=== PATIENT | female | born 1940 | race Caucasian/White ===

== ENCOUNTER → 2019-01-19 09:52 | Outpatient (CLI) | payer MEDICARE, SELFPAY ==
[2019-01-19 10:51] LABS: Erythrocyte Sedimentation Rate 21 mm/hr (0-30)
[2019-01-19 10:59] LABS: Hematocrit 41.3 % (37-47); Hemoglobin 13.4 g/dl (12.0-15.0); Mean Corp Hgb Conc 32.4 g/gl (32-36); Mean Corpuscular Hgb 30.6 pg (27.0-32.0); Mean Corpuscular Volume 94.3 fL (81-99); Mean Platelet Vol. 10.7 fl (6.2-12.0); Platelet Count 210 K/mm3 (150-450); RBC Distribution Width CV 12.6 % (11.6-14.6); RBC Distribution Width SD 43.5 fl (35.1-43.9); Red Blood Count 4.38 M/mm3 (4.2-5.4)
[2019-01-19 11:00] LABS: Scan Indicated on CBC? Y/N NO
[2019-01-19 11:12] LABS: AST(SGOT) 16 U/L (15-37); Alanine Aminotransfer ALT/SGPT 15 U/L (13-56); Albumin, Serum 3.9 g/dL (3.2-5.0); Alkaline Phosphatase 103 U/L (45-117); Anion Gap 5 (5-15); BUN 22 mg/dL (7-18); Bilirubin, Direct 0.16 mg/dL (0.00-0.30); CPK Total, Creatine Kinase 82 U/L (26-192); CRP < 2.90 mg/L (0.0-3.0); Chloride 105 mmol/L (98-107); Globulin 3.7 g/dL (2.2-4.2); Potassium 3.7 mmol/L (3.5-5.1); Protein, Total 7.6 g/dL (6.4-8.2); Rheumatoid Factor < 10.0 IU/mL (<15); Sodium Level 139 mmol/L (136-145)
[2019-01-21 03:07] LABS: Cytoplasmic Ab (C-ANCA) <1:20 titer (Neg:<1:20)
[2019-01-21 11:21] LABS: CCP IgG Antibodies 2 units (0-19); Perinuclear Ab (P-ANCA) <1:20 titer (Neg:<1:20)
[2019-01-21 11:32] LABS: ANTINUCLEAR ANTIBODIES DIRECT Negative (Negative); Anti-dsDNA Ab <1 IU/mL (0-9)
== END ==
PROVIDERS: Family Provider Family Medicine; PCP Family Medicine; Referring Provider Internal Medicine Pulmonary Disease; Visit Provider Internal Medicine Pulmonary Disease
DX: J84.112 Idiopathic pulmonary fibrosis (principal); I10 Essential (primary) hypertension; R05 Cough
CPT/HCPCS: 36415; 80051; 80076; 82550; 84520; 85027; 85652; 86038; 86140; 86200; 86225; 86256; 86431

== ENCOUNTER → 2020-08-30 13:47 | Outpatient (CLI) | payer MEDICARE, SELFPAY ==
[2020-08-30 15:35] LABS: Hematocrit 41.9 % (37-47); Hemoglobin 13.4 g/dL (12.0-15.0); Mean Corpuscular Hgb 30.4 pg (27.0-32.0); Mean Platelet Vol. 10.8 fl (6.2-12.0); Platelet Count 216 K/mm3 (150-450); RBC Distribution Width CV 12.2 % (11.6-14.6); RBC Distribution Width SD 42.7 fl (35.1-43.9); Red Blood Count 4.41 M/mm3 (4.2-5.4); White Blood Count 7.6 K/mm3 (4.4-11.0)
[2020-08-30 16:07] LABS: AST(SGOT) 14 U/L (15-37); Alanine Aminotransfer ALT/SGPT 19 U/L (13-56); Albumin, Serum 3.7 g/dL (3.2-5.0); Alkaline Phosphatase 100 U/L (45-117); BUN 26 mg/dL (7-18); Bilirubin, Direct 0.12 mg/dL (0.00-0.30); Creatinine, Serum 1.12 mg/dL (0.55-1.02); EST Glomerular Filtration Rate 50 mL/min (>60); Est Glom Filt Rate - Afr Amer 60 mL/min (>60); Globulin 3.7 g/dL (2.2-4.2); Protein, Total 7.4 g/dL (6.4-8.2)
== END ==
PROVIDERS: PCP Family Medicine; Referring Provider Internal Medicine Pulmonary Disease; Visit Provider Internal Medicine Pulmonary Disease
DX: K74.00 Hepatic fibrosis, unspecified (principal)
CPT/HCPCS: 36415; 80076; 82565; 84520; 85027

== ENCOUNTER → 2020-09-26 15:41 | Outpatient (CLI) | payer MEDICARE, SELFPAY ==
--- NOTE | 2020-09-26 15:48 | RAD_ITS ---
STUDY: X-RAY - SOFT TISSUE NECK REASON FOR EXAM: Female, 80 years old. COUGH/GERD/STRIDOR TECHNIQUE: 2 view(s) of the neck were obtained. COMPARISON: None. FINDINGS: Normal visualized nasopharynx and hypopharynx. Probable prominent tonsils in the posterior oropharynx. Normal epiglottis. Normal visualized subglottic tracheal air column. Normal prevertebral soft tissue structures. Moderate degenerative cervical vertebral changes. The soft tissue structures are unremarkable. RAD/Neck for Soft Tissue IMPRESSION: Probable prominent tonsils in the posterior oropharynx. The degenerative cervical vertebral changes. Electronically Signed: Feroz Stringer DO at 16:30 EST Tel [phone], Service support ,
== END ==
PROVIDERS: PCP Family Medicine; Referring Provider Internal Medicine Pulmonary Disease; Visit Provider Internal Medicine Pulmonary Disease
DX: R05 Cough (principal); K21.9 Gastro-esophageal reflux disease without esophagitis; R06.1 Stridor
CPT/HCPCS: 70360

== ENCOUNTER 2022-05-14 20:48 | Emergency (ER) | payer MEDICARE, SELFPAY ==
[2022-05-14 20:49] VITALS: BP 105/67; PULSE 93; RESP 16; TEMP 36.4; O2SAT 94; BMI 22.4
--- NOTE | 2022-05-14 21:15 | EDS_ITS ---
HPI History of Present Illness Chief Complaint: Other, Pain/Inj Detail of Chief Complaint: Right neck and shoulder pain Informant: patient Onset/Context/Timing Onset: Today Context: Gradual Onset Current Severity: Moderate Maximum Severity: Severe Narrative Narrative: Patient presents with right neck and shoulder pain. She states she woke up this morning with stiffness in the right side of her neck and thought she had slept wrong. She took some pain relievers. Pain progressed throughout the day. She tried to call her chiropractor who is out of town. She called her primary care physician when she told them her pain was 10 out of 10 and they referred her to the emergency room. She took some more pain relievers this evening because of continued pain presented to the emergency room. She reports sensitivity to the skin if anything touches over her right upper back, shoulder, neck, behind her right ear. PFSH COUNT INCLUDES THE [facility] Medical History Hypertension Home Medications hydrocodone-acetaminophen 5-325mg 5mg-325mg 1 tab PO Q6H PRN pain 3 days #10 tabs 05/14/22 [Rx Last Taken Unknown] lidocaine 5 % topical patch (Lidoderm) 1 patch topical DAILY #15 ea 05/14/22 [Rx Last Taken Unknown] multivitamin 1 tab PO DAILY 05/14/22 [History Last Taken Unknown] Allergy/AdvReac Type Severity Reaction Status Date / Time No Known Allergies Allergy Verified 05/14/22 20:52 Social History Smoking Status: Never smoker ROS ROS ED Constitutional Constitutional ED: Denies chills or fever(s) Eyes Eyes: Denies change in vision or discharge from eye(s) ENT ENT ED: Denies discharge from eye(s), rhinorrhea or sore throat Cardiovascular Cardiovascular: Denies chest pain or palpitations Respiratory/Chest Respiratory/Chest: Denies cough or dyspnea Gastrointestinal Gastrointestinal: Denies abdominal pain, nausea or vomiting Genitourinary Genitourinary ED: Denies dysuria Musculoskeletal Musculoskeletal: Reports extremity pain and neck pain; Denies back pain Integumentary Denies Abrasions or rash Neurologic Neurologic: Denies weakness Psychiatric Psychiatric: Denies anxiety or depression Allergic/Immunologic Allergic/Immunologic ED: Denies lip swelling or urticaria EXAM Physical Exam Const Vital Signs: 05/14/22 20:49 05/14/22 20:52 Temperature 97.6 F L Temperature Source Temporal Pulse Rate 93 Respiratory Rate 16 Respiratory Effort Normal Non-Labored Respiratory Pattern Normal Blood Pressure 105/67 Blood Pressure Mean 79 Pulse Ox 94 Oxygen Delivery Method Room Air Positive well nourished and well developed General Appearance ED: well developed HEENT Reports normocephalic and head/scalp atraumatic Eyes PERRL and EOMs intact bilaterally Neck supple Chest Wall inspection of chest normal and palpation of chest normal Resp normal respiratory effort and clear to auscultation bilaterally Cardio regular rate and regular rhythm GI normal to inspection, nondistended, normoactive bowel sounds Palpation: soft Back/Spine Back/Spine Narrative: Reproducible tenderness with palpation over the right upper thoracic paraspinal muscles and over the top of the right shoulder. She has pain in the right cervical paraspinal muscles as well. There are no overlying skin changes or rash noted at this time. Extremity normal to inspection Neuro oriented x3 and no sensory deficits noted Sensorium / Orientation: alert Motor Exam: strength 5/5 throughout Psych mental status grossly normal Skin no rashes or lesions noted MDM MDM MDM Narrative Medical decision making narrative: Patient was given a tab of [place] here and Lidoderm patches placed. On repeat evaluation she does feel improved. Prescriptions for the same will be written. Return instructions given. Of note, I did advise the patient to monitor for any skin changes or rash. She does seem to have significant skin sensitivity and I wonder this could be an early sign of shingles. Discharge Plan Triage Chief Complaint: Other, Pain/Inj ED Provider: Lucero Edwards Dx/Rx/DC Orders Clinical Impression: Neck strain, Back strain Instructions: ED Back Pain (Acute or Chronic) Prescriptions: New hydrocodone-acetaminophen 5-325 mg tablet 1 tab PO Q6H PRN (Reason: pain) 3 Days Qty: 10 0RF lidocaine [Lidoderm] 5 % adhesive patch,medicated 1 patch topical DAILY Qty: 15 0RF Rx Instructions: leave on most painful area for up to 12 hrs No Action multivitamin Tablet 1 tab PO DAILY Primary Care Provider: Rusty Franco Referrals: Rusty Franco MD [Primary Care Provider] - 1 Week if not improving Disposition Disposition: Home, Self Care
[2022-05-14] MEDS: HYDROcodone Bitartrate/Apap 5/325 Tablet PO (21:19)
[2022-05-14] MEDS: Lidocaine 5% Patch 1 PATCH TOPICAL (21:20)
== END 2022-05-14 22:13 | disposition home or self-care (01) ==
PROVIDERS: Emergency Provider Emergency Medicine; PCP Family Medicine; Visit Provider Emergency Medicine
DX: S16.1XXA Strain of muscle, fascia and tendon at neck level, initial encounter (principal); S29.012A Strain of muscle and tendon of back wall of thorax, initial encounter; X58.XXXA Exposure to other specified factors, initial encounter
CPT/HCPCS: 99283

== ENCOUNTER 2023-01-25 16:11 | Emergency (ER) | payer MEDICARE, SELFPAY ==
[2023-01-25 16:12] VITALS: BP 123/91; PULSE 86; RESP 16; TEMP 36.6; O2SAT 93
--- NOTE | 2023-01-25 16:34 | EX.ED.DYSGE1 ---
HPI History of Present Illness Chief Complaint: General Illness Detail of Chief Complaint: Fatigue, productive cough, mid upper central back pain with coughing and mo Informant: patient and family Onset/Context/Timing Onset: Weeks (Bad for the past 1.5 weeks) Context: Gradual Onset Timing: Continuous and Waxes and wanes Quality: Dyspnea, productive cough, back pain and fatigue Location: Respiratory Current Severity: Mild Maximum Severity: Moderate Worsened by: Nothing specific Relieved by: Nothing Associated Symptoms Associated Symptoms: Nothing Narrative Narrative: PresentPatient is an 83-year-old woman with history of pulmonary fibrosis because of shortness of breath, dyspnea on exertion, fatigue and productive cough of colored sputum for the past 1.5 weeks. She is uncertain whether this is due to her increased activity, being outdoors with the air quality warnings, or the humidity. Patient does not have an air conditioned home. She has never smoked. She denies fever or chills. She does report rhinorrhea and postnasal drainage. She also reports productive cough. She denies history of PE or DVT. She denies leg pain, swelling discoloration. She denies GI symptoms. Prior similar symptoms: No Recent Illness/Hospitalization: No PFSH [facility] Medical History Hypertension Home Medications hydrocodone-acetaminophen 5-325mg 5mg-325mg 1 tab PO Q6H PRN pain 3 days #10 tabs 05/14/22 [Rx Last Taken Unknown] lidocaine 5 % topical patch (Lidoderm) 1 patch topical DAILY #15 ea 05/14/22 [Rx Last Taken Unknown] multivitamin 1 tab PO DAILY 05/14/22 [History Last Taken Unknown] Allergy/AdvReac Type Severity Reaction Status Date / Time No Known Allergies Allergy Verified 01/25/23 16:14 Social History (Updated 01/25/23 @ 17:[address] Alcides Diego MD) household members: none Smoking Status: Never smoker substance use type: does not use ROS ROS ED Constitutional Constitutional ED: Denies chills, fever(s), subjective, sweats or weight loss Eyes Eyes: Denies blurry vision, change in vision or diplopia ENT ENT ED: Reports rhinorrhea; Denies ear pain or sore throat Cardiovascular Cardiovascular: Denies chest pain, orthopnea, palpitations, paroxysmal nocturnal dyspnea or racing heartbeat Respiratory/Chest Respiratory/Chest: Reports cough, dyspnea, dyspnea on exertion and sputum; Denies orthopnea or paroxysmal nocturnal dyspnea Gastrointestinal Gastrointestinal: Denies abdominal pain, nausea or vomiting Musculoskeletal Musculoskeletal: Reports back pain and other Details: Back pain is near her kyphotic curve. ; Denies arthralgias, myalgias or neck pain Integumentary Denies rash Neurologic Neurologic: Denies headache(s), paresthesias or weakness Hematologic/Lymphatic Hematologic/Lymphatic: Reports systems reviewed and no addt'l complaints, except as documented EXAM Physical Exam Const Vital Signs: 01/25/23 16:12 01/25/23 16:49 Temperature 97.8 F Temperature Source Temporal Pulse Rate 86 Respiratory Rate 16 Respiratory Effort Normal Non-Labored Respiratory Pattern Normal Blood Pressure 123/91 H Blood Pressure Mean 101 Pulse Ox 93 Oxygen Delivery Method Room Air Positive well developed and cachectic Constitutional Narrative: Patient's had an 80 pound weight loss over the past year. This is unintentional weight loss. General Appearance ED: well developed, cachectic and NAD; Negative for cyanotic, diaphoretic or pallor Nutritional Appearance: cachectic HEENT Reports dry mucous membranes HEENT Narrative: Posterior pharynx without erythema or exudate. Uvula midline. No deviation of tongue with protrusion. Nares patent. Ears normal. Mouth ED: Yes dry mucous membranes Mouth: dry mucous membranes Eyes PERRL and EOMs intact bilaterally General Eye ED: Negative for pale conjunctiva or scleral icterus Neck no lymphadenopathy, supple and no JVD Neck Narrative: Trachea is midline. There is no inspiratory stridor. Chest Wall inspection of chest normal and palpation of chest normal Resp normal respiratory effort and No clear to auscultation bilaterally Resp Narrative: End inspiratory rales bilaterally right slightly greater than left. Auscultation: diminished lung sounds bilateral (Diffuse) Cardio regular rate, regular rhythm, S1 normal heart sound, S2 normal heart sound and no murmurs GI normal to inspection, nondistended, normoactive bowel sounds, non-tender and non-distended; Negative for hepatosplenomegaly Palpation: soft Back/Spine no CVA tenderness Thoracic Spine / Upper Back: thoracic spinal tenderness T6 (Patient has significant kyphosis which has progressed over the past decade.) swelling, warmth, erythema, ecchymosis and other Extremity normal to inspection Extremity Narrative: There is no asymmetry, swelling, discoloration, leg vein distention, palpable cords or tenderness along the distribution of the deep venous system. Neuro oriented x3, CN's II-XII intact bilaterally and no sensory deficits noted Sensorium / Orientation: alert Psych mental status grossly normal Skin no rashes or lesions noted, no wounds and skin turgor normal General Skin Exam: Negative for jaundice or pallor MDM MDM MDM Narrative Medical decision making narrative: Patient presents with respiratory symptoms. This may represent bronchitis versus pneumonia versus exacerbation of patient's pulmonary fibrosis due to the humidity and air conditioning/quality. We will obtain chest x-ray and blood work. She also has point tenderness over T5-T6 area and may represent a compression fracture. History & Record Review Discussion w/independent historian: Patient and Family Additional record(s) reviewed:: Prior outpatient record and Prior labs Lab Data Attestation: I reviewed the patient's lab results. Lab results narrative: White count is normal. Comprehensive metabolic panel is normal. Suspect patient's unintentional weight loss is due to her chronic pulmonary fibrosis. Labs: Laboratory Results - last 24 hr 01/25/23 16:44 WBC 7.3 RBC 4.38 Hgb 13.3 Hct 41.6 MCV 95.0 MCH 30.4 MCHC 32.0 RDW Std Deviation 42.5 RDW Coeff of Margarita 12.1 Plt Count 280 MPV 10.0 Immature Gran % (Auto) 0.800 Neut % (Auto) 73.4 H Lymph % (Auto) 12.5 L [place] % (Auto) 7.4 Eos % (Auto) 5.5 H Baso % (Auto) 0.4 Absolute Neuts (auto) 5.4 Absolute Lymphs (auto) 0.91 Nucleated RBC % 0 Sodium 139 Potassium 3.8 Chloride 107 Carbon Dioxide 27.0 Anion Gap 5 BUN 12 Creatinine 0.85 Est GFR (MDRD) Af Amer 83 Est GFR (MDRD) Non-Af 69 BUN/Creatinine Ratio 14.2 Glucose 106 Calcium 9.0 Total Bilirubin 0.50 AST 18 ALT 16 Alkaline Phosphatase 101 Total Protein 7.3 Albumin 3.2 Globulin 4.1 Albumin/Globulin Ratio 0.8 L Radiography Chest X-Ray - ED: 2 View and Read by ED Physician (There is significant chronic changes consistent with pulmonary fibrosis. This has progressed since prior film of 2009. There may be a compression fracture that has progressed since 2010 T5-T6 area. Radiologist noted an 8.8 mm nodule within the right midlung field. Since CAT scan is recommended w) Diagnostic Testing: Clinical Impression(s) from Imaging Studies Chest X-Ray 01/25/23 16:54 IMPRESSION: Pulmonary fibrosis, cannot exclude associated superimposed edema and/or infectious processes. 8.8 mm nodule within the right midlung, recommend chest CT for further characterization. Electronically Signed: Lily Patten MD at 17:13 EDT , Chest CT 01/25/23 17:23 IMPRESSION: 1. No definite acute abnormality. 2. Chronic pulmonary disease with severe fibrotic changes. Electronically Signed: Rocael Mcgovern MD at 18:27 EDT , No nodule noted on CT. Patient has severe fibrotic changes consistent with pulmonary fibrosis. Patient was informed there was no nodule noted. Treatment and Re-Evaluation :: Symptomatic treatment and staying indoors as much as possible. Discharge Plan Triage Chief Complaint: General Illness ED Provider: Alcides Diego Dx/Rx/DC Orders Clinical Impression: Upper respiratory infection with cough and congestion, Acute dyspnea, Pulmonary fibrosis Instructions: ED URI, Viral, No Abx (Adult) Prescriptions: No Action multivitamin Tablet 1 tab PO DAILY hydrocodone-acetaminophen 5-325 mg tablet 1 tab PO Q6H PRN (Reason: pain) 3 Days Qty: 10 0RF lidocaine [Lidoderm] 5 % adhesive patch,medicated 1 patch topical DAILY Qty: 15 0RF Rx Instructions: leave on most painful area for up to 12 hrs Primary Care Provider: Rusty Franco Referrals: Rusty Franco MD [Primary Care Provider] - As Needed Disposition Disposition: Home, Self Care
--- NOTE | 2023-01-25 16:54 | RAD_ITS ---
INDICATION: Productive cough, history of pulmonary fibrosis EXAMINATION/TECHNIQUE: X-RAY - XR Chest 2 Views COMPARISON: No relevant prior comparison study available FINDINGS: LINES/DEVICES: None. LUNGS: There are bilateral chronic appearing interstitial markings consistent with pulmonary fibrosis. Within the right midlung there is a 8.8 mm pulmonary nodule. MEDIASTINUM AND CARDIOVASCULAR STRUCTURES: Cardiac silhouette not enlarged. Central airways and mediastinal contour are unremarkable. BONES AND SOFT TISSUES: The bones are diffusely demineralized. RAD/Chest PA and Lateral IMPRESSION: Pulmonary fibrosis, cannot exclude associated superimposed edema and/or infectious processes. 8.8 mm nodule within the right midlung, recommend chest CT for further characterization. Electronically Signed: Lily Patten MD at 17:13 EDT ,
[2023-01-25 16:58] LABS: Absolute Lymphocyte Count 0.91 X10^3/uL (0.83-4.51); Absolute Neutrophil Count 5.4 X10^3/uL (2.0-7.7); Basophil# 0.03 X10^3/uL; Basophil% 0.4 % (0-1); Eosinophils% 5.5 % (0-5); Hematocrit 41.6 % (37-47); Hemoglobin 13.3 g/dL (12.0-15.0); Lymphocyte # 0.91 X10^3/ul (0.83-4.51); Lymphocyte % 12.5 % (19-41); Mean Corpuscular Hgb 30.4 pg (27.0-32.0); Monocyte# 0.54 X10^3/uL; Monocyte% 7.4 % (0-10); NRBC Flagged by Analyzer 0 % (0-5); Neutrophil # 5.35 X10^3/uL (2.7-7.7); Neutrophil % 73.4 % (47-70); Platelet Count 280 K/mm3 (150-450); RBC Distribution Width CV 12.1 % (11.6-14.6); RBC Distribution Width SD 42.5 fl (35.1-43.9); Red Blood Count 4.38 M/mm3 (4.2-5.4); White Blood Count 7.3 K/mm3 (4.4-11.0)
[2023-01-25 17:14] LABS: ALB/GLOB Ratio 0.8 RATIO (0.9-2.4); AST(SGOT) 18 U/L (15-37); Alanine Aminotransfer ALT/SGPT 16 U/L (13-56); Albumin, Serum 3.2 g/dL (3.2-5.0); Alkaline Phosphatase 101 U/L (45-117); Anion Gap 5 (5-15); BUN 12 mg/dL (7-18); BUN/Creat Ratio 14.2 RATIO (10-20); Chloride 107 mmol/L (98-107); Creatinine, Serum 0.85 mg/dL (0.55-1.02); EST Glomerular Filtration Rate 69 mL/min (>60); Est Glom Filt Rate - Afr Amer 83 mL/min (>60); Globulin 4.1 g/dL (2.2-4.2); Glucose 106 mg/dL (74-106); Potassium 3.8 mmol/L (3.5-5.1); Protein, Total 7.3 g/dL (6.4-8.2); Sodium Level 139 mmol/L (136-145)
--- NOTE | 2023-01-25 17:23 | CT_ITS ---
EXAM: CT CHEST WITH INTRAVENOUS CONTRAST CLINICAL INDICATION: 9 mm nodule right midlung field and 80 pound unintentional weightloss, hx pulmonary fibrosis TECHNIQUE: Helically acquired images were obtained of the chest with intravenous contrast. This CT exam was performed using one or more of the following dose reduction techniques: automated exposure control, adjustment of the mA and/or kV according to patient size, and/or use of iterative reconstruction technique. CONTRAST: IV 100mL Isovue-300 RADIATION DOSE: CTDIvol = 10.8 mGy, DLP = 236.87 mGy-cm COMPARISON: No relevant prior studies available. FINDINGS: LUNGS AND PLEURAL SPACES: Incomplete expansion of the lungs. Widespread severe diffuse pulmonary fibrosis, with focal areas of scarring along the periphery of both lungs. There is honeycombing in the lung bases. No mass. No pneumothorax. No definite inflammatory infiltrates. No effusions. HEART: Mild cardiomegaly. No pericardial effusion. MEDIASTINUM: Unremarkable. No mediastinal or hilar adenopathy. Esophagus is unremarkable. No hiatal hernia. THYROID: Unremarkable. No thyroid lesions. BONES/JOINTS: Diffuse demineralization. Exaggerated kyphosis. Partial compression fracture of L3. Degenerative changes of the cervical spine. VASCULATURE: Unremarkable. Thoracic aorta is non-dilated. No thoracic aortic dissection. No obvious central pulmonary embolism although this study was not performed with the pulmonary embolism protocol. OTHER FINDINGS: No definite focal nodules. CT/Chest WITH Contrast IMPRESSION: 1. No definite acute abnormality. 2. Chronic pulmonary disease with severe fibrotic changes. Electronically Signed: Rocael Mcgovern MD at 18:27 EDT ,
[2023-01-25 18:15] VITALS: BMI 19.5
[2023-01-25 19:53] VITALS: PULSE 87; RESP 18; O2SAT 96
== END 2023-01-25 19:55 | disposition home or self-care (01) ==
PROVIDERS: Emergency Provider Emergency Medicine; PCP Family Medicine; Visit Provider Emergency Medicine
DX: J06.9 Acute upper respiratory infection, unspecified (principal); J84.10 Pulmonary fibrosis, unspecified; R05.9 Cough, unspecified; R09.81 Nasal congestion; R06.00 Dyspnea, unspecified; R63.4 Abnormal weight loss
CPT/HCPCS: 71046; 71260; 80053; 85025; 99282; Q9967; A4216

== ENCOUNTER 2024-10-13 18:32 | Emergency (ER) | payer MEDICARE, SELFPAY ==
[2024-10-13 18:34] VITALS: BP 134/72; PULSE 86; RESP 16; TEMP 36.9; O2SAT 97
[2024-10-13 19:24] LABS: Pathologist Comment/Body Fluid May follow
[2024-10-13 19:25] VITALS: BMI 25.1
--- NOTE | 2024-10-13 19:33 | RAD_ITS ---
PROCEDURE: WRIST MIN 3 VIEWS REASON FOR EXAM: INJURY/PAIN TECHNIQUE: 3 views of the right wrist COMPARISON: None FINDINGS: No visible fracture. No suspicious bone lesion. Severe degenerative changes of the carpal joints. Soft tissues are unremarkable. No radiopaque foreign body is demonstrated. RAD/Wrist min 3 Views IMPRESSION: DEGENERATIVE OSTEOARTHROSIS. NO ACUTE FINDINGS. Reading Location: [facility]
[2024-10-13 19:37] VITALS: BP 174/78; PULSE 82; RESP 18; TEMP 37.2; O2SAT 99
[2024-10-13 19:39] LABS: Absolute Lymphocyte Count 0.77 X10^3/uL (0.83-4.51); Absolute Neutrophil Count 10.6 X10^3/uL (2.0-7.7); Basophil# 0.02 X10^3/uL; Basophil% 0.2 % (0-1); Eosinophil# 0.27 X10^3/uL; Eosinophils% 2.1 % (0-5); Hematocrit 36.8 % (37-47); Hemoglobin 11.6 g/dL (12.0-15.0); Lymphocyte # 0.77 X10^3/ul (0.83-4.51); Mean Corp Hgb Conc 31.5 g/dL (32-36); Mean Corpuscular Hgb 30.1 pg (27.0-32.0); Mean Corpuscular Volume 95.6 fL (81-99); Mean Platelet Vol. 10.6 fl (6.2-12.0); Monocyte% 7.9 % (0-10); NRBC Flagged by Analyzer 0 % (0-5); Neutrophil % 83.3 % (47-70); Platelet Count 156 K/mm3 (150-450); RBC Distribution Width CV 12.2 % (11.6-14.6); RBC Distribution Width SD 42.7 fl (35.1-43.9); Red Blood Count 3.85 M/mm3 (4.2-5.4); White Blood Count 12.7 K/mm3 (4.4-11.0)
[2024-10-13 19:42] LABS: Color/Body Fluid PINK; Source- Body Fluid OTHER
[2024-10-13 19:43] LABS: Appearance/Body Fluid CLOUDY
[2024-10-13 19:59] LABS: Body Fluid QC Type(s) BF2Q
[2024-10-13 20:00] VITALS: BP 171/86; PULSE 97; RESP 18; TEMP 37.3; O2SAT 95
[2024-10-13] MEDS: Ampicillin/Sulbactam 3 GM in 0.9% Normal Saline (100mL MB+) 100 ML IV (20:05)
[2024-10-13 20:10] LABS: Anion Gap 9 (5-15); BUN 14 mg/dL (4-19); BUN/Creat Ratio 18.6 RATIO (10-20); Calcium,Total 9.4 mg/dL (7.6-11.0); Carbon Dioxide 33.2 mmol/L (21.0-32.0); Chloride 98 mmol/L (98-108); Creatinine, Serum 0.73 mg/dL (0.70-1.20); EST Glomerular Filtration Rate 82 (>60); Estimated Creatinine Clearance 43.33 ml/min (50-250); Glucose 191 mg/dL (70-99); Potassium 4.2 mmol/L (3.3-5.1); Sodium Level 140 mmol/L (133-145)
[2024-10-13] MEDS: Lidocaine 1% (20 ml mdv) 20 ML Vial INFILT (20:50)
--- NOTE | 2024-10-13 20:59 | EX.ED.GENINJ ---
HPI History of Present Illness Chief Complaint: Bite Detail of Chief Complaint: Infected cat bite dorsum right hand Informant: patient Onset/Context/Timing Onset: Days (October 11) Location of pain/injuries: Right hand Quality of Pain: Dull and Aching Location: Right wrist Current Severity: Mild Maximum Severity: Severe Worsened by: Palpation and movement Relieved by: Nothing Associated Symptoms Associated Symptoms: Negative for Parasthesias, Weakness, Loss of function or Inability to ambulate Narrative Narrative: Patient is an 84-year-old woman. She was petting a cat at [employer]. The cat bit her. This occurred on Thursday. She was prescribed Augmentin today. She is taken 2 doses. She presents because of pain, swelling and slight redness. She states when she makes a fist the pain is worse. She denies allergies to antibiotics. She has history of pulmonary fibrosis. She denies fever, chills night sweats. She denies nausea or vomiting. She denies elbow or shoulder pain. She has rheumatoid arthritis. Review of her meds indicates she is on no immunosuppressive medication. Recent Illness/Hospitalization: No [facility] Medical History Hypertension Home Medications ?Medication ?Instructions ?Recorded ?Last Taken ?Type acetaminophen 500 mg tablet 1,000 mg PO Q4H PRN pain 10/13/24 Unknown History amoxicillin 875 mg-potassium 1 tab PO BID 10/13/24 Unknown History clavulanate 125 mg tablet benzonatate 100 mg capsule 100 mg PO Q8H PRN cough 10/13/24 Unknown History bisacodyl 10 mg rectal suppository 10 mg [place] DAILY PRN constipation 10/13/24 Unknown History (Gentle Laxative (bisacodyl)) dextromethorphan-guaifenesin 5 20 ml PO Q4H PRN cough 10/13/24 Unknown History mg-100 mg/5 mL oral liquid diazepam 2 mg tablet 2 mg PO TID PRN agitation 10/13/24 Unknown History dimethicone 5 % topical cream 1 applic topical Q8H PRN skin 10/13/24 Unknown History (DermacinRx Dimopair) irritation ibuprofen 400 mg tablet (IBU) 400 mg PO TID PRN pain 10/13/24 Unknown History ipratropium 0.5 mg-albuterol 3 mg 3 ml inhalation Q4H PRN dyspnea 10/13/24 Unknown History (2.5 mg base)/3 mL nebulization soln lorazepam 0.5 mg tablet 0.25 mg PO Q4H PRN anxiety 10/13/24 Unknown History miconazole nitrate 2 % topical 1 applic topical TID PRN skin 10/13/24 Unknown History powder (Desenex) irritation morphine concentrate 100 mg/5 mL 5 mg PO Q3H PRN pain 10/13/24 Unknown History (20 mg/mL) oral solution mebjagsyxvdg-tpafgqjq-bnlklp 1 tab PO DAILY 10/13/24 Unknown History tablet (Multivitamin 50 Plus tablet) nitroglycerin 0.4 mg sublingual 0.4 mg sublingual PRN PRN chest 10/13/24 Unknown History tablet pain omeprazole 20 mg capsule,delayed 20 mg PO DAILY 10/13/24 Unknown History release ondansetron HCl 4 mg tablet 4 mg PO Q6H PRN nausea and vomiting 10/13/24 Unknown History saliva substitute combo no.9 15 ml mucous membrane Q2H PRN dry 10/13/24 Unknown History (Biotene Dry Mouth Oral Rinse mouth mouthwash) sennosides 8.6 mg-docusate sodium 1 tab PO BID PRN constipation 10/13/24 Unknown History 50 mg tablet (Stool Softener-Laxative) Allergy/AdvReac Type Severity Reaction Status Date / Time No Known Allergies Allergy Verified 10/13/24 18:37 Family History no significant family his Social History household members: none Smoking Status: Never smoker substance use type: does not use ROS ROS ED Constitutional Constitutional ED: Denies chills, fever(s), subjective, sweats or weight loss Eyes Eyes: Denies blurry vision or change in vision ENT ENT ED: Denies rhinorrhea or sore throat Musculoskeletal Musculoskeletal: Reports other Details: Right hand and wrist pain Integumentary Reports rash and other Details: And swelling of the right hand dorsal surface only. Hematologic/Lymphatic Hematologic/Lymphatic: Denies easy bleeding or easy bruising EXAM Physical Exam Const Vital Signs: 10/13/24 18:34 10/13/24 19:37 10/13/24 20:00 Temperature 98.4 F 98.9 F 99.2 F H Temperature Source Temporal Oral Oral Pulse Rate 86 82 97 Respiratory Rate 16 18 18 Blood Pressure 134/72 H 174/78 H 171/86 H Blood Pressure Mean 92 110 114 Pulse Ox 97 99 95 Oxygen Delivery Method Nasal Cannula Nasal Cannula Nasal Cannula Oxygen Flow Rate (L/min) 3 3 Positive well nourished and well developed General Appearance ED: well developed and NAD HEENT HEENT Narrative: Head is normocephalic. There is no acute abnormality. atraumatic Eyes PERRL and EOMs intact bilaterally Resp normal respiratory effort and clear to auscultation bilaterally Cardio regular rhythm, S1 normal heart sound, S2 normal heart sound and no murmurs Rate: regular rate Extremity Extremity Narrative: There is swelling of the dorsum of the right hand. There is slight erythema. There is no true warmth or induration. There is fluctuance over the right wrist dorsal surface. Passive flexion extension of the thumb, index finger, long finger, ring finger and little finger does not elicit pain. She does have pain with movement of the wrist. Median, radial and ulnar function intact. There is no lymphangitis. There is no epitrochlear or axillary lymphadenopathy. Neuro oriented x3 and CN's II-XII intact bilaterally Sensorium / Orientation: alert Psych mental status grossly normal and thought process normal Skin Skin Narrative: Described under the extremity portion of the EMR PROC Procedures Other Procedures Procedure(s): Hand was prepped draped sterile manner. Area was anesthetized with 1% lidocaine with local infiltration. Total of 2.5 cc was infiltrated. After 1 minute incision was made. Incision length was 1.5 cm. There was additional pleural fluid there was noted. The cavity was explored. The extensor tendons are not visible. 1/4 inch iodoform gauze was placed as a wick. Patient received a dose of Unasyn in the emergency department. She will need Augmentin for additional 6 days. MDM MDM MDM Narrative Medical decision making narrative: 2 puncture wounds due to cat bite dorsum of the right hand. There is no tenderness over the bite new. There is no fluctuance. Unable to express any purulent material. There is fluctuance over the wrist. Needle aspirate was undertaken. Approximately 1 to 1.5 cc of a reddish-white thick fluid was aspirated. It was sent for Gram stain, culture and cell count. X-ray was obtained to see if there are any bony lesions or fractured teeth that were retained. Blood work was obtained as well. Lab Data Attestation: I reviewed the patient's lab results. Lab results narrative: White count is elevated 12.7 with slight shift no bandemia. H&H 11.6 and 36.8 with normal indices. Electrolyte panel is remarkable for an estimated GFR of 82. Labs: Laboratory Results - last 24 hr 10/13/24 10/13/24 19:14 19:29 WBC 12.7 H RBC 3.85 L Hgb 11.6 L Hct 36.8 L MCV 95.6 MCH 30.1 MCHC 31.5 L RDW Std Deviation 42.7 RDW Coeff of Margarita 12.2 Plt Count 156 MPV 10.6 Immature Gran % (Auto) 0.500 Neut % (Auto) 83.3 H Lymph % (Auto) 6.0 L [place] % (Auto) 7.9 Eos % (Auto) 2.1 Baso % (Auto) 0.2 Absolute Neuts (auto) 10.6 H Absolute Lymphs (auto) 0.77 L Nucleated RBC % 0 Sodium 140 Potassium 4.2 Chloride 98 Carbon Dioxide 33.2 H Anion Gap 9 BUN 14 Creatinine 0.73 Estim Creat Clear Calc 43.33 L Est GFR (MDRD) Non-Af 82 BUN/Creatinine Ratio 18.6 Glucose 191 H Calcium 9.4 Fluid WBC TNP Fluid RBC TNP Fluid Tot Cell Count TNP Radiography Chest X-Ray - ED: Read by ED Physician (Three-view x-ray of the wrist reveals significant osteoarthritis of multiple joints in her wrist and hand. There is no subcutaneous air. There is no lytic lesions. There is no periosteal elevation.) Diagnostic Testing: Clinical Impression(s) from Imaging Studies Wrist X-Ray 10/13/24 19:33 IMPRESSION: DEGENERATIVE OSTEOARTHROSIS. NO ACUTE FINDINGS. [facility] Treatment and Re-Evaluation Narrative: Patient was consented for I&D. Patient in my opinion is appropriate for outpatient therapy. She did not get better because she is only had 2 doses and she had an abscess which does not improve with antibiotics. Discharge Plan Triage Chief Complaint: Bite ED Provider: Alcides Diego Dx/Rx/DC Orders Clinical Impression: Cat bite of right hand with infection, Cutaneous abscess of right wrist, Rheumatoid arthritis Instructions: ED Abscess Incision And Drainage, ED Cat Bite Prescriptions: No Action amoxicillin-pot clavulanate 875-125 mg tablet 1 tab PO BID Patient Comments: START DATE 3190831 END DATE [id number] lorazepam 0.5 mg tablet 0.25 mg PO Q4H PRN (Reason: anxiety) benzonatate 100 mg capsule 100 mg PO Q8H PRN (Reason: cough) diazepam 2 mg tablet 2 mg PO TID PRN (Reason: agitation) ipratropium-albuterol 0.5 mg-3 mg(2.5 mg base)/3 mL solution for nebulization 3 ml inhalation Q4H PRN (Reason: dyspnea) nitroglycerin 0.4 mg tablet, sublingual 0.4 mg sublingual PRN PRN (Reason: chest pain) sennosides-docusate sodium [Stool Softener-Laxative] 8.6-50 mg tablet 1 tab PO BID PRN (Reason: constipation) omeprazole 20 mg capsule,delayed release(DR/EC) 20 mg PO DAILY Biotene Dry Mouth Oral Rinse Mouthwash 15 ml mucous membrane Q2H PRN (Reason: dry mouth) Rx Instructions: swish for 15-30 secs , then spit out; do not swallow miconazole nitrate [Desenex] 2 % powder 1 applic topical TID PRN (Reason: skin irritation) DermacinRx Dimopair 5 % cream 1 applic topical Q8H PRN (Reason: skin irritation) bisacodyl [Gentle Laxative (bisacodyl)] 10 mg suppository 10 mg [place] DAILY PRN (Reason: constipation) Multivitamin 50 Plus Tablet 1 tab PO DAILY dextromethorphan-guaifenesin 5-100 mg/5 mL liquid 20 ml PO Q4H PRN (Reason: cough) ibuprofen [IBU] 400 mg tablet 400 mg PO TID PRN (Reason: pain) morphine concentrate 100 mg/5 mL (20 mg/mL) solution 5 mg PO Q3H PRN (Reason: pain) acetaminophen 500 mg tablet 1,000 mg PO Q4H PRN (Reason: pain) ondansetron HCl 4 mg tablet 4 mg PO Q6H PRN (Reason: nausea and vomiting) Primary Care Provider: Yen Cam Referrals: Yen Cam, SHELL REPRINT OPERATOR-C [Primary Care Provider] - 2 Days for wound check Activity Restrictions/Additional Instructions: 1. Delia should take Augmentin 875 mg twice daily for 6 additional days. 2. Wick should be removed in 2 days and wound evaluate at that time. Print Language: Kazakh Disposition Disposition: Home, Self Care
[2024-10-13 21:00] VITALS: BP 151/93; PULSE 84; RESP 18; TEMP 37.3; O2SAT 96; O2SAT 98
[2024-10-13 22:10] LABS: Macrophages 21 %; Monocytes 1 %; Neutrophil (Segs) 78 %
== END 2024-10-13 21:48 | disposition home or self-care (01) ==
PROVIDERS: Emergency Provider Emergency Medicine; PCP Nurse Practitioner Primary Care; Visit Provider Emergency Medicine
DX: S61.451A Open bite of right hand, initial encounter (principal); M06.9 Rheumatoid arthritis, unspecified; L02.413 Cutaneous abscess of right upper limb; W55.01XA Bitten by cat, initial encounter; Y92.099 Unspecified place in other non-institutional residence as the place of occurrence of the external cause; I10 Essential (primary) hypertension
CPT/HCPCS: 20605; 73110; 80048; 85025; 87070; 87075; 87077; 87186; 87205; 96365; 99283; A4216; J0295

== ENCOUNTER 2025-04-08 19:11 | Emergency (ER) | payer MEDICARE, SELFPAY ==
[2025-04-08] VITALS (12 sets, daily range): BP systolic 123–175; BP diastolic 80–122; PULSE 66–99; RESP 14–18; TEMP 36.7–37.2; O2SAT 92–100; BMI 26.2
--- NOTE | 2025-04-08 19:15 | EX.ED.DYSGE1 ---
HPI History of Present Illness Chief Complaint: Abd [facility] Medical History (Updated 04/08/25 @ 21:[address] Adi Meng, DO) Pulmonary fibrosis Hypertension Home Medications ?Medication ?Instructions ?Recorded ?Last Taken ?Type acetaminophen 500 mg tablet 1,000 mg PO Q4H PRN pain 10/13/24 Unknown History amoxicillin 875 mg-potassium 1 tab PO BID 10/13/24 Unknown History clavulanate 125 mg tablet benzonatate 100 mg capsule 100 mg PO Q8H PRN cough 10/13/24 Unknown History bisacodyl 10 mg rectal suppository 10 mg [place] DAILY PRN constipation 10/13/24 Unknown History (Gentle Laxative (bisacodyl)) dextromethorphan-guaifenesin 5 20 ml PO Q4H PRN cough 10/13/24 Unknown History mg-100 mg/5 mL oral liquid diazepam 2 mg tablet 2 mg PO TID PRN agitation 10/13/24 Unknown History dimethicone 5 % topical cream 1 applic topical Q8H PRN skin 10/13/24 Unknown History (DermacinRx Dimopair) irritation ibuprofen 400 mg tablet (IBU) 400 mg PO TID PRN pain 10/13/24 Unknown History ipratropium 0.5 mg-albuterol 3 mg 3 ml inhalation Q4H PRN dyspnea 10/13/24 Unknown History (2.5 mg base)/3 mL nebulization soln lorazepam 0.5 mg tablet 0.25 mg PO Q4H PRN anxiety 10/13/24 Unknown History miconazole nitrate 2 % topical 1 applic topical TID PRN skin 10/13/24 Unknown History powder (Desenex) irritation morphine concentrate 100 mg/5 mL 5 mg PO Q3H PRN pain 10/13/24 Unknown History (20 mg/mL) oral solution zxucwayhzjor-ixocblwh-yibzap 1 tab PO DAILY 10/13/24 Unknown History tablet (Multivitamin 50 Plus tablet) nitroglycerin 0.4 mg sublingual 0.4 mg sublingual PRN PRN chest 10/13/24 Unknown History tablet pain omeprazole 20 mg capsule,delayed 20 mg PO DAILY 10/13/24 Unknown History release ondansetron HCl 4 mg tablet 4 mg PO Q6H PRN nausea and vomiting 10/13/24 Unknown History saliva substitute combo no.9 15 ml mucous membrane Q2H PRN dry 10/13/24 Unknown History (Biotene Dry Mouth Oral Rinse mouth mouthwash) sennosides 8.6 mg-docusate sodium 1 tab PO BID PRN constipation 10/13/24 Unknown History 50 mg tablet (Stool Softener-Laxative) ondansetron 4 mg disintegrating 4 mg PO Q8H PRN PRN Nausea #10 tabs 04/08/25 Unknown Rx tablet oxycodone 5 mg tablet 5 mg PO Q6H PRN pain 7 days #30 04/08/25 Unknown Rx tabs Allergy/AdvReac Type Severity Reaction Status Date / Time No Known Allergies Allergy Verified 04/08/25 19:13 Family History no significant family his Social History household members: none Smoking Status: Never smoker substance use type: does not use EXAM Physical Exam Const Vital Signs: 04/08/25 19:11 04/08/25 19:48 04/08/25 20:51 Temperature 98.0 F Temperature Source Temporal Pulse Rate 99 78 78 Respiratory Rate 18 16 14 Blood Pressure 146/89 H 160/81 H 161/80 H Blood Pressure Mean 108 107 107 Pulse Ox 100 92 98 Oxygen Delivery Method Room Air Nasal Cannula Nasal Cannula Oxygen Flow Rate (L/min) 2 2 MDM MDM MDM Narrative Medical decision making narrative: HISTORY OF PRESENT ILLNESS: Chief complaint: Abdominal pain 85-year-old female history of pulmonary fibrosis, GERD, type 2 diabetes, anxiety, hypertension, adjustment disorder, CKD presents with concern for abdominal pain. The patient states this began tonight. REVIEW OF SYSTEMS: Pertinent positives: Abdominal pain Pertinent negatives: Vomiting PHYSICAL EXAM: Nursing triage notes reviewed, Vital signs reviewed Constitutional: please see mdm HENT: MMM Eyes: Pupils equal round and reactive to light, Extraocular muscles intact Neck: No stridor, no JVD, full neck ROM Lungs: Clear to auscultation, No wheezing or rales. No increased work of breathing, no conversational dyspnea, no accessory muscle use, no nasal flaring. No respiratory distress noted Heart: Regular rate and rhythm, No murmurs, No rubs and No gallops, 2+ distal pulses (radial, femoral, posterior tibial) in all extremities Abdomen: Soft, slight distention, diffuse tenderness but no rigidity, rebound or guarding, no obvious peritoneal signs, no palpable pulsatile abdominal masses, no auscultated abdominal bruit : No CVAT Extremities: No edema Neuro: No new focal neurological deficits, cranial nerves II through XII intact, 5/5 strength in all present extremities. Intact sensation to light touch in all present extremities, 2+ reflexes bilateral patella tendons. Skin: No rash or lesions noted MEDICAL DECISION MAKING: Chief Complaint: please see HPI External records reviewed: Reviewed prior imaging studies Factors affecting care: as per [facility] Social determinants of health: none History obtained from others: none Consults: none MDM Narrative The patient was initially hemodynamically stable, afebrile and nontoxic-appearing. Exam with slight distention diffuse tenderness. I considered the following differential diagnosis: AAA, small bowel obstruction, abdominal perforation, appendicitis, pancreatitis, hepatobiliary pathology (acute cholecystitis), mesenteric ischemia, pathology (ie nephrolithiasis, pyelonephritis). Mass, I obtained a broad lab and imaging workup to further determine if the patient was suffering from a life-threatening etiology. Initially treated the patient with IV normal saline, Toradol for initial pain relief. ALL IMAGES (IF OBTAINED) HAVE BEEN PERSONALLY REVIEWED AND INTERPRETED BY MYSELF. CBC with no leukocytosis, noted worsening anemia, thrombocytopenia noted as well BMP without evidence of significant electrolyte abnormalities, no anion gap, no acute kidney injury. LFTs show no evidence of hepatobiliary pathology. Lipase is wnl indicating no pancreatic inflammation. Urinalysis shows no evidence of urinary inflammation suggestive of UTI CT scan of the abdomen/pelvis showed breast lesions and metastatic lesions in the liver as well as lymph node propagation of likely metastatic cancer Had a long discussion with patient and family discuss findings. Gave a [facility] Fast past cancer referral. Gave pain medicine to take as needed at home. Also provided nausea medicine. While this is concerning for metastatic cancer. The patient and/or family, caregivers express understanding. The patient and/or family, caregivers agrees with the plan. Shared decision making: I will have a discussion with the patient and or visitors regarding risk/benefits of further testing or admission. They will be made aware of of the risk/benefits inherent in this decision they will be given the opportunity to voice understanding. Total critical care time today provided was at least 0 minutes. This excludes separately billable procedures. Critical care time (if documented) is secondary to the patient having high probability of clinically significant/life threatening deterioration in the patient's condition which required my urgent intervention. Impression: 1. Acute abdominal pain 2. Metastatic Cancer 3. Anemia Dispo: discharge This note was generated with [employer] dictation software. It may contain incorrect words, spelling, and punctuation that were not noted in review of the chart prior to signing. Lab Data Labs: Laboratory Results - last 24 hr 04/08/25 04/08/25 19:46 19:56 WBC 5.8 RBC 2.54 L Hgb 8.0 L Hct 25.5 L MCV 100.4 H MCH 31.5 MCHC 31.4 L RDW Std Deviation 46.3 H RDW Coeff of Margarita 12.6 Plt Count 128 L MPV 10.6 Immature Gran % (Auto) 0.500 Neut % (Auto) 75.8 H Lymph % (Auto) 12.3 L [place] % (Auto) 7.2 Eos % (Auto) 3.9 Baso % (Auto) 0.3 Absolute Neuts (auto) 4.4 Absolute Lymphs (auto) 0.72 L Nucleated RBC % 0 Sodium 136 Potassium 5.0 Chloride 95 L Carbon Dioxide 32.4 H Anion Gap 9 BUN 17 Creatinine 0.91 Estim Creat Clear Calc 36.42 L Est GFR (MDRD) Non-Af 62 BUN/Creatinine Ratio 18.1 Glucose 122 H Calcium 9.2 Total Bilirubin 0.28 AST 28 ALT 12 Alkaline Phosphatase 96 Total Protein 7.4 Albumin 4.0 Globulin 3.4 Albumin/Globulin Ratio 1.2 Lipase 60 Urine Color Straw Urine Clarity Clear Urine pH 6.5 Ur Specific [place] 1.010 Urine Protein 15 H Urine Glucose (UA) Normal Urine Ketones Negative Urine Occult Blood 25 H Urine Nitrite Negative Urine Bilirubin Negative Urine Urobilinogen Normal Ur Leukocyte Esterase 25 H Urine RBC 0-5 SEEN Urine WBC 5-10 SEEN Ur Squamous Epith Cells 0-5 SEEN Ur Transition Epith Cell 0-5 SEEN Urine Bacteria 0 SEEN Urine Mucus 0 SEEN Radiography Diagnostic Testing: Clinical Impression(s) from Imaging Studies Abdomen/Pelvis CT 04/08/25 19:35 IMPRESSION: 1. Multiple enlarged partially imaged mediastinal lymph nodes and hypodense heterogenous Sari enhancing hepatic lesions concerning for metastases. 2. Lobulated right breast mass measures 1.5 x 2.1 x 0.9 cm. 3. No acute findings in the abdomen or pelvis as imaged. Reading Location: [facility] Discharge Plan Triage Chief Complaint: Abd Pain ED Provider: Adi Meng Dx/Rx/DC Orders Instructions: Metastatic Breast Cancer Prescriptions: New oxycodone 5 mg tablet 5 mg PO Q6H PRN (Reason: pain) 7 Days Qty: 30 0RF ondansetron 4 mg tablet,disintegrating 4 mg PO Q8H PRN PRN (Reason: Nausea) Qty: 10 0RF No Action amoxicillin-pot clavulanate 875-125 mg tablet 1 tab PO BID Patient Comments: START DATE - 3190831 END DATE [id number] lorazepam 0.5 mg tablet 0.25 mg PO Q4H PRN (Reason: anxiety) benzonatate 100 mg capsule 100 mg PO Q8H PRN (Reason: cough) diazepam 2 mg tablet 2 mg PO TID PRN (Reason: agitation) ipratropium-albuterol 0.5 mg-3 mg(2.5 mg base)/3 mL solution for nebulization 3 ml inhalation Q4H PRN (Reason: dyspnea) nitroglycerin 0.4 mg tablet, sublingual 0.4 mg sublingual PRN PRN (Reason: chest pain) sennosides-docusate sodium [Stool Softener-Laxative] 8.6-50 mg tablet 1 tab PO BID PRN (Reason: constipation) omeprazole 20 mg capsule,delayed release(DR/EC) 20 mg PO DAILY Biotene Dry Mouth Oral Rinse Mouthwash 15 ml mucous membrane Q2H PRN (Reason: dry mouth) Rx Instructions: swish for 15-30 secs , then spit out; do not swallow miconazole nitrate [Desenex] 2 % powder 1 applic topical TID PRN (Reason: skin irritation) DermacinRx Dimopair 5 % cream 1 applic topical Q8H PRN (Reason: skin irritation) bisacodyl [Gentle Laxative (bisacodyl)] 10 mg suppository 10 mg [place] DAILY PRN (Reason: constipation) Multivitamin 50 Plus Tablet 1 tab PO DAILY dextromethorphan-guaifenesin 5-100 mg/5 mL liquid 20 ml PO Q4H PRN (Reason: cough) ibuprofen [IBU] 400 mg tablet 400 mg PO TID PRN (Reason: pain) morphine concentrate 100 mg/5 mL (20 mg/mL) solution 5 mg PO Q3H PRN (Reason: pain) acetaminophen 500 mg tablet 1,000 mg PO Q4H PRN (Reason: pain) ondansetron HCl 4 mg tablet 4 mg PO Q6H PRN (Reason: nausea and vomiting) Other Ambulatory Orders: Fast Pass: Oncology Referral [facility] (Routine) Facility: [facility] - Location: [facility] Ordered By: Dr. Adi Meng Primary Care Provider: Yen Cam Referrals: Yen Cam, SCOOPING MACHINE TENDER-C [Primary Care Provider] - Activity Restrictions/Additional Instructions: Thank you for trusting us with your care today! Your CT scan showed evidence of metastatic cancer. This is likely the cause of your pain. Please take Tylenol (2 pills, 650 mg), ibuprofen (2 pills, 400 mg) every 6 hours as needed for pain and fever control. Please take oxycodone As needed for breakthrough pain Please return to the emergency department if your symptoms change or worsen. Please follow with your primary care physician and/or oncology for further outpatient evaluation and management. A fast pass oncology referral has been made. Please expect a call from [facility]. Print Language: Spanish Disposition Disposition: Home, Self Care
--- NOTE | 2025-04-08 19:35 | CT_ITS ---
PROCEDURE: ABDOMEN/PELVIS W IV CONT ONLY 04/08/2025 REASON FOR EXAM: ABDOMINAL PAIN TECHNIQUE: Procedure Code: [id number] Modality: CT Procedure: ABDOMEN/PELVIS W IV CONT ONLY Coronal and Sagittal reconstruction series were provided. CONTRAST: 100 cc of Isovue 370 intravenous contrast. One or more dose reduction techniques were used (e.g., Automated exposure control, adjustment of the mA and/or kV according to patient size, use of iterative reconstruction technique. COMPARISON: None available. FINDINGS: Lung bases: Multiple enlarged mediastinal lymph nodes, the largest partially seen measures 2.6 x 1.9 cm. Redemonstrated chronic pulmonary disease with severe fibrotic changes bilaterally. Mild cardiomegaly. Liver: Multiple hypodense hepatic lesions with heterogenous advancement concerning for metastases. The largest lesion measures 3.2 x 3.7 x 3.1 cm. Gallbladder: Unremarkable. Expected age-related prominence of the common bile duct. Spleen: Normal size. Pancreas: Normal size without evidence of mass surrounding inflammation or ductal dilation. Adrenals: Unremarkable. Kidneys: Normal renal sizes. No hydronephrosis. Bladder: Unremarkable. Reproductive Organs: Normal uterine size and contour. Ovaries are unremarkable. Bowel: Colonic diverticulosis without diverticulitis. Appendix: Unremarkable. Lymph nodes: No suspicious lymph node enlargement. Vasculature: Mild diffuse atherosclerotic calcifications are noted. Peritoneum / Retroperitoneum: No free fluid or air. Bones: Grade 1 retrolisthesis of L5 on L4 and of T11 on T12. Diffuse degenerate changes of the visualized spine. No destructive osseous lesions. No acute fractures. Soft tissues: Lobulated right breast mass measures 1.5 x 2[address]/Abdomen/Pelvis W IV Cont ONLY IMPRESSION: 1. Multiple enlarged partially imaged mediastinal lymph nodes and hypodense het erogenous Sari enhancing hepatic lesions concerning for metastases. 2. Lobulated right breast mass measures 1.5 x 2.1 x 0.9 cm. 3. No acute findings in the abdomen or pelvis as imaged. Reading Location: [facility]
[2025-04-08] MEDS: 0.9% Normal Saline (1000mL) 1,000 ML 500 ML IV (19:47)
[2025-04-08 20:04] LABS: Mucous, Urine 0 SEEN /hpf (<or=2+)
--- OUTSIDE RECORDS SUMMARY | 2025-04-08 20:10 | XMS RPT_ITS | CCD ---
Author Organization [facility] Care Team Providers Care Grain Commodity Manager Name Role Phone Jaylan Dinero Attending Unavailable Sergo Solares Referring Unavailable Rusty Roberts Primary Care Unavailable Rusty Roberts MD Primary Care Provider [phone] Rusty Roberts MD Primary Care Provider Rusty Roberts MD Primary Care Provider CARLISLE, VIPIN Referring Unavailable RUSTY ROBERTS Primary Care Unavailable CARLISLE, VIPIN Referring Unavailable RUSTY ROBERTS Primary Care Unavailable RUSTY ROBERTS Primary Care Unavailable CARLISLE, VIPIN Referring Unavailable [place] Rusty VILLEGAS Primary Care Provider RUSTY ROBERTS Primary Care Unavailable OLSEN, MINDA Referring Unavailable ALEJANDRA, RUSTY Pritchett Primary Care Unavailable CARLISLE, VIPIN Attending Unavailable RUSTY ROBERTS Primary Care Unavailable Angie KABA Referring Unavailable ALEJANDRARUSTY Gill Primary Care Unavailable Angie KABA Referring Unavailable RUSTY ROBERTS Primary Care Unavailable Angie KABA Attending Unavailable FRANCINE SALEEM Attending Unavailable RUSTY ROBERTS Primary Care Unavailable ISABEL HIGH Attending Unavailable RUSTY ROBERTS Primary Care Unavailable CARLISLE, VIPIN Referring Unavailable HERELALIT QUIROGA Attending Unavailable RUSTY ROBERTS Primary Care Unavailable OLSEN, MINDA Referring Unavailable ALEJANDRA, RUSTY Pritchett Primary Care Unavailable CARLISLE, VIPIN Referring Unavailable RUSTY ROBERTS Primary Care Unavailable RUSTY ROBERTS Primary Care Unavailable OLSEN, MINDA Referring Unavailable RUSTY ROBERTS Primary Care Unavailable OLSEN, MINDA Referring Unavailable Dr. Alcides Diego MD Emergency Provider Tut[place] THOMAS-CYen Primary Care Provider [phone] Alcides Diego Attending Unavailable Yen Cam Primary Care Unavailable Medications Current Medications Medication Drug Class(es) Dates Sig (Normalized) Sig (Original) acetaminophen 500 mg oral tablet (1 source) Start: 10-13-2024 take 2 tablets by mouth every four hours as needed for pain Acetaminophen 500 mg tablet Active 1000 mg PO Q4H as needed for pain October 13, 2024 12:00am albuterol 0.833 mg/ml / ipratropium bromide 0.167 mg/ml inhalation solution (1 source) Anticholinergic, beta2-Adrenergic Agonist Start: 10-13-2024 take 1 mL by inhalation every four hours as needed for dyspnea Ipratropium-[place] rol 0.5 mg-3 mg(2.5 mg base)/3 mL solution for nebulization Active 3 mL INHALATION Q4H as needed for dyspnea October 13, 2024 12:00am amoxicillin 875 mg / clavulanate 125 mg oral tablet (1 source) Penicillin-class Antibacterial Start: 10-13-2024 Amoxicillin-Pot Clavulanate 875-125 mg tablet Active 1 {tbl} PO TWICE A DAY October 13, 2024 12:00am benzonatate 100 mg oral capsule (1 source) Non-narcotic Antitussive Start: 10-13-2024 take 1 capsule by mouth every eight hours as needed for cough Benzonatate 100 mg capsule Active 100 mg PO Q8H as needed for cough October 13, 2024 12:00am bisacodyl 10 mg rectal suppository (1 source) Stimulant Laxative Start: 10-13-2024 Bisacodyl (Gentle Laxative (Bisacodyl)) 10 mg suppository Active 10 mg RC DAILY as needed for constipation October 13, 2024 12:00am Dextromethorphan / guaiFENesin (1 source) Uncompetitive X-xkyjiq-V-aspartat e Receptor Antagonist, Sigma-1 Agonist Start: 10-13-2024 take 1 mL by mouth every four hours as needed for cough Dextromethorphan-G uaifenesin 5-100 mg/5 mL liquid Active 20 mL PO Q4H as needed for cough October 13, 2024 12:00am diazePAM 2 mg oral tablet (20 sources) Benzodiazepine Start: 10-13-2024 take 1 tablet by mouth three times daily as needed Diazepam 2 mg tablet Active 2 mg PO THREE TIMES A DAY as needed for agitation October 13, 2024 12:00am Start: 12-16-2023 End: 01-15-2024 take 1 tablet by mouth every twelve hours as needed diazePAM (VALIUM) 2 mg tablet Indications: Adjustment disorder with anxiety Take 1 tablet by mouth every 12 hours as needed for up to 30 days. 10 tablet 0 12/16/2023 01/15/2024 Active Start: 11-06-2023 End: 12-06-2023 take 1 tablet by mouth every twelve hours as needed diazePAM (VALIUM) 2 mg tablet Indications: Adjustment disorder with anxiety Take 1 tablet by mouth every 12 hours as needed for up to 30 days. 10 tablet 0 11/06/2023 12/06/2023 Active Start: 03-03-2023 End: 10-08-2023 take 1 tablet by mouth every six hours as needed diazePAM (VALIUM) 2 mg tablet Indications: Adjustment disorder with anxiety Take 1 tablet by mouth every 6 hours as needed for up to 90 days. 15 tablet 0 05/20/2023 08/18/2023 Active Comment on above: Take 1 tablet by kaleb th every 6 hours as needed for up to 90 days. Take 2 mg by mouth e very 6 hours as needed. Take 1 tablet by kaleb th every 12 hours as needed for up to 30 days. dimethicone (1 source) Start: 10-14-19 Dimethicone (Dermacinrx Dimopair) 5 % cream Active 1 NMA TOPICAL Q8H as needed for skin irritation October 13, 2024 12:00am docusate sodium 50 mg / sennosides, longterm 8.6 mg oral tablet (1 source) Start: 10-14-19 Sennosides-Docusate Sodium (Stool Softener-Laxative) 8.6-50 mg tablet Active 1 {tbl} PO TWICE A DAY as needed for constipation October 13, 2024 12:00am famotidine 20 mg oral tablet (4 sources) Histamine-2 Receptor Antagonist Start: 12-16-19 take 1 tablet by mouth every twenty-four hours as needed famotidine (PEPCID) 20 mg tablet Take 1 tablet by mouth at bedtime as needed. 30 tablet 5 12/16/2023 Active homatropine methylbromide 0.3 mg/ml / HYDROcodone bitartrate 1 mg/ml oral solution (1 source) Opioid Agonist, Cholinergic Muscarinic Agonist Start: 08-27-19 End: 08-30-19 HYDROcodone-homatro pine (HYCODAN) 5-1.5 mg/5 mL (5 mL) syrup Indications: Pulmonary fibrosis (HCC) Take 5 mL by mouth once daily as needed (Use directly before your heart ultrasound) for up to 3 days. 10 mL 0 08/27/2023 08/30/2023 Active Comment on above: Take 5 mL by mouth o nce daily as needed (Use directly before your heart ultrasound) for up to 3 days. ibuprofen 400 mg oral tablet (1 source) Nonsteroidal Anti-inflammatory Drug Start: 10-14-19 take 1 tablet by mouth three times daily as needed for pain Ibuprofen (Ibu) 400 mg tablet Active 400 mg PO THREE TIMES A DAY as needed for pain October 13, 2024 12:00am iron/vitamin b comp w-c(GERITOL COMPLETE TAB) (20 sources) Start: 06-11-20 iron/vitamin b comp w-c(GERITOL COMPLETE TAB) one tablet daily 0 0 06/11/2009 Active Comment on above: one tablet daily LORazepam 0.5 mg oral tablet (1 source) Benzodiazepine Start: 10-14-19 take 0.25 mg by mouth every four hours as needed for anxiety Lorazepam 0.5 mg tablet Active 0.25 mg PO Q4H as needed for anxiety October 13, 2024 12:00am miconazole nitrate 0.02 mg/mg topical powder (1 source) Azole Antifungal Start: 10-14-19 Miconazole Nitrate (Desenex) 2 % powder Active 1 NMA TOPICAL THREE TIMES A DAY as needed for skin irritation October 13, 2024 12:00am mirtazapine 15 mg oral tablet (12 sources) Start: 12-16-19 take 0.5 tablet by mouth once daily at bedtime mirtazapine (REMERON) 15 mg tablet Indications: Adjustment disorder with anxiety Take 0.5 tablets by mouth daily at bedtime. 15 tablet 1 12/16/2023 Active Start: 08-28-2022 End: 03-03-2023 take 0.5 tablet by mouth once daily at bedtime mirtazapine (REMERON) 15 mg tablet Indications: Weight loss , LISA (generalized anxiety disorder) Take 0.5 tablets by mouth daily at bedtime. 30 tablet 2 08/28/2022 03/03/2023 Discontinued Comment on above: Take 0.5 tablets by mouth daily at bedtime. morphine sulfate 20 mg/ml oral solution (1 source) Opioid Agonist Start: 10-14-19 25 take 5 mg by mouth every three hours as needed for pain Morphine Concentrate 100 mg/5 mL (20 mg/mL) solution Active 5 mg PO Q3H as needed for pain October 13, 2024 12:00am Multivitamin preparation (2 sources) Start: 05-14-20 take 1 tablet by mouth once daily Multivitamin Active 1 TABLET PO DAILY May 14, 2022 12:00am Multivitamin-Minerals- Lutein (Multivitamin 50 Plus) tablet (1 source) Start: 10-14-19 Multivitamin-Minerals -Lutein (Multivitamin 50 Plus) tablet Active 1 {tbl} PO DAILY October 13, 2024 12:00am nitroglycerin 0.4 mg sublingual tablet (1 source) Nitrate Vasodilator Start: 10-14-19 Nitroglycerin 0.4 mg tablet, sublingual Active 0.4 mg SL NEEDED as needed for chest pain October 13, 2024 12:00am nutritional supplement (BENEPROTEIN) whey protein powder (4 sources) nutritional supplement (BENEPROTEIN) whey protein powder 25 g. 25g protein twice a day Active nutritional supp lement (BENEPROTEIN) whey protein powder 25 g. 25g protein twice a day 0 Active omeprazole 20 mg delayed release oral capsule (20 sources) Proton Pump Inhibitor Start: 10-13-2024 take 1 capsule by mouth once daily Omeprazole 20 mg capsule,delayed release(DR/EC) Active 20 mg PO DAILY October 13, 2024 12:00am Start: 08-28-2022 End: 10-12-2023 take 1 capsule by mouth once daily before breakfast omeprazole (PRILOSEC) 20 mg capsule Indications: Epigastric pain Take 1 capsule by mouth daily before breakfast. 1/2 hr before meal. 90 capsule 1 10/12/2023 Active Start: 01-30-2021 End: 05-05-2022 take 1 capsule by mouth once daily omeprazole (PRILOSEC) 20 mg capsule Take 1 capsule by mouth once daily. 60 capsule 1 01/30/2021 05/05/2022 Discontinued Comment on above: Take 1 capsule by mo [facility] once daily. Take 1 capsule by mo [facility] daily before breakfast. 1/2 hr before meal. ondansetron 4 mg oral tablet (18 sources) Serotonin-3 Receptor Antagonist Start: take 1 tablet by mouth every six hours as needed for nausea and vomiting Ondansetron Hcl 4 mg tablet Active 4 mg PO EVERY 6 HOURS as needed for nausea and vomiting October 13, 2024 12:00am Start: 08-28-2022 take 1 tablet by kaleb th every six hours as needed for nausea ondansetron orally disintegrating (ZOFRAN ODT) 4 mg disintegrating tablet Indications: Non-intractable cyclical vomiting with nausea , Epigastric pain Take 1 tablet by mouth every 6 hours as needed for nausea/vomiting. 15 tablet 1 08/28/2022 Active Comment on above: Take 1 tablet by kaleb th every 6 hours as needed for nausea/vomiting. Saliva Substitute Combo No.9 (Biotene Dry Mouth Oral Rinse) mouthwash (1 source) Start: 10-13-2024 Saliva Substitute Combo No.9 (Biotene Dry Mouth Oral Rinse) mouthwash Active 15 mL MUCOUS MEM Q2H as needed for dry mouth October 13, 2024 12:00am swish for 15-30 secs , then spit out; do not swallow WALKER ROLLATOR SEAT WITH 6 WHEELS - RED (4 sources) Start: 12-16-2023 WALKER ROLLATOR SEAT WITH 6 WHEELS - RED Indications: Interstitial lung disease (HCC) , Decreased activity tolerance , Generalized weakness Rollator walker w/ seat for ambulation. 1 Each 12/16/2023 Active Start: 12-16-2023 WALKER ROLLATO R SEAT WITH 6 WHEELS - RED Indications: Interstitial lung disease (HCC) , Decreased activity tolerance , Generalized weakness Rollator walker w/ seat for ambulation. 1 Each 0 12/16/2023 Active Completed/Discontinued Medications Medication Drug Class(es) Dates Sig (Normalized) Sig (Original) acetaminophen 325 mg / HYDROcodone bitartrate 5 mg oral tablet (6 sources) Opioid Agonist Start: 05-15-2022 End: 07-10-2022 take 1 tablet by mouth once as needed HYDROcodone-acetami nophen (NORCO) 5-325 mg per tablet Take 1 tablet by mouth as needed. 0 05/15/2022 07/10/2022 Discontinued (Course of therapy completed) Start: 05-14-2022 End: 10-13-2024 Hydrocodone-Acetaminophen 5- 325 mg tablet Discontinued 1 {tbl} PO EVERY 6 HOURS as needed for pain 10 May 14, 2022 October 13, 2024 7:42pm Start: 05-14-2022 take 1 tablet by kaleb th every six hours Hydrocodone-Acetaminophen Active 1 TABLE T PO EVERY 6 HOURS 10 May 14, 2022 Comment on above: Take 1 tablet by kaleb th as needed. aspirin 325 mg oral tablet (18 sources) Platelet Aggregation Inhibitor, Nonsteroidal Anti-inflammatory Drug End: 08-27 take 1 tablet by mouth every six hours as needed aspirin 325 mg tablet Take 325 mg by mouth every 6 hours as needed for pain. 0 08/27/2023 Discontinued Comment on above: Take 325 mg by mouth every 6 hours as needed for pain. DULoxetine 20 mg delayed release oral capsule (4 sources) Serotonin and Norepinephrine Reuptake Inhibitor Start : 10-11 End: 04-09 take 1 capsule by mouth once daily DULoxetine (CYMBALTA) 20 mg capsule Indications: Anxiety with depression , Arthralgia of both knees Take 1 capsule by mouth once daily. 90 capsule 1 10/12/2023 11/06/2023 Discontinued Comment on above: Take 1 capsule by mo ut once daily. FLUoxetine 10 mg oral capsule (9 sources) Serotonin Reuptake Inhibitor Start : 03-03 End: 06-30 take 1 capsule by mouth once daily FLUoxetine (PROZAC) 10 mg capsule Take 1 capsule by mouth once daily. 30 capsule 5 03/03/2023 06/30/2023 Discontinued (Side Effects) Comment on above: Take 1 capsule by mo uth once daily. hydroCHLOROthiazide 12.5 mg oral tablet (3 sources) Thiazide Diuretic Start : 07-16 End: 07-12 take 1 tablet by mouth once daily hydroCHLOROthiazide (HYDRODIURIL, ESIDRIX) 12.5 mg tablet Indications: Essential hypertension Take 1 tablet by mouth once daily. 30 tablet 5 01/13/2022 05/05/2022 Discontinued Comment on above: Take 1 tablet by kaleb th once daily. hydrOXYzine hydrochloride 25 mg oral tablet (4 sources) Antihistamine Start : 10-11 End: 01-09 take 1 tablet by mouth three times daily as needed hydrOXYzine HCl (ATARAX) 25 mg tablet Indications: Anxiety with depression Take 1 tablet by mouth three times a day as needed. 90 tablet 2 10/12/2023 11/06/2023 Discontinued Comment on above: Take 1 tablet by kaleb three times a day as needed. lidocaine 0.05 mg/mg medicated patch (20 sources) Antiarrhythmic, Amide Local Anesthetic Start : 05-15 lidocaine (LIDODERM) 5 % Apply 5 Patches as directed as needed. 0 05/15/2022 Active Start: 05-14-2022 End: 10-13-2024 Lidocaine (Lidoderm) 5 % adh esive patch,medicated Discontinued 1 NMA TOPICAL DAILY May 14, 2022 12:00am October 13, 2024 7:42pm leave on most painful area for up to 12 hrs Comment on above: Apply 5 Patches as d irected as needed. melatonin 10 mg oral tablet (10 sources) End: 2 take 1 tablet by mouth once daily melatonin 10 mg tab Take 10 mg by mouth once daily. 0 07/10/2022 Discontinued (Discontinued by Patient) Comment on above: Take 10 mg by mouth once daily. Multivitamin Tablet (1 source) Start: 2 End: 5 Multivitamin Tablet Discontinued 1 {tbl} PO DAILY May 14, 2022 12:00am October 13, 2024 7:42pm predniSONE 20 mg oral tablet (6 sources) Start: 3 End: 3 take 1 tablet by mouth once daily predniSONE (DELTASONE) 20 mg tablet Indications: Interstitial lung disease (HCC) , SOB (shortness of breath) Take 1 tablet by mouth once daily. 5 tablet 0 09/02/2022 03/03/2023 Discontinued Start: 09-02-2022 End: 09-02-2022 take 2 tablets by mouth once daily predniSONE (DELTASONE) 20 mg tablet Take 2 tablets by mouth once daily for 5 days. 10 tablet 0 09/02/2022 09/02/2022 Discontinued (Course of therapy completed) Start: 05-19-2022 End: 05-24-2022 take 2 tablets by mouth once daily predniSONE (DELTASONE) 20 mg tablet Take 2 tablets by mouth once daily for 5 days. 10 tablet 0 05/19/2022 05/24/2022 Active Comment on above: Take 2 tablets by mo [facility] once daily for 5 days. Take 1 tablet by kaleb once daily. tiZANidine 2 mg oral capsule (3 sources) Central alpha-2 Adrenergic Agonist Start: End: take 1 capsule by mouth every eight hours as needed tiZANidine HCl (ZANAFLEX) 2 mg capsule Take 1 capsule by mouth three times daily as needed. 15 capsule 0 05/19/2022 07/10/2022 Discontinued (Course of therapy completed) Comment on above: Take 1 capsule by mo [facility] three times daily as needed. Problems Active Problems Problem Classification Problem Date Documented Date Episodic/Chronic Acquired foot deformities (2 sources) Other hammer toe(s) (acquired), right foot; Translations: [Other hammer toe(s) (acquired), right foot] Onset: 08-20-2018 Chronic Adjustment disorders (5 sources) Adjustment disorder with anxious mood; Translations: [Adjustment disorder with anxiety] Onset: 12-16-2023 03-03-2023 Chronic Anxiety disorders (4 sources) Generalized anxiety disorder; Translations: [Generalized anxiety disorder] Onset: 10-12-2023 Chronic Chronic kidney disease (20 sources) Chronic kidney disease stage 3A ; Translations: [Chronic kidney disease, stage 3a (HCC)] Onset: 03-03-2023 Chronic Diabetes mellitus without complication (20 sources) Type 2 diabetes mellitus; Translations: [Type 2 diabetes mellitus without complications] Onset: 08-18-2018 10-04-2020 Chronic Esophageal disorders (4 sources) Gastroesophageal reflux disease without esophagitis; Translations: [Gastro-esophageal reflux disease without esophagitis] Chronic Essential hypertension (20 sources) Essential (primary) hypertension; Translations: [Essential hypertension] Onset: 07-06-2009 Chronic Miscellaneous mental health disorders (3 sources) Chronic insomnia; Translations: [Psychophysiologic insomnia] Chronic Nonspecific chest pain (1 source) Chest pain; Translations: [Other chest pain] 03-03-2023 Episodic Open wounds of extremities (2 sources) Infection of hand due to bite; Translations: [Open bite of right hand, initial encounter] Onset: 12-23-2024 10-13-2024 Episodic Osteoarthritis (20 sources) Unspecified osteoarthritis, unspecified site; Translations: [Degenerative joint disease involving multiple joints] Onset: 07-06-2009 12-26-2016 Chronic Other connective tissue disease (2 sources) Presence of left artificial knee joint; Translations: [Presence of left artificial knee joint] Onset: 08-20-2018 Chronic Other connective tissue disease (2 sources) Arthrodesis status; Translations: [Arthrodesis status] Onset: 08-20-2018 Episodic Other connective tissue disease (1 source) Spasm of cervical paraspinous muscle; Translations: [Other muscle spasm] Episodic Other diseases of kidney and ureters (1 source) Renal impairment; Translations: [Disorder of kidney and ureter, unspecified] Episodic Other disorders of stomach and duodenum (1 source) Cyclical vomiting syndrome; Translations: [Cyclical vomiting syndrome unrelated to migraine] Episodic Other eye disorders (2 sources) Cataract extraction status, left eye; Translations: [Cataract extraction status, left eye] Onset: 08-20-2018 Episodic Other eye disorders (2 sources) Cataract extraction status, right eye; Translations: [Cataract extraction status, right eye] Onset: 08-20-2018 Episodic Other lower respiratory disease (20 sources) Interstitial lung disease; Translations: [Interstitial pulmonary disease, unspecified] Onset: 07-29-2019 07-29-2019 Chronic Other lower respiratory disease (15 sources) Fibrosis of lung; Translations: [Pulmonary fibrosis, unspecified] 01-25-2023 Chronic Other lower respiratory disease (20 sources) Idiopathic pulmonary fibrosis; Translations: [Idiopathic pulmonary fibrosis] Onset: 08-27-2023 03-03-2023 Chronic Other lower respiratory disease (2 sources) Pulmonary fibrosis, unspecified; Translations: [Pulmonary interstitial fibrosis (HCC)] Onset: 10-01-2023 Chronic Other lower respiratory disease (1 source) Interstitial pulmonary disease, unspecified; Translations: [Interstitial lung disease (HCC)] Onset: 07-29-2019 Chronic Other lower respiratory disease (3 sources) Dyspnea; Translations: [Shortness of breath] Episodic Other nutritional; endocrine; and metabolic disorders (2 sources) Hypercalcemia; Translations: [Hypercalcemia] Chronic Other nutritional; endocrine; and metabolic disorders (5 sources) Weight loss; Translations: [Abnormal weight loss] Episodic Other nutritional; endocrine; and metabolic disorders (1 source) Unintentional weight loss; Translations: [Abnormal weight loss] 06-30-2023 Episodic Other screening for suspected conditions (not mental disorders or infectious disease) (3 sources) Patient encounter status; Translations: [Encounter for screening for osteoporosis] Episodic Other skin disorders (1 source) Finding of appearance of nail; Translations: [Onychogryphosis] Episodic Other upper respiratory infections (2 sources) Upper respiratory infection; Translations: [Acute upper respiratory infection, unspecified] 01-25-2023 Episodic Pulmonary heart disease (5 sources) Idiopathic pulmonary arterial hypertension ; Translations: [Primary pulmonary hypertension] Onset: 10-01-2023 08-27-2023 Chronic Residual codes; unclassified (2 sources) Family history of diabetes mellitus; Translations: [Family history of diabetes mellitus] Onset: 08-20-2018 Episodic Residual codes; unclassified (2 sources) Family history of ischemic heart disease and other diseases of the circulatory system; Translations: [Family hx of ischem heart dis and oth dis of the [facility] sys] Onset: 08-20-2018 Episodic Residual codes; unclassified (1 source) Physical activity finding; Translations: [Other general symptoms and signs] 12-16-2023 Episodic Rheumatoid arthritis and related disease (1 source) Rheumatoid arthritis; Translations: [Rheumatoid arthritis, unspecified] 10-13-2024 Chronic Skin and subcutaneous tissue infections (1 source) Abscess of skin of right wrist; Translations: [Cutaneous abscess of right upper limb] 10-13-2024 Episodic Sprains and strains (6 sources) Strain of back muscle; Translations: [Strain of muscle, fascia and tendon of lower back, initial encounter] 05-22-2022 Episodic Past or Other Problems Problem Classification Problem Date Documented Da te Episodic/Chronic Abdominal pain (5 sources) Epigastric pain; Translations: [Epigastric pain] Onset: 10-12-2023 Episodic Genitourinary symptoms and ill-defined conditions (4 sources) Pyuria; Translations: [Pyuria] Onset: 06-30-2023 Episodic Malaise and fatigue (5 sources) Fatigue; Translations: [Other fatigue] Onset: 12-16-2023 Episodic Other connective tissue disease (5 sources) Pain in limb; Translations: [Pain in unspecified limb] Onset: 08-01-2013 Resolved: 12-26-2016 12-26-2016 Episodic Other lower respiratory disease (20 sources) Dyspnea on exertion; Translations: [Dyspnea, unspecified] Onset: 01-17-2019 02-16-2019 Episodic Other non-traumatic joint disorders (2 sources) Pain in right knee; Translations: [Pain in joint, lower leg] Onset: 10-12-2023 10-12-2023 Episodic Other non-traumatic joint disorders (1 source) Pain in left knee; Translations: [Arthralgia of both knees] Onset: 10-12-2023 Episodic Other nutritional; endocrine; and metabolic disorders (2 sources) Abnormal weight loss; Translations: [Weight loss] Onset: 06-30-2023 Episodic Phlebitis; thrombophlebitis and thromboembolism (7 sources) Personal history of other venous thrombosis and embolism; Translations: [Deep venous thrombosis] Onset: 06-11-2009 Resolved: 12-26-2016 12-26-2016 Episodic Residual codes; unclassified (1 source) Other general symptoms and signs; Translations: [Decreased activity tolerance] Onset: 12-16-2023 Episodic Spondylosis; intervertebral disc disorders; other back problems (20 sources) Backache; Translations: [Dorsalgia, unspecified] Onset: 08-01-2013 09-24-2018 Episodic Syncope (20 sources) Near syncope; Translations: [Syncope and collapse] Onset: 01-17-2019 01-17-2019 Episodic Unclassified (5 sources) Type 2 diabetes mellitus without complication; Translations: [Diabetes mellitus type 2, uncontrolled, without complications] Onset: 08-18-2018 Resolved: 08-27-2018 08-27-2018 Results Test Name Value Interpretation Reference Range Facility CBC W/Diff, Automatedon 05-0 PATH REV N/A Normal [facility] Comment on above: Result Comment: Slid e sent to [facility] for pathology review. [facility] PATIENT'S EMR. AMENDED REPORT 12/01/24 0738 PATH REV previously reported as: Reviewed SEE REPORT IN PATIENT'S EMR. Performed By: #### L 500.2500, L100.0100 #### [facility] [place], [place], [address] Body Fluid Cell Count+Diffon 11-07-2024 PATH COMM/BF Reviewed Normal [facility] Comment on above: Result Comment: SEE REPORT IN PATIENT'S EMR AMENDED REPORT 11/07/24 1204 PATH COMM/BF previously reported as: May follow Performed By: #### L 200.0200, M100.4001, M100.2900, M100.1999 #### [facility] [address] [place], [address] Culture, Anaerobic Any Sourc jiemy 10-18-2024 CUAN No anaerobic bacteri a isolated. Normal [facility] Comment on above: Performed By: #### L 200.0200, M100.4001, M100.2900, M100.1999 #### [facility] [address] [place], [address] Body Fluid Culton 10-16-2024 BFC Pasteurella multocid a Amount Growth Rare Beta Lactamase-Reportable Negative Pasteurella multocida: REACTION Meropenem Islt YOLA <=0.25 S Normal [facility] Comment on above: Performed By: #### L 200.0200, M100.4001, M100.2900, M100.1999 #### [facility] [address] [place], [address] Absolute neutrophil countOrd ered By: Alcides Diego on 10-13-2024 Neutrophils (Bld) [#/Vol] 10.6 10*3/uL High 2.0-7.7 [facility] Anion gap in Serum or Plasma Ordered By: Alcides Diego on 10-13-2024 Anion gap [Moles/Vol] 9 mmol/L 12-08 [facility] BUN/creatinine ratioOrdered By: Alcides Diego on 10-13-2024 Urea nitrogen/Creatinine [Mass ratio] 18.6 mg/mg 05-15 [facility] Basic Metabolic Profile (BMP )on 10-13-2024 BUN/CRE 18.6 RATIO Normal 05-15 [facility] Comment on above: Performed By: #### L 500.2500, L100.0100 #### [facility] [address] [place], [address] Calcium [Mass/Vol] 9.4 mg/dL Normal 7.6-11.0 [facility] Comment on above: Performed By: #### L 500.2500, L100.0100 #### [facility] [address] [place], [address] Chloride [Moles/Vol] 98 mmol/L Normal 98-108 [facility] Comment on above: Performed By: #### L 500.2500, L100.0100 #### [facility] [address] [place], [address] CO2 [Moles/Vol] 33.2 mmol/L High 21.0-32.0 [facility] Comment on above: Performed By: #### L 500.2500, L100.0100 #### [facility] [address] [place], [address] Creatinine [Mass/Vol] 0.73 mg/dL Normal 0.70-1.20 [facility] Comment on above: Performed By: #### L 500.2500, L100.0100 #### [facility] [address] [place], [address] ECRCL 43.33 ml/min Low 50-250 [facility] Comment on above: Performed By: #### L 500.2500, L100.0100 #### [facility] [address] [place], [address] GAP 9 Normal 5-15 [facility] Comment on above: Performed By: #### L 500.2500, L100.0100 #### [facility] [address] [place], [address] GFR/1.73 sq M.predicted among non-blacks MDRD (S/P/Bld) [Vol rate/Area] 82 mL/min/{1.73_m2} Normal >60 [facility] Comment on above: Result Comment: mL/m in/1.73m2 CKD-EPI Creatinine Equation (2020) Performed By: #### L 500.2500, L100.0100 #### [facility] [address] [place], [address] Glucose [Mass/Vol] 191 mg/dL High 70-99 [facility] Comment on above: Performed By: #### L 500.2500, L100.0100 #### [facility] [address] [place], [address] Potassium [Moles/Vol] 4.2 mmol/L Normal 3.3-5.1 [facility] Comment on above: Performed By: #### L 500.2500, L100.0100 #### [facility] [address] [place], [address] Sodium [Moles/Vol] 140 mmol/L Normal 133-145 [facility] Comment on above: Performed By: #### L 500.2500, L100.0100 #### [facility] [address] [place], [address] Urea nitrogen [Mass/Vol] 14 mg/dL Normal 4-19 [facility] Comment on above: Performed By: #### L 500.2500, L100.0100 #### [facility] [address] [place], [address] Basophil percentageOrdered B y: Alcides Johnathon on 10-13-2024 Basophils/100 WBC (Bld) 0.2 % 0-1 [facility] Carbon dioxide, total [Moles /volume] in Central venous bloodOrdered By: Alcides Diego on 10-13-2024 CO2 [Moles/Vol] 33.2 mmol/L High 21.0-32.0 [facility] Cells counted Molgen (Bld/Ti ss) [#]Ordered By: Alcides Diego on 10-13-2024 Body Fluid Total Cells Counted TNP [facility] Comment on above: Test not performed Chloride assayOrdered By: Rodri Diego on 10-13-2024 Chloride [Moles/Vol] 98 mmol/L 98-108 [facility] Emergency Department Summary on 10-13-2024 Emergency Department Summary [facility] Medical Records Department [address] [place] [address] Emergency Department Summary 10/13/24 MR#: [id number] Acct: [id number] Name: DELIA ALEXANDER Rep #: [id number] : 1940 84 From: Alcides Diego MD PCP: ROMEL Vargas Status:REG ER Location: ED HPI History of Present Illness Chief Complaint: Bite Detail of Chief Complaint: Infected cat bite dorsum right hand Informant: patient Onset/Context/Timing Onset: Days (Thursday, October 11) Location of pain/injuries: Right hand Quality of Pain: Dull and Aching Location: Right wrist Current Severity: Mild Maximum Severity: Severe Worsened by: Palpation and movement Relieved by: Nothing Associated Symptoms Associated Symptoms: Negative for Parasthesias, Weakness, Loss of function or Inability to ambulate Narrative Narrative: Patient is an 84-year-old woman. She was petting a cat at [employer]. The cat bit her. This occurred on Thursday. She was prescribed Augmentin today. She is taken 2 doses. She presents because of pain, swelling and slight redness. She states when she makes a fist the pain is worse. She denies allergies to antibiotics. She has history of pulmonary fibrosis. She denies fever, chills night sweats. She denies nausea or vomiting. She denies elbow or shoulder pain. She has rheumatoid arthritis. Review of her meds indicates she is on no immunosuppressive medication. Recent Illness/Hospitalizati on: No PFSH PFSH Medical History Hypertension Home Medications ???Medication ???Instructions ???Recorded ???Last Taken ???Type acetaminophen 500 mg tablet 1,000 mg PO Q4H PRN pain 10/13/24 Unknown History amoxicillin 875 mg-potassium 1 tab PO BID 10/13/24 Unknown Hist ory clavulanate 125 mg tablet benzonatate 100 mg capsule 100 mg PO Q8H PRN cough 10/13/24 U nknown History bisacodyl 10 mg rectal suppository 10 mg [place] DAILY PRN constipation 10/13/24 Unknown History (Gentle Laxative (bisacodyl)) dextromethorphan-guai fenesin 5 20 ml PO Q4H PRN cough 10/13/24 Un known History mg-100 mg/5 mL oral liquid diazepam 2 mg tablet 2 mg PO TID PRN agitation 10/13/24 Unknown History dimethicone 5 % topical cream 1 applic topical Q8H PRN skin 09/25 Unknown History (DermacinRx Dimopair) irritation ibuprofen 400 mg tablet (IBU) 400 mg PO TID PRN pain 10/13/24 Un known History ipratropium 0.5 mg-albuterol 3 mg 3 ml inhalation Q4H PRN dyspnea 0 10/13/24 Unknown History (2.5 mg base)/3 mL nebulization soln lorazepam 0.5 mg tablet 0.25 mg PO Q4H PRN anxiety 5 Unknown History miconazole nitrate 2 % topical 1 applic topical TID PRN skin 09/25 Unknown History powder (Desenex) irritation morphine concentrate 100 mg/5 mL 5 mg PO Q3H PRN pain 10/13/24 Unkn own History (20 mg/mL) oral solution multivitamin-minerals -lutein 1 tab PO DAILY 10/13/24 Unknown Hi story tablet (Multivitamin 50 Plus tablet) nitroglycerin 0.4 mg sublingual 0.4 mg sublingual PRN PRN chest Unknown History tablet pain omeprazole 20 mg capsule,delayed 20 mg PO DAILY 10/13/24 Unknown Hi story release ondansetron HCl 4 mg tablet 4 mg PO Q6H PRN nausea and vomitin g 10/13/24 Unknown History saliva substitute combo no.9 15 ml mucous membrane Q2H PRN dry 10/13/24 Unknown History (Biotene Dry Mouth Oral Rinse mouth mouthwash) sennosides 8.6 mg-docusate sodium 1 tab PO BID PRN constipation Unknown History 50 mg tablet (Stool Softener-Laxative) Allergy/AdvReac Type Severity Reaction Status Date / Time No Known Allergies Allergy Verified 10/13/24 18:37 Family History no significant family his Social History household members: none Smoking Status: Never smoker substance use type: does not use ROS ROS ED Constitutional Constitutional ED: Denies chills, fever(s), subjective, sweats or weight loss Eyes Eyes: Denies blurry vision or change in vision ENT ENT ED: Denies rhinorrhea or sore throat Musculoskeletal Musculoskeletal: Reports other Details: Right hand and wrist pain Integumentary Reports rash and other Details: And swelling of the right hand dorsal surface only. Hematologic/Lymphatic Hematologic/Lymphatic : Denies easy bleeding or easy bruising EXAM Physical Exam Const Vital Signs: 10/13/24 18:34 10/13/24 19:37 10/13/24 20:00 Temperature 98.4 F 98.9 F 99.2 F H Temperature Source Temporal Oral Oral Pulse Rate 86 82 97 Respiratory Rate 16 18 18 Blood Pressure 134/72 H 174/78 H 171/86 H Blood Pressure Mean 92 110 114 Pulse Ox 97 99 95 Oxygen Delivery Method Nasal Cannula Nasal Cannula Nasal Cannula Oxygen Flow Rate (L/min) 3 3 (more content not included)... Normal [facility] Eosinophil percentageOrdered By: Alcides Diego on 10-13-2024 Eosinophils/100 WBC (Bld) 2.1 % 0-5 [facility] Erythrocyte distribution wid th ratioOrdered By: Alcides Diego on 10-13-2024 Erythrocyte distribution width (RBC) [Ratio] 12.2 % 11.6-14.6 [facility] Erythrocyte distribution wid th standard deviationOrdered By: Alcides Diego on 10-13-2024 Erythrocyte distribution width (RBC) [Entitic vol] 42.7 fL 35.1-43.9 [facility] Estimation of creatinine casi aranceOrdered By: Alcides Diego on 10-13-2024 Estimated Creatinine Clearance Calc 43.33 ml/min Low 50-250 [facility] GFR/1.73 sq M.predicted antonio g non-blacks MDRD (S/P/Bld) [Vol rate/Area]Ordered By: Alcides Diego on 10-13-2024 Estimated GFR (MDRD) Non-Af Amer 82 >60 [facility] Comment on above: mL/min/1.73m2 CKD-EP I Creatinine Equation (2020) Gram Stainon 10-13-2024 GS Centrifuged Specimen ? Culture performed on centrifuged specimen Gram Stain Rare Gram positive cocci Rare White Blood Cells PRELIM GRAM STAIN=NO ORGANISMS SEEN CALLED TO DARNELL SALAZAR RN ER BY MAF 10-13-24 AT 1949PM Normal [facility] Comment on above: Performed By: #### L 200.0200, M100.4001, M100.2900, M100.2000 #### [facility] [address] [place], [address] Hematocrit Auto (Bld) [Volum e fraction]Ordered By: Alcides Diego on 10-13-2024 Hematocrit (Bld) [Volume fraction] 36.8 % Low 37-47 [facility] Hemoglobin measurementOrdere d By: Alcides Diego on 10-13-2024 Hemoglobin (Bld) [Mass/Vol] 11.6 g/dL Low 12.0-15.0 [facility] Immature granulocytes/100 WB C Auto (Bld)Ordered By: Alcides Diego on 10-13-2024 Immature granulocytes/100 WBC (Bld) 0.500 % 0.0-0.9 [facility] Comment on above: IG% - Immature Granu locytes (promyelocytes, myelocytes and metamyelocytes) > 1% indicates that a LEFT SHIFT is Present. Lymphocytes Auto (Unsp spec) [#/Vol]Ordered By: Alcides Diego on 10-13-2024 Lymphocytes (Bld) [#/Vol] 0.77 10*3/uL Low 0.83-4.51 [facility] Lymphocytes/100 WBC Auto (Un sp spec)Ordered By: Alcides Diego on 10-13-2024 Lymphocytes/100 WBC (Bld) 6.0 % Low 19-41 [facility] MCV (mean corpuscular volume ) determinationOrdered By: Alcides Diego on 10-13-2024 MCV (RBC) [Entitic vol] 95.6 fL 81-99 [facility] Mean corpuscular hemoglobin (MCH) determinationOrdered By: Alcides Diego on 10-13-2024 MCH (RBC) [Entitic mass] 30.1 pg 27.0-32.0 [facility] Mean corpuscular hemoglobin concentration (MCHC) determinationOrdered By: Alcideshira Diego on 10-13-2024 MCHC (RBC) [Mass/Vol] 31.5 g/dL Low 32-36 [facility] Mean platelet volume determi nationOrdered By: Alcides Diego on 10-13-2024 Platelet mean volume (Bld) [Entitic vol] 10.6 fL 6.2-12.0 [facility] Monocyte percentageOrdered B y: Alcides Diego on 10-13-2024 Monocytes/100 WBC (Bld) 7.9 % 0-10 [facility] Neutrophil percentageOrdered By: Alcideshira Diego on 10-13-2024 Neutrophils/100 WBC (Bld) 83.3 % High 47-70 [facility] Nucleated red blood cell per centageOrdered By: Alcides Diego on 10-13-2024 Nucleated RBC/100 WBC (Bld) [Ratio] 0 % 0-5 [facility] Platelet countOrdered By: Rodri hira Johnathon on 10-13-2024 Platelets (Bld) [#/Vol] 156 10*3/uL 150-450 [facility] Potassium (Unsp spec) [Mass/ Vol]Ordered By: Alcides Dieog on 10-13-2024 Potassium [Moles/Vol] 4.2 mmol/L 3.3-5.1 [facility] RBC (Body fld) [#/Vol]Ordere d By: Alcides Diego on 10-13-2024 Body Fluid RBC TNP [facility] Comment on above: Test not performed RBC Auto (Bld) [#/Vol]Ordere d By: Alcides Diego on 10-13-2024 RBC (Bld) [#/Vol] 3.85 10*6/uL Low 4.2-5.4 [facility] Serum creatinine measurement (mass/volume)Ordered By: Alcides Diego on 10-13-2024 Creatinine [Mass/Vol] 0.73 mg/dL 0.70-1.20 [facility] Serum glucose measurement (m ass/volume)Ordered By: Alcides Diego on 10-13-2024 Glucose [Mass/Vol] 191 mg/dL High 70-99 [facility] Serum or plasma calcium charlette urement (mass/volume)Ordered By: Alcides Diego on 10-13-2024 Calcium [Mass/Vol] 9.4 mg/dL 7.6-11.0 [facility] Serum or plasma urea nitroge n measurement (mass/volume)Ordered By: Alcides Diego on 10-13-2024 Urea nitrogen [Mass/Vol] 14 mg/dL 4-19 [facility] Sodium levelOrdered By: Alcides Diego on 10-13-2024 Sodium [Moles/Vol] 140 mmol/L 133-145 [facility] WBC (Body fld) [#/Vol]Ordere d By: Alcides Diego on 10-13-2024 Body Fluid WBC TNP [facility] Comment on above: Test not performed White blood cell (WBC) count Ordered By: Alcides Diego on 10-13-2024 WBC (Bld) [#/Vol] 12.7 10*3/uL High 4.4-11.0 [facility] Wrist min 3 Viewson 10-14-19 Wrist min 3 Views [facility] [address] [place], [place] [id number] Wrist min 3 Views MR#: [id number] Acct: [id number] Name: DELIA ALEXANDER Rep #: [id number] : 1940 F 84 From: David Cedeño DO PCP: ROMEL Vargas Status: REG ER Study: Wrist min 3 Views Date of Exam: 10/13/24 Exam# [id number] Ordering Dr: Alcides Diego MD PROCEDURE: WRIST MIN 3 VIEWS REASON FOR EXAM: INJURY/PAIN TECHNIQUE: 3 views of the right wrist COMPARISON: None FINDINGS: No visible fracture. No suspicious bone lesion. Severe degenerative changes of the carpal joints. Soft tissues are unremarkable. No radiopaque foreign body is demonstrated. RAD/Wrist min 3 Views IMPRESSION: DEGENERATIVE OSTEOARTHROSIS. NO ACUTE FINDINGS. Reading Location: [facility] CC: ROMEL Cam; Dr. Alcides Diego MD Cover Marker: Signed [facility] Luis Fernando 01-22-2024 CNPN Telephone (FAMWS) TAYLORDELIA ([id number]) 1940 F Date Time Provider Department 01/22/24 [facility] During your visit today, we recorded the following information about you: Vin Acosta LPN 01/22/2024 9:42 AM Signed [facility] calling to give you an update. Pt. has been admitted to in home [facility] as of 01/20. Any questions can call . Allergies As of Date: 01/22/2024 (No Known Allergies) Date Reviewed: 12/16/2023 Reviewed by: Doni Jones MA - Fully Assessed Reason for Visit: Patient Update [1234] Prescriptions as of 04/27/2024 - nutritional supplement (BENEPROTEIN) whey protein powder 25 g. 25g protein twice a day - mirtazapine (REMERON) 15 mg tablet Take 0.5 tablets by mouth daily at bedtime. - famotidine (PEPCID) 20 mg tablet Take 1 tablet by mouth at bedtime as needed. - WALKER ROLLATOR SEAT WITH 6 WHEELS - RED Rollator walker w/ seat for ambulation. - omeprazole (PRILOSEC) 20 mg capsule Take 1 capsule by mouth daily before breakfast. 1/2 hr before meal. - iron/vitamin b comp w-c(GERITOL COMPLETE TAB) one tablet daily Meds Comments as of 05/05/2022: Taking prn Aspirin for pain. Problem List As Of Date 01/22/2024 Noted Resolved DVT (deep venous thrombosis) (HCC) [I82.409] 06/11/2009 12/26/2016 Primary osteoarthritis involving multiple joint*07/06/2009 Essential hypertension [I10] 07/06/2009 Backache [M54.9] 08/01/2013 Pain in limb [M79.609] 08/01/2013 12/26/2016 Diabetes mellitus type 2, uncontrolled, without*08/18/2018 08/27/2018 DM II (diabetes mellitus, type II) (HCC) [E11.9]08/18/2018 Dyspnea on exertion [R06.09] 01/17/2019 Near syncope [R55] 01/17/2019 Interstitial lung disease (HCC) [J84.9] 07/29/2019 Chronic kidney disease, stage 3a (HCC) [N18.31] 03/03/2023 IPF (idiopathic pulmonary fibrosis) (HCC) [J84.*08/27/2023 Encounter Status:Closed by VIN ACOSTA LPN on 04/27/24 [facility] 01-20-2024 LYNDAN Telephone (PULMMN) DELIA ALEXANDER ([id number]) 1940 F Date Time Provider Department 01/20/24 [facility] During your visit today, we recorded the following information about you: Zehra Vega 01/20/2024 8:49 AM Signed Received oxygen therapy swo fax from [facility] dated 01/19/24. Document printed and placed in folder for provider to review/sign. Once signed, document will be faxed to [phone] Zehra Vega 01/26/2024 12:27 PM Signed Transmission of fax confirmed 01/25 @ 8:34am Uploaded into scanned docs. Allergies As of Date: 01/20/2024 (No Known Allergies) Date Reviewed: 12/16/2023 Reviewed by: Doni Jones MA - Fully Assessed Reason for Visit: Orders [681] Cmt: Ya Prescriptions as of 01/26/2024 - nutritional supplement (BENEPROTEIN) whey protein powder 25 g. 25g protein twice a day - mirtazapine (REMERON) 15 mg tablet Take 0.5 tablets by mouth daily at bedtime. - famotidine (PEPCID) 20 mg tablet Take 1 tablet by mouth at bedtime as needed. - WALKER ROLLATOR SEAT WITH 6 WHEELS - RED Rollator walker w/ seat for ambulation. - omeprazole (PRILOSEC) 20 mg capsule Take 1 capsule by mouth daily before breakfast. 1/2 hr before meal. - iron/vitamin b comp w-c(GERITOL COMPLETE TAB) one tablet daily Meds Comments as of 05/05/2022: Taking prn Aspirin for pain. Problem List As Of Date 01/20/2024 Noted Resolved DVT (deep venous thrombosis) ([facility]) [I82.409] 06/11/2009 12/26/2016 Primary osteoarthritis involving multiple joint*07/06/2009 Essential hypertension [I10] 07/06/2009 Backache [M54.9] 08/01/2013 Pain in limb [M79.609] 08/01/2013 12/26/2016 Diabetes mellitus type 2, uncontrolled, without*08/18/2018 08/27/2018 DM II (diabetes mellitus, type II) ([facility]) [E11.9]08/18/2018 Dyspnea on exertion [R06.09] 01/17/2019 Near syncope [R55] 01/17/2019 Interstitial lung disease ([facility]) [J84.9] 07/29/2019 Chronic kidney disease, stage 3a ([facility]) [N18.31] 03/03/2023 IPF (idiopathic pulmonary fibrosis) ([facility]) [J84.*08/27/2023 Encounter Status:Closed by ZEHRA VEGA on 01/20/24 [facility] Srinivas 12-16-2023 CNOV Office Visit (FAMPWS ) DELIA ALEXANDER ([id number]) 1940 F Date Time Provider Department 12/16/23 2:20 PM FRANCINE SALEEM During your visit today, we recorded the following information about you: Pulse Respiration Blood pressure Weight 84/minute 16/minute 110/67 43.1 kg Height 1.422 m Francine Saleem APRN.WEDDING DAY COORDINATOR 12/16/2023 4:25 PM Signed This is a 83 year old female who presents today with: Patient presents with: Weight Loss HISTORY OF PRESENT ILLNESS: Dleia Alexander is a 83 year old female. Patient presents with: Weight Loss Pt presents today with complaint of weight loss. States that she got on her home scale and it said 89#, and it scared her. Refers that she tries to eat 3 meals of day. Refers that she does get full quickly. Refers that she eat off and on all day long. Refers that she feels that she grazes all day. Whey powder mix that she takes about twice daily. Refers that she is feeling weaker. Tries to be independent at her home. Having a harder time getting around her home. She is having to take more frequent rest breaks d/t weakness and breathing. + anxiety. Requests prn valium for exacerbations. May use once weekly in the past. She is agreeable to starting a daily medication She tried the cymbalta and hydroxyzine, but felt that made her feel like she couldn't breath. Some stomach pain/burning. Not consistent. Sometimes provoked by eating. Takes omeprazole daily. PAST MEDICAL HISTORY: PAST MEDICAL HISTORY Diagnosis Date Arthritis DVT (deep venous thrombosis) ([facility]) 08/27/2006 knee surgery Hypertension IPF (idiopathic pulmonary fibrosis) ([facility]) PAST SURGICAL HISTORY Procedure Laterality Date BACK SURGERY HX EGD 12/31/2020 ESOPHAGOGASTRODUODENO SCOPY TRANSORAL DIAGNOSTIC 11/19/2015 EGD EYE SURGERY HX JOINT REPLACEMENT HX Left partial left knee replacement partial knee replacement left. PAST SURGICAL HISTORY OF back surgery PAST SURGICAL HISTORY OF carpal tunnel surgery bilateral PAST SURGICAL HISTORY OF right knee surgery, torn meniscus ALLERGIES Patient has no known allergies. MEDICATIONS Current Outpatient Medications Medication Sig omeprazole (PRILOSEC) 20 mg capsule Take 1 capsule by mouth daily before breakfast. 1/2 hr before meal. iron/vitamin b comp w-c(GERITOL COMPLETE TAB) one tablet daily nutritional supplement (BENEPROTEIN) whey protein powder 25 g. 25g protein twice a day No current facility-administered medications for this visit. FAMILY HISTORY Problem Relation Age of Onset Diabetes Mother Heart Mother CHF Heart Father CHF Heart Brother CHF Social History Tobacco Use Smoking status: Never Smokeless tobacco: Never Vaping Use Vaping Use: Never used Substance Use Topics Alcohol use: No Drug use: No EXAM: BP 110/67 Pulse 84 Resp 16 Ht 142.2 cm (4' 7.98) Wt 43.1 kg (95 lb) BMI 21.31 kg/m? PHYSICAL EXAM: General Appearance: Well appearing, alert, in no acute distress, well-hydrated, well nourished.. Skin: Skin color, texture, turgor normal, no suspicious rashes or lesions. Head: Normocephalic, no masses, lesions, tenderness or abnormalities. Eyes: Anicteric sclera. Extraocular movements are intact. . Neurologic: Gait normal. ASSESSMENT/PLAN: 1. Weight loss - ICD9: 783.21, ICD10: R63.4 (primary diagnosis) Actually appears stable. Continue the dietary supplement. Continue small/frequent meals. Consider nutrition consult. 2. Adjustment disorder with anxiety - ICD9: 309.24, ICD10: F43.22 Is agreeable to start daily medication. Will start remeron 7.5 mg at night. Discussed that she could even consider quartering the tablet for the first few days to reassure herself that she is tolerating the medication. Will give limited diazepam for breakthrough symptoms, especially if having SOB d/t progressive lung disease. - MIRTAZAPINE 15 MG TABLET - DIAZEPAM 2 MG TABLET Recheck in 1 month, sooner if needed. 3. Interstitial lung disease (HCC) - ICD9: 515, ICD10: J84.9 Progressive lung disease. Weakness and decreased activity tolerance requiring assistive device and frequent rest periods. Interested in a rollator walker. - WALKER ROLLATOR SEAT WITH 6 WHEELS - RED 4. Decreased activity tolerance - ICD9: 780.99, ICD10: R68.89 As above. - WALKER ROLLATOR SEAT WITH 6 WHEELS - RED 5. Generalized weakness - ICD9: 780.79, ICD10: R53.1 As above. - WALKER ROLLATOR SEAT WITH 6 WHEELS - RED Discussed treatment plan and patient voices understanding. Patient's questions answered appropriately. Medications and potential side effects were discussed and patient voices understanding. Return to the office as scheduled or as needed for worsening/no improvement. Francine Saleem APRN.WEDDING DAY COORDINATOR 12/16/2023 3:03 PM Signed Start the remeron at bedtime. Start the famotidine daily (more content not included)... [facility] LYND[facility] Telephone (RAYSA) DELIA ALEXANDER ([id number]) 1940 F Date Time Provider Department 12/16/23 FRANCINE SALEEM During your visit today, we recorded the following information about you: Doni Jones MA 12/16/2023 4:27 PM Signed Order for walker/rollator, face sheet, and OV note faxed to [facility] per patient request. Doni Jones MA Allergies As of Date: 12/16/2023 (No Known Allergies) Date Reviewed: 12/16/2023 Reviewed by: Doni Jones MA - Fully Assessed Reason for Visit: Durable Medical Equipment [Other] Prescriptions as of 12/16/2023 - nutritional supplement (BENEPROTEIN) whey protein powder 25 g. 25g protein twice a day - mirtazapine (REMERON) 15 mg tablet Take 0.5 tablets by mouth daily at bedtime. - diazePAM (VALIUM) 2 mg tablet Take 1 tablet by mouth every 12 hours as needed for up to 30 days. - famotidine (PEPCID) 20 mg tablet Take 1 tablet by mouth at bedtime as needed. - WALKER ROLLATOR SEAT WITH 6 WHEELS - RED Rollator walker w/ seat for ambulation. - omeprazole (PRILOSEC) 20 mg capsule Take 1 capsule by mouth daily before breakfast. 1/2 hr before meal. - iron/vitamin b comp w-c(GERITOL COMPLETE TAB) one tablet daily Meds Comments as of 05/05/2022: Taking prn Aspirin for pain. Problem List As Of Date 12/16/2023 Noted Resolved DVT (deep venous thrombosis) ([facility]) [I82.409] 06/11/2009 12/26/2016 Primary osteoarthritis involving multiple joint*07/06/2009 Essential hypertension [I10] 07/06/2009 Backache [M54.9] 08/01/2013 Pain in limb [M79.609] 08/01/2013 12/26/2016 Diabetes mellitus type 2, uncontrolled, without*08/18/2018 08/27/2018 DM II (diabetes mellitus, type II) ([facility]) [E11.9]08/18/2018 Dyspnea on exertion [R06.09] 01/17/2019 Near syncope [R55] 01/17/2019 Interstitial lung disease ([facility]) [J84.9] 07/29/2019 Chronic kidney disease, stage 3a ([facility]) [N18.31] 03/03/2023 IPF (idiopathic pulmonary fibrosis) ([facility]) [J84.*08/27/2023 Encounter Status:Closed by DONI JONES on 12/16/23 [facility] Luis Fernando 11-05-2023 [facility] DELIA ALEXANDER ([id number]) 1940 F Date Time Provider Department 11/05/23 [facility] During your visit today, we recorded the following information about you: Mavis Hopper LPN 11/05/2023 2:46 PM Signed Francine, daughter calling for pt. Pt not able to take medications Hydroxyzine or Cymbalta. Pt threw medications away. Hydroxyzine was taking and pt could not breath and gave her hallucinations. Daughter requesting medication Diazepam. This worked well for pt. Please advise Francine when this has been sent to the pharmacy. Mavis Hopper LPN Patient has been identified by name and date of : Yes, Provider Dr. Roberts Date 11/05/23 Time 2:42 pm daughter phones for refill(s): Requested Prescriptions Pending Prescriptions Disp Refills diazePAM (VALIUM) 2 mg tablet 15 tablet 0 Sig: Take 1 tablet by mouth every 6 hours as needed for up to 90 days. Date of last office visit in primary care: 10/12/2023 Date of next office visit in primary care: 01/05/2024 Please advise. Thank you. Mavis Hopper LPN. Rusty Roberts MD 11/06/2023 8:08 AM Signed That is not a medicine she should be taking custodial . If wants to stay on it intermediate project manager, Can refer to psychiatry although many of them no longer use it as well. Let me know. MauroEsther LPN 11/06/2023 9:51 AM Signed Called and left message with Francine, patient daughter, to return call regarding patient medication request. Francine identified self via voicemail. Esther RICKY Wade November 06, 2023 9:50 AM Karen Bal RN 11/06/2023 12:39 PM Signed Pts daughter called and is notified of providers message and options. She voices understanding and would like order placed for psychiatry. Please call and help schedule once order is placed. YESENIA Azul Stephanie, RN 11/06/2023 12:37 PM Signed Patient's daughter calls back and is asking if provider can send in a short term prescription for diazepam until patient sees psychiatry? Patient does not take hydroxyzine or Cymbalta. Daughter states that patient had side effect on these where she could not breathe. YESENIA Nicholson Joanna, LPN 11/06/2023 1:49 PM Signed Message to call office to schedule MATH PROFESSOR appointment with Jazmine. Kobi Reed LPN 11/10/2023 1:01 PM Signed Message to call to schedule. Kobi Reed LPN 11/13/2023 10:53 AM Signed Message to call office to schedule. Allergies As of Date: 11/05/2023 (Not on File) Date Reviewed: 10/12/2023 Reviewed by: Isabel High APRN.[employer] - Fully Assessed Reason for Visit: Medication Problem [65] Visit Diagnosis:Adjustment disorder with anxiety [F43.22] Order(s):[] diazePAM (VALIUM) 2 mg tabletTake 1 tablet by mouth every 12 hours as needed for up to 30 days.Disp: 10 tabletRfl: 0 CONSULT TO PSYCHIATRY [9063] Order #: [id number]: 1 FUTURE Prescriptions as of 12/16/2023 - omeprazole (PRILOSEC) 20 mg capsule Take 1 capsule by mouth daily before breakfast. 1/2 hr before meal. - iron/vitamin b comp w-c(GERITOL COMPLETE TAB) one tablet daily Meds Comments as of 05/05/2022: Taking prn Aspirin for pain. Problem List As Of Date 11/05/2023 Noted Resolved DVT (deep venous thrombosis) ([facility]) [I82.409] 06/11/2009 12/26/2016 Primary osteoarthritis involving multiple joint*07/06/2009 Essential hypertension [I10] 07/06/2009 Backache [M54.9] 08/01/2013 Pain in limb [M79.609] 08/01/2013 12/26/2016 Diabetes mellitus type 2, uncontrolled, without*08/18/2018 08/27/2018 DM II (diabetes mellitus, type II) ([facility]) [E11.9]08/18/2018 Dyspnea on exertion [R06.09] 01/17/2019 Near syncope [R55] 01/17/2019 Interstitial lung disease ([facility]) [J84.9] 07/29/2019 Chronic kidney disease, stage 3a ([facility]) [N18.31] 03/03/2023 IPF (idiopathic pulmonary fibrosis) ([facility]) [J84.*08/27/2023 Prescriptions ordered this encounter Disp Refills Start End DIAZEPAM 2 MG TABLET 10 t* 0 11/06/2023 12/06/2023 Route: ORAL Sig: Take 1 tablet by mouth every 12 hours as needed for up to 30 days. Medications Discontinued During This Encounter Prescriptions - hydrOXYzine HCl (ATARAX) 25 mg tablet (Discontinued) Take 1 tablet by mouth three times a day as needed. - DULoxetine (CYMBALTA) 20 mg capsule (Discontinued) Take 1 capsule by mouth once daily. Encounter Status:Closed by KOBI REED on 11/13/23 [facility] CNOVon 10-12-2023 CNOV Office Visit ([facility]AMPWS ) DELIA ALEXANDER ([id number]) 1940 F Date Time Provider Department 10/12/23 1:00 PM [facility] During your visit today, we recorded the following information about you: Pulse Respiration Blood pressure 67/minute 16/minute 138/90 Isabel High APRN.[facility] 10/12/2023 1:39 PM Signed This is a 83 year old female who presents today with: Patient presents with: Anxiety HISTORY OF PRESENT ILLNESS: Delia Alexander is a 83 year old female. Patient presents with: Anxiety Taking valium 2.5 mg for anxiety. a couple months ago. Multiple home repairs since his passes. 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 Has lung trouble. Very active. Sleeps poorly and has always only slept 2-3 hours per night. If she is having a good night, 4-5 hours. PAST MEDICAL HISTORY: PAST MEDICAL HISTORY Diagnosis Date Arthritis DVT (deep venous thrombosis) ([facility]) 08/27/2006 knee surgery Hypertension IPF (idiopathic pulmonary fibrosis) ([facility]) PAST SURGICAL HISTORY Procedure Laterality Date BACK SURGERY HX EGD 12/31/2020 ESOPHAGOGASTRODUODENO SCOPY TRANSORAL DIAGNOSTIC 11/19/2015 EGD EYE SURGERY HX JOINT REPLACEMENT HX Left partial left knee replacement partial knee replacement left. PAST SURGICAL HISTORY OF back surgery PAST SURGICAL HISTORY OF carpal tunnel surgery bilateral PAST SURGICAL HISTORY OF right knee surgery, torn meniscus ALLERGIES Patient has no allergy information on record. MEDICATIONS Current Outpatient Medications Medication Sig omeprazole (PRILOSEC) 20 mg capsule Take 1 capsule by mouth daily before breakfast. 1/2 hr before meal. iron/vitamin b comp w-c(GERITOL COMPLETE TAB) one tablet daily No current facility-administered medications for this visit. FAMILY HISTORY Problem Relation Age of Onset Diabetes Mother Heart Mother CHF Heart Father CHF Heart Brother CHF Social History Tobacco Use Smoking status: Never Smokeless tobacco: Never Vaping Use Vaping Use: Never used Substance Use Topics Alcohol use: No Drug use: No REVIEW OF SYSTEMS Has pulmonary HTN GENERAL: + weight loss, + malaise, + fevers/chills, + weak HEENT: Negative for frequent or significant headaches, + changes in hearing and vision. NECK: Negative for lumps, goiter, pain and significant neck swelling RESPIRATORY: + cough, hemoptysis, + wheezing, + dyspnea or shortness of breath CARDIOVASCULAR: + chest pain- tight they told her from lungs, No leg swelling, + orthopnea, + palpitations GI: No nausea, sometimes vomiting, or diarrhea/constipation . No hematochezia/melena. Some heartburn or reflux symptoms. : No history of dysuria, frequency or incontinence MUSCULOSKELETAL: + joint pain and swelling- hands and knees, takes 2 ibuprofen in morning and evening. SKIN: Negative for lesions, no rash, some itching ENDOCRINE: Negative for cold or heat intolerance, polyuria, polydipsia and goiter NEURO: No history of headaches, syncope, paralysis, seizures or tremors MOOD: Positive for depression, anxiety, or suicidal ideation. EXAM: BP 138/90 Pulse 67 Resp 16 SpO2 94% PHYSICAL EXAM: General Appearance: Well appearing, alert, in no acute distress, well-hydrated, well nourished.. Skin: Skin color, texture, turgor normal, no suspicious rashes or lesions. Head: Normocephalic, no masses, lesions, tenderness or abnormalities. Lungs: Lungs clear to auscultation. No wheezing, rhonchi, rales.. Heart: RRR without murmur, gallop, or rubs. No ectopy. Abdomen: Normal abdominal exam, Abdomen soft, non-tender. Bowel sounds normal. No masses, organomegaly. Musculoskeletal: No joint swelling, deformity, or tenderness. ASSESSMENT/PLAN: 1. Anxiety with depression - ICD9: 300.4, ICD10: F41.8 (primary diagnosis) Ongoing- took last valium this morning - HYDROXYZINE HCL 25 MG TABLET 3 x day as needed - DULOXETINE 20 MG CAPSULE,DELAYED RELEASE daily 2. Weight loss - ICD9: 783.21, ICD10: R63.4 Ongoing 3. Epigastric pain - ICD9: 789.06, ICD10: R10.13 Differential Diagnosis includes GERD Stable. - OMEPRAZOLE 20 MG CAPSULE,DELAYED RELEASE 4. Arthralgia of both knees - ICD9: 719.46, ICD10: M25.561, M25.562 Ongoing from pulmonary rehab - DULOXETINE 20 MG CAPSULE,DELAYED RELEASE 5. Pulmonary fibrosis (HCC) - ICD9: 515, ICD10: J84.10 Ongoing, in pulmoanry rehab Discussed treatment plan and patient voices understanding. Patient's questions answered appropriately. Medications and potential side effects were discussed and patient voices understanding. Return to the office as scheduled or as needed for worsening/no improvement. Isabel High APRN.[facility] The patient indicates understanding of these issues and agrees with the plan. Isabel High APRN.[facility] 10/12/2023 1:31 PM Addendum 1) Duloxetine 20mg daily for pain AND anxiety (more content not included)... Normal [facility] DEL[facility] A[facility]AND[facility] ([id number]) 1940 F Date Time Provider Department 10/12/23 RUSTY ROBERTS [facility] During your visit today, we recorded the following information about you: Vin Toure 10/12/2023 9:55 AM Signed Patient called to refill her diazepam; not on current med list. She said it was prescribed to her in the past to help with the stress/anxiety after her . Uses [facility] in [place]. Rusty Roberts MD 10/12/2023 10:22 AM Signed That is not something we would want her to continue to use. If she still is having significant anxiety, we need to probably bring her back in to decide best option. Angie Hathaway RN 10/12/2023 11:46 AM Signed Phoned patient and given provider' s message below with verbalized understanding. Scheduled same day appt with Calciner Operator Helper. Allergies As of Date: 10/12/2023 (Not on File) Date Reviewed: 10/08/2023 Reviewed by: Gloria Garcia - Fully Assessed Reason for Visit: Rx refill; not on current med list [Other] Prescriptions as of 10/12/2023 - omeprazole (PRILOSEC) 20 mg capsule Take 1 capsule by mouth daily before breakfast. 1/2 hr before meal. - iron/vitamin b comp w-c(GERITOL COMPLETE TAB) one tablet daily Meds Comments as of 05/05/2022: Taking prn Aspirin for pain. Problem List As Of Date 10/12/2023 Noted Resolved DVT (deep venous thrombosis) ([facility]) [I82.409] 06/11/2009 12/26/2016 Primary osteoarthritis involving multiple joint*07/06/2009 Essential hypertension [I10] 07/06/2009 Backache [M54.9] 08/01/2013 Pain in limb [M79.609] 08/01/2013 12/26/2016 Diabetes mellitus type 2, uncontrolled, without*08/18/2018 08/27/2018 DM II (diabetes mellitus, type II) ([facility]) [E11.9]08/18/2018 Dyspnea on exertion [R06.09] 01/17/2019 Near syncope [R55] 01/17/2019 Interstitial lung disease ([facility]) [J84.9] 07/29/2019 Chronic kidney disease, stage 3a ([facility]) [N18.31] 03/03/2023 IPF (idiopathic pulmonary fibrosis) ([facility]) [J84.*08/27/2023 Encounter Status:Closed by Angie HATHAWAY [facility] DEL[facility] A[facility] ([id number]) 1940 F Date Time Provider Department 10/12/23 RUSTY ROBERTS During your visit today, we recorded the following information about you: Ynes WalterRICKY 10/12/2023 3:22 PM Signed Electronic PA rec'd and completed for hydroxyzine. This was approved. Prior authorization approved Payer: [employer] [phone] CaseId:[id number];Statu s:Approved;Review Type:Prior Auth;Coverage Start Date:09/28/2023;Cover age End Date:10/11/2024; Approval Details Authorized from September 28, 2023 to October 11, 2024 Electronic appeal: Not supported View History Medication Being Authorized hydrOXYzine HCl (ATARAX) 25 mg tablet Take 1 tablet by mouth three times a day as needed. Dispense: 90 tablet Refills: 2 Start: 10/12/2023 End: 01/10/2024 Class: Normal Diagnoses: Anxiety with depression This order has been released to its destination. To be filled at: [facility] [address] [place] [id number] [facility] [phone] [facility] notified. Allergies As of Date: 10/12/2023 (Not on File) Date Reviewed: 10/12/2023 Reviewed by: Isabel High APRN.[employer] - Fully Assessed Reason for Visit: Insurance Authorization [[id number]] Prescriptions as of 10/12/2023 - omeprazole (PRILOSEC) 20 mg capsule Take 1 capsule by mouth daily before breakfast. 1/2 hr before meal. - hydrOXYzine HCl (ATARAX) 25 mg tablet Take 1 tablet by mouth three times a day as needed. - DULoxetine (CYMBALTA) 20 mg capsule Take 1 capsule by mouth once daily. - iron/vitamin b comp w-c(GERITOL COMPLETE TAB) one tablet daily Meds Comments as of 05/05/2022: Taking prn Aspirin for pain. Problem List As Of Date 10/12/2023 Noted Resolved DVT (deep venous thrombosis) ([facility]) [I82.409] 06/11/2009 12/26/2016 Primary osteoarthritis involving multiple joint*07/06/2009 Essential hypertension [I10] 07/06/2009 Backache [M54.9] 08/01/2013 Pain in limb [M79.609] 08/01/2013 12/26/2016 Diabetes mellitus type 2, uncontrolled, without*08/18/2018 08/27/2018 DM II (diabetes mellitus, type II) ([facility]) [E11.9]08/18/2018 Dyspnea on exertion [R06.09] 01/17/2019 Near syncope [R55] 01/17/2019 Interstitial lung disease (HCC) [J84.9] 07/29/2019 Chronic kidney disease, stage 3a ([facility]) [N18.31] 03/03/2023 IPF (idiopathic pulmonary fibrosis) ([facility]) [J84.*08/27/2023 Encounter Status:Closed by YNES WALTER on 10/12/23 [facility] CNOVon 10-08-2023 CNOV Office Visit (PMNA11 ) DELIA ALEXANDER ([id number]) 1940 F Date Time Provider Department 10/08/23 3:00 PM LALIT GUERRA PMNA11 During your visit today, we recorded the following information about you: Temperature Pulse Respiration Blood pressure 98.2 degrees 114/minute 18/minute 136/63 Lalit Guerra MD 10/08/2023 6:54 PM Signed [facility] Initial Visit October 08, 2023 I had the pleasure of seeing Delia Alexander in consultation for continued evaluation and and management of Pulmonary Hypertension. Summary of this visit and my recommendations will be relayed to the referring physician and primary care physician by way of electronic communication or by mail. PCP: Rusty Roberts MD Referring Provider: Vipin Carlisle HPI: 83yo F with PMH HTN, DVT s/p TKA 2006, IPF who presented for a second opinion regarding her IPF from Dr Carlisle, who referred her for an elevated RVSP on TTE. She has been experiencing dyspnea for the past 4 years, worse in the past 1 year. ~50lb weight loss in the apst 6 months. Sleeps in a recliner due to chronic back pain Shortness of breath at rest: no Shortness of breath on exertion: yes after a few steps Orthopnea: yes Paroxysmal nocturnal dyspnea: no Edema: no Palpitations: yes Dizziness/lightheaded ness: yes, on exertion and at ret Syncope: no Adheres to low salt diet: no Regular excercise: currently in pulmonary rehab Current PH drugs: none PH risk hx: diet pills: no amphetamine use: no Hx VTE: provoked DVT RLE 2006 after TKR on coumadin unsure for how long Hx liver disease: no HIV/HBC/HCV risk: no hx of splenectomy: no Prior thyroid disease: no Prior lung diusease: IPF Family hx of PAH: no Snoring or witnessed apneas: yes Arthralgias: yes, from OA Rash or lessions: no Raynauds symptoms: no ROS: Negative for joint or back pain, weight loss, fever, JUAREZ, cough, wheezing, chest pain, leg swelling, syncope, palpitations. No nausea, vomiting, diarrhea, rash, bleeding. Positive for dyspnea on minimal exertion A complete ROS was performed all others systems are negative PMH: PAST MEDICAL HISTORY Diagnosis Date Arthritis DVT (deep venous thrombosis) (HCC) 08/27/2006 knee surgery Hypertension IPF (idiopathic pulmonary fibrosis) (HCC) Childhood hx: active and healthy, horseback riding, never hospitalized, anemic PSH: PAST SURGICAL HISTORY Procedure Laterality Date BACK SURGERY HX EGD 12/31/2020 ESOPHAGOGASTRODUODENO SCOPY TRANSORAL DIAGNOSTIC 11/19/2015 EGD EYE SURGERY HX JOINT REPLACEMENT HX Left partial left knee replacement partial knee replacement left. PAST SURGICAL HISTORY OF back surgery PAST SURGICAL HISTORY OF carpal tunnel surgery bilateral PAST SURGICAL HISTORY OF right knee surgery, torn meniscus Medications: diazePAM (VALIUM) 2 mg tablet Take 2 mg by mouth every 6 hours as needed. omeprazole (PRILOSEC) 20 mg capsule Take 1 capsule by mouth daily before breakfast. 1/2 hr before meal. 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 Tongue and posterior oropharynx normal. Teeth normal. Neck: Supple neck. Midline trachea. Thyroid nontender and non-enlarged. JVD not present at 90 degrees of incline. Respiratory: velcro crackles b/l Cardiovascular: RRR without gallop, or rubs. There is no murmur. Non-displaced PMI. No parasternal heave. No peripheral edema noted in the lower extremities. Upper extremities appear normal. Normal temperature of all 4 extremities. Abdomen/GI: Abdomen soft, non-tender, non-distended. No masses or organomegaly noted. Liver nonpulsitile. No hepatojugular reflux. Extremities: No clubbing or cyanosis of fingers. No cracking, pitting or petechiae on fingers. Capillary refill <2 sec bilaterally. Musculoskeletal: Spine shows (more content not included)... Normal [facility] SIX MINUTE WALKon 10-08-2023 [facility] XR CHEST 2V FRONTAL/LATon XR CHEST 2V FRONTAL/LAT * * *Final Repor t* * * DATE OF EXAM: Oct 08 2023 2:05PM AOX [id number] - XR CHEST 2V FRONTAL/LAT / PROCEDURE REASON: Primary pulmonary hypertension (HCC) * * * * Physician Interpretation * * * * EXAMINATION: CHEST RADIOGRAPH (2 VIEW FRONTAL and LATERAL) CLINICAL HISTORY: Primary pulmonary hypertension (HCC) MQ: [id number] EXAM DATE/TIME: 10/08/2023 2:05 PM COMPARISON: 05/05/2022 RESULT: Lines, tubes, and devices: None. Lungs and pleura: Worsening of bilateral interstitial opacities suggesting interstitial fibrotic process. Superimposed interstitial edema or inflammation is not excluded. Right hemidiaphragm elevation has increased. Pleural thickening has increased. No significant pleural effusion or pneumothorax. Cardiomediastinal silhouette: Normal-sized heart. Thoracic aorta is mildly tortuous with atherosclerotic calcifications. Bones and soft tissues: The visualized bones are osteopenic. IMPRESSION: See result Cover Marker: WADE Transcribe Date/Time: Oct 08 2023 4:34P Dictated by : CAMILA BROWN MD This examination was interpreted and the report reviewed and electronically signed by: CAMILA BROWN MD on Oct 08 2023 4:35PM EST [id number] Normal [facility] XR Chest PA and Lateralon [facility]on 10-07[facility]2023 [facility] TAYLORDELIA ([id number]) 1940 F Date Time Provider Department 10/07/23 3:00 PM PULM REHAB PHASE 2 [facility] During your visit today, we recorded the following information about you: Ama Gagnon Aircraft Inspection Record Clerk 10/07/2023 2:51 PM Signed [facility] Individualized Treatment Plan - Daily Assessment Patient Name: Delia Alexander Date: 10/07/2023 Primary Care Physician: Rusty Roberts MD Referring Physician: Vipin Carlisle MD Supervising Physician: Cisco Michaels MD Diagnosis: Pulmonary Fibrosis Phase: 2 Session Number: 2 Subjective Data: Patient reports I am feeling fine today, no unusual shortness of breath or chest discomfort. I am ready for exercise. Objective Data: Emergency room visits since your last visit. No Medication changes since last visit. No Today's exercise session was comprised of a warm-up, breathing technique practice, lower and upper body aerobic endurance training, upper and lower body resistance training and lower body stretching/flexibilit y training as a cool down. Patient tolerated physician prescribed exercise workload. Vitals WNL for patient. This is a hospital based pulmonary rehab program. Patient working towards exercise goals by increasing exercise duration. Patient working towards education goal by attending education sessions in pulmonary rehabilitation. Will educate on disease and symptom management as needed. The education topic provided to the patient today was Advanced directive handouts. The patient received this education by written instruction - handouts and verbal instruction. Patient has verbalized understanding of education topic and the relation to disease management. Patient's Daily Exercise Log will be scanned into [email or web address] once it is completed. These can be viewed by going under the scanned documents tab and looking for documents labeled Other respiratory therapy. Daily Exercise Logs contain exercise data such as, but not limited to modality, intensity, duration and frequency of exercise, along with vital signs pre-, during, and post-exercise. Refer to patient's paper medical record for pulse oximetry data, physician prescribed Individualized Treatment Plan, and education sessions covered. Total time of visit 80 minutes. Ama Gagnon Aircraft Inspection Record Clerk October 07, 2023 2:50 PM Referring Provider: VIPIN CARLISLE [[id number]] Allergies As of Date: 10/07/2023 (No Known Allergies) Date Reviewed: 08/27/2023 Reviewed by: Jose Herman MA - Fully Assessed Primary Visit Diagnosis:Pulmonary interstitial fibrosis (HCC) [J84.10] Prescriptions as of 10/07/2023 - diazePAM (VALIUM) 2 mg tablet Take 2 mg by mouth every 6 hours as needed. - omeprazole (PRILOSEC) 20 mg capsule Take 1 capsule by mouth daily before breakfast. 1/2 hr before meal. - iron/vitamin b comp w-c(GERITOL COMPLETE TAB) one tablet daily Meds Comments as of 05/05/2022: Taking prn Aspirin for pain. Problem List As Of Date 10/07/2023 Noted Resolved DVT (deep venous thrombosis) ([facility]) [I82.409] 06/11/2009 12/26/2016 Primary osteoarthritis involving multiple joint*07/06/2009 Essential hypertension [I10] 07/06/2009 Backache [M54.9] 08/01/2013 Pain in limb [M79.609] 08/01/2013 12/26/2016 Diabetes mellitus type 2, uncontrolled, without*08/18/2018 08/27/2018 DM II (diabetes mellitus, type II) ([facility]) [E11.9]08/18/2018 Dyspnea on exertion [R06.09] 01/17/2019 Near syncope [R55] 01/17/2019 Interstitial lung disease ([facility]) [J84.9] 07/29/2019 Chronic kidney disease, stage 3a ([facility]) [N18.31] 03/03/2023 IPF (idiopathic pulmonary fibrosis) ([facility]) [J84.*08/27/2023 Encounter Status:Closed by [facility]MA GAGNON [facility]07[facility] Office Visit ([facility] ) TAYLORDELIA Tadeo ([id number]) 1940 F Date Time Provider Department 10/05/23 3:00 PM PULM REHAB PHASE 2 [facility] During your visit today, we recorded the following information about you: Ama Gagnon [employer] Record Clerk 10/05/2023 2:49 PM [facility] DEPARTMENT OF PULMONARY REHABILITATION Individualized Treatment Plan - Daily Assessment Patient Name: Delia Alexander Date: 10/05/2023 Primary Care Physician: Rusty Roberts MD Referring Physician: Vipin Carlisle MD Supervising Physician: Cisco Michaels MD Diagnosis: Pulmonary Fibrosis Phase: 2 Session Number: 1 Subjective Data: Patient reports I am feeling fine today, no unusual shortness of breath or chest discomfort. I am ready for exercise. Objective Data: Emergency room visits since your last visit. No Medication changes since last visit. No Today's exercise session was comprised of a warm-up, breathing technique practice, lower and upper body aerobic endurance training, upper and lower body resistance training and lower body stretching/flexibilit y training as a cool down. Patient tolerated physician prescribed exercise workload. Vitals WNL for patient. This is a hospital based pulmonary rehab program. Patient working towards exercise goals by beginning exercise frequency and intensity and duration. Patient working towards education goal by attending education sessions in pulmonary rehabilitation. Will educate on disease and symptom management as needed. The education topic provided to the patient today was [employer]/Verónica betes/Cholesterol. The patient received this education by written instruction - handouts, verbal instruction and demonstration. Patient has verbalized understanding of education topic and the relation to disease management. Patient's Daily Exercise Log will be scanned into [email or web address] once it is completed. These can be viewed by going under the scanned documents tab and looking for documents labeled Other respiratory therapy. Daily Exercise Logs contain exercise data such as, but not limited to modality, intensity, duration and frequency of exercise, along with vital signs pre-, during, and post-exercise. Refer to patient's paper medical record for pulse oximetry data, physician prescribed Individualized Treatment Plan, and education sessions covered. Total time of visit 80 minutes. Ama Gagnon Aircraft Ins[employer] Record Clerk October 05, 2023 2:48 PM Referring Provider: VIPIN CARLISLE [[id number]] Allergies As of Date: 10/05/2023 (No Known Allergies) Date Reviewed: 08/27/2023 Reviewed by: Jose Herman MA - Fully Assessed Primary Visit Diagnosis:Pulmonary interstitial fibrosis (HCC) [J84.10] Prescriptions as of 10/05/2023 - diazePAM (VALIUM) 2 mg tablet Take 2 mg by mouth every 6 hours as needed. - omeprazole (PRILOSEC) 20 mg capsule Take 1 capsule by mouth daily before breakfast. 1/2 hr before meal. - iron/vitamin b comp w-c(GERITOL COMPLETE TAB) one tablet daily Meds Comments as of 05/05/2022: Taking prn Aspirin for pain. Problem List As Of Date 10/05/2023 Noted Resolved DVT (deep venous thrombosis) (HCC) [I82.409] 06/11/2009 12/26/2016 Primary osteoarthritis involving multiple joint*07/06/2009 Essential hypertension [I10] 07/06/2009 Backache [M54.9] 08/01/2013 Pain in limb [M79.609] 08/01/2013 12/26/2016 Diabetes mellitus type 2, uncontrolled, without*08/18/2018 08/27/2018 DM II (diabetes mellitus, type II) ([facility]) [E11.9]08/18/2018 Dyspnea on exertion [R06.09] 01/17/2019 Near syncope [R55] 01/17/2019 Interstitial lung disease (HCC) [J84.9] 07/29/2019 Chronic kidney disease, stage 3a ([facility]) [N18.31] 03/03/2023 IPF (idiopathic pulmonary fibrosis) ([facility]) [J84.*08/27/2023 Encounter Status:Closed by AMA GAGNON on 10/05/23 [facility] Office Visit ([facility] ) DELIA ALEXANDER ([id number]) 1940 F Date Time Provider Department 10/02/23 1:[address] [facility] During your visit today, we recorded the following information about you: Pulse Blood pressure Height 71/minute 130/78 1.473 m Sue Pickens Aircraft Ins[employer] Record Clerk 10/02/2023 2:36 PM [facility] DEPARTMENT OF PULMONARY REHABILITATION Individualized Treatment Plan - Initial Assessment Patient Name: Delia Alexander Date: 10/02/2023 Primary Care Physician: Rusty Roberts MD Referring Physician: Vipin Carlisle MD Delia Alexander is a 83 year old female is presenting for evaluation for pulmonary rehabilitation. Delia Alexander had 0 hospitalizations in the last year for total of 0 days. Of these hospitalizations 0 were related to pulmonary disease. She has not attended pulmonary rehabilitation in the past. Delia Alexander was diagnosed with Pulmonary Fibrosis in 2023. Relevant past medical history PAST MEDICAL HISTORY Diagnosis Date Arthritis DVT (deep venous thrombosis) (HCC) 08/27/2006 knee surgery Hypertension IPF (idiopathic pulmonary fibrosis) (HCC) Relevant past social history PAST SURGICAL HISTORY Procedure Laterality Date BACK SURGERY HX EGD 12/31/2020 ESOPHAGOGASTRODUODENO SCOPY TRANSORAL DIAGNOSTIC 11/19/2015 EGD EYE SURGERY HX JOINT REPLACEMENT HX Left partial left knee replacement partial knee replacement left. PAST SURGICAL HISTORY OF back surgery PAST SURGICAL HISTORY OF carpal tunnel surgery bilateral PAST SURGICAL HISTORY OF right knee surgery, torn meniscus Relevant family history FAMILY HISTORY Problem Relation Age of Onset Diabetes Mother Heart Mother CHF Heart Father CHF Heart Brother CHF Social History Social History Tobacco Use Smoking status: Never Smokeless tobacco: Never Vaping Use Vaping Use: Never used Substance Use Topics Alcohol use: No Drug use: No Influencing Factors: None Motivation to Learn: Eager Cognitive ability: Alert and oriented Relevant medicines, for complete list see medication icon Current Outpatient Medications Medication Sig diazePAM (VALIUM) 2 mg tablet Take 2 mg by mouth every 6 hours as needed. omeprazole (PRILOSEC) 20 mg capsule Take 1 capsule by mouth daily before breakfast. 1/2 hr before meal. iron/vitamin b comp w-c(GERITOL COMPLETE TAB) one tablet daily No current facility-administered medications for this visit. Initial Other Program Location: [place] Program: Pulmonary Phase II Session: Intake Diagnosis: Pulmonary Fibrosis COPD Gold Classification: Not applicable: Primary Reason For Referral: Dyspnea;Dyspnea with activity;Improve exercise capacity;Symptom mgmt First Day of Exercise: 10/05/23 Initital Outcomes OUTCOMES 6 Minute Walk Test: Yes Date: 10/02/23 Distance (ft): 550 Total Rest Time (seconds): 45 Lowest SPO2: 89 (RA) Peak Heart Rate BPM: 102 MMRC: 4 Mediterranean Diet Score: 2 Mediterranean Diet Score: <8 Your diet is not consistent with making healthy choices: Yes BMI: 20.69 PHQ-9 Score: 19 CAT Assessment Test : 28 Initital Oxygen Assessment OXYGEN ASSESSMENT, MANAGEMENT and TITRATION in REHAB ASMT Resting SpO2: 96 (RA) Lowest Exercise SPO2 Assmt: During exercise in Pulmonary Rehab Prescribed Home Oxygen: No CPAP/BiPAP/NIPPV : No MMRC: 4 Initital Oxygen Plan/Intervention, Management and Titration in Rehab OXYGEN ASSESSMENT, MANAGEMENT AND TITRATION IN REHAB INTERVENTION Initate Titraton if Needed: Yes Exercise Oxygen Plan: Initiate supplemental oxygen at prescribed liter flow that is necessary to maintain Spo2 > 90% Target SpO2 Plan: >90% Planned Education Intervention During Pulmonary Rehab: Oxygen;Pulse Oximetry;Dyspnea;Pocola thing Techniques;CPAP/BiPAP /NIPPV Use Education during Pulmonary Rehab covered by: Lecture/Discussion;Re turn Demonstration;Handout ;Video Patient understands intervention: Yes Initital Oxygen Goals OXYGEN ASSESSMENT, MANAGEMENT AND TITRATION IN REHAB GOALS Patient to improve MMRC Score : Pending Reassessment Patient understands proper oxygen use: Pending Reassesment Patient understands benefits of adequate oxygenation: Pending Reassessment Patient understand benefits of specific breathing techniques: Pending Reassessment Initial Exercise Assessment EXERCISE ASSESMENT Current Exercise: No Type of Exercise: Other (none) Exercise Duration: 0 minutes Exercise Intensity: Low Exercise Equipment: No Exercise Frequency: 0 Exercise Limitations/Symptoms: No Assist Device: Yes Devised Used: Wheel Chair Oxygen: No 6 Minute Walk Test: Yes Date: 10/02/23 Distance (ft): 550 Total Rest Time (seconds): 45 Lowest SPO2: 89 (RA) Peak Heart Rate BPM: 102 Initial Exercise Plan/Intervention/Pre scription EXERCISE PRESCRIPTION/ INT (more content not included)... [facility] 10-02-2023 [facility] Telephone (PULMMN) DELAI ALEXANDER ([id number]) 1940 F Date Time Provider Department 10/02/23 LALIT GUERRA PULPALLAVI During your visit today, we recorded the following information about you: Bindu Randall 10/02/2023 10:29 AM Signed Received a call from patient's daughter- Angela Oakes. Angela stated that patient is unable to lay down, due to spine having a bad curve which causes pain. Angela is looking to speak with someone about maybe changing the orders for something else that does not require the patient to lay down. Patient is schedule to see bot Dr. Carlisle and Dr. Guerra same day. Angela Davila can be reached at [phone] Kitty Huynh RN 10/02/2023 12:11 PM Signed Attempted to call Angela, pt's daughter, in regards to her message. No answer. VM and call back number provided. YESENIA Bah Meghan, RN 10/02/2023 12:27 PM Signed Spoke with Angela. Reviewed testing with her and cancelled VQ scan as this would require pt to lay flat. Ok to cancel per Minda [employer]. Kitty Huynh RN Allergies As of Date: 10/02/2023 (No Known Allergies) Date Reviewed: 08/27/2023 Reviewed by: Jose Herman MA - Fully Assessed Reason for Visit: [employer] - Other [[id number]] Prescriptions as of 10/02/2023 - diazePAM (VALIUM) 2 mg tablet Take 2 mg by mouth every 6 hours as needed. - omeprazole (PRILOSEC) 20 mg capsule Take 1 capsule by mouth daily before breakfast. 1/2 hr before meal. - iron/vitamin b comp w-c(GERITOL COMPLETE TAB) one tablet daily Meds Comments as of 05/05/2022: Taking prn Aspirin for pain. Problem List As Of Date 10/02/2023 Noted Resolved DVT (deep venous thrombosis) ([facility]) [I82.409] 06/11/2009 12/26/2016 Primary osteoarthritis involving multiple joint*07/06/2009 Essential hypertension [I10] 07/06/2009 Backache [M54.9] 08/01/2013 Pain in limb [M79.609] 08/01/2013 12/26/2016 Diabetes mellitus type 2, uncontrolled, without*08/18/2018 08/27/2018 DM II (diabetes mellitus, type II) ([facility]) [E11.9]08/18/2018 Dyspnea on exertion [R06.09] 01/17/2019 Near syncope [R55] 01/17/2019 Interstitial lung disease ([facility]) [J84.9] 07/29/2019 Chronic kidney disease, stage 3a ([facility]) [N18.31] 03/03/2023 IPF (idiopathic pulmonary fibrosis) ([facility]) [J84.*08/27/2023 Encounter Status:Closed by BINDU RANDALL on 10/02/23 Normal [facility]CHOon 10-01-2023 Echocardiography Echocardiography Report: Transthoracic [facility] Office Date of service: 10/01/2023 2:03:52 PM ASSISTANT Ordering physician: VIPIN CARLISLE Indication: Shortness of Breath Technologist: Quintin Skelton Interpreting physician: Jaylan Johnson DO PATIENT: Name: MRS. DELIA ALEXANDER : 1940 Age: 83 years Gender: F History of hypertension, chronic kidney disease and diabetes mellitus. Primary rhythm: sinus. Height: 147.30 cm BSA: 1.34 m Weight: 44.04 kg BMI: 20.3 kg/m Heart rate 81 bpm Blood pressure 135/80 mmHg Color Doppler was utilized to interrogate the cardiac valves assessed and spectral Doppler was utilized to determine the flow velocities and pressure gradients reported in this exam. Myocardial strain analysis was performed in this exam to aid in the assessment of cardiac function. MEASUREMENTS: Value Indexed Normal Max aortic dimension 3.0 cm Ao < 3.8 Left atrial volume 47 ml (biplane A-L) 35 ml/m Kiki <= 34 LV ID (diastole) 3.5 cm (2D) 2.61 cm/m LV ID (systole) 2.2 cm (2D) 1.64 cm/m IVS, leaflet tips 1.0 cm (2D) Posterior wall thickness 0.8 cm (2D) Left ventricular mass 84 g (2D) 62 g/m Global peak long strain -16.4 % LV stroke volume 36 ml (2D biplane) LV end diastolic volume 63 ml (2D biplane) 47.0 ml/m 29<=EDVi<62 LV end systolic volume 28 ml (2D biplane) 20.6 ml/m Ejection Fraction 56 % (2D biplane) EF > 54 FINDINGS: LEFT VENTRICLE The left ventricle is normal in size. Left ventricular systolic function is normal globally. Global LV myocardial strain is normal. Grade I left ventricular diastolic dysfunction. Mitral annular lateral E/e': 7.0. Mitral annular septal E/e': 11.6. Wall Motion: All scored segments are normal. RIGHT VENTRICLE The right ventricle is normal in size. Right ventricular systolic function is normal. Estimated right ventricular systolic pressure is 47 mmHg consistent with mild pulmonary hypertension. Estimated right atrial pressure is 3 mmHg based on IVC assessment. LEFT ATRIUM The left atrial cavity is mildly dilated. Pulmonary Veins: The pulmonary venous pattern showed normal systolic flow. RIGHT ATRIUM The right atrial cavity is normal in size. Inferior Vena Cava: The inferior vena cava appears normal measuring 2.1 cm. The vessel decreases greater than 50 percent with inspiration. MITRAL VALVE The mitral valve leaflets are structurally normal. There is trace (trace - 1+) mitral valve regurgitation. The pressure half time is 66 msec. The peak mitral E/A ratio is 0.70. The average mitral E/e' ratio is 9.3. The mitral flow deceleration time is 227 msec. TRICUSPID VALVE The tricuspid valve leaflets are structurally normal. There is trace tricuspid valve regurgitation. AORTIC VALVE The aortic valve cusps are structurally normal. There is trace aortic valve regurgitation. Tricuspid aortic valve. PULMONIC VALVE The pulmonic valve cusps are structurally normal. There is trace pulmonic valve regurgitation. AORTA The visualized aorta is normal in size. Measurements - Sinus: 2.8 cm. Mid ascending aorta 3.0 cm. Distal ascending aorta 3.0 cm. Mid arch 2.8 cm. PULMONARY ARTERIES The pulmonary arteries are normal. INTERATRIAL SEPTUM The interatrial septum is normal. INTERVENTRICULAR SEPTUM The interventricular septum is normal. PERICARDIUM The pericardium is normal. CORONARY ARTERIES The coronary arteries are unseen or not interrogated. CONCLUSIONS: - Exam indication: Shortness of Breath - The left ventricle is normal in size. Left ventricular systolic function is normal. EF = 56 5% (2D biplane) Grade I left ventricular diastolic dysfunction. GLS= -16.4% Normal. - The right ventricle is normal in size. Right ventricular systolic function is normal. - The left atrial cavity is mildly dilated. - There are no significant valvular abnormalities. - Estimated right ventricular systolic pressure is 47 mmHg consistent with mild pulmonary hypertension. Estimated right atrial pressure is 3 mmHg based on IVC assessment. - Exam was compared with the prior echocardiographic exam performed on 08/10/2018. There is no significant change. * * * Final * * * [employer] : [id number] [id number] Normal [facility] CNPMaritza 09-24-2023 CNPN Telephone (PULMMN) DELIA ALEXANDER ([id number]) 1940 F Date Time Provider Department 09/24/23 VIPIN CARLISLE During your visit today, we recorded the following information about you: Zehra Vega 09/24/2023 12:36 PM Signed Imported pulse oximetry summary report from [employer] (dated 09/23/23). Please allow time delay for documents to appear in [email or web address] (Scanned Documents Tab). Allergies As of Date: 09/24/2023 (No Known Allergies) Date Reviewed: 08/27/2023 Reviewed by: Jose Herman MA - Fully Assessed Reason for Visit: Pulse Oximetry Summary Report [Other] Cmt: [employer] Prescriptions as of 09/24/2023 - diazePAM (VALIUM) 2 mg tablet Take 2 mg by mouth every 6 hours as needed. - omeprazole (PRILOSEC) 20 mg capsule Take 1 capsule by mouth daily before breakfast. 1/2 hr before meal. - iron/vitamin b comp w-c(GERITOL COMPLETE TAB) one tablet daily Meds Comments as of 05/05/2022: Taking prn Aspirin for pain. Problem List As Of Date 09/24/2023 Noted Resolved DVT (deep venous thrombosis) (HCC) [I82.409] 06/11/2009 12/26/2016 Primary osteoarthritis involving multiple joint*07/06/2009 Essential hypertension [I10] 07/06/2009 Backache [M54.9] 08/01/2013 Pain in limb [M79.609] 08/01/2013 12/26/2016 Diabetes mellitus type 2, uncontrolled, without*08/18/2018 08/27/2018 DM II (diabetes mellitus, type II) ([facility]) [E11.9]08/18/2018 Dyspnea on exertion [R06.09] 01/17/2019 Near syncope [R55] 01/17/2019 Interstitial lung disease ([facility]) [J84.9] 07/29/2019 Chronic kidney disease, stage 3a ([facility]) [N18.31] 03/03/2023 IPF (idiopathic pulmonary fibrosis) ([facility]) [J84.*08/27/2023 Encounter Status:Closed by ZEHRA VEGA on 09/24/23 [facility] Luis Fernando 09-08-2023 [facility] Telephone (PULMMJinny) DELIA ALEXANDER ([id number]) 1940 F Date Time Provider Department 09/08/23 VIPIN CARLISLE During your visit today, we recorded the following information about you: Dae Canchola, YESENIA 09/08/2023 8:49 AM Signed Patients daughter hasn't heard anything regarding getting the patients nocturnal oximetry scheduled Will look into this Allergies As of Date: 09/08/2023 (No Known Allergies) Date Reviewed: 08/27/2023 Reviewed by: Jose Herman MA - Fully Assessed Prescriptions as of 09/08/2023 - diazePAM (VALIUM) 2 mg tablet Take 2 mg by mouth every 6 hours as needed. - omeprazole (PRILOSEC) 20 mg capsule Take 1 capsule by mouth daily before breakfast. 1/2 hr before meal. - iron/vitamin b comp w-c(GERITOL COMPLETE TAB) one tablet daily Meds Comments as of 05/05/2022: Taking prn Aspirin for pain. Problem List As Of Date 09/08/2023 Noted Resolved DVT (deep venous thrombosis) ([facility]) [I82.409] 06/11/2009 12/26/2016 Primary osteoarthritis involving multiple joint*07/06/2009 Essential hypertension [I10] 07/06/2009 Backache [M54.9] 08/01/2013 Pain in limb [M79.609] 08/01/2013 12/26/2016 Diabetes mellitus type 2, uncontrolled, without*08/18/2018 08/27/2018 DM II (diabetes mellitus, type II) ([facility]) [E11.9]08/18/2018 Dyspnea on exertion [R06.09] 01/17/2019 Near syncope [R55] 01/17/2019 Interstitial lung disease ([facility]) [J84.9] 07/29/2019 Chronic kidney disease, stage 3a ([facility]) [N18.31] 03/03/2023 IPF (idiopathic pulmonary fibrosis) ([facility]) [J84.*08/27/2023 Encounter Status:Closed by DAE CANCHOLA on 09/08/23 [facility] Luis Fernando 09-04-2023 [facility] Telephone (LILLIE) DELIA ALEXANDER ([id number]) 1940 F Date Time Provider Department 09/04/23 SUE PICKENS During your visit today, we recorded the following information about you: Sue Pickens [employer] Record Clerk 09/04/2023 4:38 PM Signed Called patient regarding pulmonary rehab program. Patient answered and stated that they are going to check with insurance regarding coverage for the classes. Patient has my phone number to call back. Allergies As of Date: 09/04/2023 (No Known Allergies) Date Reviewed: 08/27/2023 Reviewed by: Jose Herman MA - Fully Assessed Reason for Visit: Appointment [[id number]] Cmt: Pulmonary Rehab Eval Prescriptions as of 09/04/2023 - diazePAM (VALIUM) 2 mg tablet Take 2 mg by mouth every 6 hours as needed. - omeprazole (PRILOSEC) 20 mg capsule Take 1 capsule by mouth daily before breakfast. 1/2 hr before meal. - iron/vitamin b comp w-c(GERITOL COMPLETE TAB) one tablet daily Meds Comments as of 05/05/2022: Taking prn Aspirin for pain. Problem List As Of Date 09/04/2023 Noted Resolved DVT (deep venous thrombosis) ([facility]) [I82.409] 06/11/2009 12/26/2016 Primary osteoarthritis involving multiple joint*07/06/2009 Essential hypertension [I10] 07/06/2009 Backache [M54.9] 08/01/2013 Pain in limb [M79.609] 08/01/2013 12/26/2016 Diabetes mellitus type 2, uncontrolled, without*08/18/2018 08/27/2018 DM II (diabetes mellitus, type II) ([facility]) [E11.9]08/18/2018 Dyspnea on exertion [R06.09] 01/17/2019 Near syncope [R55] 01/17/2019 Interstitial lung disease (HCC) [J84.9] 07/29/2019 Chronic kidney disease, stage 3a ([facility]) [N18.31] 03/03/2023 IPF (idiopathic pulmonary fibrosis) ([facility]) [J84.*08/27/2023 Encounter Status:Closed by SUE PICKENS on 09/04/23 [facility] 09-02-2023 [facility] Telephone (LILLIE) DELIA ALEXANDER ([id number]) 1940 F Date Time Provider Department 09/02/23 SUE PIKCENS During your visit today, we recorded the following information about you: Sue Pickens, Aircraft Inspection Record Clerk 09/02/2023 10:13 AM Signed Called patient regarding pulmonary rehab program. Patient did not answer, so I left a message on voicemail with instructions on how to contact me. This is the second attempt of trying to reach patient. Allergies As of Date: 09/02/2023 (No Known Allergies) Date Reviewed: 08/27/2023 Reviewed by: Jose Herman MA - Fully Assessed Reason for Visit: Appointment [[id number]] Cmt: Pulmonary Rehab Eval Prescriptions as of 09/02/2023 - diazePAM (VALIUM) 2 mg tablet Take 2 mg by mouth every 6 hours as needed. - omeprazole (PRILOSEC) 20 mg capsule Take 1 capsule by mouth daily before breakfast. 1/2 hr before meal. - iron/vitamin b comp w-c(GERITOL COMPLETE TAB) one tablet daily Meds Comments as of 05/05/2022: Taking prn Aspirin for pain. Problem List As Of Date 09/02/2023 Noted Resolved DVT (deep venous thrombosis) ([facility]) [I82.409] 06/11/2009 12/26/2016 Primary osteoarthritis involving multiple joint*07/06/2009 Essential hypertension [I10] 07/06/2009 Backache [M54.9] 08/01/2013 Pain in limb [M79.609] 08/01/2013 12/26/2016 Diabetes mellitus type 2, uncontrolled, without*08/18/2018 08/27/2018 DM II (diabetes mellitus, type II) ([facility]) [E11.9]08/18/2018 Dyspnea on exertion [R06.09] 01/17/2019 Near syncope [R55] 01/17/2019 Interstitial lung disease ([facility]) [J84.9] 07/29/2019 Chronic kidney disease, stage 3a ([facility]) [N18.31] 03/03/2023 IPF (idiopathic pulmonary fibrosis) ([facility]) [J84.*08/27/2023 Encounter Status:[facility]ENS [facility]UL[facility] DELIA ALEXANDER ([id number]) 1940 F Date Time Provider Department 08/27/23 1:00 PM VIPIN CARLISLE During your visit today, we recorded the following information about you: Temperature Pulse Respiration Blood pressure 97.8 degrees 78/minute 16/minute 150/88 Weight 44 kg Vipin Carlisle MD 08/27/2023 9:51 PM Signed Pulmonary Medicine OUTPATIENT VISIT August 27, 2023 CC: Second Opinion for IPF HPI: 83 year old female patient with HTN, DVT s/p TKA (2004), and IPF (TLC 58% in 2021) here today for a second opinion regarding management of her IPF. Starting in 2019, Ms. Alexander noted that she started to have shortness of breath and a productive cough. In 2020, due to worsening of these symptoms, she ended up seeing her daugther's physician who at that time diagnosed her with IPF at that time. At that time, trialed her on Ofev which she didn't tolerate well. She stated when taking it QHS, but then noted excessive diarrhea as a result for which she discontinued it. At that time, she also denied Esbriet due to the associated photosensitivity. Since 2021 she has been off of medications as a result. Over the last 6 months, she has noted that she has lost 52 pounds (149 to 97 lbs), can only walk around 10 steps without becoming short of breath, sleeps in a recliner due to a cough if she lies flat, and general weakness. She now requires a wheelchair when traversing longer distances outside of the home. In the interim, her [facility] [place] [facility] lpn Dr. Nettles noted that on a nocturnal oxygen test, her O2 levels decreased to 78% at night and that, during the day with exertion, she would decrease to 89%. At that time, she had recommended supplemental oxygen which the patient declined. Patient notes a significant decrease in appetite, only being able to tolerate sugar-based foods, but unable to have large meals. DATA: Six Minute Walk Test for This Encounter 05/14/2022 Oxygen Device Liters FIO2 SpO2% HR Activity Feet Speed (MPH) Flag R/A 98 98 Resting R/A 93 110 Six Minute Walk 825 1.6 R/A 98 96 Recovery 1 minute post R/A 98 96 Recovery 2 minute post R/A 98 94 Recovery 3 minute post Review of Systems Constitutional: Positive for malaise/fatigue and weight loss. HENT: Positive for hearing loss. Eyes: Negative. Respiratory: Positive for cough and shortness of breath. Negative for hemoptysis. Cardiovascular: Negative. Negative for leg swelling. Gastrointestinal: Positive for heartburn. Genitourinary: Negative. Musculoskeletal: Positive for back pain. Skin: Negative. Neurological: Negative. Endo/Heme/Allergies: Negative. Psychiatric/Behaviora l: Negative. Health maintenance: Covid-19 Vaccine(1) Never done Pneumococcal Vaccine: 65+(1 of 2 - PCV) Never done Shingrix Vaccine(1 of 2) Never done RSV Vaccine(1 - 1-dose 60+ series) Never done LDL Cholesterol due on 09/03/2021 Dilated Retinal Exam due on 01/17/2022 Influenza Vaccine(1) due on 03/27/2023 Diabetic Foot Exam due on 07/10/2023 Advance Directive Discussion due on 07/27/2023 Depression Assessment Never done Urine Albumin:Creatinine Ratio due on 09/03/2023 Allergies: ALLERGIES No Known Allergies Medications: diazePAM (VALIUM) 2 mg tablet Take 2 mg by mouth every 6 hours as needed. omeprazole (PRILOSEC) 20 mg capsule Take 1 capsule by mouth daily before breakfast. 1/2 hr before meal. aspirin 325 mg tablet Take 325 mg by mouth every 6 hours as needed for pain. iron/vitamin b comp w-c(GERITOL COMPLETE TAB) one tablet daily Past Medical History: PAST MEDICAL HISTORY Diagnosis Date Arthritis DVT (deep venous thrombosis) ([facility]) 08/27/2006 knee surgery Hypertension IPF (idiopathic pulmonary fibrosis) ([facility]) Past Surgical History: PAST SURGICAL HISTORY Procedure Laterality Date BACK SURGERY HX EGD 12/31/2020 ESOPHAGOGASTRODUODENO SCOPY TRANSORAL DIAGNOSTIC 11/19/2015 EGD EYE SURGERY HX JOINT REPLACEMENT HX Left partial left knee replacement partial knee replacement left. PAST SURGICAL HISTORY OF back surgery PAST SURGICAL HISTORY OF carpal tunnel surgery bilateral PAST SURGICAL HISTORY OF right knee surgery, torn meniscus Social History: Social History Tobacco Use Smoking status: Never Smokeless tobacco: Never Vaping Use Vaping Use: Never used Substance Use Topics Alcohol use: No Drug use: No Family History: Family History Problem Relation Age of Onset Diabetes Mother Heart Mother CHF Heart Father CHF Heart Brother CHF Daugther: ILD attributed secondary to impipramine Sister: lung problems Mom: chronic pneumonia BP 150/88 Pulse 78 Temp 36.6 ?C (97.8 ?F) (Temporal) Resp 16 Wt 44 kg (97 lb 1.6 oz) SpO2 95% BMI 20.29 kg/m? Physical Exam Constitutional: Comments: cachectic HENT: Head: Normocephalic and atraumatic. Cardiov (more content not included)... Normal [facility] CNPMaritza 08-27-2023 CNPN Telephone (LILLIE) DELIA ALEXANDER ([id number]) 1940 F Date Time Provider Department 08/27/23 SUE PICKENS During your visit today, we recorded the following information about you: Sue Pickens, Aircraft Ins[employer] Record Clerk 08/27/2023 2:55 PM Signed Called patient regarding pulmonary rehab program. Patient did not answer, so I left a message on aiHit with instructions on how to contact me. Allergies As of Date: 08/27/2023 (No Known Allergies) Date Reviewed: 08/27/2023 Reviewed by: Jose Herman MA - Fully Assessed Reason for Visit: Appointment [186] Cmt: Pulmonary Rehab Eval Prescriptions as of 08/27/2023 - diazePAM (VALIUM) 2 mg tablet Take 2 mg by mouth every 6 hours as needed. - HYDROcodone-homatropi ne (HYCODAN) 5-1.5 mg/5 mL (5 mL) syrup Take 5 mL by mouth once daily as needed (Use directly before your heart ultrasound) for up to 3 days. - omeprazole (PRILOSEC) 20 mg capsule Take 1 capsule by mouth daily before breakfast. 1/2 hr before meal. - iron/vitamin b comp w-c(GERITOL COMPLETE TAB) one tablet daily Meds Comments as of 05/05/2022: Taking prn Aspirin for pain. Problem List As Of Date 08/27/2023 Noted Resolved DVT (deep venous thrombosis) ([facility]) [I82.409] 06/11/2009 12/26/2016 Primary osteoarthritis involving multiple joint*07/06/2009 Essential hypertension [I10] 07/06/2009 Backache [M54.9] 08/01/2013 Pain in limb [M79.609] 08/01/2013 12/26/2016 Diabetes mellitus type 2, uncontrolled, without*08/18/2018 08/27/2018 DM II (diabetes mellitus, type II) ([facility]) [E11.9]08/18/2018 Dyspnea on exertion [R06.09] 01/17/2019 Near syncope [R55] 01/17/2019 Interstitial lung disease (HCC) [J84.9] 07/29/2019 Chronic kidney disease, stage 3a ([facility]) [N18.31] 03/03/2023 IPF (idiopathic pulmonary fibrosis) ([facility]) [J84.*08/27/2023 Encounter Status:Closed by SUE PICKENS on 08/27/23 [facility] 07-08-2023 [facility] Telephone (FAMPWS) DELIA ALEXANDER ([id number]) 1940 F Date Time Provider Department 07/08/23 [facility] During your visit today, we recorded the following information about you: Georgie Cummins LPN 07/08/2023 4:17 PM Signed ----- Message from Angie Kaba PA-C sent at 07/08/2023 3:36 PM EST ----- Please let her know urinalysis micro showed no evidence of bacteria or pus so she does not have an infection. It did show that she is dehydrated, needs to push fluids. Thanks, JOSE MANUEL Velazquez Beth, LPN 07/08/2023 4:20 PM Signed Phoned patient and went over results, notes from Dalton SINGH with understanding. Patient said she will try to drink more fluids. Allergies As of Date: 07/08/2023 (No Known Allergies) Date Reviewed: 06/30/2023 Reviewed by: Fatuma Linder Ma - Fully Assessed Reason for Visit: Results [95] Prescriptions as of 07/08/2023 - diazePAM (VALIUM) 2 mg tablet Take 1 tablet by mouth every 6 hours as needed for up to 90 days. - omeprazole (PRILOSEC) 20 mg capsule Take 1 capsule by mouth daily before breakfast. 1/2 hr before meal. - aspirin 325 mg tablet Take 325 mg by mouth every 6 hours as needed for pain. - ondansetron orally disintegrating (ZOFRAN ODT) 4 mg disintegrating tablet Take 1 tablet by mouth every 6 hours as needed for nausea/vomiting. - lidocaine (LIDODERM) 5 % Apply 5 Patches as directed as needed. - iron/vitamin b comp w-c(GERITOL COMPLETE TAB) one tablet daily Meds Comments as of 05/05/2022: Taking prn Aspirin for pain. Problem List As Of Date 07/08/2023 Noted Resolved DVT (deep venous thrombosis) ([facility]) [I82.409] 06/11/2009 12/26/2016 Primary osteoarthritis involving multiple joint*07/06/2009 Essential hypertension [I10] 07/06/2009 Backache [M54.9] 08/01/2013 Pain in limb [M79.609] 08/01/2013 12/26/2016 Diabetes mellitus type 2, uncontrolled, without*08/18/2018 08/27/2018 DM II (diabetes mellitus, type II) ([facility]) [E11.9]08/18/2018 Dyspnea on exertion [R06.09] 01/17/2019 Near syncope [R55] 01/17/2019 Interstitial lung disease ([facility]) [J84.9] 07/29/2019 Chronic kidney disease, stage 3a ([facility]) [N18.31] 03/03/2023 Encounter Status:Closed by GEORGIE CUMMINS on 07/08/23 [facility] Bacteria Ur Culton 3 Bacteria identified Cx Nom (U) ORGANISM ID: 1 10,000 -<50,000 CFU/ml Normal urogenital ryan Normal [facility] Comment on above: Performed By: #### 6 30-4 #### [facility] CLIA [id number] [address] [place] [address] [place] Urinalysis complete panel (U )on 07-07-2023 Bacteria LM.HPF (Urine sed) [#/Area] Negative Normal Negative [facility] Comment on above: Order Comment: Speci men Type: URINE SPECIMENOrdering Facility: [facility] Address: [address] [place] [address] Performed By: #### 2 4356-8 ####[facility] [id number] [place] [address] [place] Bilirubin Ql (U) Negative Normal Negative [facility] Comment on above: Order Comment: Speci men Type: URINE SPECIMENOrdering Facility: [facility] Address: [address] [place] [address] Performed By: #### 2 4356-8 ####[facility] [id number] [place] [address] [place] CALCIUM OXALATE CRYSTALS (UA) Few Abnormal None Seen [facility] Comment on above: Order Comment: Speci men Type: URINE SPECIMENOrdering Facility: [facility] Address: [address] [place] [address] Performed By: #### 2 4356-8 ####[facility] [id number] [place] [address] [place] Clarity (Unsp spec) Cloudy Abnormal Clear [facility] Comment on above: Order Comment: Speci men Type: URINE SPECIMENOrdering Facility: [facility] Address: [address] [place] [address] Performed By: #### 2 4356-8 ####[facility] [id number] [place] [address] [place] Color (U) Dark Yellow Abnormal Yellow [facility] Comment on above: Order Comment: Speci men Type: URINE SPECIMENOrdering Facility: [facility] Address: [address] [place] [address] Performed By: #### 2 4356-8 ####[facility] [id number] [place] [address] [place] Epithelial cells LM.HPF (Urine sed) [#/Area] Few Normal [facility] Comment on above: Order Comment: Speci men Type: URINE SPECIMENOrdering Facility: [facility] Address: [address] [place] [address] Performed By: #### 2 4356-8 ####[facility] [id number] [place] [address] [place] Glucose Test strip (U) [Mass/Vol] Negative Normal Negative [facility] Comment on above: Order Comment: Speci men Type: URINE SPECIMENOrdering Facility: [facility] Address: [address] [place] [address] Performed By: #### 2 4356-8 ####[facility] [id number] [place] [address] [place] Hemoglobin Ql (U) Negative Normal Negative [facility] Comment on above: Order Comment: Speci men Type: URINE SPECIMENOrdering Facility: [facility] Address: [address] [place] [address] Performed By: #### 2 4356-8 ####[facility] [id number] [place] [address] [place] Hyaline casts (Urine sed) [#/Area] 1-3 /LPF Abnormal 0 /LPF [facility] Comment on above: Order Comment: Speci men Type: URINE SPECIMENOrdering Facility: [facility] Address: [address] [place] [address] Performed By: #### 2 4356-8 ####[facility] [id number] [place] [address] [place] Ketones Ql (U) Trace Abnormal Negative [facility] Comment on above: Order Comment: Speci men Type: URINE SPECIMENOrdering Facility: [facility] Address: [address] [place] [address] Performed By: #### 2 4356-8 ####[facility] [id number] [place] [address] [place] Leukocyte esterase Test strip Ql (U) Trace Abnormal Negative [facility] Comment on above: Order Comment: Speci men Type: URINE SPECIMENOrdering Facility: [facility] Address: [address] [place] [address] Performed By: #### 2 4356-8 ####[facility] [id number] [place] [address] [place] Nitrite Ql (U) Negative Normal Negative [facility] Comment on above: Order Comment: Speci men Type: URINE SPECIMENOrdering Facility: [facility] Address: [address] [place] [address] Performed By: #### 2 4356-8 ####[facility] [id number] [place] [address] [place] pH (U) 5.5 [pH] Normal <8.5 [facility] Comment on above: Order Comment: Speci men Type: URINE SPECIMENOrdering Facility: [facility] Address: [address] [place] [address] Performed By: #### 2 4356-8 ####[facility] [id number] [place] [address] [place] Protein (U) [Mass/Vol] 1+ Abnormal Negative [facility] Comment on above: Order Comment: Speci men Type: URINE SPECIMENOrdering Facility: [facility] Address: [address] [place] [address] Performed By: #### 2 4356-8 ####[facility] [id number] [place] [address] [place] RBC LM.HPF (Urine sed) [#/Area] 0-2 /HPF Normal 0-2 /HPF [facility] Comment on above: Order Comment: Speci men Type: URINE SPECIMENOrdering Facility: [facility] Address: [address] [place] [address] Performed By: #### 2 4356-8 ####[facility] [id number] [place] [address] [place] Specific gravity (U) [Rel density] 1.033 High 1.005-1.030 [facility] Comment on above: Order Comment: Speci men Type: URINE SPECIMENOrdering Facility: [facility] Address: [address] [place] [address] Performed By: #### 2 4356-8 ####[facility] [id number] [place] [address] [place] Urobilinogen Ql (U) 1.0 EU/dL Normal 0.2-1.0 EU/dL [facility] Comment on above: Order Comment: Speci men Type: URINE SPECIMENOrdering Facility: [facility] Address: [address] [place] [address] Performed By: #### 2 4356-8 ####[facility] [id number] [place] [address] [place] WBC LM.HPF (Urine sed) [#/Area] 0-5 /HPF Normal 0-5 /HPF [facility] Comment on above: Order Comment: Speci men Type: URINE SPECIMENOrdering Facility: [facility] Address: [address] [place] [address] Performed By: #### 2 4356-8 ####[facility] [id number] [address] [address] [place] Luis Fernando 07-02-2023 CNPN Telephone (FAMWS) TAYLORDELIA ([id number]) 1940 F Date Time Provider Department 07/02/23 Angie KABA [facility] During your visit today, we recorded the following information about you: Fatuma Linder Ma 07/02/2023 6:04 PM Signed Please sign orders. Urine was not sent out at visit. Will call pt to have her go to lab. Angie Kaba PA-C 07/02/2023 6:33 PM Signed Telephone on 07/02/23 URINALYSIS, WITH MICROSCOPIC URINE CULTURE Thanks, JOSE MANUEL Velazquez Ma, Lisa 07/03/2023 8:40 AM Signed Spoke with daughter Angela. She already was planning on getting a urine sample from home to bring in. Fatuma Linder Ma Allergies As of Date: 07/02/2023 (No Known Allergies) Date Reviewed: 06/30/2023 Reviewed by: Fatuma Linder Ma - Fully Assessed Reason for Visit: Orders [681] Primary Visit Diagnosis:Urinary frequency [R35.0] Order(s):URINALYSIS, WITH MICROSCOPIC [SQUAWMIC] Order #: [id number] FUTURE URINE CULTURE [SQURCUL] Order #: [id number] FUTURE Prescriptions as of 07/03/2023 - diazePAM (VALIUM) 2 mg tablet Take 1 tablet by mouth every 6 hours as needed for up to 90 days. - omeprazole (PRILOSEC) 20 mg capsule Take 1 capsule by mouth daily before breakfast. 1/2 hr before meal. - aspirin 325 mg tablet Take 325 mg by mouth every 6 hours as needed for pain. - ondansetron orally disintegrating (ZOFRAN ODT) 4 mg disintegrating tablet Take 1 tablet by mouth every 6 hours as needed for nausea/vomiting. - lidocaine (LIDODERM) 5 % Apply 5 Patches as directed as needed. - iron/vitamin b comp w-c(GERITOL COMPLETE TAB) one tablet daily Meds Comments as of 05/05/2022: Taking prn Aspirin for pain. Problem List As Of Date 07/02/2023 Noted Resolved DVT (deep venous thrombosis) ([facility]) [I82.409] 06/11/2009 12/26/2016 Primary osteoarthritis involving multiple joint*07/06/2009 Essential hypertension [I10] 07/06/2009 Backache [M54.9] 08/01/2013 Pain in limb [M79.609] 08/01/2013 12/26/2016 Diabetes mellitus type 2, uncontrolled, without*08/18/2018 08/27/2018 DM II (diabetes mellitus, type II) ([facility]CC) [E11.9]08/18/2018 Dyspnea on exertion [R06.09] 01/17/2019 Near syncope [R55] 01/17/2019 Interstitial lung disease (HCC) [J84.9] 07/29/2019 Chronic kidney disease, stage 3a ([facility]) [N18.31] 03/03/2023 Encounter Status:Closed by FATUMA LINDER MA on 07/03/23 Normal [facility] C-REACTIVE PROTEIN (CRP)on 1 09-01-2022 CRP [Mass/Vol] <0.9 mg/dL [facility] CBC W Auto Differential pane l (Bld)on 07-01-2023 Basophils (Bld) [#/Vol] 0.04 10*3/uL <0.11 k/uL [facility] Basophils/100 WBC (Bld) 0.4 % [facility] Differential cell count method Nom (Bld) Auto [facility] Eosinophils (Bld) [#/Vol] 0.22 10*3/uL <0.46 k/uL [facility] Eosinophils/100 WBC (Bld) 2.3 % [facility] Erythrocyte distribution width (RBC) [Ratio] 12.1 % 11.5 - 15.0 % [facility] Hematocrit (Bld) [Volume fraction] 43.5 % 36.0 - 46.0 % [facility] Hemoglobin (Bld) [Mass/Vol] 14.0 g/dL 11.5 - 15.5 g/dL [facility] Immature granulocytes (Bld) [#/Vol] 0.04 10*3/uL <0.10 k/uL [facility] Immature granulocytes/100 WBC (Bld) 0.4 % [facility] Lymphocytes (Bld) [#/Vol] 1.21 10*3/uL 1.00 - 4.00 k/uL [facility] Lymphocytes/100 WBC (Bld) 12.5 % [facility] MCH (RBC) [Entitic mass] 31.0 pg 26. 0 - 34.0 pg [facility] MCHC (RBC) [Mass/Vol] 32.2 g/dL 30.5 - 36.0 g/dL [facility] MCV (RBC) [Entitic vol] 96.5 fL 80.0 - 100.0 fL [facility] Monocytes (Bld) [#/Vol] 0.49 10*3/uL <0.87 k/uL [facility] Monocytes/100 WBC (Bld) 5.1 % [facility] Neutrophils (Bld) [#/Vol] 7.68 10*3/uL High 1.45 - 7.50 k/uL [facility] Neutrophils/100 WBC (Bld) 79.3 % [facility] Nucleated RBC (Bld) [#/Vol] <0.01 k/uL [facility] Nucleated RBC/100 WBC (Bld) [Ratio] 0.0 /100 WBC [facility] Platelet mean volume (Bld) [Entitic vol] 11.0 fL 9.0 - 12.7 fL [facility] Platelets (Bld) [#/Vol] 211 10*3/uL 150 - 400 k/uL [facility] RBC (Bld) [#/Vol] 4.51 10*6/uL 3.90 - 5.2 0 m/uL [facility] WBC (Bld) [#/Vol] 9.68 10*3/uL 3.70 - 11. 00 k/uL [facility] Comprehensive metabolic 2000 panelon 07-01-2023 Albumin [Mass/Vol] 4.1 g/dL 3.9 - 4.9 g/dL [facility] ALP [Catalytic activity/Vol] 76 U/L 34 - 123 U/L [facility] ALT [Catalytic activity/Vol] 8 U/L 7 - 38 U/L [facility] Anion gap [Moles/Vol] 9 mmol/L 9 - 18 mmol/L [facility] AST [Catalytic activity/Vol] 19 U/L 13 - 35 U/L [facility] Bilirubin [Mass/Vol] 0.4 mg/dL 0.2 - 1 .3 mg/dL [facility] Calcium [Mass/Vol] 9.2 mg/dL 8.5 - 10. 2 mg/dL [facility] Chloride [Moles/Vol] 101 mmol/L 97 - 10 5 mmol/L [facility] CO2 [Moles/Vol] 30 mmol/L 22 - 30 mmol/L [facility] Creatinine [Mass/Vol] 0.72 mg/dL 0.58 - 0.96 mg/dL [facility] Estimated Glomerular Filtration Rate 84 mL/min/1.73m >=60 mL/min/1.73m [facility] Glucose [Mass/Vol] 107 mg/dL High 74 - 99 mg/dL [facility] Potassium [Moles/Vol] 4.7 mmol/L 3.7 - 5.1 mmol/L [facility] Protein [Mass/Vol] 7.1 g/dL 6.3 - 8.0 g/dL [facility] Sodium [Moles/Vol] 140 mmol/L 136 - 144 mmol/L [facility] Urea nitrogen [Mass/Vol] 15 mg/dL 7 - 21 mg/d L [facility] ESR Westergren method (Bld) [Velocity]on 07-01-2023 ESR (Bld) [Velocity] 8 mm/h 0 - 20 mm/hr [facility] HbA1c (Bld)on 07-01-2023 Average glucose Estimated from glycated hemoglobin (Bld) [Mass/Vol] 117 mg/dL [facility] HbA1c (Bld) [Mass fraction] 5.7 % High 4.3 - 5.6 % [facility] TSH BLDon 07-01-2023 TSH Qn 1.450 m[IU]/L 0.270 - 4.200 mIU/L [facility] CBC W Auto Differential pane l (Bld)on 06-30-2023 Basophils (Bld) [#/Vol] 0.04 10*3/uL Normal <0.11 [facility] Comment on above: Order Comment: Speci men Type: BLOOD SPECIMENOrdering Facility: [facility] Address: [address] [place] [address] Performed By: #### 5 7021-8, 4536-7 ####[facility] [id number] [place] [address] [place] Basophils/100 WBC (Bld) 0.4 % Normal C [facility] Comment on above: Order Comment: Speci men Type: BLOOD SPECIMENOrdering Facility: [facility] Address: [address] [place] [address] Performed By: #### 5 7021-8, 4536-7 ####[facility] [id number] [place] [address] [place] Differential cell count method Nom (Bld) Auto Normal [facility] Comment on above: Order Comment: Speci men Type: BLOOD SPECIMENOrdering Facility: [facility] Address: [address] [place] [address] Performed By: #### 5 7021-8, 7 ####[facility] [id number] [place] [address] [place] Eosinophils (Bld) [#/Vol] 0.22 10*3/uL Normal <0.46 [facility] Comment on above: Order Comment: Speci men Type: BLOOD SPECIMENOrdering Facility: [facility] Address: [address] [place] [address] Performed By: #### 5 7021-8, 7 ####[facility] [id number] [place] [address] [place] Eosinophils/100 WBC (Bld) 2.3 % Normal [facility] Comment on above: Order Comment: Speci men Type: BLOOD SPECIMENOrdering Facility: [facility] Address: [address] [place] [address] Performed By: #### 5 7021-8, 4536-7 ####[facility] [id number] [place] [address] [place] Erythrocyte distribution width (RBC) [Ratio] 12.1 % Normal 11.5-15.0 [facility] [facility] Comment on above: Order Comment: Speci men Type: BLOOD SPECIMENOrdering Facility: [facility] Address: [address] [place] [place] [address] Performed By: #### 5 7021-8, 7-7 ####[facility] LABCLIA [id number] [place] [address] [place] Hematocrit (Bld) [Volume fraction] 43.5 % Normal 36.0-46.0 [facility] Comment on above: Order Comment: Speci men Type: BLOOD SPECIMENOrdering Facility: [facility] Address: [address] [place] [address] Performed By: #### 5 7021-8, 4537-7 ####[facility] LABCL[facility] [id number] [place] [address] [place] Hemoglobin (Bld) [Mass/Vol] 14.0 g/dL Normal 11.5-15.5 [facility] Comment on above: Order Comment: Speci men Type: BLOOD SPECIMENOrdering Facility: [facility] Address: [address] [place] [address] Performed By: #### 5 7021-8, 4536-7 ####[facility] LABCLIA [id number] [place] [address] [place] Immature granulocytes (Bld) [#/Vol] 0.04 10*3/uL Normal <0.10 [facility] Comment on above: Order Comment: Speci men Type: BLOOD SPECIMENOrdering Facility: [facility] Address: [address] [place] [address] Performed By: #### 5 7021-8, 7-7 ####[facility] LABCLIA [id number] [place] [address] [place] Immature granulocytes/100 WBC (Bld) 0.4 % Normal [facility] Comment on above: Order Comment: Speci men Type: BLOOD SPECIMENOrdering Facility: [facility] Address: [address] [place] [address] Performed By: #### 5 7021-8, 4537-7 ####[facility] LABCLIA [id number] [place] [address] [place] Lymphocytes (Bld) [#/Vol] 1.21 10*3/uL Normal 1.00-4.00 [facility] Comment on above: Order Comment: Speci men Type: BLOOD SPECIMENOrdering Facility: [facility] Address: [address] [place] [address] Performed By: #### 5 7021-8, 453-7 ####[facility] LABCLIA [id number] [place] [address] [place] Lymphocytes/100 WBC (Bld) 12.5 % Normal [facility] Comment on above: Order Comment: Speci men Type: BLOOD SPECIMENOrdering Facility: [facility] Address: [address] [place] [address] Performed By: #### 5 7021-8, 4536-7 ####[facility]CLIA [id number] [place] [address] [place] MCH (RBC) [Entitic mass] 31.0 pg Normal 26.0-34.0 [facility] Comment on above: Order Comment: Speci men Type: BLOOD SPECIMENOrdering Facility: [facility] Address: [address] [place] [address] Performed By: #### 5 7021-8, 4536-7 ####[facility]CLIA [id number] [place] [address] [place] MCHC (RBC) [Mass/Vol] 32.2 g/dL Normal 30.5-36.0 [facility] Comment on above: Order Comment: Speci men Type: BLOOD SPECIMENOrdering Facility: [facility] Address: [address] [place] [address] Performed By: #### 5 7021-8, 4536-7 ####[facility]CLIA [id number] [place] [address] [place] MCV (RBC) [Entitic vol] 96.5 fL Normal 80.0-100.0 [facility] Comment on above: Order Comment: Speci men Type: BLOOD SPECIMENOrdering Facility: [facility] Address: [address] [place] [address] Performed By: #### 5 7021-8, 7 ####[facility]CLIA [id number] [place] [address] [place] Monocytes (Bld) [#/Vol] 0.49 10*3/uL Normal <0.87 [facility] Comment on above: Order Comment: Speci men Type: BLOOD SPECIMENOrdering Facility: [facility] Address: [address] [place] [address] Performed By: #### 5 7021-8, 7 ####[facility]CLIA [id number] [place] [address] [place] Monocytes/100 WBC (Bld) 5.1 % Normal [facility] Comment on above: Order Comment: Speci men Type: BLOOD SPECIMENOrdering Facility: [facility] Address: [address] [place] [address] Performed By: #### 5 7021-8, 4537-01 ####[facility] LABCLIA [id number] [place] [address] [place] Neutrophils (Bld) [#/Vol] 7.68 10*3/uL High 1.45-7.50 [facility] Comment on above: Order Comment: Speci men Type: BLOOD SPECIMENOrdering Facility: [facility] Address: [address] [place] [address] Performed By: #### 5 7021-8, 7 ####[facility]CLIA [id number] [place] [address] [place] Neutrophils/100 WBC (Bld) 79.3 % Normal [facility] Comment on above: Order Comment: Speci men Type: BLOOD SPECIMENOrdering Facility: [facility] Address: [address] [place] [address] Performed By: #### 5 7021-8, 4537-7 ####[facility]CLIA [id number] [place] [address] [place] Nucleated RBC (Bld) [#/Vol] 10*3/uL Normal <0.01 [facility] Comment on above: Order Comment: Speci men Type: BLOOD SPECIMENOrdering Facility: [facility] Address: [address] [place] [address] Performed By: #### 5 7021-8, 4536-7 ####[facility]CLIA [id number] [place] [address] [place] Nucleated RBC/100 WBC (Bld) [Ratio] 0.0 /100 WBC Normal [facility] Comment on above: Order Comment: Speci men Type: BLOOD SPECIMENOrdering Facility: [facility] Address: [address] [place] [address] Performed By: #### 5 7021-8, 7-7 ####[facility]CLIA [id number] [place] [address] [place] Platelet mean volume (Bld) [Entitic vol] 11.0 fL Normal 9.0-12.7 [facility] Comment on above: Order Comment: Speci men Type: BLOOD SPECIMENOrdering Facility: [facility] Address: [address] [place] [address] Performed By: #### 5 7021-8, 7-7 ####[facility]CLIA [id number] [place] [address] [place] Platelets (Bld) [#/Vol] 211 10*3/uL Normal 150-400 [facility] Comment on above: Order Comment: Speci men Type: BLOOD SPECIMENOrdering Facility: [facility] Address: [address] [place] [address] Performed By: #### 5 7021-8, 4537-7 ####[facility] LABCLIA [id number] [place] [address] [place] RBC (Bld) [#/Vol] 4.51 10*6/uL Normal 3.90-5.20 [facility] Comment on above: Order Comment: Speci men Type: BLOOD SPECIMENOrdering Facility: [facility] Address: [address] [place] [address] Performed By: #### 5 7021-8, 4537-7 ####[facility]CLIA [id number] [place] [address] [place] WBC (Bld) [#/Vol] 9.68 10*3/uL Normal 3.70-11.00 [facility] Comment on above: Order Comment: Speci men Type: BLOOD SPECIMENOrdering Facility: [facility] Address: [address] [place] [address] Performed By: #### 5 7021-8, 4537-7 ####[facility] LABCLIA [id number] [place] [address] [place] CNOVon 06-30-2023 CNOV Office Visit (FAMPWS ) DELIA ALEXANDER ([id number]) 1940 F Date Time Provider Department 06/30/23 1:40 PM Angie KABA FAMPWS During your visit today, we recorded the following information about you: Temperature Pulse Respiration Blood pressure 98.4 degrees 78/minute 16/minute 108/60 Weight 43.5 kg Angie Kaba PA-C 07/01/2023 11:07 AM Signed 83 year old female with c/o very directly that she wants answers to weight loss. Extremely weak. Gets of breath putting on coat or walking 5-10 feet. Can only go 2-3 steps and then SOB. Sees Mary Nettles for lung issues with pulmonary fibrosis Notes eating same kind of food but not as much Doesn't drink much outside coffee. Mostly eats junk food although she does have at least 1 meal a day that has some protein and vegetables involved. Sleeps in recliner. Ischial tuberosities hurt from sitting Asking for specialist, wants to go to the [facility] to see a home connect lpn for information on pulmonary fibrosis. Has questions about what causes pulmonary fibrosis and what can be done for treatment. No nausea or vomiting, no heartburn or acid reflux Patient feels early satiety but eats in small portions. Cannot identify her bowel pattern as she states it varies. Patient again reviews her litany of how busy she is, how she cannot stand to sit in this respect those 2 do not become politically active nor those who do not take care of themselves. She refuses to allow anyone to do her work for her in her home. Feels she would rather . Had long discussion about pulmonary fibrosis, causes which have been ruled out, and that this is generally a progressive condition in which the lung eventually becomes fibrotic and therefore nonfunctional. We talked about palliative care which was difficult both for she and her daughter. Patient feels that she needs Valium for anxiety, has been using 15 over 90-days, asking if she can have that increased somewhat for as needed use when she is having anxiety because she cannot breathe or take care of herself the way she wants to. Daughter continues to check on her. She has given up most of her outside activities because she just does not have the energy. Does better when she has oxygen which she uses while she sits. She does have portable oxygen tanks but feels that they are too heavy for her to carry so she is not able to use them when she goes out. Daughter confirms that they do seem heavy to her as well. Patient identifies she has had some urinary frequency and slight discomfort recently, no fever or chills, nausea or vomiting. HISTORIES FAMILY HISTORY Problem Relation Age of Onset Diabetes Mother Heart Mother CHF Heart Father CHF Heart Brother CHF PAST MEDICAL HISTORY Diagnosis Date Arthritis DVT (deep venous thrombosis) ([facility]) 08/27/2006 knee surgery Hypertension IPF (idiopathic pulmonary fibrosis) ([facility]) PAST SURGICAL HISTORY Procedure Laterality Date BACK SURGERY HX EGD 12/31/2020 ESOPHAGOGASTRODUODENO SCOPY TRANSORAL DIAGNOSTIC 11/19/2015 EGD EYE SURGERY HX JOINT REPLACEMENT HX Left partial left knee replacement partial knee replacement left. PAST SURGICAL HISTORY OF back surgery PAST SURGICAL HISTORY OF carpal tunnel surgery bilateral PAST SURGICAL HISTORY OF right knee surgery, torn meniscus Social History Tobacco Use Smoking status: Never Smokeless tobacco: Never Vaping Use Vaping Use: Never used Substance Use Topics Alcohol use: No Drug use: No ACTIVE PROBLEM LIST Primary Osteoarthritis Involving Multiple Joints Essential Hypertension Backache Dm II (Diabetes Mellitus, Type Ii) ([facility]) Dyspnea On Exertion Near Syncope Interstitial Lung Disease ([facility]) Chronic Kidney Disease, Stage 3a ([facility]) Current Outpatient Medications Medication Sig Dispense Refill omeprazole (PRILOSEC) 20 mg capsule Take 1 capsule by mouth daily before breakfast. 1/2 hr before meal. 90 capsule 1 aspirin 325 mg tablet Take 325 mg by mouth every 6 hours as needed for pain. iron/vitamin b comp w-c(GERITOL COMPLETE TAB) one tablet daily 0 0 diazePAM (VALIUM) 2 mg tablet Take 1 tablet by mouth every 6 hours as needed for up to 90 days. 15 tablet 0 FLUoxetine (PROZAC) 10 mg capsule Take 1 capsule by mouth once daily. (Patient not taking: Reported on 06/30/2023) 30 capsule 5 ondansetron orally disintegrating (ZOFRAN ODT) 4 mg disintegrating tablet Take 1 tablet by mouth every 6 hours as needed for nausea/vomiting. (Patient not taking: Reported on 06/30/2023) 15 tablet 1 lidocaine (LIDODERM) 5 % Apply 5 Patches as directed as needed. (Patient not taking: Reported on 06/30/2023) No current facility-administered medications for this visit. Covid-19 Vaccine(1) Never done Pneumococcal Vaccine: 65+(1 - PCV) Never done Shingrix Vaccine(1 of (more content not included)... Normal [facility] CRP SerPl-mCncon 06-30-2023 CRP [Mass/Vol] mg/L Normal <0.9 [facility] Comment on above: Order Comment: Speci men Type: BLOOD SPECIMENOrdering Facility: [facility] Address: [address] [place] [address] Performed By: #### 2 4328, 1987-11, 3015-09 ####[facility] LABCLIA [id number] [place] [address] [place] Comprehensive metabolic 2000 panelon 06-30-2023 Albumin [Mass/Vol] 4.1 g/dL Normal 3.9-4.9 [facility] Comment on above: Order Comment: Speci men Type: BLOOD SPECIMENOrdering Facility: [facility] Address: [address] [place] [address] Performed By: #### 2 4328, 1987-11, 3015-09 ####[facility] LABCLIA [id number] [place] [address] [place] ALP [Catalytic activity/Vol] 76 U/L Normal 34-123 [facility] Comment on above: Order Comment: Speci men Type: BLOOD SPECIMENOrdering Facility: [facility] Address: [address] [place] [address] Performed By: #### 2 43238, 1987-11, 3015-09 ####[facility] LABCLIA [id number] [facility] [place] [address] [place] ALT [Catalytic activity/Vol] 8 U/L Normal 7-38 [facility] Comment on above: Order Comment: Speci men Type: BLOOD SPECIMENOrdering Facility: [facility] Address: [address] [place] [address] Performed By: #### 2 4328, 1987-11, 3015-09 ####[facility] LABCLIA [id number] [address] [address] [place] Anion gap [Moles/Vol] 9 mmol/L Normal 9-18 [facility] Comment on above: Order Comment: Speci men Type: BLOOD SPECIMENOrdering Facility: [facility] Address: [address] [place] [address] Performed By: #### 2 4328, 1987-11, 3015-09 ####[facility] LABCLIA [id number] [place] [id number] [place] AST [Catalytic activity/Vol] 19 U/L Normal 13-35 [facility] Comment on above: Order Comment: Speci men Type: BLOOD SPECIMENOrdering Facility: [facility] Address: [address] [place] [address] Performed By: #### 2 4328, 1987-11, 3015-09 ####[facility] LABIA [id number] [place] [address] [place] Bilirubin [Mass/Vol] 0.4 mg/dL Normal 0.2-1.3 [facility] Comment on above: Order Comment: Speci men Type: BLOOD SPECIMENOrdering Facility: [facility] Address: [address] [place] [address] Performed By: #### 2 43238, 1987-11, 3015-09 ####[facility] LABIA [id number] [place] [address] [place] Calcium [Mass/Vol] 9.2 mg/dL Normal 8.5-10.2 [facility] Comment on above: Order Comment: Speci men Type: BLOOD SPECIMENOrdering Facility: [facility] Address: [address] [place] [address] Performed By: #### 2 4323-8, 1987-11, 3015-09 ####[facility] LABIA [id number] [place] [id number] [place] Chloride [Moles/Vol] 101 mmol/L Normal 97-105 [facility] Comment on above: Order Comment: Speci men Type: BLOOD SPECIMENOrdering Facility: [facility] Address: [address] [place] [id number] Performed By: #### 2 4323-8, 1987-11, 3015-09 ####[facility]CLIA [id number] [place] [id number] [place] CO2 [Moles/Vol] 30 mmol/L Normal 22-30 [facility] Comment on above: Order Comment: Speci men Type: BLOOD SPECIMENOrdering Facility: [facility] Address: [address] [place] [address] Performed By: #### 2 4328, 1987-11, 3015-09 ####[facility] LABCLIA [id number] [place] [address] [place] Creatinine [Mass/Vol] 0.72 mg/dL Normal 0.58-0.96 [facility] Comment on above: Order Comment: Speci men Type: BLOOD SPECIMENOrdering Facility: [facility] Address: [address] [place] [address] Performed By: #### 2 4328, 1987-11, 3015-09 ####[facility]CL[facility] [id number] [place] [address] [place] Creatinine and Glomerular filtration rate.predicted panel (S/P/Bld) 84 mL/min/1.73m??? Normal >=60 [facility] Comment on above: Order Comment: Speci men Type: BLOOD SPECIMENOrdering Facility: [facility] Address: [address] [place] [address] Result Comment: Jinny mated Glomerular Filtration Rate (eGFR) is calculated using the 2020 CKD-EPI creatinine equation. This equation utilizes serum creatinine, sex, and age as parameters. The creatinine assay has traceable calibration to isotope dilution-mass spectrometry. Refer to KDIGO guidelines for clinical interpretation. In patients with unstable renal function, e.g. those with acute kidney injury, the eGFR may not accurately reflect actual GFR. Performed By: #### 2 4323-8, 1987-11, 3015-09 ####[facility]CL[facility] [id number] [place] [id number] [place] Glucose [Mass/Vol] 107 mg/dL High 74-99 [facility] Comment on above: Order Comment: Speci men Type: BLOOD SPECIMENOrdering Facility: [facility] Address: [address] [place] [address] Result Comment: The [place] Diabetes Association (ADA) provides guidance for cutoff values for fasting glucose and random glucose. The ADA defines fasting as no caloric intake for at least 8 hours. Fasting plasma glucose results between 100 to 125 mg/dL indicate increased risk for diabetes (prediabetes). Fasting plasma glucose results greater than or equal to 126 mg/dL meet the criteria for diagnosis of diabetes. In the absence of unequivocal hyperglycemia, results should be confirmed by repeat testing. In a patient with classic symptoms of hyperglycemia or hyperglycemic crisis, random plasma glucose results greater than or equal to 200 mg/dL meet the criteria for diagnosis of diabetes. Reference: Standards of Medical Care in Diabetes 2016, [place] Diabetes Association. Diabetes Care. 2016.39(Suppl 1). Performed By: #### 2 43210-01, 3015-09 ####[facility] LABCLIA [id number] [place] [address] [place] Potassium [Moles/Vol] 4.7 mmol/L Normal 3.7-5.1 [facility] Comment on above: Order Comment: Speci men Type: BLOOD SPECIMENOrdering Facility: [facility] Address: [address] [place] [address] Performed By: #### 2 43210-01, 3015-09 ####[facility] LABIA [id number] [place] [id number] [place] Protein [Mass/Vol] 7.1 g/dL Normal 6.3-8.0 [facility] Comment on above: Order Comment: Speci men Type: BLOOD SPECIMENOrdering Facility: [facility] Address: [address] [place] [address] Performed By: #### 2 4323-02, 3015-09 ####[facility] LABIA [id number] [place] [id number] [place] Sodium [Moles/Vol] 140 mmol/L Normal 136-144 [facility] Comment on above: Order Comment: Speci men Type: BLOOD SPECIMENOrdering Facility: [facility] Address: [address] [place] [address] Performed By: #### 2 4323-8, 1987-11, 3015-09 ####[facility] [id number] [place] [address] [place] Urea nitrogen [Mass/Vol] 15 mg/dL Normal 7-21 [facility] Comment on above: Order Comment: Speci men Type: BLOOD SPECIMENOrdering Facility: [facility] Address: [address] [place] [address] Performed By: #### 2 4323-8, 1987-11, 3015-09 ####[facility] [id number] [place] [address] [place] ESR Westergren method (Bld) [Velocity]on 06-30-2023 ESR (Bld) [Velocity] 8 mm/h Normal 0-20 [facility] Comment on above: Order Comment: Speci men Type: BLOOD SPECIMENOrdering Facility: [facility] Address: [address] [place] [address] Performed By: #### 5 7021-8, 4537-7 ####[facility] [id number] [place] [address] [place] HbA1c (Bld)on 06-30-2023 Average glucose Estimated from glycated hemoglobin (Bld) [Mass/Vol] 117 mg/dL Normal [facility] Comment on above: Order Comment: Speci men Type: BLOOD SPECIMENOrdering Facility: [facility] Address: [address] [place] [address] Result Comment: eAG: (Estimated average glucose) is a calculated value from HgbA1c and is pharmacy sales representative of the average blood glucose level in the last 2-3 month period. Performed By: #### 5 5454-3 ####[facility]CL[facility] [id number] [place] [address] [place] HbA1c (Bld) [Mass fraction] 5.7 % High 4.3-5.6 [facility] Comment on above: Order Comment: Speci men Type: BLOOD SPECIMENOrdering Facility: [facility] Address: [address] [place] [address] Result Comment: [place] Diabetes Association guidelines indicate that patients with HgbA1c in the range 5.7-6.4% are at increased risk for development of diabetes, and intervention by lifestyle modification may be beneficial. HgbA1c greater or equal to 6.5% is considered diagnostic of diabetes. Performed By: #### 5 5454-3 ####[facility]CL[facility] [id number] [place] [address] [place] TSH SerPl-aCncon 06-30-2023 TSH Qn 1.450 m[IU]/L Normal 0.270-4.200 [facility] Comment on above: Order Comment: Tobyi men Type: BLOOD SPECIMENOrdering Facility: [facility] Address: [address] [place] [address] Performed By: #### 2 4323-8, 1987-5, 3016-3 ####[facility]CL[facility] [id number] [place] [address] [place] UA DIP, URINE (POC)on 2022 BILIRUBIN UA (POCT) Negative Negative [facility] CLARITY UA (POCT) Clear [facility] COLOR UA (POCT) Yellow [facility] GLUCOSE UA (POCT) Negative Negative mg/dL [facility] Hemoglobin Ql (U) Trace-intact Abnormal Negative [facility] KETONE UA (POCT) Negative Negative mg/dL [facility] LEUKOCYTES UA (POCT) Trace Abnormal Negative [facility] NITRITE UA (POCT) Negative Negative [facility] PH UA (POCT) 6.5 4.5 - 8.0 [facility] Protein Ql (U) 30 mg/dL Abnormal Negative mg/dL [facility] SPECIFIC GRAVITY UA (POCT) 1.025 1.005 - 1.030 [facility] UROBILINOGEN UA (POCT) 1.0 E.U./dL Jesica l E.U./dL [facility] CNCOon 06-23-2023 CNCO Letter Text Normal [facility] CNPNon 06-23-2023 CNPN Telephone (FAMWS) DELIA ALEXANEDR Carlyle ([id number]) 1940 F Date Time Provider Department [facility] your visit today, we recorded the following information about you: Georgie Cummins LPN 06/23/2023 2:20 PM Signed Patient daughter Francine calling father several months ago and he had handicap license plate, daughter is asking if mother could have rx to get handicap placard. She only wants to get one so the daughters can have it in their car when they drive her around. Francine would like to pecan picker the rx when it is ready for pecan picker. Please advise Rusty Roberts MD 06/23/2023 2:46 PM Signed Printed. Isabel Flower LPN 06/23/2023 2:58 PM Signed Daughter notified, advised would be ready for pickup at the front lobby, verbalized understanding. Allergies As of Date: 06/23/2023 (No Known Allergies) Date Reviewed: 03/03/2023 Reviewed by: Fatuma Linder Ma - Fully Assessed Reason for Visit: asking for handicap placard rx [Other] Prescriptions as of 06/23/2023 - diazePAM (VALIUM) 2 mg tablet Take 1 tablet by mouth every 6 hours as needed for up to 90 days. - omeprazole (PRILOSEC) 20 mg capsule Take 1 capsule by mouth daily before breakfast. 1/2 hr before meal. - FLUoxetine (PROZAC) 10 mg capsule Take 1 capsule by mouth once daily. - aspirin 325 mg tablet Take 325 mg by mouth every 6 hours as needed for pain. - ondansetron orally disintegrating (ZOFRAN ODT) 4 mg disintegrating tablet Take 1 tablet by mouth every 6 hours as needed for nausea/vomiting. - lidocaine (LIDODERM) 5 % Apply 5 Patches as directed as needed. - iron/vitamin b comp w-c(GERITOL COMPLETE TAB) one tablet daily Meds Comments as of 05/05/2022: Taking prn Aspirin for pain. Problem List As Of Date 06/23/2023 Noted Resolved DVT (deep venous thrombosis) ([facility]) [I82.409] 06/11/2009 12/26/2016 Primary osteoarthritis involving multiple joint*07/06/2009 Essential hypertension [I10] 07/06/2009 Backache [M54.9] 08/01/2013 Pain in limb [M79.609] 08/01/2013 12/26/2016 Diabetes mellitus type 2, uncontrolled, without*08/18/2018 08/27/2018 DM II (diabetes mellitus, type II) ([facility]) [E11.9]08/18/2018 Dyspnea on exertion [R06.09] 01/17/2019 Near syncope [R55] 01/17/2019 Interstitial lung disease ([facility]) [J84.9] 07/29/2019 Chronic kidney disease, stage 3a ([facility]) [N18.31] 03/03/2023 Encounter Status:Closed by ISABEL FLOWER [facility]AND[facility] ([id number]) 1940 F Date Time Provider Department 05/25/23 RUSTY ROBERTS [facility] During your visit today, we recorded the following information about you: Doris Quezada RN 05/25/2023 4:52 PM Signed Patient's daughter calling to let PCP know that [facility] will not fill Diazepam script sent on 05/20/23 because the prior script from 03/03/23 was written as needed for up to 90 days and pharmacy tells her it's only been 77 days since the last script was written. She says pharmacy needs verbal okay for early refill. YESENIA Rodriguez, Rusty Pritchett MD 05/25/2023 4:54 PM Signed Ok to fill Kendra Justin BAND BOOKER 05/25/2023 6:33 PM Signed Verbal ok given to Eric. Allergies As of Date: 05/25/2023 (No Known Allergies) Date Reviewed: 03/03/2023 Reviewed by: Fatuma Linder Ma - Fully Assessed Reason for Visit: Medication Question [7908] Prescriptions as of 05/25/2023 - diazePAM (VALIUM) 2 mg tablet Take 1 tablet by mouth every 6 hours as needed for up to 90 days. - omeprazole (PRILOSEC) 20 mg capsule Take 1 capsule by mouth daily before breakfast. 1/2 hr before meal. - FLUoxetine (PROZAC) 10 mg capsule Take 1 capsule by mouth once daily. - aspirin 325 mg tablet Take 325 mg by mouth every 6 hours as needed for pain. - ondansetron orally disintegrating (ZOFRAN ODT) 4 mg disintegrating tablet Take 1 tablet by mouth every 6 hours as needed for nausea/vomiting. - lidocaine (LIDODERM) 5 % Apply 5 Patches as directed as needed. - iron/vitamin b comp w-c(GERITOL COMPLETE TAB) one tablet daily Meds Comments as of 05/05/2022: Taking prn Aspirin for pain. Problem List As Of Date 05/25/2023 Noted Resolved DVT (deep venous thrombosis) ([facility]) [I82.409] 06/11/2009 12/26/2016 Primary osteoarthritis involving multiple joint*07/06/2009 Essential hypertension [I10] 07/06/2009 Backache [M54.9] 08/01/2013 Pain in limb [M79.609] 08/01/2013 12/26/2016 Diabetes mellitus type 2, uncontrolled, without*08/18/2018 08/27/2018 DM II (diabetes mellitus, type II) ([facility]) [E11.9]08/18/2018 Dyspnea on exertion [R06.09] 01/17/2019 Near syncope [R55] 01/17/2019 Interstitial lung disease ([facility]) [J84.9] 07/29/2019 Chronic kidney disease, stage 3a ([facility]) [N18.31] 03/03/2023 Encounter Status:Closed by KENDRA JUSTIN LPN on 05/25/23 [facility] Luis Fernando 05-20-2023 [facility] DELIA ALEXANDER ([id number]) 1940 F Date Time Provider Department 05/20/23 [facility]USTY ROBERT[facility] During your visit today, we recorded the following information about you: Radha Walsh RN 05/20/2023 1:48 PM [facility] regarding pt's script for Diazepam 2 mg received today by Dr. Roberts. Script states to dispense 15 tablets but directions state pt can take every 6 hours as needed for up to 90 days. Pharmacist asking if the 15 pills is to last her 90 days? Please contact pharmacist with response. Thank you. Rusty Roberts MD 05/20/2023 3:20 PM Signed Yes. Radha Walsh RN 05/20/2023 3:38 PM Signed Pharmacy updated. Radha Walsh RN Allergies As of Date: 05/20/2023 (No Known Allergies) Date Reviewed: 03/03/2023 Reviewed by: Fatuma Linder Ma - Fully Assessed Prescriptions as of 05/20/2023 - diazePAM (VALIUM) 2 mg tablet Take 1 tablet by mouth every 6 hours as needed for up to 90 days. - omeprazole (PRILOSEC) 20 mg capsule Take 1 capsule by mouth daily before breakfast. 1/2 hr before meal. - FLUoxetine (PROZAC) 10 mg capsule Take 1 capsule by mouth once daily. - aspirin 325 mg tablet Take 325 mg by mouth every 6 hours as needed for pain. - ondansetron orally disintegrating (ZOFRAN ODT) 4 mg disintegrating tablet Take 1 tablet by mouth every 6 hours as needed for nausea/vomiting. - lidocaine (LIDODERM) 5 % Apply 5 Patches as directed as needed. - iron/vitamin b comp w-c(GERITOL COMPLETE TAB) one tablet daily Meds Comments as of 05/05/2022: Taking prn Aspirin for pain. Problem List As Of Date 05/20/2023 Noted Resolved DVT (deep venous thrombosis) ([facility]) [I82.409] 06/11/2009 12/26/2016 Primary osteoarthritis involving multiple joint*07/06/2009 Essential hypertension [I10] 07/06/2009 Backache [M54.9] 08/01/2013 Pain in limb [M79.609] 08/01/2013 12/26/2016 Diabetes mellitus type 2, uncontrolled, without*08/18/2018 08/27/2018 DM II (diabetes mellitus, type II) ([facility]) [E11.9]08/18/2018 Dyspnea on exertion [R06.09] 01/17/2019 Near syncope [R55] 01/17/2019 Interstitial lung disease ([facility]) [J84.9] 07/29/2019 Chronic kidney disease, stage 3a ([facility]) [N18.31] 03/03/2023 Encounter Status:Closed by RADHA WALSH on 05/20/23 Normal [facility] OXIMETRY WITH AMBULATIONon 0 03-05-2023 [facility] Absolute lymphocyte countOrd ered By: Alcides Diego on 01-25-2023 Lymphocytes Auto (Unsp spec) [#/Vol] 0.91 10*3/uL 0.83-4.51 [facility] Basophil percentageOrdered B y: Alcides Diego on 01-25-2023 Basophils/100 WBC (Bld) 0.4 % 0-1 [facility] Bilirubin [Mass/Vol] 0.50 mg/dL 0.20-1.00 [facility] Comment on above: For patients on eltr ombopag therapy, use of Dimension [place] TBIL is not recommended. Chloride [Moles/Vol] 107 mmol/L 98-107 [facility] Eosinophils/100 WBC (Bld) 5.5 % 0-5 [facility] Glucose [Mass/Vol] 106 mg/dL 74-106 [facility] Comment on above: Fasting Glucose resu lt from 100 to 125 mg/dL suggests IMPAIRED HOMEOSTASIS per A.D.A. criteria. Neutrophils (Bld) [#/Vol] 5.4 10*3/uL 2.0-7.7 [facility] Neutrophils/100 WBC (Bld) 73.4 % 47-70 [facility] Potassium [Moles/Vol] 3.8 mmol/L 3.5-5.1 [facility] Protein [Mass/Vol] 7.3 g/dL 6.4-8.2 [facility] Sodium [Moles/Vol] 139 mmol/L 136-145 [facility] WBC (Bld) [#/Vol] 7.3 10*3/uL 4.4-11.0 [facility] Blood erythrocytes count (nu mber/volume)Ordered By: Alcides Diego on 01-25-2023 RBC (Bld) [#/Vol] 4.38 10*6/uL 4.2-5.4 [facility] Blood hemoglobin measurement (mass/volume)Ordered By: Alcides Diego on 01-25-2023 Hemoglobin (Bld) [Mass/Vol] 13.3 g/dL 12.0-15.0 [facility] Blood lymphocytes/100 leukoc ytesOrdered By: Alcides Diego on 01-25-2023 Lymphocytes/100 WBC (Bld) 12.5 % 19-41 [facility] Blood monocytes/100 leukocyt esOrdered By: Alcideshira Diego on 01-25-2023 Monocytes/100 WBC (Bld) 7.4 % 0-10 [facility] Blood platelet mean volumeOr dered By: Alcides Diego on 01-25-2023 Platelet mean volume (Bld) [Entitic vol] 10.0 fL 6.2-12.0 [facility] Determination of erythrocyte mean corpuscular volume (MCV)Ordered By: Alcides Diego on 01-25-2023 MCV (RBC) [Entitic vol] 95.0 fL 81-99 [facility] Hematocrit Auto (Bld) [Volum e fraction]Ordered By: Alcides Diego on 01-25-2023 Hematocrit (Bld) [Volume fraction] 41.6 % 37-47 [facility] Laboratory - Chemistry and C hemistry - challengeOrdered By: Alcides Diego on 01-25-2023 ALP [Catalytic activity/Vol] 101 U/L 45-117 [facility] ALT [Catalytic activity/Vol] 16 U/L 13-56 [facility] CO2 [Moles/Vol] 27.0 mmol/L 21.0-32.0 [facility] Globulin (S) [Mass/Vol] 4.1 g/dL 2.2-4.2 [facility] Urea nitrogen/Creatinine [Mass ratio] 14.2 mg/mg 10-20 [facility] - Hematology and Cell countsOrdered By: Alcides Diego on 01-25-2023 Erythrocyte distribution width (RBC) [Entitic vol] 42.5 fL 35.1-43.9 [facility] Erythrocyte distribution width (RBC) [Ratio] 12.1 % 11.6-14.6 [facility] Immature granulocytes/100 WBC (Bld) 0.800 % 0.0-0.9 [facility] Comment on above: IG% - Immature Granu locytes (promyelocytes, myelocytes and metamyelocytes) > 1% indicates that a LEFT SHIFT is Present. MCH (RBC) [Entitic mass] 30.4 pg 27.0-32.0 [facility] Nucleated RBC/100 WBC (Bld) [Ratio] 0 % 0-5 [facility] MCHC Auto (RBC) [Mass/Vol]Or dered By: Alcides Diego on 01-25-2023 MCHC (RBC) [Mass/Vol] 32.0 g/dL 32-36 [facility] No Panel InformationOrdered By: Alcides Diego on 01-25-2023 Estimated GFR (MDRD) Amer 83 mL/min >60 [facility] Comment on above: GFR Calc Estimated GFR (MDRD) Non-Af Amer 69 mL/min >60 [facility] Comment on above: Non- GFR Calc Platelets bldOrdered By: Alcides Diego on 01-25-2023 Platelets (Bld) [#/Vol] 280 10*3/uL 150-450 [facility] Serum or plasma albumin charlette urement (mass/volume)Ordered By: Alcides Diego on 01-25-2023 Albumin [Mass/Vol] 3.2 g/dL 3.2-5.0 [facility] Serum or plasma albumin/glob ulin mass ratioOrdered By: Alcides Diego on 01-25-2023 Albumin/Globulin [Mass ratio] 0.8 {ratio} 0.9-2.4 [facility] Serum or plasma calcium charlette urement (mass/volume)Ordered By: Alcideshira Diego on 01-25-2023 Calcium [Mass/Vol] 9.0 mg/dL 8.5-10.1 [facility] Serum or plasma creatinine m easurement (mass/volume)Ordered By: Alcideshira Diego on 01-25-2023 Creatinine [Mass/Vol] 0.85 mg/dL 0.55-1.02 [facility] Comment on above: The validity of the calculated GFR & GFRAA in patients over 70 years has not been determined. Clinical correlation is essential. Serum or plasma urea nitroge n measurement (mass/volume)Ordered By: Alcides Diego on 01-25-2023 Urea nitrogen [Mass/Vol] 12 mg/dL 7-18 [facility] Thin prep Papanicolaou smear with manual screeningOrdered By: Alcideshira Diego on 01-25-2023 Thin prep Papanicolaou smear with manual screening 18 U/L 15-37 [facility] Thin prep Papanicolaou smear with manual screening 5 5-15 [facility] SIX MINUTE WALKon 05-14-2022 [facility] XR Chest PA and Lateralon * * *Final Report* * * DATE OF EXAM: May 05 2022 12:06PM WOX [id number] - XR CHEST 2V FRONTAL/LAT / PROCEDURE REASON: Hypercalcemia * * * * Physician Interpretation * * * * EXAMINATION: CHEST RADIOGRAPH (2 VIEW FRONTAL & LATERAL) CLINICAL HISTORY: Hypercalcemia MQ: XC2_6 EXAM DATE/TIME: 05/05/2022 12:06 PM COMPARISON: Chest x-ray dated July 29, 2018 RESULT: Lines, tubes, and devices: None. Lungs and pleura: There is persistent coarsening of the interstitial markings in a peripheral predominance compatible with underlying interstitial lung disease which has progressed since the prior study. No discernible pleural effusion or pneumothorax. Cardiomediastinal silhouette: Mildly enlarged cardiomediastinal silhouette. Bones and soft tissues: Osseous demineralization and degenerative changes in the spine. DIVISION OF RADIOLOGY Provider, Kait Kandace [facility] - 05/06/2022 * * *Final Report* * * DATE OF EXAM: May 05 2022 12:06PM WOX [id number] - XR CHEST 2V FRONTAL/LAT / PROCEDURE REASON: Hypercalcemia * * * * Physician Interpretation * * * * EXAMINATION: CHEST RADIOGRAPH (2 VIEW FRONTAL & LATERAL) CLINICAL HISTORY: Hypercalcemia MQ: XC2_6 EXAM DATE/TIME: 05/05/2022 12:06 PM COMPARISON: Chest x-ray dated July 29, 2018 RESULT: Lines, tubes, and devices: None. Lungs and pleura: There is persistent coarsening of the interstitial markings in a peripheral predominance compatible with underlying interstitial lung disease which has progressed since the prior study. No discernible pleural effusion or pneumothorax. Cardiomediastinal silhouette: Mildly enlarged cardiomediastinal silhouette. Bones and soft tissues: Osseous demineralization and degenerative changes in the spine. IMPRESSION IMPRESSION: Interstitial lung disease which has progressed since the prior study. Cover Marker: WADE Transcribe Date/Time: May 06 2022 3:35P Dictated by : MAGI YI MD This examination was interpreted and the report reviewed and electronically signed by: MAGI YI MD on May 06 2022 3:39PM EST [facility] XR Chest PA and LateralOrder ed By: [facility] Provider on 05-06-2022 [facility] XR Chest PA and Lateralon Radiology Study observation (narrative) [facility] SPIROMETRY WITH DILATOR IF O BSTRUCTEDon 10-19-2020 [facility] [address], [place] [address] Test Date: 2020-10-19 Pat Name: DELIA ALEXANDER Department: Room: Gender: Female [employer] 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 Interpretive Statements The inspired (FIVC) spirometry manuever is less than the FVC manuever.Spirometry repeatable x 3 Lung volumes repeatable x 2. patient unable to hold breath for required time for DLCO testing. IMPRESSION: Spirometry shows no obstruction.The reduced FVC suggests restriction. The TLC is reduced indicating restriction. Severe impairment. Patient unable to perform DLCO manuever. Technicians comments noted. Electronically Signed On 10-19-2020 16:26:37 EDT by Mary Nettles M.D. Site: WO ID: [id number] Name: DELIA ALEXANDER Visit Date: 10/19/2020 Second ID: [id number] Referring Doctor: Paradise Nettles [employer] Equipment Operator: LOUIE Kingston Age: 80 : 1940 Sex: Female Race: Height: 58.00 Inches Weight: 129.20 Lbs BSA: 1.51 Order IDs: [id number] Requested Test(s): Lung Volumes Lung Diffusion Capacity (DLCO) Spirometry with dilator if obstructed Post Test Comments: The inspired (FIVC) spirometry manuever is less than the FVC manuever.Spirometry repeatable x 3 Lung volumes repeatable x 2. patient unable to hold breath for required time for DLCO testing. Review Status: Not Reviewed Pre-Bronch Post-Bronch Pred LLN ULN Actual %Pred Actual %Chng SPIROMETRY FVC (L) 2.08 1.47 2.73 1.53 73 FEV1 (L) 1.61 1.14 2.07 1.32 81 FEV1/FVC (%) 78 63 91 86 110 FEF 25% (L/sec) 3.92 1.77 6.06 3.81 97 FEF 50% (L/sec) 3.11 1.29 4.92 2.17 69 FEF 75% (L/sec) 0.30 0.10 0.86 0.64 217 FEF 25-75% (L/sec) 1.40 0.60 2.61 1.57 111 FEF Max (L/sec) 4.10 3.81 92 FIVC (L) 1.09 FIF 50% (L/sec) 2.84 1.40 4.27 1.66 58 FIF Max (L/sec) 1.71 FET (sec) 4.85 Back Extrap Vol (L) 0.07 Time To FEFmax (sec) 0.095 LUNG VOLUMES SVC (L) 2.11 1.64 78 IC (L) 1.79 0.69 38 ERV (L) 0.31 0.96 304 TGV (L) 2.36 1.32 3.41 1.60 67 RV (Pleth) (L) 2.05 1.29 2.81 0.64 31 TLC (Pleth) (L) 4.15 3.08 5.23 2.28 54 RV/TLC (Pleth) (%) 47 36 58 28 59 DIFFUSION AIRWAYS RESISTANCE [facility] Vital Signs Date Time Vital Sign Value Performing Clinician Faci lity 10-13-2024 21:00-0400 Body temperature 99.1 [degF] Dr. Alcides Diego MD Work Phone: [facility] 10-13-2024 21:00-0400 Diastolic blood pressure 93 mm[Hg] Dr. Alcides Diego MD Work Phone: [facility] 10-13-2024 21:00-0400 Heart rate 84 /min Dr. Alcides Diego MD Work Phone: [facility] 10-13-2024 21:00-0400 Inhaled oxygen flow rate 3 L/min Dr. Alcides Diego MD Work Phone: [facility] 10-13-2024 21:00-0400 Respiratory rate 18 /min Dr. Alcides Diego MD Work Phone: [facility] 10-13-2024 21:00-0400 SaO2% (BldA) [Mass fraction] 98 % Dr. Alcides Diego MD Work Phone: [facility] 10-13-2024 21:00-0400 Systolic blood pressure 151 mm[Hg] Dr. Alcides Diego MD Work Phone: [facility] 10-13-2024 19:25-0400 Body mass index (BMI) [Ratio] 25.1 kg/m2 Dr. Alcides Diego MD Work Phone: [facility] 10-13-2024 19:25-0400 Body weight 58.[address] Alcides Diego MD Work Phone: [facility] 10-13-2024 18:34-0400 Body height 152.[address] Alcides Diego MD Work Phone: [facility] 12-16-2023 13:59-0400 Body height 142.2 cm Francine Haagen PRINTED CIRCUIT PHOTOGRAPHER.WEDDING DAY COORDINATOR Work Phone: [facility] 12-16-2023 13:59-0400 Body mass index (BMI) [Ratio] 21.31 kg/m2 Francine Haagen PRINTED CIRCUIT PHOTOGRAPHER.WEDDING DAY COORDINATOR Work Phone: [facility] 12-16-2023 13:59-0400 Body weight 43.09 kg Francine Haagen PRINTED CIRCUIT PHOTOGRAPHER.WEDDING DAY COORDINATOR Work Phone: [facility] 12-16-2023 13:59-0400 Diastolic blood pressure 67 mm[Hg] Francine Haagen PRINTED CIRCUIT PHOTOGRAPHER.WEDDING DAY COORDINATOR Work Phone: [facility] 12-16-2023 13:59-0400 Heart rate 84 /min Francine Haagen PRINTED CIRCUIT PHOTOGRAPHER.WEDDING DAY COORDINATOR Work Phone: [facility] 12-16-2023 13:59-0400 Respiratory rate 16 /min Francine Haagen PRINTED CIRCUIT PHOTOGRAPHER.WEDDING DAY COORDINATOR Work Phone: [facility] 12-16-2023 13:59-0400 Systolic blood pressure 110 mm[Hg] Francine Haagen PRINTED CIRCUIT PHOTOGRAPHER.WEDDING DAY COORDINATOR Work Phone: [facility] 10-12-2023 12:58-0400 Diastolic blood pressure 90 mm[Hg] Isabel Suppan PRINTED CIRCUIT PHOTOGRAPHER.[employer] SP[employer]ISH TEACHER Work Phone: [facility] 10-12-2023 12:58-0400 Heart rate 67 /min Isabel Suppan PRINTED CIRCUIT PHOTOGRAPHER.[employer]CHO[employer] SPANISH TEACHER Work Phone: [facility] 10-12-2023 12:58-0400 Respiratory rate 16 /min Isabel High PRINTED CIRCUIT PHOTOGRAPHER.[employer]CHO[employer] SPANISH TEACHER Work Phone: [facility] 10-12-2023 12:58-0400 SaO2% (BldA) [Mass fraction] 94 % Isabel Suppan PRINTED CIRCUIT PHOTOGRAPHER.[employer]CHO[employer] SPANISH TEACHER Work Phone: [facility] 10-12-2023 12:58-0400 Systolic blood pressure 138 mm[Hg] Isabel High PRINTED CIRCUIT PHOTOGRAPHER.[employer]CHO[employer] SPANISH TEACHER Work Phone: [facility] 10-08-2023 14:50-0400 Body temperature 98.2 [degF] Lalit Guerra MD Work Phone: [facility] 10-08-2023 14:50-0400 Diastolic blood pressure 63 mm[Hg] Lalit Guerra MD Work Phone: [facility] 10-08-2023 14:50-0400 Heart rate 114 /min Lalit Guerra MD Work Phone: [facility] 10-08-2023 14:50-0400 Respiratory rate 18 /min Lalit Guerra MD Work Phone: [facility] 10-08-2023 14:50-0400 SaO2% (BldA) [Mass fraction] 95 % Lalit Guerra MD Work Phone: [facility] 10-08-2023 14:50-0400 Systolic blood pressure 136 mm[Hg] Lalit Guerar MD Work Phone: [facility] 10-08-2023 13:00-0400 Body height 142.2 cm Pulm 5 Work Phone: [facility] 10-08-2023 13:00-0400 Body weight 44.4 kg Pulm 5 Work Phone: [facility] 10-02-2023 13:35-0500 Body height 147.3 cm Exercise Physiologis t Work Phone: [facility] 10-02-2023 13:35-0500 Diastolic blood pressure 78 mm[Hg] Aircraft Inspection Record Clerk Work Phone: [facility] 10-02-2023 13:35-0500 Heart rate 71 /min Exercise Physiologis t Work Phone: [facility] 10-02-2023 13:35-0500 SaO2% (BldA) [Mass fraction] 96 % Aircraft Inspection Record Clerk Work Phone: [facility] 10-02-2023 13:35-0500 Systolic blood pressure 130 mm[Hg] Aircraft Inspection Record Clerk Work Phone: [facility] 08-27-2023 12:42-0500 Body temperature 97.81 [degF] Vipin Carlisle MD Work Phone: [facility] 08-27-2023 12:42-0500 Body weight 44.04 kg Vipin Carlisle MD Work Phone: [facility] 08-27-2023 12:42-0500 Diastolic blood pressure 88 mm[Hg] Vipin Carlisle MD Work Phone: [facility] 08-27-2023 12:42-0500 Heart rate 78 /min Vipin Carlisle MD Work Phone: [facility] 08-27-2023 12:42-0500 Respiratory rate 16 /min Vipin Carlisle MD Work Phone: [facility] 08-27-2023 12:42-0500 SaO2% (BldA) [Mass fraction] 95 % Vipin Carlisle MD Work Phone: [facility] 08-27-2023 12:42-0500 Systolic blood pressure 150 mm[Hg] Vipin Carlisle MD Work Phone: [facility] 06-30-2023 13:57-0500 Body temperature 98.4 [degF] LEEANN Kaba PA-C Work Phone: [facility] 06-30-2023 13:57-0500 Body weight 43.55 kg NA Kaba PA-C Work Phone: [facility] 06-30-2023 13:57-0500 Diastolic blood pressure 60 mm[Hg] NA Kaba PA-C Work Phone: [facility] 06-30-2023 13:57-0500 Heart rate 78 /min NA Kaba PA-C Work Phone: [facility] 06-30-2023 13:57-0500 Respiratory rate 16 /min NA Kaba PA-C Work Phone: [facility] 06-30-2023 13:57-0500 SaO2% (BldA) [Mass fraction] 92 % NA Kaba PA-C Work Phone: [facility] 06-30-2023 13:57-0500 Systolic blood pressure 108 mm[Hg] NA Kaba PA-C Work Phone: [facility] 03-03-2023 13:26-0400 Body weight 47.08 kg NA Kaba PA-C Work Phone: [facility] 03-03-2023 13:26-0400 Diastolic blood pressure 72 mm[Hg] NA Kaba PA-C Work Phone: [facility] 03-03-2023 13:26-0400 Heart rate 89 /min NA Kaba PA-C Work Phone: [facility] 03-03-2023 13:26-0400 Respiratory rate 20 /min NA Kaba PA-C Work Phone: [facility] 03-03-2023 13:26-0400 SaO2% (BldA) [Mass fraction] 96 % NA Kaba PA-C Work Phone: [facility] 03-03-2023 13:26-0400 Systolic blood pressure 120 mm[Hg] NA Kaba PA-C Work Phone: [facility] 01-25-2023 19:53-0400 Heart rate 87 /min [facility] 01-25-2023 19:53-0400 Respiratory rate 18 /min [facility] 01-25-2023 19:53-0400 SaO2% (BldA) [Mass fraction] 96 % [facility] 01-25-2023 18:15-0400 Body mass index (BMI) [Ratio] 19.5 kg/m2 [facility] 01-25-2023 18:15-0400 Body weight 45.35 kg [facility] 01-25-2023 16:12-0400 Body height 152.4 cm [facility] 01-25-2023 16:12-0400 Body temperature 97.8 [degF] [facility] 01-25-2023 16:12-0400 Diastolic blood pressure 91 mm[Hg] [facility] 01-25-2023 16:12-0400 Systolic blood pressure 123 mm[Hg] [facility] [facility] 09[facility]22 11:01-0500 Body weight 49.9 kg NA Kaba PA-C Work Phone: [facility] 09-01-2022 11:01-0500 Diastolic blood pressure 80 mm[Hg] NA Kaba PA-C Work Phone: [facility] 09-01-2022 11:01-0500 Heart rate 74 /min NA Kaba PA-C Work Phone: [facility] 09-01-2022 11:01-0500 Respiratory rate 16 /min NA Kaba PA-C Work Phone: [facility] 09-01-2022 11:01-0500 SaO2% (BldA) [Mass fraction] 91 % NA Kaba PA-C Work Phone: [facility] 09-01-2022 11:01-0500 Systolic blood pressure 128 mm[Hg] NA Kaba PA-C Work Phone: [facility] 08-28-2022 15:03-0500 Body weight 49.9 kg NA Kaba PA-C Work Phone: [facility] 08-28-2022 15:03-0500 Diastolic blood pressure 78 mm[Hg] NA Kaba PA-C Work Phone: [facility] 08-28-2022 15:03-0500 Heart rate 78 /min NA Kaba PA-C Work Phone: [facility] 08-28-2022 15:03-0500 Respiratory rate 16 /min NA Kaba PA-C Work Phone: [facility] 08-28-2022 15:03-0500 SaO2% (BldA) [Mass fraction] 93 % NA Kaba PA-C Work Phone: [facility] 08-28-2022 15:03-0500 Systolic blood pressure 128 mm[Hg] NA Kaba PA-C Work Phone: [facility] 07-10-2022 13:32-0500 Body weight 47.63 kg NA Kaba PA-C Work Phone: [facility] 07-10-2022 13:32-0500 Diastolic blood pressure 58 mm[Hg] NA Kaba PA-C Work Phone: [facility] 07-10-2022 13:32-0500 Heart rate 104 /min NA Kaba PA-C Work Phone: [facility] 07-10-2022 13:32-0500 Respiratory rate 20 /min NA Kaba PA-C Work Phone: [facility] 07-10-2022 13:32-0500 SaO2% (BldA) [Mass fraction] 93 % NA Kaba PA-C Work Phone: [facility] 07-10-2022 13:32-0500 Systolic blood pressure 94 mm[Hg] NA Kaba PA-C Work Phone: [facility] 05-19-2022 15:01-0400 Body height 147.3 cm NA Kaba PA-C Work Phone: [facility] 05-19-2022 15:01-0400 Body weight 48.99 kg NA Kaba PA-C Work Phone: [facility] 05-19-2022 15:01-0400 Diastolic blood pressure 64 mm[Hg] NA Kaba PA-C Work Phone: [facility] 05-19-2022 15:01-0400 Heart rate 82 /min NA Kaba PA-C Work Phone: [facility] 05-19-2022 15:01-0400 SaO2% (BldA) [Mass fraction] 96 % NA Kaba PA-C Work Phone: [facility] 05-19-2022 15:01-0400 Systolic blood pressure 104 mm[Hg] NA Kaba PA-C Work Phone: [facility] 05-14-2022 20:49-0400 Body height 147.32 cm [facility] Work Phone: 05-14-2022 20:49-0400 Body mass index (BMI) [Ratio] 22.4 kg/m2 [facility] Work Phone: 05-14-2022 20:49-0400 Body temperature 97.6 [degF] [facility] Work Phone: 05-14-2022 20:49-0400 Body weight 48.53 kg [facility] Work Phone: 05-14-2022 20:49-0400 Diastolic blood pressure 67 mm[Hg] [facility] Work Phone: 05-14-2022 20:49-0400 Heart rate 93 /min [facility] Work Phone: 05-14-2022 20:49-0400 Respiratory rate 16 /min [facility] Work Phone: 05-14-2022 20:49-0400 SaO2% (BldA) [Mass fraction] 94 % [facility] Work Phone: 05-14-2022 20:49-0400 Systolic blood pressure 105 mm[Hg] [facility] Work Phone: 05-05-2022 10:45-0400 Body weight 48.81 kg NA Kaba PA-C Work Phone: [facility] 05-05-2022 10:45-0400 Diastolic blood pressure 64 mm[Hg] NA Kaba PA-C Work Phone: [facility] 05-05-2022 10:45-0400 Heart rate 104 /min NA Kaba PA-C Work Phone: [facility] 05-05-2022 10:45-0400 Respiratory rate 20 /min NA Kaba PA-C Work Phone: [facility] 05-05-2022 10:45-0400 SaO2% (BldA) [Mass fraction] 95 % NA Kaba PA-C Work Phone: [facility] 05-05-2022 10:45-0400 Systolic blood pressure 92 mm[Hg] NA Kaba PA-C Work Phone: [facility] Encounters Encounter Date Encounter Type Care Provider Facility Start: 10-13-2024 End: 10-13-2024 Emergency department patient visit Dr. Alcides Diego MD Work Phone: -Emergency Department Work Phone: Start: 01-22-2024 End: 04-27-2024 Telephone encounter Rusty Roberts MD Work Phone: [facility] [place] Comment on above: Patient Update Start: 01-20-2024 Telephone encounter Vipin Carlisle MD Work Phone: Pulmonary Medicine Comment on above: Orders ([employer]) Start: 12-16-2023 End: 12-16-2023 Office outpatient visit 25 minutes Francine Saleem APRN.WEDDING DAY COORDINATOR Work Phone: [facility] [place] Comment on above: Weight loss (Primary Dx); Adjustment disorder with anxiety; Interstitial lung disease (HCC); Decreased activity tolerance; Generalized weakness Start: 12-16-2023 Telephone encounter Francine parekh APRN.WEDDING DAY COORDINATOR Work Phone: [facility] [place] Comment on above: Durable Medical Equi pment Start: 12-16-2023 End: 12-16-2023 ambulatory FRANCINE SALEEM Facility:[facility] Start: 11-05-2023 Telephone encounter Rusty Roberts MD Work Phone: Family [facility] Comment on above: Medication Problem Start: 10-19-2023 ambulatory Sue Pickens Aircraft Inspection Record Clerk [facility]io[facility] Comment on above: Pulm Rehab (Patient dropped out of program) Start: 10-12-2023 Telephone encounter Rusty Roberts MD Work Phone: [facility] Comment on above: Rx refill; not on cu rrent med list Insurance Authorizat ion Start: 10-12-2023 End: 10-12-2023 Office outpatient visit 25 minutes Isabel High PRINTED CIRCUIT PHOTOGRAPHER.[employer] Work Phone: Family [facility] Comment on above: Anxiety with depress ion (Primary Dx); Weight loss; Epigastric pain; Arthralgia of both knees; Pulmonary fibrosis (HCC) Start: 10-12-2023 End: 10-12-2023 ambulatory ISABEL A JOANNAN Facility:[facility] Start: 10-08-2023 End: 10-08-2023 Subsequent hospital visit by physician Xr Chest Main A21 Radiology Comment on above: Primary pulmonary hy pertension (HCC) [I27.0] Start: 10-08-2023 End: 10-08-2023 Patient encounter procedure Pulm Fct Lab Main 5 Work Phone: [facility] Comment on above: Pulmonary fibrosis ( HCC) Start: 10-08-2023 End: 10-09-2023 ambulatory Pulm Fct Lab Main 5 Work Phone: Pulmonary Medicine Comment on above: Spirometry Arrived Start: 10-07-2023 End: 10-08-2023 ambulatory RUSTY ROBERTS Facility:[facility] Start: 10-07-2023 End: 10-07-2023 Patient encounter procedure Pulm Rehab Phase [place] Work Phone: [facility] Comment on above: Pulmonary interstiti al fibrosis (HCC) (Primary Dx) Start: 10-05-2023 End: 10-05-2023 [facility] Start: 10-05-2023 End: 10-05-2023 Patient encounter procedure Pulm Rehab Phase [facility] [place] Work Phone: [facility] Comment on above: Pulmonary interstiti al fibrosis (HCC) (Primary Dx) Start: 10-02-2023 End: 10-02-2023 ambulatory [facility] Facility:[facility] Start: 10-02-2023 Telephone encounter Lalit Guerra MD Work Phone: Pulmonary Medicine 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[employer] Start: 10-02-2023 End: 10-02-2023 Patient encounter procedure Aircraft Inspection Record Clerk Work Phone: [facility] Comment on above: Pulmonary interstiti al fibrosis (HCC) (Primary Dx); IPF (idiopathic pulmonary fibrosis) (HCC) Start: 10-01-2023 End: 10-01-2023 ambulatory [facility] Facility:[facility] Start: 09-24-2023 Telephone encounter Vipin Carlisle MD Work Phone: Pulmonary Medicine Comment on above: Pulse Oximetry [place] Report ([employer]) Start: 09-08-2023 Chart abstracting Frederic Chase RRT Work Phone: Pulmonary Medicine Start: 09-08-2023 Telephone encounter Vipin Carlisle MD Work Phone: Pulmonary Medicine Start: 09-04-2023 Telephone encounter Sue mcgrath Aircraft Inspection Record Clerk [facility] Cardiac Rehab Comment on above: Appointment (Pulmona ry Rehab Eval) Start: 09-02-2023 Telephone encounter Sue mcgrath Aircraft Inspection Record Clerk [facility] Cardiac Re[facility] Comment on above: Appointment (Pulmona ry Rehab Eval) Start: 08-27-2023 End: 08-27-2023 ambulatory [facility] Facility:[facility] Start: 08-27-2023 End: 08-27-2023 Patient encounter procedure Vipin Carlisle MD Work Phone: Pulmonary Medicine Comment on above: Primary pulmonary hy pertension (HCC) (Primary Dx); Pulmonary fibrosis (HCC); 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); IPF (idiopathic pulmonary fibrosis) ([facility]) Start: 07-02-2023 Telephone encounter Angie Clay Kaba PA-C Work Phone: [facility] Comment on above: Orders Start: 06-30-2023 End: 06-30-2023 ambulatory RUSTY Yarely ALEJANDRA Facility:[facility] Start: 06-30-2023 End: 06-30-2023 ambulatory RUSTY Pritchett ALEJANDRA Facility:[facility] Start: 06-30-2023 End: 06-30-2023 Patient encounter procedure Angie Clay Kaba PA-C Work Phone: [facility] Comment on above: Urinary frequency (P rimary Dx); Pulmonary fibrosis (HCC); Unintentional weight loss of 10% body weight within 6 months; Chronic kidney disease, stage 3a ([facility]); DM II (diabetes mellitus, type II) ([facility]); Essential hypertension Start: 05-25-2023 Telephone encounter Rusty Roberts MD Work Phone: [facility] [place] Comment on above: Medication Question Start: 05-20-2023 Telephone encounter Rusty Roberts MD Work Phone: [facility] [place] Start: 05-19-2023 Refill Angie Clay Ari padilla PA-C Work Phone: [facility] Comment on above: Refill Request Start: 03-19-2023 ambulatory Lucero Ruiz PA-C Work Phone: Pulmonary Medicine Comment on above: results Start: 03-19-2023 E-mail encounter fro m caregiver Lucero Pearl PA-C Work Phone: [facility] Start: 03-05-2023 Telephone encounter Mary Nettles MD Work Phone: Pulmonary Medicine Comment on above: Orders Start: 03-05-2023 End: 03-05-2023 ambulatory [facility] Work Phone: [facility]ULM LAB [facility] Comment on above: Spirometry Start: 03-05-2023 End: 03-05-2023 Patient encounter procedure [facility] Work Phone: [facility] Start: 03-04-2023 Telephone encounter Rusty Roberts MD Work Phone: Family [facility] Comment on above: Insurance Authorizat ion (Diazepam ) Start: 03-03-2023 End: 03-03-2023 Patient encounter procedure Angie Kaba PA-C Work Phone: [facility] Comment on above: DM II (diabetes gayatri itus, type II) ([facility]) (Primary Dx); Weight loss; Epigastric pain; GERD without esophagitis; Screening for lipid disorders; Adjustment disorder with anxiety; Chronic kidney disease, stage 3a (HCC) Start: 03-03-2023 End: 03-03-2023 Patient encounter procedure Mary Nettles MD Work Phone: Pulmonary Medicine Comment on above: IPF (idiopathic pulm onary fibrosis) ([facility]) (Primary Dx); GARCIA (dyspnea on exertion); Other chest pain Start: 01-25-2023 End: 01-25-2023 [facility] Start: 09-08-2022 Telephone encounter Rusty Roberts MD Work Phone: [facility] Comment on above: Results Start: 09-05-2022 Telephone encounter Angie Kaba PA-C Work Phone: [facility] Comment on above: Results; Orders Start: 09-02-2022 Telephone encounter Rusty Roberts MD Work Phone: [facility] Comment on above: Orders Start: 09-01-2022 End: 09-01-2022 Patient encounter procedure Angie Kaba PA-C Work Phone: [facility] Comment on above: LISA (generalized anx iety disorder) (Primary Dx); Chronic insomnia; GERD without esophagitis; Weight loss Start: 08-28-2022 End: 08-28-2022 Patient encounter procedure Angie Kaba PA-C Work Phone: [facility] Comment on above: Weight loss (Primary Dx); LISA (generalized anxiety disorder); DM II (diabetes mellitus, type II) ([facility]); Screening for colon cancer; Interstitial lung disease (HCC); Essential hypertension; Non-intractable cyclical vomiting with nausea; Fatigue, unspecified type; Epigastric pain Start: 08-28-2022 Telephone encounter Rusty Roberts MD Work Phone: [facility] [place] Comment on above: Patient Update; Appo intment Request Start: 07-10-2022 End: 07-10-2022 Patient encounter procedure Angie Kaba PA-C Work Phone: [facility] Comment on above: Interstitial lung di sease (HCC) (Primary Dx); Dyspnea on exertion; Near syncope; Essential hypertension; DM II (diabetes mellitus, type II) ([facility]); Primary osteoarthritis involving multiple joints; GERD without esophagitis; Chronic insomnia; Fatigue, unspecified type; Cervicalgia; Encounter for screening for osteoporosis; Long toenail; Medicare annual wellness visit, subsequent; Chronic kidney disease, stage 3a ([facility]) Start: 05-19-2022 End: 05-19-2022 Patient encounter procedure Angie Kaba PA-C Work Phone: [facility] Comment on above: Cervicalgia (Primary Dx); Cervical paraspinal muscle spasm Start: 05-19-2022 Telephone encounter Rusty Roberts MD Work Phone: [facility] Comment on above: Patient Update; Christa ent Request Start: 05-14-2022 End: 05-14-2022 Emergency department patient visit [facility]gency [facility] Start: 05-14-2022 Telephone encounter Rusty Roberts MD Work Phone: [facility] Comment on above: Patient Update Results Start: 05-14-2022 End: 05-14-2022 ambulatory Respiratory Therapist [facility] Work Phone: Pulmonary Medicine Comment on above: Spirometry Start: 05-14-2022 End: 05-14-2022 Patient encounter procedure Respiratory Therapist [facility] Work Phone: [facility] Start: 05-10-2022 Telephone encounter Angie Kaba PA-C Work Phone: [facility] Comment on above: Results Start: 05-05-2022 End: 05-05-2022 Subsequent hospital visit by physician Natalie [facility] Work Phone: Radiology Comment on above: Hypercalcemia [E83.5 2] Start: 05-05-2022 End: 05-05-2022 Patient encounter procedure Angie Clay Kaba PA-C Work Phone: [facility] Comment on above: Fatigue, unspecified type (Primary Dx); Chronic insomnia; Interstitial lung disease (HCC); Dyspnea on exertion; Near syncope; Essential hypertension; Renal insufficiency; DM II (diabetes mellitus, type II) (HCC); GERD without esophagitis; Epigastric pain; Hypercalcemia; Primary osteoarthritis involving multiple joints Start: 01-13-2022 Refill Rusty Roberts MD Work Phone: [facility] Comment on above: Refill Request Start: 10-18-2020 Orders Only Mary Nettles MD Work Phone: Pulmonary Medicine Comment on above: IPF (idiopathic pulm onary fibrosis) (HCC) (Primary Dx) Start: 08-20-2018 Patient encounter procedure [facility] Procedures Date Procedure Procedure Detail Performing Clinician Start: 10-13-2024 Plain x-ray of wrist Dr Rey Diego MD Work Phone: Start: 10-08-2023 Radiologic exam ches t 2 views Minda Olsen PRINTED CIRCUIT PHOTOGRAPHER.[employer] TE[employer] Work Phone: Start: 10-08-2023 Pulmonary stress testing Marito Godoy MD Work Phone: Start: 10-08-2023 Plethysmography lung volumes w/wo airway resist Minda Olsen PRINTED CIRCUIT PHOTOGRAPHER.[employer] TEACHER Work Phone: Start: 06-30-2023 Urnls dip stick/tabl et rgnt auto w/o microscopy Angie Kaba PA-C Work Phone: Start: 03-05-2023 Noninvasive ear/puls e oximetry multiple deter Mary Nettles MD Work Phone: Start: 01-25-2023 CT of thorax with contrast Start: 01-25-2023 Plain chest X-ray Start: 05-14-2022 End: 05-14-2022 Pulmonary stress testing Angie Clay crawford PA-C Work Phone: Start: 05-05-2022 Radiologic exam ches t 2 views Angie Clay Kaba PA-C Work Phone: Start: 01-23-2018 Adult depression scr eening assessment Rusty Roberts MD Work Phone: Plan of Treatment Date Care Activity Detail Author Start: 10-13-2024 [facility] Start: 10-13-2024 Microbial culture, b bismark fluid [facility] Start: 10-13-2024 [facility] Start: 10-13-2024 Anaerobic Culture Anaerobic Culture [facility] Start: 10-13-2024 Body Fluid Culture Body Fluid Cultur e [facility] Start: 10-13-2024 Gram stain microscopy Gram Stain [facility] Start: 03-27-2024 Covid-19 Vaccine ( season) Covid-19 Vaccine ( season) [facility] Start: 03-27-2024 Influenza vaccination C [facility] Start: 03-17-2024 End: 03-17-2024 Patient encounter procedure 03/17/2024 12:00 PM EDT Office Visit Pulmonary Medicine [address] [place] [id number] Vipin Carlisle MD [address] [place] [address] F/U ILD Pulmonary Medicine Comment on above: F/U ILD Start: 03-17-2024 End: 03-17-2024 ambulatory Pulmonary Medicine Comment on above: ILD (interstitial shayla ng disease) ([facility]) [J84.9] Start: 03-11-2024 End: 03-11-2024 Patient encounter procedure 03/11/2024 1:00 PM EDT Office Visit Pulmonary Medicine [address] [place] [id number] Vipin Carlisle MD [address] [place] [address] F/U ILD Pulmonary Medicine Comment on above: F/U ILD Start: 03-11-2024 End: 03-11-2024 ambulatory Pulmonary Medicine Comment on above: ILD (interstitial shayla ng disease) ([facility]) [J84.9] Start: 01-13-2024 End: 01-13-2024 Patient encounter procedure 01/13/2024 2:00 PM EDT Office Visit [facility] [address] [place] [address] Francine Saleem, PRINTED CIRCUIT PHOTOGRAPHER.WEDDING DAY COORDINATOR [address] [place] [address] 1 mo follow up, medication [facility] Comment on above: 1 mo follow up, medi cation Start: 01-05-2024 End: 01-05-2024 Patient encounter procedure 01/05/2024 1:20 PM EDT Office Visit [facility] [address] [place] [address] Isabel High, PRINTED CIRCUIT PHOTOGRAPHER.[employer] TE[employer]ER [address] [place] [address] 3 month f/u [facility] Comment on above: 3 month f/u Start: 12-30-2023 Hemoglobin A1c measurement HbA1C [facility] Start: 12-30-2023 Hemoglobin A1c/Hemoglobin.total in Blood HbA1C [facility] Start: 09-07-2023 FECAL OCCULT BLOOD FECAL OCCULT BLOO D [facility] Start: 09-03-2023 Hepatitis B screening URINE ALBUMIN:CREATININE RATIO [facility] Start: 09-01-2023 ANNUAL PCP TEAM SENIOR REGULATORY AFFAIRS SPECIALIST RONNIE DISEASE VISIT ANNUAL PCP TEAM CHRONIC DISEASE VISIT [facility] Start: 08-28-2023 ANNUAL PCP TEAM SENIOR REGULATORY AFFAIRS SPECIALIST RONNIE DISEASE VISIT ANNUAL PCP TEAM CHRONIC DISEASE VISIT [facility] Start: 08-28-2023 BP CONTROLLED (<130/80) BP CONTROLLE D (<130/80) [facility] Start: 08-28-2023 Urine microalbumin profile [facility] Comment on above: Postponed from 01/07 (Declined at this time) Start: 07-27-2023 Advance Directive Discussion Advance Directive Discussion [facility] Start: 07-27-2023 Behavioral Health Screening Behavioral Health Screening [facility] Start: 07-27-2023 Depression Assessment Depression Ass essment [facility] Start: 07-10-2023 3 comp foot exam completed DIABETIC FOOT EXAM [facility] Start: 07-10-2023 ANNUAL PCP TEAM SENIOR REGULATORY AFFAIRS SPECIALIST RONNIE DISEASE VISIT ANNUAL PCP TEAM CHRONIC DISEASE VISIT [facility] Start: 07-10-2023 BP CONTROLLED (<130/80) BP CONTROLLE D (<130/80) [facility] Start: 07-10-2023 Diabetic foot examination Diabetic F oot Exam [facility] Start: 07-02-2023 End: 10-01-2023 Bacteria identified in Urine by Culture URINE CULTURE Microbiology Routine Urinary frequency Expected: 07/02/2023, Expires: 10/01/2023 [facility] Work Phone: Comment on above: Expected: 07/02/2023 , Expires: 10/01/2023 Start: 07-02-2023 End: 10-01-2023 Urinalysis complete panel - Urine URINALYSIS, WITH MICROSCOPIC Lab Routine Urinary frequency Expected: 07/02/2023, Expires: 10/01/2023 [facility] Work Phone: Comment on above: Expected: 07/02/2023 , Expires: 10/01/2023 Start: 06-30-2023 End: 09-29-2023 Bacteria identified in Urine by Culture URINE CULTURE Microbiology Routine Urinary frequency Expected: 06/30/2023, Expires: 09/29/2023 [facility] Work Phone: Comment on above: Expected: 06/30/2023 , Expires: 09/29/2023 Start: 05-19-2023 ANNUAL PCP TEAM SENIOR REGULATORY AFFAIRS SPECIALIST RONNIE DISEASE VISIT ANNUAL PCP TEAM CHRONIC DISEASE VISIT [facility] Start: 05-19-2023 BP CONTROLLED (<130/80) BP CONTROLLE D (<130/80) [facility] Start: 05-05-2023 3 comp foot exam completed DIABETIC FOOT EXAM [facility] Start: 05-05-2023 ANNUAL PCP TEAM SENIOR REGULATORY AFFAIRS SPECIALIST RONNIE DISEASE VISIT ANNUAL PCP TEAM CHRONIC DISEASE VISIT [facility] Start: 10-10-2023 BP CONTROLLED (<130/80) BP CONTROLLE D (<130/80) [facility] Start: 05-05-2023 COVID-19 VACCINE (#1) COVID-19 VACCI NE (#1) [facility] Comment on above: Postponed from 07/09 (Declined at this time) Start: 03-27-2023 Covid-19 Vaccine () Covid-19 Vaccine () [facility] Start: 03-27-2023 Influenza vaccination C [facility] Start: 03-03-2023 End: 05-03-2023 Hemoglobin A1c in Blood HGB A1C Lab Routine DM II (diabetes mellitus, type II) ([facility]) Expected: 03/03/2023, Expires: 05/03/2023 [facility] Work Phone: Comment on above: Expected: 03/03/2023 , Expires: 05/03/2023 Start: 03-03-2023 End: 05-03-2023 Lipid 1996 panel - Serum or Plasma LIPID PANEL BASIC Lab Routine Screening for lipid disorders Expected: 03/03/2023, Expires: 05/03/2023 [facility] Work Phone: Comment on above: Expected: 03/03/2023 , Expires: 05/03/2023 Start: 03-01-2023 Hemoglobin A1c/Hemoglobin.total in Blood HBA1C [facility] Start: 01-23-2023 Influenza vaccination INFLUENZA (#1) [facility] Comment on above: Postponed from 03/27 (Declined at this time) Start: 09-05-2022 End: 11-05-2022 Bacteria identified in Urine by Culture URINE CULTURE Microbiology Routine Pyuria Expected: 09/05/2022, Expires: 11/05/2022 [facility] Work Phone: Comment on above: Expected: 09/05/2022 , Expires: 11/05/2022 Start: 08-28-2022 End: 10-28-2022 ALBUMIN/CREAT RATIO RND UR ALBUMIN/CREAT RATIO RND UR Lab Routine DM II (diabetes mellitus, type II) ([facility]) Expected: 08/28/2022, Expires: 10/28/2022 [facility] Work Phone: Comment on above: Expected: 08/28/2022 , Expires: 10/28/2022 Start: 08-28-2022 End: 10-28-2022 JAUN BY IFA WITH REFLEX JAUN BY IFA WITH REFLEX Lab Routine Weight loss Non-intractable cyclical vomiting with nausea Fatigue, unspecified type Epigastric pain Expected: 08/28/2022, Expires: 10/28/2022 [facility] Work Phone: Comment on above: Expected: 08/28/2022 , Expires: 10/28/2022 Start: 08-28-2022 End: 10-28-2022 C reactive protein [Mass/volume] in Serum or Plasma C-REACTIVE PROTEIN (CRP) Lab Routine Weight loss Non-intractable cyclical vomiting with nausea Fatigue, unspecified type Epigastric pain Expected: 08/28/2022, Expires: 10/28/2022 [facility] Work Phone: Comment on above: Expected: 08/28/2022 , Expires: 10/28/2022 Start: 08-28-2022 End: 10-28-2022 CBC W Auto Differential panel - Blood CBC + DIFF Lab Routine Weight loss Non-intractable cyclical vomiting with nausea Fatigue, unspecified type Epigastric pain Expected: 08/28/2022, Expires: 10/28/2022 [facility] Work Phone: Comment on above: Expected: 08/28/2022 , Expires: 10/28/2022 Start: 08-28-2022 End: 10-28-2022 Comprehensive metabolic 2000 panel - Serum or Plasma COMP METABOLIC PANEL Lab Routine Weight loss Non-intractable cyclical vomiting with nausea Fatigue, unspecified type Epigastric pain Expected: 08/28/2022, Expires: 10/28/2022 [facility] Work Phone: Comment on above: Expected: 08/28/2022 , Expires: 10/28/2022 Start: 08-28-2022 End: 10-28-2022 Erythrocyte sedimentation rate SED RATE WESTERGREN Lab Routine Weight loss Non-intractable cyclical vomiting with nausea Fatigue, unspecified type Epigastric pain Expected: 08/28/2022, Expires: 10/28/2022 [facility] Work Phone: Comment on above: Expected: 08/28/2022 , Expires: 10/28/2022 Start: 08-28-2022 End: 10-28-2022 Hemoglobin A1c in Blood HGB A1C Lab Routine DM II (diabetes mellitus, type II) ([facility]) Expected: 08/28/2022, Expires: 10/28/2022 [facility] Work Phone: Comment on above: Expected: 08/28/2022 , Expires: 10/28/2022 Start: 08-28-2022 End: 10-28-2022 Lipase [Enzymatic activity/volume] in Serum or Plasma LIPASE BLD Lab Routine Weight loss Non-intractable cyclical vomiting with nausea Fatigue, unspecified type Epigastric pain Expected: 08/28/2022, Expires: 10/28/2022 [facility] Work Phone: Comment on above: Expected: 08/28/2022 , Expires: 10/28/2022 Start: 08-28-2022 End: 10-28-2022 Thyrotropin [Units/volume] in Serum or Plasma TSH BLD Lab Routine Weight loss Expected: 08/28/2022, Expires: 10/28/2022 [facility] Work Phone: Comment on above: Expected: 08/28/2022 , Expires: 10/28/2022 Start: 08-28-2022 End: 10-28-2022 Urinalysis complete panel - Urine URINALYSIS, WITH MICROSCOPIC Lab Routine Weight loss Non-intractable cyclical vomiting with nausea Fatigue, unspecified type Epigastric pain Expected: 08/28/2022, Expires: 10/28/2022 [facility] Work Phone: Comment on above: Expected: 08/28/2022 , Expires: 10/28/2022 Start: 08-02-2022 ANNUAL PCP TEAM SENIOR REGULATORY AFFAIRS SPECIALIST RONNIE DISEASE VISIT ANNUAL PCP TEAM CHRONIC DISEASE VISIT [facility] Start: 08-02-2022 BP CONTROLLED (<130/80) BP CONTROLLE D (<130/80) [facility] Start: 08-02-2022 FECAL OCCULT BLOOD FECAL OCCULT BLOO D [facility] Start: 07-27-2022 ADVANCE DIRECTIVE DISCUSSION ADVANCE DIRECTIVE DISCUSSION [facility] Start: 07-27-2022 DEPRESSION ASSESSMENT DEPRESSION ASS ESSMENT [facility] Start: 05-05-2022 End: 07-05-2022 25-hydroxyvitamin D3 [Mass/volume] in Serum or Plasma VITAMIN D 25 HYDROXY Lab Routine Hypercalcemia Expected: 05/05/2022, Expires: 07/05/2022 [facility] Work Phone: Comment on above: Expected: 05/05/2022 , Expires: 07/05/2022 Start: 05-05-2022 End: 07-05-2022 CBC W Auto Differential panel - Blood CBC + DIFF Lab Routine Fatigue, unspecified type Expected: 05/05/2022, Expires: 07/05/2022 [facility] Work Phone: Comment on above: Expected: 05/05/2022 , Expires: 07/05/2022 Start: 05-05-2022 End: 07-05-2022 Comprehensive metabolic 2000 panel - Serum or Plasma COMP METABOLIC PANEL Lab Routine Fatigue, unspecified type Hypercalcemia Expected: 05/05/2022, Expires: 07/05/2022 [facility] Work Phone: Comment on above: Expected: 05/05/2022 , Expires: 07/05/2022 Start: 05-05-2022 End: 07-05-2022 Parathyrin.intact [Mass/volume] in Serum or Plasma PTH INTACT BLD Lab Routine Hypercalcemia Expected: 05/05/2022, Expires: 07/05/2022 [facility] Work Phone: Comment on above: Expected: 05/05/2022 , Expires: 07/05/2022 Start: 05-05-2022 End: 07-05-2022 Thyrotropin [Units/volume] in Serum or Plasma TSH BLD Lab Routine Interstitial lung disease (HCC) Chronic insomnia Fatigue, unspecified type Expected: 05/05/2022, Expires: 07/05/2022 [facility] Work Phone: Comment on above: Expected: 05/05/2022 , Expires: 07/05/2022 Start: 03-27-2022 Influenza vaccination INFLUENZ A (Season Ended) [facility] Start: 01-30-2022 3 comp foot exam completed DIABETIC FOOT EXAM [facility] Start: 01-27-2022 Hemoglobin A1c/Hemoglobin.total in Blood HBA1C [facility] Start: 01-17-2022 Glaucoma screening Dilated Retinal E xam [facility] Start: 01-17-2022 Hepatitis C antibody , confirmatory test DILATED RETINAL EXAM [facility] Start: 09-03-2021 Hepatitis B screening URINE ALBUMIN:CREATININE RATIO [facility] Start: 09-03-2021 Hepatitis B surface antibody level LDL CHOLESTEROL [facility] Start: 07-27-2021 ADVANCE DIRECTIVE DISCUSSION ADVANCE DIRECTIVE DISCUSSION [facility] Start: 07-27-2021 DEPRESSION ASSESSMENT DEPRESSION ASS ESSMENT [facility] Start: 01-23-2019 Adult depression scr eening assessment DEPRESSION SCREENING [facility] Start: 2017 RSV Vaccine (1 - 1-d ose 75+ series) RSV Vaccine (1 - 1-dose 75+ series) [facility] Start: 2002 Hepatitis B Vaccine (1 of 3 - Risk 3-dose series) Hepatitis B Vaccine (1 of 3 - Risk 3-dose series) [facility] Start: 2002 RSV Vaccine (1 - 1-d ose 60+ series) RSV Vaccine (1 - 1-dose 60+ series) [facility] Start: 01-08-1992 SHINGRIX VACCINE (1 of 2) ORTEGA GRIX VACCINE (1 of 2) [facility] Start: 1961 Urine microalbumin profile [facility] Start: 01-08-1960 Anxiety Screening Anxiety Screening [facility] Start: 01-08-1960 BP CONTROLLED (<130/80) BP CONTROLLE D (<130/80) [facility] Start: 01-08-1960 Depression Screening Depression Scre ening [facility] Start: 01-08-1948 Pneumococcal Vaccine : 65+ (1 - PCV) Pneumococcal Vaccine: 65+ (1 - PCV) [facility] Start: 01-08-1948 Pneumococcal Vaccine : 65+ (1 of 2 - PCV) Pneumococcal Vaccine: 65+ (1 of 2 - PCV) [facility] Start: 01-08-1948 PNEUMOCOCCAL: 65+ (1 - PCV) PNEUMOCOCCAL: 65+ (1 - PCV) [facility] Start: 1947 COVID-19 VACCINE (#1) COVID-19 VACCI NE (#1) [facility] Start: 1942 Covid-19 Vaccine (#1) Covid-19 Vacci ne (#1) [facility] Bacteria identified in Body fluid by Culture [facility] Bacteria identified in Unspecified specimen by Anaerobe culture [facility] Body fluid analysis [facility] End: 07-29-2024 Ct abdomen & pelvis w/o contrast material CT ABD/PEL WO IVCON Radiology Routine Unintentional weight loss of 10% body weight within 6 months 1 Occurrences starting 06/30/2023 until 07/29/2024 [facility] Work Phone: Comment on above: 1 Occurrences starti ng 06/30/2023 until 07/29/2024 End: 07-29-2024 Ct thorax w/o contrast material CT CHEST WO IVCON Radiology Routine Pulmonary fibrosis (HCC) Unintentional weight loss of 10% body weight within 6 months 1 Occurrences starting 06/30/2023 until 07/29/2024 [facility] Work Phone: Comment on above: 1 Occurrences starti ng 06/30/2023 until 07/29/2024 End: 08-09-2023 DXA-AXIAL SKELETON DXA-AXIAL SKELETON Radiology Routine Encounter for screening for osteoporosis 1 Occurrences starting 07/10/2022 until 08/09/2023 [facility] Work Phone: Comment on above: 1 Occurrences starti ng 07/10/2022 until 08/09/2023 End: 08-27-2024 Echocardiography ECHO Cardiology Routine Pulmonary fibrosis (HCC) 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) 1 Occurrences starting 08/27/2023 until 08/27/2024 [facility] Work Phone: Comment on above: 1 Occurrences starti ng 08/27/2023 until 08/27/2024 Hemoglobin.gastroint estina l.lower [Presence] in Stool by Immunoassay FECAL OCCULT BLOOD TEST Lab Routine Screening for colon cancer Fatigue, unspecified type Epigastric pain Ordered: 08/28/2022 [facility] Work Phone: Comment on above: Ordered: 08/28/2022 Laboratory data interpretation [facility] End: 06-04-2023 LUNG DIFFUSION CAPACITY (DLCO) LUNG DIFFUSION CAPACITY (DLCO) PFT Routine Interstitial lung disease (HCC) Dyspnea on exertion 1 Occurrences starting 05/05/2022 until 06/04/2023 [facility] Work Phone: Comment on above: 1 Occurrences starti ng 05/05/2022 until 06/04/2023 End: 06-04-2023 LUNG VOLUMES LUNG VOLUMES PFT Routine Interstitial lung disease (HCC) Dyspnea on exertion 1 Occurrences starting 05/05/2022 until 06/04/2023 [facility] Work Phone: Comment on above: 1 Occurrences starti ng 05/05/2022 until 06/04/2023 LUNG VOLUMES LUNG VOLUMES PFT Routine Interstitial lung disease (HCC) Dyspnea on exertion 05/14/2022 8:32 AM EDT [facility] Work Phone: LUNG VOLUMES LUNG VOLUMES PFT Routine Primary pulmonary hypertension (HCC) 10/08/2023 12:18 PM EDT [facility] Work Phone: OXIMETRY - NOCTURNAL OXIMETRY - NOCTURNAL Procedures Routine IPF (idiopathic pulmonary fibrosis) (HCC) Ordered: 03/03/2023 [facility] Work Phone: Comment on above: Ordered: 03/03/2023 OXIMETRY - NOCTURNAL OXIMETRY - NOCTURNAL Procedures Routine Pulmonary fibrosis (HCC) Ordered: 08/27/2023 [facility] Work Phone: Comment on above: Ordered: 08/27/2023 End: 06-04-2023 OXIMETRY WITH AMBULATION OXIMETRY WITH AMBULATION PFT Routine Interstitial lung disease (HCC) Dyspnea on exertion 1 Occurrences starting 05/05/2022 until 06/04/2023 [facility] Work Phone: Comment on above: 1 Occurrences starti ng 05/05/2022 until 06/04/2023 End: 04-01-2024 OXIMETRY WITH AMBULATION OXIMETRY WITH AMBULATION PFT Routine IPF (idiopathic pulmonary fibrosis) (HCC) 1 Occurrences starting 03/03/2023 until 04/01/2024 [facility] Work Phone: Comment on above: 1 Occurrences starti ng 03/03/2023 until 04/01/2024 Patient Education [facility] Work Phone: Patient referral [facility] Work Phone: Pulmonary rehabilita tion pro CONSULT PULMONARY REHABILITATION PROGRAM Procedures Routine Pulmonary fibrosis (HCC) Ordered: 08/27/2023 [facility] Work Phone: Comment on above: Ordered: 08/27/2023 End: 06-04-2023 Radiologic exam chest 2 views XR CHEST 2V FRONTAL/LAT Radiology Routine Hypercalcemia 1 Occurrences starting 05/05/2022 until 06/04/2023 [facility] Work Phone: Comment on above: 1 Occurrences starti ng 05/05/2022 until 06/04/2023 Radiologic exam ches t 2 views XR CHEST 2V FRONTAL/LAT Radiology Routine Hypercalcemia 05/05/2022 12:06 PM EDT [facility] Work Phone: End: 06-04-2023 SIX MINUTE WALK SIX MINUTE WALK PFT Routine Interstitial lung disease (HCC) Dyspnea on exertion 1 Occurrences starting 05/05/2022 until 06/04/2023 [facility] Work Phone: Comment on above: 1 Occurrences starti ng 05/05/2022 until 06/04/2023 End: 09-25-2024 SIX MINUTE WALK SIX MINUTE WALK PFT Routine Pulmonary fibrosis (HCC) 1 Occurrences starting 08/27/2023 until 09/25/2024 [facility] Work Phone: Comment on above: 1 Occurrences starti ng 08/27/2023 until 09/25/2024 Specimen description [facility] Specimen processing [facility] End: 06-04-2023 SPIROMETRY WITH DILATOR IF OBSTRUCTED SPIROMETRY WITH DILATOR IF OBSTRUCTED PFT Routine Interstitial lung disease (HCC) Dyspnea on exertion 1 Occurrences starting 05/05/2022 until 06/04/2023 [facility] Work Phone: Comment on above: 1 Occurrences starti ng 05/05/2022 until 06/04/2023 SPIROMETRY WITH DILA TOR IF OBSTRUCTED SPIROMETRY WITH DILATOR IF OBSTRUCTED PFT Routine Primary pulmonary hypertension (HCC) 10/08/2023 12:18 PM EDT [facility] Work Phone: UA DIP, URINE (POC) UA DIP, URIN E (POC) Lab Routine Urinary frequency Ordered: 06/30/2023 [facility] Work Phone: Comment on above: Ordered: 06/30/2023 Urinalysis complete panel - Urine URINALYSIS, WITH MICROSCOPIC Lab Routine Urinary frequency Ordered: 06/30/2023 [facility] Work Phone: Comment on above: Ordered: 06/30/2023 [facility] Immunizations Immunization Date Immunization Notes Care Provider Ching soliman 07-29-2018 influenza virus vacc ine, unspecified formulation NA Sesar RICHARD Work Phone: [facility] Payers Date Payer Category Payer Medicare [id number] 2024 Self-pay [id number] 2006 Medicare [employer]AN MEDICARE [place] [facility] [place] [facility] [id number] 2006-Present [phone] [facility] [place] [address] [facility] [id number] 2006 Medicare [employer] PLAN MEDICARE TH[place] [facility] [place] [id number] 2006-Present [phone] [address] [facility] [address] [facility] [id number] 2006 Medicare [id number] 1940 Unknown [id number] Unknown Unknown [id number] Social History Date Type Detail Facility Start: 05-05-2022 End: 10-13-2024 Tobacco smoking status NHIS Never smoked tobacco [facility] Work Phone: Start: 08-05-2021 End: 12-16-2023 Alcohol intake Current non-drinker of alcohol (finding) [facility] Start: 1940 Sex Assigned At Not on file C [facility] Start: 11-18-2017 End: 05-05-2022 Tobacco use and exposure Smokeless tobacco non-user [facility] Start: 09-18-2020 End: 05-19-2022 Exposure to SARS-CoV-2 (event) Not sure [facility] Start: 05-14-2022 End: 01-25-2023 Tobacco smoking status NHIS Unknown if ever smoked [facility] Start: 1940 Sex Assigned At Female W [facility] Start: 03-03-2023 End: 12-16-2023 History of Social function [facility] Start: 03-03-2023 End: 12-16-2023 Tobacco use panel [facility] Adult Depression Scr eening Assessment 0 [facility] Has the [employer], [employer], or [employer] threatened to shut off services in your home in past 12Mo No [facility] Do you belong to any clubs or organizations such as holiness groups, unions, fraternal or athletic groups, or school groups? Yes [facility] Are you now , , , , never or living with a partner? [facility] How often to you hav e a drink containing alcohol? Never [facility] Do you feel stress - tense, restless, nervous, or anxious, or unable to sleep at night because your mind is troubled all the time - these days [OSQ] Very much [facility] (I/We) worried [facility] er (my/our) food would run out before (I/we) got money to buy more. Never true [facility] Start: 10-13-2024 Sex Female (finding) [facility] Mental Status Date Assessment Result Facility 01-25-2023 Cognitive function Level Of Cons ciousness Awake;Alert;Appropriate [facility] Work Phone: 05-14-2022 Cognitive function Level Of Cons ciousness Awake;Alert;Appropriate;Follow s Commands [facility] Work Phone: Clinical Notes 08-18-2018 to 10-13-2024 Note Date & Type Note Facility 10-13-2024 Discharge summary [facility] 10-13-2024 Radiology Diagnostic study note [facility] Imaging Services [address] [place], [place] [address] Wrist min 3 Views MR#: [id number] Acct: [id number] Name: DELIA ALEXANDER Rep #: [id number] : 1940 F 84 From: Mignon Cedeño DO PCP: ROMEL Vargas Status: REG ER Study:Wrist min 3 Views Date of Exam: Exam# [id number] Ordering Dr: Rodri Diego MD PROCEDURE: WRIST MIN 3 VIEWS REASON FOR EXAM: INJURY/PAIN TECHNIQUE: 3 views of the right wrist COMPARISON: None FINDINGS: No visible fracture. No suspicious bone lesion. Severe degenerative changes of the carpal joints. Soft tissues are unremarkable. No radiopaque foreign body is demonstrated. RAD/Wrist min 3 Views IMPRESSION: DEGENERATIVE OSTEOARTHROSIS. NO ACUTE FINDINGS. Reading Location: [facility] CC: MATH PROFESSOR-C Yen Cam; Dr. Alcides Diego MD ~ Cover Marker: Signed [facility] 10-13-2024 Discharge summary Note Date/Time October 13, 2024 9:08pm [facility] Medical Records Department [address] [place] [address] Emergency Department Summary 10/13/24 MR#: [id number] Acct: [id number] Name: DELAI ALEXANDER Rep #:[id number] : 1940 84 From: Alcides Diego MD PCP: ROMEL Vargas Status:REG ER Location: ED HPI History of Present Illness Chief Complaint: Bite Detail of Chief Complaint: Infected cat bite dorsum right hand Informant: patient Onset/Context/Timing Onset: Days (October 11) Location of pain/injuries: Right hand Quality of Pain: Dull and Aching Location: Right wrist Current Severity: Mild Maximum Severity: Severe Worsened by: Palpation and movement Relieved by: Nothing Associated Symptoms Associated Symptoms: Negative for Parasthesias, Weakness, Loss of function or Inability to ambulate Narrative Narrative: Patient is an 84-year-old woman. She was petting a cat at [facility]. The cat bit her. This occurred on Thursday. She was prescribed Augmentin today. She istaken 2 doses. She presents because of pain, swelling and slight redness. She states when she makes a fist the pain is worse. She denies allergies to antibiotics. She has history of pulmonary fibrosis. She denies fever, chills night sweats. She denies nausea or vomiting. She denies elbow or shoulder pain. She has rheumatoid arthritis. Review of her meds indicates she is on no immunosuppressive medication. Recent Illness/Hospitalization: No [facility] Medical History Hypertension Home Medications ?Medication ?Instructions ?Recorded ?Last Taken ?Type acetaminophen 500 mg tablet 1,000 mg PO Q4H PRN pain 0 10/13/24 Unknown History amoxicillin 875 mg-potassium 1 tab PO BID 10/13/24 Unk nown History clavulanate 125 mg tablet benzonatate 100 mg capsule 100 mg PO Q8H PRN cough Unknown History bisacodyl 10 mg rectal suppository 10 mg [place] DAILY PRN constipation 10/13/24 Unknown History (Gentle Laxative (bisacodyl)) dextromethorphan-guaifenesin 5 20 ml PO Q4H PRN cough 10/13/24 Unknown History mg-100 mg/5 mL oral liquid diazepam 2 mg tablet 2 mg PO TID PRN agitation Unknown History dimethicone 5 % topical cream 1 applic topical Q8H PRN skin 10/13/24 Unknown History (DermacinRx Dimopair) irritation ibuprofen 400 mg tablet (IBU) 400 mg PO TID PRN pain 0 10/13/24 Unknown History ipratropium 0.5 mg-albuterol 3 mg 3 ml inhalation Q4H PRN dyspnea 10/13/24 Unknown History (2.5 mg base)/3 mL nebulization soln lorazepam 0.5 mg tablet 0.25 mg PO Q4H PRN anxiety 0 10/13/24 Unknown History miconazole nitrate 2 % topical 1 applic topical TID KY N skin 10/13/24 Unknown History powder (Desenex) irritation morphine concentrate 100 mg/5 mL 5 mg PO Q3H PRN pain 10/13/24 Unknown History (20 mg/mL) oral solution [id number] 1 tab PO DAILY 10/13/24 U nknown History tablet (Multivitamin 50 Plus tablet) nitroglycerin 0.4 mg sublingual 0.4 mg sublingual PRN PRN chest 10/13/24 Unknown History tablet pain omeprazole 20 mg capsule,delayed 20 mg PO DAILY Unknown History release ondansetron HCl 4 mg tablet 4 mg PO Q6H PRN nausea and vomiting 10/13/24 Unknown History saliva substitute combo no.9 15 ml mucous membrane Q2H PRN dry 10/13/24 Unknown History (Biotene Dry Mouth Oral Rinse mouth mouthwash) sennosides 8.6 mg-docusate sodium 1 tab PO BID PRN con stipation 10/13/24 Unknown History 50 mg tablet (Stool Softener-Laxative) Allergy/AdvReac Type Severity Reaction Status Date / Time No Known Allergies Allergy Verified 10/13/24 18:37 Family History no significant family his Social History household members: none Smoking Status: Never smoker substance use type: does not use ROS ROS ED Constitutional Constitutional ED: Denies chills, fever(s), subjective, sweats or weight loss Eyes Eyes: Denies blurry vision or change in vision ENT ENT ED: Denies rhinorrhea or sore throat Musculoskeletal Musculoskeletal: Reports other Details: Right hand and wrist pain Integumentary Reports rash and other Details: And swelling of the right hand dorsal surface only. Hematologic/Lymphatic Hematologic/Lymphatic: Denies easy bleeding or easy bruising EXAM Physical Exam Const Vital Signs: 10/13/24 18:34 10/13/24 19:37 10/13/24 20:00 Temperature 98.4 F 98.9 F 99.2 F H Temperature Source Temporal Oral Oral Pulse Rate 86 82 97 Respiratory Rate 16 18 18 Blood Pressure 134/72 H 174/78 H 171/86 H Blood Pressure Mean 92 110 114 Pulse Ox 97 99 95 Oxygen Delivery Method Nasal Cannula Nasal Cannula Nasal Cannula Oxygen Flow Rate (L/min) 3 3 Positive well nourished and well developed General Appearance ED: well developed and NAD HEENT HEENT Narrative: Head is normocephalic. There is no acute abnormality. atraumatic Eyes PERRL and EOMs intact bilaterally Resp normal respiratory effort and clear to auscultation bilaterally Cardio regular rhythm, S1 normal heart sound, S2 normal heart sound and no murmurs Rate: regular rate Extremity Extremity Narrative: There is swelling of the dorsum of the right hand. There is slight erythema. There is no true warmth or induration. There is fluctuance over the right wristdorsal surface. Passive flexion extension of the thumb, index finger, long finger, ring finger and little finger does not elicit pain. She does have pain with movement of the wrist. Median, radial and ulnar function intact. There isno lymphangitis. There is no epitrochlear or axillary lymphadenopathy. Neuro oriented x3 and CN's II-XII intact bilaterally Sensorium / Orientation: alert Psych mental status grossly normal and thought process normal Skin Skin Narrative: Described under the extremity portion of the EMR PROC Procedures Other Procedures Procedure(s): Hand was prepped draped sterile manner. Area was anesthetized with 1% lidocaine with local infiltration. Total of 2.5 cc was infiltrated. After 1 minute incision was made. Incision length was 1.5 cm. There was additional pleural fluid there was noted. The cavity was explored. The extensor tendons are not visible. 1/4 inch iodoform gauze was placed as a wick. Patient received a dose of Unasyn in the emergency department. She will need Augmentin for additional 6 days. MDM MDM MDM Narrative Medical decision making narrative: 2 puncture wounds due to cat bite dorsum of the right hand. There is no tenderness over the bite new. There is no fluctuance. Unable to express any purulent material. There is fluctuance over the wrist. Needle aspirate was undertaken. Approximately 1 to 1.5 cc of a reddish-white thick fluid was aspirated. It was sent for Gram stain, culture and cell count. X-ray was obtained to see if there are any bony lesions or fractured teeth that were retained. Blood work was obtained as well. Lab Data Attestation: I reviewed the patient's lab results. Lab results narrative: White count is elevated 12.7 with slight shift no bandemia. H&H 11.6 and 36.8 with normal indices. Electrolyte panel is remarkable for an estimated GFR of 82. Labs: Laboratory Results - last 24 hr 10/13/24 10/13/24 19:14 19:29 WBC 12.7 H RBC 3.85 L Hgb 11.6 L Hct 36.8 L MCV 95.6 MCH 30.1 MCHC 31.5 L RDW Std Deviation 42.7 RDW Coeff of Margarita 12.2 Plt Count 156 MPV 10.6 Immature Gran % (Auto) 0.500 Neut % (Auto) 83.3 H Lymph % (Auto) 6.0 L [place] % (Auto) 7.9 Eos % (Auto) 2.1 Baso % (Auto) 0.2 Absolute Neuts (auto) 10.6 H Absolute Lymphs (auto) 0.77 L Nucleated RBC % 0 Sodium 140 Potassium 4.2 Chloride 98 Carbon Dioxide 33.2 H Anion Gap 9 BUN 14 Creatinine 0.73 Estim Creat Clear Calc 43.33 L Est GFR (MDRD) Non-Af 82 BUN/Creatinine Ratio 18.6 Glucose 191 H Calcium 9.4 Fluid WBC TNP Fluid RBC TNP Fluid Tot Cell Count TNP Radiography Chest X-Ray - ED: Read by ED Physician (Three-view x-ray of the wrist reveals significant osteoarthritis of multiple joints in her wrist and hand. There is no subcutaneous air. There is no lytic lesions. There is no periosteal elevation.) Diagnostic Testing: Clinical Impression(s) from Imaging Studies Wrist X-Ray 10/13/24 19:33 IMPRESSION: DEGENERATIVE OSTEOARTHROSIS. NO ACUTE FINDINGS. Reading Location: [facility] Treatment and Re-Evaluation Narrative: Patient was consented for I&D. Patient in my opinion is appropriate for outpatient therapy. She did not get better because she is only had 2 doses and she had an abscess which does not improve with antibiotics. Discharge Plan Triage Chief Complaint: Bite ED Provider: Alcides Diego Dx/Rx/DC Orders Clinical Impression: Cat bite of right hand with infection, Cutaneous abscess of right wrist, Rheumatoid arthritis Instructions: ED Abscess Incision And Drainage, ED Cat Bite Prescriptions: No Action amoxicillin-pot clavulanate 875-125 mg tablet 1 tab PO BID Patient Comments: START DATE [id number] END DATE [id number] lorazepam 0.5 mg tablet 0.25 mg PO Q4H PRN (Reason: anxiety) benzonatate 100 mg capsule 100 mg PO Q8H PRN (Reason: cough) diazepam 2 mg tablet 2 mg PO TID PRN (Reason: agitation) ipratropium-albuterol 0.5 mg-3 mg(2.5 mg base)/3 mL solution for nebulization 3 ml inhalation Q4H PRN (Reason: dyspnea) nitroglycerin 0.4 mg tablet, sublingual 0.4 mg sublingual PRN PRN (Reason: chest pain) sennosides-docusate sodium [Stool Softener-Laxative] 8.6-50 mg tablet 1 tab PO BID PRN (Reason: constipation) omeprazole 20 mg capsule,delayed release(DR/EC) 20 mg PO DAILY Biotene Dry Mouth Oral Rinse Mouthwash 15 ml mucous membrane Q2H PRN (Reason: dry mouth) Rx Instructions: swish for 15-30 secs , then spit out; do not swallow miconazole nitrate [Desenex] 2 % powder 1 applic topical TID PRN (Reason: skin irritation) DermacinRx Dimopair 5 % cream 1 applic topical Q8H PRN (Reason: skin irritation) bisacodyl [Gentle Laxative (bisacodyl)] 10 mg suppository 10 mg [place] DAILY PRN (Reason: constipation) Multivitamin 50 Plus Tablet 1 tab PO DAILY dextromethorphan-guaifenesin 5-100 mg/5 mL liquid 20 ml PO Q4H PRN (Reason: cough) ibuprofen [IBU] 400 mg tablet 400 mg PO TID PRN (Reason: pain) morphine concentrate 100 mg/5 mL (20 mg/mL) solution 5 mg PO Q3H PRN (Reason: pain) acetaminophen 500 mg tablet 1,000 mg PO Q4H PRN (Reason: pain) ondansetron HCl 4 mg tablet 4 mg PO Q6H PRN (Reason: nausea and vomiting) Primary Care Provider: Yen Cam Referrals: Yen Cam, ROMEL [Primary Care Provider] - 2 Days for wound check Activity Restrictions/Additional Instructions: 1. Delia should take Augmentin 875 mg twice daily for 6 additional days. 2. Wick should be removed in 2 days and wound evaluate at that time. Print Language: Swedish Disposition Disposition: Home, Self Care What to do if you have Problems For any increased pain, shortness of breath, bleeding, nausea or vomiting, chestpain, or any unexpected problems, contact your Primary Care Provider. Call [facility] ([phone]) or report to the closest Emergency Room. Call 911 if necessary. 10/13/242107 <Electronically signed by Alcides Diego MD> Cosigner Signature (if applicable): CC: ROMEL Cam ~ Signed [facility] Work Phone: [phone]) 830-978306-28-2024 Telephone encounter Note* Telephone Encounter - Vin Acosta LPN - 01/22/2024 9:37 AM EDT [facility] calling to give you an update. Pt. has been admitted to in home Hospice Care as of 01/20. Any questions can call . [facility] Work Phone: [phone]) 760-103806-28-2024 Miscellaneous Notes* Telephone Encounter - Vin Acosta LPN - 01/22/2024 9:37 AM EDT [facility] calling to give you an update. Pt. has been admitted to in home Hospice Care as of 01/20. Any questions can call . documented in this encounterJoint [facility] Telephone encounter Note * Telephone Encounter - Zehra Vega - 01/20/2024 8:45 AM EDT Received oxygen therapy swo fax from [facility] dated 01/19/24. Document printed and placed in folder for provider to review/sign. Once signed, document will be faxed to [phone] [facility]06-26-2024 Miscellaneous Notes* Telephone Encounter - Zehra Vega - 01/20/2024 8:45 AM EDT Received oxygen therapy swo fax from [facility] dated 01/19/24. Document printed and placed in folder for provider to review/sign. Once signed, document will be faxed to [phone] documented in this encounterJoint [facility]05-[facility]24 Telephone encounter Note * Telephone Encounter - Doni Jones MA - 12/16/2023 4:25 PM EDT Order for walker/rollator, face sheet, and OV note faxed to [employer] per patient request. Doni Jones MA [facility]05-22-2024 Miscellaneous Notes* Telephone Encounter - Doni Jones MA - 12/16/2023 4:25 PM EDT Order for walker/rollator, face sheet, and OV note faxed to [employer] per patient request. Doni Jones MA documented in this encounterJoint [facility]05-22-2024 Instructions* Patient Instructions* Francine Saleem APRN.WEDDING DAY COORDINATOR - 12/16/2023 3:03 PM EDT Start the remeron at bedtime. Start the famotidine daily (in the evening). Recheck in 1 month. documented in this encounterJoint [facility]05-22-2024 NoteHNO ID: [id number] Author: FRANCINE SALEEM APRN.LYNDA Service: ? Author Type: Nurse Practitioner Type: Progress Notes Filed: 12/16/2023 16:25 Note Text: This is a 83 year old female who presents today with: Patient presents with: Weight Loss HISTORY OF PRESENT ILLNESS: Delia Alexander is a 83 year old female. Patient presents with: Weight Loss Pt presents today with complaint of weight loss. States that she got on her home scale and it said 89#, and it scared her. Refers that she tries to eat 3 meals of day. Refers that she does get full quickly. Refers that she eat off and on all day long. Refers that she feels that she grazes all day. Whey powder mix that she takes about twice daily. Refers that she is feeling weaker. Tries to be independent at her home. Having a harder time getting around her home. She is having to take more frequent rest breaks d/t weakness and breathing. + anxiety. Requests prn valium for exacerbations. May use once weekly in the past. She is agreeable to starting a daily medication She tried the cymbalta and hydroxyzine, but felt that made her feel like she couldn't breath. Some stomach pain/burning. Not consistent. Sometimes provoked by eating. Takes omeprazole daily. PAST MEDICAL HISTORY: PAST MEDICAL HISTORY Diagnosis Date Arthritis DVT (deep venous thrombosis) (HCC) 08/27/2006 knee surgery Hypertension IPF (idiopathic pulmonary fibrosis) (HCC) PAST SURGICAL HISTORY Procedure Laterality Date BACK SURGERY HX EGD 12/31/2020 ESOPHAGOGASTRODUODENOSCOPY TRANSORAL DIAGNOSTIC 11/19/2015 EGD EYE SURGERY HX JOINT REPLACEMENT HX Left partial left knee replacement partial knee replacement left. PAST SURGICAL HISTORY OF back surgery PAST SURGICAL HISTORY OF carpal tunnel surgery bilateral PAST SURGICAL HISTORY OF right knee surgery, torn meniscus ALLERGIES Patient has no known allergies. MEDICATIONS Current Outpatient Medications Medication Sig omeprazole (PRILOSEC) 20 mg capsule Take 1 capsule by mouth daily before breakfast. 1/2 hr before meal. iron/vitamin b comp w-c(GERITOL COMPLETE TAB) one tablet daily nutritional supplement (BENEPROTEIN) whey protein powder 25 g. 25g protein twice a day No current facility-administered medications for this visit. FAMILY HISTORY Problem Relation Age of Onset Diabetes Mother Heart Mother CHF Heart Father CHF Heart Brother CHF Social History Tobacco Use Smoking status: Never Smokeless tobacco: Never Vaping Use Vaping Use: Never used Substance Use Topics Alcohol use: No Drug use: No EXAM: BP 110/67 Pulse 84 Resp 16 Ht 142.2 cm (4' 7.98) Wt 43.1 kg (95 lb) BMI 21.31 kg/m? PHYSICAL EXAM: General Appearance: Well appearing, alert, in no acute distress, well-hydrated, well nourished.. Skin: Skin color, texture, turgor normal, no suspicious rashes or lesions. Head: Normocephalic, no masses, lesions, tenderness or abnormalities. Eyes: Anicteric sclera. Extraocular movements are intact. . Neurologic: Gait normal. ASSESSMENT/PLAN: 1. Weight loss - ICD9: 783.21, ICD10: R63.4 (primary diagnosis) Actually appears stable. Continue the dietary supplement. Continue small/frequent meals. Consider nutrition consult. 2. Adjustment disorder with anxiety - ICD9: 309.24, ICD10: F43.22 Is agreeable to start daily medication. Will start remeron 7.5 mg at night. Discussed that she could even consider quartering the tablet for the first few days to reassure herself that she is tolerating the medication. Will give limited diazepam for breakthrough symptoms, especially if having SOB d/t progressive lung disease. - MIRTAZAPINE 15 MG TABLET - DIAZEPAM 2 MG TABLET Recheck in 1 month, sooner if needed. 3. Interstitial lung disease (HCC) - ICD9: 515, ICD10: J84.9 Progressive lung disease. Weakness and decreased activity tolerance requiring assistive device and frequent rest periods. Interested in a rollator walker. - WALKER ROLLATOR SEAT WITH 6 WHEELS - RED 4. Decreased activity tolerance - ICD9: 780.99, ICD10: R68.89 As above. - WALKER ROLLATOR SEAT WITH 6 WHEELS - RED 5. Generalized weakness - ICD9: 780.79, ICD10: R53.1 As above. - WALKER ROLLATOR SEAT WITH 6 WHEELS - RED Discussed treatment plan and patient voices understanding. Patient's questions answered appropriately. Medications and potential side effects were discussed and patient voices understanding. Return to the office as scheduled or as needed for worsening/no improvement. [facility]05-22-2024 History of Present illness Narrative* Francine Saleem APRN.WEDDING DAY COORDINATOR - 12/16/2023 2:20 PM EDT This is a 83 year old female who presents today with: Patient presents with: Weight Loss HISTORY OF PRESENT ILLNESS: Delia Alexander is a 83 year old female. Patient presents with: Weight Loss Pt presents today with complaint of weight loss. States that she got on her home scale and it said 89#, and it scared her. Refers that she tries to eat 3 meals of day. Refers that she does get full quickly. Refers that she eat off and on all day long. Refers that she feels that she grazes all day. Whey powder mix that she takes about twice daily. Refers that she is feeling weaker. Tries to be independent at her home. Having a harder time getting around her home. She is having to take more frequent rest breaks d/t weakness and breathing. + anxiety. Requests prn valium for exacerbations. May use once weekly in the past. She is agreeable to starting a daily medication She tried the cymbalta and hydroxyzine, but felt that made her feel like she couldn't breath. Some stomach pain/burning. Not consistent. Sometimes provoked by eating. Takes omeprazole daily. PAST MEDICAL HISTORY: PAST MEDICAL HISTORY Diagnosis Date Arthritis DVT (deep venous thrombosis) ([facility]) 08/27/2006 knee surgery Hypertension IPF (idiopathic pulmonary fibrosis) ([facility]) PAST SURGICAL HISTORY Procedure Laterality Date BACK SURGERY HX EGD 12/31/2020 ESOPHAGOGASTRODUODENOSCOPY TRANSORAL DIAGNOSTIC 11/19/2015 EGD EYE SURGERY HX JOINT REPLACEMENT HX Left partial left knee replacement partial knee replacement left. PAST SURGICAL HISTORY OF back surgery PAST SURGICAL HISTORY OF carpal tunnel surgery bilateral PAST SURGICAL HISTORY OF right knee surgery, torn meniscus ALLERGIES Patient has no known allergies. MEDICATIONS Current Outpatient Medications Medication Sig omeprazole (PRILOSEC) 20 mg capsule Take 1 capsule by mouth daily before breakfast. 1/2 hr before meal. iron/vitamin b comp w-c(GERITOL COMPLETE TAB) one tablet daily nutritional supplement (BENEPROTEIN) whey protein powder 25 g. 25g protein twice a day No current facility-administered medications for this visit. FAMILY HISTORY Problem Relation Age of Onset Diabetes Mother Heart Mother CHF Heart Father CHF Heart Brother CHF Social History Tobacco Use Smoking status: Never Smokeless tobacco: Never Vaping Use Vaping Use: Never used Substance Use Topics Alcohol use: No Drug use: No EXAM: BP 110/67 Pulse 84 Resp 16 Ht 142.2 cm (4' 7.98) Wt 43.1 kg (95 lb) BMI 21.31 kg/m PHYSICAL EXAM: General Appearance: Well appearing, alert, in no acute distress, well-hydrated, well nourished.. Skin: Skin color, texture, turgor normal, no suspicious rashes or lesions. Head: Normocephalic, no masses, lesions, tenderness or abnormalities. Eyes: Anicteric sclera. Extraocular movements are intact. . Neurologic: Gait normal. ASSESSMENT/PLAN: 1. Weight loss - ICD9: 783.21, ICD10: R63.4 (primary diagnosis) Actually appears stable. Continue the dietary supplement. Continue small/frequent meals. Consider nutrition consult. 2. Adjustment disorder with anxiety - ICD9: 309.24, ICD10: F43.22 Is agreeable to start daily medication. Will start remeron 7.5 mg at night. Discussed that she could even consider quartering the tablet for the first few days to reassure herself that she is tolerating the medication. Will give limited diazepam for breakthrough symptoms, especially if having SOB d/t progressive lungdisease. - MIRTAZAPINE 15 MG TABLET - DIAZEPAM 2 MG TABLET Recheck in 1 month, sooner if needed. 3. Interstitial lung disease (HCC) - ICD9: 515, ICD10: J84.9 Progressive lung disease. Weakness and decreased activity tolerance requiring assistive device and frequent rest periods. Interested in a rollator walker. - WALKER ROLLATOR SEAT WITH 6 WHEELS - RED 4. Decreased activity tolerance - ICD9: 780.99, ICD10: R68.89 As above. - WALKER ROLLATOR SEAT WITH 6 WHEELS - RED 5. Generalized weakness - ICD9: 780.79, ICD10: R53.1 As above. - WALKER ROLLATOR SEAT WITH 6 WHEELS - RED Discussed treatment plan and patient voices understanding. Patient's questions answered appropriately. Medications and potential side effects were discussed and patient voices understanding. Return to the office as scheduled or as needed for worsening/no improvement. documented in this encounterJoint [facility]04-19-2024 Miscellaneous Notes* Telephone Encounter - Koib Reed LPN - 11/13/2023 10:52 AM EDT Message to call office to schedule. * Telephone Encounter - Kobi Reed LPN - 11/10/2023 1:01 PM EDT Message to call to schedule. * Telephone Encounter - Kobi Reed LPN - 11/06/2023 1:49 PM EDT Message to call office to schedule MATH PROFESSOR appointment with Jazmine. * Telephone Encounter - Lawanda Garcia RN - 11/06/2023 12:36 PM EDT Patient's daughter calls back and is asking if provider can send in a short term prescription for diazepam until patient sees psychiatry? Patient does not take hydroxyzine or Cymbalta. Daughter states that patient had side effect on these where she could not breathe. Lawanda Garcia RN * Telephone Encounter - Karen Bal RN - 11/06/2023 12:28 PM EDT Pts daughter called and is notified of providers message and options. She voices understanding and would like order placed for psychiatry. Please call and help schedule once order is placed. Karen Bal, RN * Telephone Encounter - Esther Wade LPN - 11/06/2023 9:49 AM EDT Called and left message with Francine, patient daughter, to return call regarding patient medicationrequest. Francine identified self via voicemail. Esther Wade LPN November 06, 2023 9:50 AM * Telephone Encounter - Rusty Roberts MD - 11/06/2023 8:07 AM EDT That is not a medicine she should be taking intermediate project manager . If wants to stay on it intermediate project manager, Can referto psychiatry although many of them no longer use it as well. Let me know. * Telephone Encounter - Mavis Hopper LPN - 11/05/2023 2:39 PM EDT Francine, daughter calling for pt. Pt not able to take medications Hydroxyzine or Cymbalta. Pt threw medications away. Hydroxyzine was taking and pt could not breath and gave her hallucinations. Daughter requesting medication Diazepam. This worked well for pt. Please advise Francine when this has been sent to the pharmacy. Mavis Hopper LPN Patient has been identified by name and date of : Yes, Provider Dr. Roberts Date 11/05/23 Time 2:42 pm daughter phones for refill(s): Requested Prescriptions Pending Prescriptions Disp Refills diazePAM (VALIUM) 2 mg tablet 15 tablet 0 Sig: Take 1 tablet by mouth every 6 hours as needed for up to 90 days. Date of last office visit in primary care: 10/12/2023 Date of next office visit in primary care: 01/05/2024 Please advise. Thank you. Mavis Hopper LPN. documented in this encounterJoint Township District [facility]03-25-2024 NoteHNO ID: [id number] Author: SUE PICKENS Aircraft Inspection Record Clerk Service: ? Author Type: Aircraft Inspection Record Clerk Type: Progress Notes Filed: 10/19/2023 12:17 Note Text: Patient decided to drop of out pulmonary rehab program. Patient only completed two sessions.[id number] History of Present illness Narrative* Sue Pickens Aircraft Inspection Record Clerk - 10/19/2023 12:16 PM EDT Patient decided to drop of out pulmonary rehab program. Patient only completed two sessions. documented in this encounterJoint Township District [facility] Hospital03-18-2024 Miscellaneous Notes* Telephone Encounter - Ynes Walter LPN - 10/12/2023 3:21 PM EDT Images from the original note were not included. Electronic PA rec'd and completed for hydroxyzine. This was approved. Prior authorization approved Payer: [employer] [phone] CaseId:[id number];Status:Approved;Review Type:Prior Auth;Coverage Start Date:09/28/2023;Coverage End Date:10/11/2024; Approval Details Authorized from September 28, 2023 to October 11, 2024 Electronic appeal: Not supported View History Medication Being Authorized hydrOXYzine HCl (ATARAX) 25 mg tablet Take 1 tablet by mouth three times a day as needed. Dispense: 90 tablet Refills: 2 Start: 10/12/2023 End: 01/10/2024 Class: Normal Diagnoses: Anxiety with depression This order has been released to its destination. To be filled at: [facility] [address] [place] [id number] [address] [facility] [phone] [facility] notified. documented in this encounterJoint Township District Memorial Hospital03-18-2024 Instructions* Patient Instructions* Isabel High APRN.CNS - 10/12/2023 1:30 PM EDT 1) Duloxetine 20mg daily for pain & anxiety 2) Hydroxyzine 25mg up to 3 x day as needed for anxiety 3) Follow up in documented in this encounterJoint Township District [facility] Hospital03-18-2024 NoteHNO ID: [id number] Author: ISABEL HIGH APRN.CNS Service: ? Author Type: Clinical Nurse Specialist Type: Progress Notes Filed: 10/12/2023 13:39 Note Text: This is a 83 year old female who presents today with: Patient presents with: Anxiety HISTORY OF PRESENT ILLNESS: Delia Alexander is a 83 year old female. Patient presents with: Anxiety Taking valium 2.5 mg for anxiety. a couple months ago. Multiple home repairs since his passes. 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 Has lung trouble. Very active. Sleeps poorly and has always only slept 2-3 hours per night. If she is having a good night, 4-5 hours. PAST MEDICAL HISTORY: PAST MEDICAL HISTORY Diagnosis Date Arthritis DVT (deep venous thrombosis) ([facility]) 08/27/2006 knee surgery Hypertension IPF (idiopathic pulmonary fibrosis) ([facility]) PAST SURGICAL HISTORY Procedure Laterality Date BACK SURGERY HX EGD 12/31/2020 ESOPHAGOGASTRODUODENOSCOPY TRANSORAL DIAGNOSTIC 11/19/2015 EGD EYE SURGERY HX JOINT REPLACEMENT HX Left partial left knee replacement partial knee replacement left. PAST SURGICAL HISTORY OF back surgery PAST SURGICAL HISTORY OF carpal tunnel surgery bilateral PAST SURGICAL HISTORY OF right knee surgery, torn meniscus ALLERGIES Patient has no allergy information on record. MEDICATIONS Current Outpatient Medications Medication Sig omeprazole (PRILOSEC) 20 mg capsule Take 1 capsule by mouth daily before breakfast. 1/2 hr before meal. iron/vitamin b comp w-c(GERITOL COMPLETE TAB) one tablet daily No current facility-administered medications for this visit. FAMILY HISTORY Problem Relation Age of Onset Diabetes Mother Heart Mother CHF Heart Father CHF Heart Brother CHF Social History Tobacco Use Smoking status: Never Smokeless tobacco: Never Vaping Use Vaping Use: Never used Substance Use Topics Alcohol use: No Drug use: No REVIEW OF SYSTEMS Has pulmonary HTN GENERAL: + weight loss, + malaise, + fevers/chills, + weak HEENT: Negative for frequent or significant headaches, + changes in hearing and vision. NECK: Negative for lumps, goiter, pain and significant neck swelling RESPIRATORY: + cough, hemoptysis, + wheezing, + dyspnea or shortness of breath CARDIOVASCULAR: + chest pain- tight they told her from lungs, No leg swelling, + orthopnea, + palpitations GI: No nausea, sometimes vomiting, or diarrhea/constipation. No hematochezia/melena. Some heartburn or reflux symptoms. : No history of dysuria, frequency or incontinence MUSCULOSKELETAL: + joint pain and swelling- hands and knees, takes 2 ibuprofen in morning and evening. SKIN: Negative for lesions, no rash, some itching ENDOCRINE: Negative for cold or heat intolerance, polyuria, polydipsia and goiter NEURO: No history of headaches, syncope, paralysis, seizures or tremors MOOD: Positive for depression, anxiety, or suicidal ideation. EXAM: BP 138/90 Pulse 67 Resp 16 SpO2 94% PHYSICAL EXAM: General Appearance: Well appearing, alert, in no acute distress, well-hydrated, well nourished.. Skin: Skin color, texture, turgor normal, no suspicious rashes or lesions. Head: Normocephalic, no masses, lesions, tenderness or abnormalities. Lungs: Lungs clear to auscultation. No wheezing, rhonchi, rales.. Heart: RRR without murmur, gallop, or rubs. No ectopy. Abdomen: Normal abdominal exam, Abdomen soft, non-tender. Bowel sounds normal. No masses, organomegaly. Musculoskeletal: No joint swelling, deformity, or tenderness. ASSESSMENT/PLAN: 1. Anxiety with depression - ICD9: 300.4, ICD10: F41.8 (primary diagnosis) Ongoing- took last valium this morning - HYDROXYZINE HCL 25 MG TABLET 3 x day as needed - DULOXETINE 20 MG CAPSULE,DELAYED RELEASE daily 2. Weight loss - ICD9: 783.21, ICD10: R63.4 Ongoing 3. Epigastric pain - ICD9: 789.06, ICD10: R10.13 Differential Diagnosis includes GERD Stable. - OMEPRAZOLE 20 MG CAPSULE,DELAYED RELEASE 4. Arthralgia of both knees - ICD9: 719.46, ICD10: M25.561, M25.562 Ongoing from pulmonary rehab - DULOXETINE 20 MG CAPSULE,DELAYED RELEASE 5. Pulmonary fibrosis (HCC) - ICD9: 515, ICD10: J84.10 Ongoing, in pulmoanry rehab Discussed treatment plan and patient voices understanding. Patient's questions answered appropriately. Medications and potential side effects were discussed and patient voices understanding. Return to the office as scheduled or as needed for worsening/no improvement. Isabel High APRN.JESSICA The patient indicates understanding of these issues and agrees with the plan. [facility]03-18-2024 History of Present illness Narrative* Isabel High APRN.CNS - 10/12/2023 1:05 PM EDT This is a 83 year old female who presents today with: Patient presents with: Anxiety HISTORY OF PRESENT ILLNESS: Delia Alexander is a 83 year old female. Patient presents with: Anxiety Taking valium 2.5 mg for anxiety. a couple months ago. Multiple home repairs since hispasses. 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 Has lung trouble. Very active. Sleeps poorly and has always only slept 2-3 hours per night. If she is having a good night, 4-5 hours. PAST MEDICAL HISTORY: PAST MEDICAL HISTORY Diagnosis Date Arthritis DVT (deep venous thrombosis) ([facility]) 08/27/2006 knee surgery Hypertension IPF (idiopathic pulmonary fibrosis) ([facility]) PAST SURGICAL HISTORY Procedure Laterality Date BACK SURGERY HX EGD 12/31/2020 ESOPHAGOGASTRODUODENOSCOPY TRANSORAL DIAGNOSTIC 11/19/2015 EGD EYE SURGERY HX JOINT REPLACEMENT HX Left partial left knee replacement partial knee replacement left. PAST SURGICAL HISTORY OF back surgery PAST SURGICAL HISTORY OF carpal tunnel surgery bilateral PAST SURGICAL HISTORY OF right knee surgery, torn meniscus ALLERGIES Patient has no allergy information on record. MEDICATIONS Current Outpatient Medications Medication Sig omeprazole (PRILOSEC) 20 mg capsule Take 1 capsule by mouth daily before breakfast. 1/2 hr before meal. iron/vitamin b comp w-c(GERITOL COMPLETE TAB) one tablet daily No current facility-administered medications for this visit. FAMILY HISTORY Problem Relation Age of Onset Diabetes Mother Heart Mother CHF Heart Father CHF Heart Brother CHF Social History Tobacco Use Smoking status: Never Smokeless tobacco: Never Vaping Use Vaping Use: Never used Substance Use Topics Alcohol use: No Drug use: No REVIEW OF SYSTEMS Has pulmonary HTN GENERAL: + weight loss, + malaise, + fevers/chills, + weak HEENT: Negative for frequent or significant headaches, + changes in hearing and vision. NECK: Negative for lumps, goiter, pain and significant neck swelling RESPIRATORY: + cough, hemoptysis, + wheezing, + dyspnea or shortness of breath CARDIOVASCULAR: + chest pain- tight they told her from lungs, No leg swelling, + orthopnea, + palpitations GI: No nausea, sometimes vomiting, or diarrhea/constipation. No hematochezia/melena. Some heartburnor reflux symptoms. : No history of dysuria, frequency or incontinence MUSCULOSKELETAL: + joint pain and swelling- hands and knees, takes 2 ibuprofen in morning and evening. SKIN: Negative for lesions, no rash, some itching ENDOCRINE: Negative for cold or heat intolerance, polyuria, polydipsia and goiter NEURO: No history of headaches, syncope, paralysis, seizures or tremors MOOD: Positive for depression, anxiety, or suicidal ideation. EXAM: BP 138/90 Pulse 67 Resp 16 SpO2 94% PHYSICAL EXAM: General Appearance: Well appearing, alert, in no acute distress, well-hydrated, well nourished.. Skin: Skin color, texture, turgor normal, no suspicious rashes or lesions. Head: Normocephalic, no masses, lesions, tenderness or abnormalities. Lungs: Lungs clear to auscultation. No wheezing, rhonchi, rales.. Heart: RRR without murmur, gallop, or rubs. No ectopy. Abdomen: Normal abdominal exam, Abdomen soft, non-tender. Bowel sounds normal. No masses, organomegaly. Musculoskeletal: No joint swelling, deformity, or tenderness. ASSESSMENT/PLAN: 1. Anxiety with depression - ICD9: 300.4, ICD10: F41.8 (primary diagnosis) Ongoing- took last valium this morning - HYDROXYZINE HCL 25 MG TABLET 3 x day as needed - DULOXETINE 20 MG CAPSULE,DELAYED RELEASE daily 2. Weight loss - ICD9: 783.21, ICD10: R63.4 Ongoing 3. Epigastric pain - ICD9: 789.06, ICD10: R10.13 Differential Diagnosis includes GERD Stable. - OMEPRAZOLE 20 MG CAPSULE,DELAYED RELEASE 4. Arthralgia of both knees - ICD9: 719.46, ICD10: M25.561, M25.562 Ongoing from pulmonary rehab - DULOXETINE 20 MG CAPSULE,DELAYED RELEASE 5. Pulmonary fibrosis (HCC) - ICD9: 515, ICD10: J84.10 Ongoing, in pulmoanry rehab Discussed treatment plan and patient voices understanding. Patient's questions answered appropriately. Medications and potential side effects were discussed and patient voices understanding. Return to the office as scheduled or as needed for worsening/no improvement. Isabel High APRN.[employer] The patient indicates understanding of these issues and agrees with the plan. documented in this encounterJoint [facility] Miscellaneous Notes* Telephone Encounter - Angie Hathaway RN - 10/12/2023 11:44 AM EDT Phoned patient and given provider' s message below with verbalized understanding. Scheduled same day appt with Cal[employer] Operator Helper. * Telephone Encounter - Rusty Roberts MD - 10/12/2023 10:21 AM EDT That is not something we would want her to continue to use. If she still is having significant anxiety, we need to probably bring her back in to decide best option. * Telephone Encounter - Vin Toure - 10/12/2023 9:54 AM EDT Patient called to refill her diazepam; not on current med list. She said it was prescribed to her in the past to help with the stress/anxiety after her . Uses [facility] in [place]. documented in this encounterJoint [facility]03-14-[facility] History of Present illness Narrative* Lalit Guerra MD - 10/08/2023 3:00 PM EDT [facility] Initial Visit October 08, 2023 I had the pleasure of seeing Delia Alexander in consultation for continued evaluation and and management of Pulmonary Hypertension. Summary of this visit and my recommendations will be relayed to the referring physician and primary care physician by way of electronic communication or by mail. PCP: Rusty Roberts MD Referring Provider: Vipin Carlisle HPI: 83yo F with PMH HTN, DVT s/p TKA 2006, IPF who presented for a second opinion regarding her IPF from Dr Carlisle, who referred her for an elevated RVSP on TTE. She has been experiencing dyspnea for the past 4 years, worse in the past 1 year. ~50lb weight lossin the apst 6 months. Sleeps in a recliner due to chronic back pain Shortness of breath at rest: no Shortness of breath on exertion: yes after a few steps Orthopnea: yes Paroxysmal nocturnal dyspnea: no Edema: no Palpitations: yes Dizziness/lightheadedness: yes, on exertion and at ret Syncope: no Adheres to low salt diet: no Regular excercise: currently in pulmonary rehab Current PH drugs: none PH risk hx: diet pills: no amphetamine use: no Hx VTE: provoked DVT RLE 2006 after TKR on coumadin unsure for how long Hx liver disease: no HIV/HBC/HCV risk: no hx of splenectomy: no Prior thyroid disease: no Prior lung diusease: IPF Family hx of PAH: no Snoring or witnessed apneas: yes Arthralgias: yes, from OA Rash or lessions: no Raynauds symptoms: no ROS: Negative for joint or back pain, weight loss, fever, JUAREZ, cough, wheezing, chest pain, leg swelling,syncope, palpitations. No nausea, vomiting, diarrhea, rash, bleeding. Positive for dyspnea on minimal exertion A complete ROS was performed all others systems are negative PMH: PAST MEDICAL HISTORY Diagnosis Date Arthritis DVT (deep venous thrombosis) (H[facility]) 08/27/2006 knee surgery Hypertension IPF (idiopathic pulmonary fibrosis) (HCC) Childhood hx: active and healthy, horseback riding, never hospitalized, anemic PSH: PAST SURGICAL HISTORY Procedure Laterality Date BACK SURGERY HX EGD 12/31/2020 ESOPHAGOGASTRODUODENOSCOPY TRANSORAL DIAGNOSTIC 11/19/2015 EGD EYE SURGERY HX JOINT REPLACEMENT HX Left partial left knee replacement partial knee replacement left. PAST SURGICAL HISTORY OF back surgery PAST SURGICAL HISTORY OF carpal tunnel surgery bilateral PAST SURGICAL HISTORY OF right knee surgery, torn meniscus Medications: diazePAM (VALIUM) 2 mg tablet Take 2 mg by mouth every 6 hours as needed. omeprazole (PRILOSEC) 20 mg capsule Take 1 capsule by mouth daily before breakfast. 1/2 hr before meal. 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 Tongue and posterior oropharynx normal. Teeth normal. Neck: Supple neck. Midline trachea. Thyroid nontender and non-enlarged. JVD not present at 90 degrees of incline. Respiratory: velcro crackles b/l Cardiovascular: RRR without gallop, or rubs. There is no murmur. Non-displaced PMI. No parasternal heave. No peripheral edema noted in the lower extremities. Upper extremities appear normal. Normal temperature of all 4 extremities. Abdomen/GI: Abdomen soft, non-tender, non-distended. No masses or organomegaly noted. Liver nonpulsitile. No hepatojugular reflux. Extremities: No clubbing or cyanosis of fingers. No cracking, pitting or petechiae on fingers. Capillary refill <2 sec bilaterally. Musculoskeletal: Spine shows no kyphosis or scoliosis. Muscles show no clear abnormality. Skin: No petechiae, ecchymoses, rash noted. Neuro: Oriented X 3. Normal mood and affect. Data: Diagnostic tests reviewed for today's visit, films/specimens were personally reviewed by me: Most recent lab and imaging results Labs: JAUN JAUN (no units) Date Value 09/01/2022 Negative 10/19/2020 Positive Rheumatoid Factor No results found for: RF TSH TSH Date Value 06/30/2023 1.450 mIU/L 09/12/2020 1.100 uU/mL HIV No results found for: HIVSCN, [id number]] Hepatitis B Surface Antigen No results found for: HBSAGR Hepatitis C No results found for: HEPCABEIA NT PRO BNP Lab Results Component Value Date PBNP <50 08/02/2018 Chemistries Lab Results Component Value Date NA 140 06/30/2023 NA 142 09/01/2022 NA 140 07/30/2021 K 4.7 06/30/2023 K 4.9 09/01/2022 K 4.3 07/30/2021 CHLOR 101 06/30/2023 CHLOR 102 09/01/2022 CHLOR 101 07/30/2021 CO2 30 06/30/2023 CO2 33 (H) 09/01/2022 CO2 29 07/30/2021 BUN 15 06/30/2023 BUN 13 09/01/2022 BUN 20 07/30/2021 CREAT 0.72 06/30/2023 CREAT 0.75 09/01/2022 CREAT 1.13 (H) 07/30/2021 EGFROTH 84 06/30/2023 EGFROTH 81 09/01/2022 EGFROTH 46 07/30/2021 GLUC 107 (H) 06/30/2023 GLUC 106 (H) 09/01/2022 GLUC 92 07/30/2021 ANION 9 06/30/2023 ANION 7 (L) 09/01/2022 ANION 10 07/30/2021 Liver Function Lab Results Component Value Date AST 19 06/30/2023 AST 18 09/01/2022 AST 18 01/30/2021 ALT 8 06/30/2023 ALT 11 09/01/2022 ALT 11 01/30/2021 ALKPHOS 76 06/30/2023 ALKPHOS 96 09/01/2022 ALKPHOS 88 01/30/2021 TBILI 0.4 06/30/2023 TBILI 0.5 09/01/2022 TBILI 0.6 01/30/2021 CBC Lab Results Component Value Date HB 14.0 06/30/2023 HB 15.4 09/01/2022 HB 14.7 01/30/2021 HCT 43.5 06/30/2023 HCT 47.8 (H) 09/01/2022 HCT 45.4 01/30/2021 WBC 9.68 06/30/2023 WBC 8.32 09/01/2022 WBC 14.17 (H) 01/30/2021 PLT 211 06/30/2023 PLT 231 09/01/2022 PLT 254 01/30/2021 CXR: CT: PFT: FEV1 FVC FEV1/FVC TLC RV DLco DLCO/VA 09/2023 67% 56% 0.93 57% 65% % Interpretation: restrictive ventilatory defect. Unable to do DLCO TTE: 09/2023 - The left ventricle is normal in size. Left ventricular systolic function is normal. EF = 56 5% (2D biplane) Grade I left ventricular diastolic dysfunction. GLS= -16.4% Normal. - The right ventricle is normal in size. Right ventricular systolic function is normal. - The left atrial cavity is mildly dilated. - There are no significant valvular abnormalities. - Estimated right ventricular systolic pressure is 47 mmHg consistent with mild pulmonary hypertension. Estimated right atrial pressure is 3 mmHg based on IVC assessment. - Exam was compared with the prior echocardiographic exam performed on 08/10/2018. There is no significant change. V/Q: unable to lay flat 6MWD: Nettie Figueroa RRT 10/08/2023 1:30 PM Signed RESPIRATORY THERAPY SIX MINUTE WALK TEST OXIMETRY REPORT Six Minute Walk Test for This Encounter Oxygen Device Liters FIO2 SpO2% HR Activity Feet Speed (MPH) Flag R/A 95 83 Resting NC 2 100 85 Resting NC 2 100 116 Six Minute Walk 750 1.4 NC 2 100 105 Recovery 1 minute post NC 2 100 81 Recovery 2 minute post NC 2 100 97 Recovery 3 minute post General Information Height Weight Pulse Oximetry Site Oximeter Pre Blood Pressure Post Blood Pressure Total Time Spent (min) 142.2 cm (4' 7.98) 44.4 kg (97 lb 14.2 oz) Forehead Masimo 130/69 170/101 30 _ Distance Walked (meters) Distance Walked (feet) Female Predicted Walk Distance (feet) Female Lower Limit of Normal (feet) Female % Predicted Total Duration Of The Stops (seconds) 228.6 750 1303.15 847.15 57.6 -- _ Lowest SpO2 During 6 Minute Walk Pre-Oneida Dyspnea Rating Pre-Oneida Fatigue Rating Post Oneida Dyspnea Rating Post Oneida Fatigue Rating 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 . The patient required Nasal Cannula Liters: 2 to complete the test. The distance the patient walked in six minutes is moderately reduced. The six minute walk distance today does not demonstrate a clinically significant change (75 feet decrease), when compared to the historically highest six minute walk distance from a test dated 05/14/22. Today's distance represents a 75 feet decrease compared to the last visit on 05/14/22. The patient perceived their dyspnea during the six minute walk test to be 3- Moderate on the modified Oneida scale. The patient perceived their fatigue during the six minute walk test to be 3- Moderate on the modified Oneida scale. I have reviewed the findings and made appropriate revisions as needed. SIGNATURE: Yony Clifton MD PATIENT NAME: Delia Alexander DATE: October 08, 2023 TIME: 3:42 PM Assessment and Plan: Delia Alexander is a 83 year old female who presents for evaluation of pulmonary hypertension. 83yo F with PMH IPF who was recently seen by Dr Carlisle for IPF, referred for an elevated RVSP on TTE. On TTE she has a normal size and shape RV, RVSP 46. She endorses chronic dyspnea which is worsening. Denies any LE edema. Also noted that she requires supplemental O2 on exertion and with sleep which she has not been using. In depth discussion help with her and her two daughters about her disease process and presented option of doing RHC for evaluation for candidacy for Tyvaso. Pt expressed thatat this time she does not want to pursue additional procedures or take new medications that may have side effects. #IPF chronic hypoxemic respiratory failure #elevated RVSP - counseled to use her supplemental oxygen on exertion and during sleep. She confirms she has a concentrator, is not sure she has a POC - reached out to RT to confirm she has a POC, pt is unsure - encouraged to continue pulmonary rehab - does not require PH follow up All questions were answered to Delia Alexander's satisfaction, Delia Alexander verbalizes understandingand agrees with treatment plan and was encouraged to contact me with questions Emmy Patel, Pulmonary Vascular Disease Fellow [facility] I have personally interviewed and examined the patient. I have personally verified elements of the exam listed above. Interval changes or irregularities are as noted. I have personally and independently reviewed data (see data section). I have personally reviewed the problem list above and concur. Changes, if any, are noted. I have personally reviewed the plan list above and concur. Changes, if any, are noted. Lalit Guerra M.D. documented in this encounterJoint [facility]03-14-2024 NoteHNO ID: [id number] Author: LALIT GUERRA MD Service: ? Author Type: Physician Type: Progress Notes Filed: 10/08/2023 18:54 Note Text: [facility]ULMONARY HYPERTENSION CLINIC Initial Visit October 08, 2023 I had the pleasure of seeing Delia Alexander in consultation for continued evaluation and and management of Pulmonary Hypertension. Summary of this visit and my recommendations will be relayed to the referring physician and primary care physician by way of electronic communication or by mail. PCP: Rusty Roberts MD Referring Provider: Vipin Carlisle HPI: 83yo F with PMH HTN, DVT s/p TKA 2006, IPF who presented for a second opinion regarding her IPF from Dr Carlisle, who referred her for an elevated RVSP on TTE. She has been experiencing dyspnea for the past 4 years, worse in the past 1 year. ~50lb weight loss in the apst 6 months. Sleeps in a recliner due to chronic back pain Shortness of breath at rest: no Shortness of breath on exertion: yes after a few steps Orthopnea: yes Paroxysmal nocturnal dyspnea: no Edema: no Palpitations: yes Dizziness/lightheadedness: yes, on exertion and at ret Syncope: no Adheres to low salt diet: no Regular excercise: currently in pulmonary rehab Current PH drugs: none PH risk hx: diet pills: no amphetamine use: no Hx VTE: provoked DVT RLE 2006 after TKR on coumadin unsure for how long Hx liver disease: no HIV/HBC/HCV risk: no hx of splenectomy: no Prior thyroid disease: no Prior lung diusease: IPF Family hx of PAH: no Snoring or witnessed apneas: yes Arthralgias: yes, from OA Rash or lessions: no Raynauds symptoms: no ROS: Negative for joint or back pain, weight loss, fever, JUAREZ, cough, wheezing, chest pain, leg swelling, syncope, palpitations. No nausea, vomiting, diarrhea, rash, bleeding. Positive for dyspnea on minimal exertion A complete ROS was performed all others systems are negative PMH: PAST MEDICAL HISTORY Diagnosis Date Arthritis DVT (deep venous thrombosis) (HCC) 08/27/2006 knee surgery Hypertension IPF (idiopathic pulmonary fibrosis) (HCC) Childhood hx: active and healthy, horseback riding, never hospitalized, anemic PSH: PAST SURGICAL HISTORY Procedure Laterality Date BACK SURGERY HX EGD 12/31/2020 ESOPHAGOGASTRODUODENOSCOPY TRANSORAL DIAGNOSTIC 11/19/2015 EGD EYE SURGERY HX JOINT REPLACEMENT HX Left partial left knee replacement partial knee replacement left. PAST SURGICAL HISTORY OF back surgery PAST SURGICAL HISTORY OF carpal tunnel surgery bilateral PAST SURGICAL HISTORY OF right knee surgery, torn meniscus Medications: diazePAM (VALIUM) 2 mg tablet Take 2 mg by mouth every 6 hours as needed. omeprazole (PRILOSEC) 20 mg capsule Take 1 capsule by mouth daily before breakfast. 1/2 hr before meal. 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 Tongue and posterior oropharynx normal. Teeth normal. Neck: Supple neck. Midline trachea. Thyroid nontender and non-enlarged. JVD not present at 90 degrees of incline. Respiratory: velcro crackles b/l Cardiovascular: RRR without gallop, or rubs. There is no murmur. Non-displaced PMI. No parasternal heave. No peripheral edema noted in the lower extremities. Upper extremities appear normal. Normal temperature of all 4 extremities. Abdomen/GI: Abdomen soft, non-tender, non-distended. No masses or organomegaly noted. Liver nonpulsitile. No hepatojugular reflux. Extremities: No clubbing or cyanosis of fingers. No cracking, pitting or petechiae on fingers. Capillary refill <2 sec bilaterally. Musculoskeletal: Spine shows no kyphosis or scoliosis. Muscles show no clear abnormality. Skin: No petechiae, ecchymoses, rash noted. Neuro: Oriented X 3. Normal mood and affect. Data: Diagnostic tests reviewed for today's visit, films/specimens were personally reviewed by me: Most recent lab and i (more content not included)...[facility] 10-08-2023 History of Present illness Narrative* Braxton Hernandez RT(R) - 10/08/2023 1:45 PM EDT Radiology Service Progress Note PATIENT NAME: Delia Alexander DATE OF SERVICE: October 08, 2023 TIME: 2:04 PM PATIENT IDENTITY VERIFICATION COMPLETED USING TWO (2) IDENTIFIERS: Name and Date of confirmedby patient verbally. FALL SCREENING: Has the patient had 2 falls in the last year or 1 fall with injury or currently using an Ambulatory Assistive Device (Walker, Cane, Wheelchair, Crutches, etc.)? Yes, Patient High Riskfor Falls What interventions were put in place to prevent falls during this visit? [place] Risk Wristband Applied PATIENT GENDER DATA: Female. status: : No status: NO. PATIENT RELEVANT IMPLANT DATA REVIEWED: Not Applicable PATIENT PRESENTS WITH AN IMPLANTABLE OR ATTACHED COUNTY AUDITOR: No RADIOLOGY DEPARTMENT: General X-ray: Exam(s) Completed: Chest X-Ray PERIPHERAL IV DATA: Not applicable SIGNED BY: GEORGIA Akhtar) October 08, 2023 2:04 PM documented in this encounterJoint [facility]03-14-2024 NoteHNO ID: [id number] Author: BRAXTON HERNANDEZ RT(R) Service: ? Author Type: Technologist Type: Progress Notes Filed: 10/08/2023 14:04 Note Text: Radiology Service Progress Note PATIENT NAME: Delia Alexander DATE OF SERVICE: October 08, 2023 TIME: 2:04 PM PATIENT IDENTITY VERIFICATION COMPLETED USING TWO (2) IDENTIFIERS: Name and Date of confirmed by patient verbally. FALL SCREENING: Has the patient had 2 falls in the last year or 1 fall with injury or currently using an Ambulatory Assistive Device (Walker, Cane, Wheelchair, Crutches, etc.)? Yes, Patient High Risk for Falls What interventions were put in place to prevent falls during this visit? [place] Risk Wristband Applied PATIENT GENDER DATA: Female. status: : No status: NO. PATIENT RELEVANT IMPLANT DATA REVIEWED: Not Applicable PATIENT PRESENTS WITH AN IMPLANTABLE OR ATTACHED COUNTY AUDITOR: No RADIOLOGY DEPARTMENT: General X-ray: Exam(s) Completed: Chest X-Ray PERIPHERAL IV DATA: Not applicable SIGNED BY: RT Hermilo(R) October 08, 2023 2:[address] [facility]03-14-2024 NoteHNO ID: [id number] Author: NETTIE FIGUEROA RRT Service: ? Author Type: Registered Resp Therapist Type: Progress Notes Filed: 10/08/2023 13:40 Note Text: PULM FUNCTION SMARTBLOCK: Provider: Minda Olsen APRN.[employer] 6 MW: 1 System: MC9 - [id number] History of Present illness Narrative* Nettie Figueroa RRT - 10/08/2023 1:39 PM EDT PULM FUNCTION SMARTBLOCK: Provider: Minda Olsen APRN.[employer] 6 MW: 1 System: MC9 - [id number] documented in this encounterJoint Township District [facility]03-14-2024 NoteHNO ID: [id number] Author: YONY CLIFTON MD Service: ? Author Type: Registered Resp Therapist Type: Procedures Filed: 10/08/2023 15:42 Note Text: RESPIRATORY THERAPY SIX MINUTE WALK TEST OXIMETRY REPORT Six Minute Walk Test for This Encounter Oxygen Device Liters FIO2 SpO2% HR Activity Feet Speed (MPH) Flag R/A 95 83 Resting NC 2 100 85 Resting NC 2 100 116 Six Minute Walk 750 1.4 NC 2 100 105 Recovery 1 minute post NC 2 100 81 Recovery 2 minute post NC 2 100 97 Recovery 3 minute post General Information Height Weight Pulse Oximetry Site Oximeter Pre Blood Pressure Post Blood Pressure Total Time Spent (min) 142.2 cm (4' 7.98) 44.4 kg (97 lb 14.2 oz) Forehead Masimo 130/69 170/101 30 _ Distance Walked (meters) Distance Walked (feet) Female Predicted Walk Distance (feet) Female Lower Limit of Normal (feet) Female % Predicted Total Duration Of The Stops (seconds) 228.6 750 1303.15 847.15 57.6 -- _ Lowest SpO2 During 6 Minute Walk Pre-Oneida Dyspnea Rating Pre-Oneida Fatigue Rating Post Oneida Dyspnea Rating Post Oneida Fatigue Rating 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 . The patient required Nasal Cannula Liters: 2 to complete the test. The distance the patient walked in six minutes is moderately reduced. The six minute walk distance today does not demonstrate a clinically significant change (75 feet decrease), when compared to the historically highest six minute walk distance from a test dated 05/14/22. Today's distance represents a 75 feet decrease compared to the last visit on 05/14/22. The patient perceived their dyspnea during the six minute walk test to be 3-Moderate on the modified Oneida scale. The patient perceived their fatigue during the six minute walk test to be 3-Moderate on the modified Oneida scale. I have reviewed the findings and made appropriate revisions as needed. SIGNATURE: Yony Clifton MD PATIENT NAME: Delia Alexander DATE: October 08, 2023 TIME: 3:[address] [facility]03-14-2024 Procedure note* Nettie Figueroa RRT - 10/08/2023 1:29 PM EDTAssociated Order(s): SIX MINUTE WALK RESPIRATORY THERAPY SIX MINUTE WALK TEST OXIMETRY REPORT Six Minute Walk Test for This Encounter Oxygen Device Liters FIO2 SpO2% HR Activity Feet Speed (MPH) Flag R/A 95 83 Resting NC 2 100 85 Resting NC 2 100 116 Six Minute Walk 750 1.4 NC 2 100 105 Recovery 1 minute post NC 2 100 81 Recovery 2 minute post NC 2 100 97 Recovery 3 minute post General Information Height Weight Pulse Oximetry Site Oximeter Pre Blood Pressure Post Blood Pressure Total Time Spent (min) 142.2 cm (4' 7.98) 44.4 kg (97 lb 14.2 oz) Forehead Masimo 130/69 170/101 30 _ Distance Walked (meters) Distance Walked (feet) Female Predicted Walk Distance (feet) Female Lower Limit of Normal (feet) Female % Predicted Total Duration Of The Stops (seconds) 228.6 750 1303.15 847.15 57.6 -- _ Lowest SpO2 During 6 Minute Walk Pre-Oneida Dyspnea Rating Pre-Oneida Fatigue Rating Post Oneida Dyspnea Rating Post Oneida Fatigue Rating 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 . The patient required Nasal Cannula Liters: 2 to complete the test. The distance the patient walked in six minutes is moderately reduced. The six minute walk distance today does not demonstrate a clinically significant change (75 feet decrease), when compared to the historically highest six minute walk distance from a test dated 05/14/22. Today's distance represents a 75 feet decrease compared to the last visit on 05/14/22. The patient perceived their dyspnea during the six minute walk test to be 3- Moderate on the modified Oneida scale. The patient perceived their fatigue during the six minute walk test to be 3- Moderate on the modified Oneida scale. I have reviewed the findings and made appropriate revisions as needed. SIGNATURE: Yony Clifton MD PATIENT NAME: Delia Alexander DATE: October 08, 2023 TIME: 3:42 PM documented in [facility] encounter[facility] NoteHNO ID: [id number] Author: AMA GAGNON Exercise Physiologist Service: ? Author Type: Aircraft Inspection Record Clerk Type: Progress Notes Filed: 10/07/2023 14:51 Note Text: [facility] Individualized Treatment Plan - Daily Assessment Patient Name: Delia Alexander Date: 10/07/2023 Primary Care Physician: Rusty Roberts MD Referring Physician: Vipin Carlisle MD Supervising Physician: Cisco Michaels MD Diagnosis: Pulmonary Fibrosis Phase: 2 Session Number: 2 Subjective Data: Patient reports I am feeling fine today, no unusual shortness of breath or chest discomfort. I am ready for exercise. Objective Data: Emergency room visits since your last visit. No Medication changes since last visit. No Today's exercise session was comprised of a warm-up, breathing technique practice, lower and upper body aerobic endurance training, upper and lower body resistance training and lower body stretching/flexibility training as a cool down. Patient tolerated physician prescribed exercise workload. Vitals WNL for patient. This is a hospital based pulmonary rehab program. Patient working towards exercise goals by increasing exercise duration. Patient working towards education goal by attending education sessions in pulmonary rehabilitation. Will educate on disease and symptom management as needed. The education topic provided to the patient today was Advanced directive handouts. The patient received this education by written instruction - handouts and verbal instruction. Patient has verbalized understanding of education topic and the relation to disease management. Patient's Daily Exercise Log will be scanned into [email or web address] once it is completed. These can be viewed by going under the scanned documents tab and looking for documents labeled Other respiratory therapy. Daily Exercise Logs contain exercise data such as, but not limited to modality, intensity, duration and frequency of exercise, along with vital signs pre-, during, and post-exercise. Refer to patient's paper medical record for pulse oximetry data, physician prescribed Individualized Treatment Plan, and education sessions covered. Total time of visit 80 minutes. Madison Valdez October 07, 2023 2:50 PMWilson [id number] History of Present illness Narrative* Ama Gagnon Exercise Physiologist - 10/07/2023 2:49 PM EDT Images from the original note were not included. [facility] Individualized Treatment Plan - Daily Assessment Patient Name: Delia Alexander Date: 10/07/2023 Primary Care Physician: Rusty Roberts MD Referring Physician: Vipin Carlisle MD Supervising Physician: Cisco Michaels MD Diagnosis: Pulmonary Fibrosis Phase: 2 Session Number: 2 Subjective Data: Patient reports I am feeling fine today, no unusual shortness of breath or chest discomfort. I am ready for exercise. Objective Data: Emergency room visits since your last visit. No Medication changes since last visit. No Today's exercise session was comprised of a warm-up, breathing technique practice, lower and upper body aerobic endurance training, upper and lower body resistance training and lower body stretching/flexibility training as a cool down. Patient tolerated physician prescribed exercise workload. Vitals WNL for patient. This is a hospital based pulmonary rehab program. Patient working towards exercise goals by increasing exercise duration. Patient working towards education goal by attending education sessions in pulmonary rehabilitation. Will educate on disease andsymptom management as needed. The education topic provided to the patient today was Advanced directive handouts. The patient received this education by written instruction - handouts and verbal instruction. Patient has verbalized understanding of education topic and the relation to disease management. Patient's Daily Exercise Log will be scanned into [email or web address] once it is completed. These can be viewed bygoing under the scanned documents tab and looking for documents labeled Other respiratory therapy. Daily Exercise Logs contain exercise data such as, but not limited to modality, intensity, duration and frequency of exercise, along with vital signs pre-, during, and post-exercise. Refer to patient's paper medical record for pulse oximetry data, physician prescribed Individualized Treatment Plan, and education sessions covered. Total time of visit 80 minutes. Madison Valdezogist October 07, 2023 2:50 PM documented in this encounterJoint [facility]24 NoteHNO ID: [id number] Author: BEHUNE, AMA, Aircraft Inspection Record Clerk Service: ? Author Type: Aircraft Inspection Record Clerk Type: Progress Notes Filed: 10/05/2023 14:49 Note Text: [facility] DEPARTMENT OF PULMONARY REHABILITATION Individualized Treatment Plan - Daily Assessment Patient Name: Delia Alexander Date: 10/05/2023 Primary Care Physician: Rusty Roberts MD Referring Physician: Vipin Carlisle MD Supervising Physician: Cisco Michaels MD Diagnosis: Pulmonary Fibrosis Phase: 2 Session Number: 1 Subjective Data: Patient reports I am feeling fine today, no unusual shortness of breath or chest discomfort. I am ready for exercise. Objective Data: Emergency room visits since your last visit. No Medication changes since last visit. No Today's exercise session was comprised of a warm-up, breathing technique practice, lower and upper body aerobic endurance training, upper and lower body resistance training and lower body stretching/flexibility training as a cool down. Patient tolerated physician prescribed exercise workload. Vitals WNL for patient. This is a hospital based pulmonary rehab program. Patient working towards exercise goals by beginning exercise frequency and intensity and duration. Patient working towards education goal by attending education sessions in pulmonary rehabilitation. Will educate on disease and symptom management as needed. The education topic provided to the patient today was Com[employer]-HTN/Diabetes/Cholesterol. The patient received this education by written instruction - handouts, verbal instruction and demonstration. Patient has verbalized understanding of education topic and the relation to disease management. Patient's Daily Exercise Log will be scanned into [email or web address] once it is completed. These can be viewed by going under the scanned documents tab and looking for documents labeled Other respiratory therapy. Daily Exercise Logs contain exercise data such as, but not limited to modality, intensity, duration and frequency of exercise, along with vital signs pre-, during, and post-exercise. Refer to patient's paper medical record for pulse oximetry data, physician prescribed Individualized Treatment Plan, and education sessions covered. Total time of visit 80 minutes. Ama Gagnon Aircraft Inspection Record Clerk October 05, 2023 2:48 PMWilson [id number] History of Present illness Narrative* Ama Gagnon Exercise Physiologist - 10/05/2023 2:48 PM EDT Images from the original note were not included. [facility] DEPARTMENT OF PULMONARY REHABILITATION Individualized Treatment Plan - Daily Assessment Patient Name: Delia Alexander Date: 10/05/2023 Primary Care Physician: Rusty Roberts MD Referring Physician: Vipin Carlisle MD Supervising Physician: Cisco Mcihaels MD Diagnosis: Pulmonary Fibrosis Phase: 2 Session Number: 1 Subjective Data: Patient reports I am feeling fine today, no unusual shortness of breath or chest discomfort. I am ready for exercise. Objective Data: Emergency room visits since your last visit. No Medication changes since last visit. No Today's exercise session was comprised of a warm-up, breathing technique practice, lower and upper body aerobic endurance training, upper and lower body resistance training and lower body stretching/flexibility training as a cool down. Patient tolerated physician prescribed exercise workload. Vitals WNL for patient. This is a hospital based pulmonary rehab program. Patient working towards exercise goals by beginning exercise frequency and intensity and duration. Patient working towards education goal by attending education sessions in pulmonary rehabilitation. Will educate on disease and symptom management as needed. The education topic provided to the patient today was Com[employer]-HTN/Diabetes/Cholesterol. The patient received this education by written instruction - handouts, verbal instruction and demonstration. Patient has verbalized understanding ofeducation topic and the relation to disease management. Patient's Daily Exercise Log will be scanned into [email or web address] once it is completed. These can be viewed bygoing under the scanned documents tab and looking for documents labeled Other respiratory therapy. Daily Exercise Logs contain exercise data such as, but not limited to modality, intensity, duration and frequency of exercise, along with vital signs pre-, during, and post-exercise. Refer to patient's paper medical record for pulse oximetry data, physician prescribed Individualized Treatment Plan, and education sessions covered. Total time of visit 80 minutes. Ama Gagnon Aircraft Inspection Record Clerk October 05, 2023 2:48 PM documented in this encounterJoint [facility]03-[facility]-2024 NoteHNO ID: [id number] Author: SUE PICKENS Aircraft Inspection Record Clerk Service: ? Author Type: Aircraft Inspection Record Clerk Type: Progress Notes Filed: 10/02/2023 14:36 Note Text: Attestation signed by Jaylan Johnson MD at 10/02/2023 3:00 PM I have reviewed the patient's clinical status and pre-pulmonary rehabilitation outcomes assessment documentation. I approve the individualized treatment plan for pulmonary rehabilitation for the next 30 days. Name: Jaylan Johnson MD Wire Web Worker, Pulmonary Rehabilitation Date: October 02, 2023 [facility] Individualized Treatment Plan - Initial Assessment Patient Name: Delia Alexander Date: 10/02/2023 Primary Care Physician: Rusty Roberts MD Referring Physician: Vipin Carlisle MD Delia Alexander is a 83 year old female is presenting for evaluation for pulmonary rehabilitation. Delia Alexander had 0 hospitalizations in the last year for total of 0 days. Of these hospitalizations 0 were related to pulmonary disease. She has not attended pulmonary rehabilitation in the past. Delia Alexander was diagnosed with Pulmonary Fibrosis in 2023. Relevant past medical history PAST MEDICAL HISTORY Diagnosis Date Arthritis DVT (deep venous thrombosis) ([facility]) 08/27/2006 knee surgery Hypertension IPF (idiopathic pulmonary fibrosis) ([facility]) Relevant past social history PAST SURGICAL HISTORY Procedure Laterality Date BACK SURGERY HX EGD 12/31/2020 ESOPHAGOGASTRODUODENOSCOPY TRANSORAL DIAGNOSTIC 11/19/2015 EGD EYE SURGERY HX JOINT REPLACEMENT HX Left partial left knee replacement partial knee replacement left. PAST SURGICAL HISTORY OF back surgery PAST SURGICAL HISTORY OF carpal tunnel surgery bilateral PAST SURGICAL HISTORY OF right knee surgery, torn meniscus Relevant family history FAMILY HISTORY Problem Relation Age of Onset Diabetes Mother Heart Mother CHF Heart Father CHF Heart Brother CHF Social History Social History Tobacco Use Smoking status: Never Smokeless tobacco: Never Vaping Use Vaping Use: Never used Substance Use Topics Alcohol use: No Drug use: No Influencing Factors: None Motivation to Learn: Eager Cognitive ability: Alert and oriented Relevant medicines, for complete list see medication icon Current Outpatient Medications Medication Sig diazePAM (VALIUM) 2 mg tablet Take 2 mg by mouth every 6 hours as needed. omeprazole (PRILOSEC) 20 mg capsule Take 1 capsule by mouth daily before breakfast. 1/2 hr before meal. iron/vitamin b comp w-c(GERITOL COMPLETE TAB) one tablet daily No current facility-administered medications for this visit. Initial Other Program Location: [facility] Program: Pulmonary Phase II Session: Intake Diagnosis: Pulmonary Fibrosis COPD Gold Classification: Not applicable: Primary Reason For Referral: Dyspnea;Dyspnea with activity;Improve exercise capacity;Symptom mgmt First Day of Exercise: 10/05/23 Initital Outcomes OUTCOMES 6 Minute Walk Test: Yes Date: 10/02/23 Distance (ft): 550 Total Rest Time (seconds): 45 Lowest SPO2: 89 (RA) Peak Heart Rate BPM: 102 MMRC: 4 Mediterranean Diet Score: 2 Mediterranean Diet Score: <8 Your diet is not consistent with making healthy choices: Yes BMI: 20.69 PHQ-9 Score: 19 CAT Assessment Test : 28 Initital Oxygen Assessment OXYGEN ASSESSMENT, MANAGEMENT and TITRATION in REHAB ASMT Resting SpO2: 96 (RA) Lowest Exercise SPO2 Assmt: During exercise in Pulmonary Rehab Prescribed Home Oxygen: No CPAP/BiPAP/NIPPV : No MMRC: 4 Initital Oxygen Plan/Intervention, Management and Titration in Rehab OXYGEN ASSESSMENT, MANAGEMENT AND TITRATION IN REHAB INTERVENTION Initate Titraton if Needed: Yes Exercise Oxygen Plan: Initiate supplemental oxygen at prescribed liter flow that is necessary to maintain Spo2 > 90% Target SpO2 Plan: >90% Planned Education Intervention During Pulmonary Rehab: Oxygen;Pulse Oximetry;Dyspnea;Breathing Techniques;CPAP/BiPAP/NIPPV Use Education during Pulmonary Rehab covered by: Lecture/Discussion;Return Demonstration;Handout;Video Patient understands intervention: Yes Initital Oxygen Goals OXYGEN ASSESSMENT, MANAGEMENT AND TITRATION IN REHAB GOALS Patient to improve MMRC Score : Pending Reassessment Patient understands proper oxygen use: Pending Reassesment Patient understands benefits of adequate oxygenation: Pending Reassessment Patient understand benefits of specific breathing techniques: Pending Reassessment Initial Exercise Assessment EXERCISE ASSESMENT Current Exercise: No Type of Exercise: Other (none) Exercise Duration: 0 minutes Exercise Intensity: Low Exercise Equipment: No Exercise Frequency: 0 Exercise Limitations/S (more content not included)...Wilson [id number] History of Present illness Narrative* Sue Pickens, Aircraft Inspection Record Clerk - 10/02/2023 2:32 PM EST Images from the original note were not included. [facility] Individualized Treatment Plan - Initial Assessment Patient Name: Delia Alexander Date: 10/02/2023 Primary Care Physician: Rusty Roberts MD Referring Physician: Vipin Carlisle MD Delia Alexander is a 83 year old female is presenting for evaluation for pulmonary rehabilitation. Delia Alexander had 0 hospitalizations in the last year for total of 0 days. Of these hospitalizations 0 were related to pulmonary disease. She has not attended pulmonary rehabilitation in the past. Delia Alexander was diagnosed with Pulmonary Fibrosis in 2023. Relevant past medical history PAST MEDICAL HISTORY Diagnosis Date Arthritis DVT (deep venous thrombosis) ([facility]) 08/27/2006 knee surgery Hypertension IPF (idiopathic pulmonary fibrosis) ([facility]) Relevant past social history PAST SURGICAL HISTORY Procedure Laterality Date BACK SURGERY HX EGD 12/31/2020 ESOPHAGOGASTRODUODENOSCOPY TRANSORAL DIAGNOSTIC 11/19/2015 EGD EYE SURGERY HX JOINT REPLACEMENT HX Left partial left knee replacement partial knee replacement left. PAST SURGICAL HISTORY OF back surgery PAST SURGICAL HISTORY OF carpal tunnel surgery bilateral PAST SURGICAL HISTORY OF right knee surgery, torn meniscus Relevant family history FAMILY HISTORY Problem Relation Age of Onset Diabetes Mother Heart Mother CHF Heart Father CHF Heart Brother CHF Social History Social History Tobacco Use Smoking status: Never Smokeless tobacco: Never Vaping Use Vaping Use: Never used Substance Use Topics Alcohol use: No Drug use: No Influencing Factors: None Motivation to Learn: Eager Cognitive ability: Alert and oriented Relevant medicines, for complete list see medication icon Current Outpatient Medications Medication Sig diazePAM (VALIUM) 2 mg tablet Take 2 mg by mouth every 6 hours as needed. omeprazole (PRILOSEC) 20 mg capsule Take 1 capsule by mouth daily before breakfast. 1/2 hr before meal. iron/vitamin b comp w-c(GERITOL COMPLETE TAB) one tablet daily No current facility-administered medications for this visit. Initial Other Program Location: [facility] Program: Pulmonary Phase II Session: Intake Diagnosis: Pulmonary Fibrosis COPD Gold Classification: Not applicable: Primary Reason For Referral: Dyspnea;Dyspnea with activity;Improve exercise capacity;Symptom mgmt First Day of Exercise: 10/05/23 Initital Outcomes OUTCOMES 6 Minute Walk Test: Yes Date: 10/02/23 Distance (ft): 550 Total Rest Time (seconds): 45 Lowest SPO2: 89 (RA) Peak Heart Rate BPM: 102 MMRC: 4 Mediterranean Diet Score: 2 Mediterranean Diet Score: <8 Your diet is not consistent with making healthy choices: Yes BMI: 20.69 PHQ-9 Score: 19 CAT Assessment Test : 28 Initital Oxygen Assessment OXYGEN ASSESSMENT, MANAGEMENT and TITRATION in REHAB ASMT Resting SpO2: 96 (RA) Lowest Exercise SPO2 Assmt: During exercise in Pulmonary Rehab Prescribed Home Oxygen: No CPAP/BiPAP/NIPPV : No MMRC: 4 Initital Oxygen Plan/Intervention, Management and Titration in Rehab OXYGEN ASSESSMENT, MANAGEMENT AND TITRATION IN REHAB INTERVENTION Initate Titraton if Needed: Yes Exercise Oxygen Plan: Initiate supplemental oxygen at prescribed liter flow that is necessary to maintain Spo2 > 90% Target SpO2 Plan: >90% Planned Education Intervention During Pulmonary Rehab: Oxygen;Pulse Oximetry;Dyspnea;Breathing Techniques;CPAP/BiPAP/NIPPV Use Education during Pulmonary Rehab covered by: Lecture/Discussion;Return Demonstration;Handout;Video Patient understands intervention: Yes Initital Oxygen Goals OXYGEN ASSESSMENT, MANAGEMENT AND TITRATION IN REHAB GOALS Patient to improve MMRC Score : Pending Reassessment Patient understands proper oxygen use: Pending Reassesment Patient understands benefits of adequate oxygenation: Pending Reassessment Patient understand benefits of specific breathing techniques: Pending Reassessment Initial Exercise Assessment EXERCISE ASSESMENT Current Exercise: No Type of Exercise: Other (none) Exercise Duration: 0 minutes Exercise Intensity: Low Exercise Equipment: No Exercise Frequency: 0 Exercise Limitations/Symptoms: No Assist Device: Yes Devised Used: Wheel Chair Oxygen: No 6 Minute Walk Test: Yes Date: 10/02/23 Distance (ft): 550 Total Rest Time (seconds): 45 Lowest SPO2: 89 (RA) Peak Heart Rate BPM: 102 Initial Exercise Plan/Intervention/Prescription EXERCISE PRESCRIPTION/ INTERVENTION Frequency: 3 Times Per Week Mode: Recumbent Stepper;Recumbent Bike;Weights;Stretching and Flex Intensity: RPD of 3-5;RPE of 10-14;Within Target Met Level;Within Set Target Heart Rate METS: 2-4 Target Heart Rate (BPM): 83-111 RPE/RPD: 3-5;10-14 Initial Duration (minutes): 20 minutes Oxygen: No Progression: 5 Minutes Every 2-3 Weeks;0.5 Mets Every 1-2 Weeks;5-10 % every 1-2 Weeks;Within Target Heart Rate;Within Target METS Level;RPE Less Than or Equal to 14;RPD Less Than or Equal to 5;SPO2 Greater Than or Equal to 90% Resistance Training: Free Weights Training Start Date: 10/05/23 WT Intensity: Weight to Have Local Muscle Fatigue in 10-15 Reps With 2-3 Sets Resistance Training: Yes Weight (lbs): 2 Repetitions: 10 Sets: 1 Duration (minutes): 10 Stretching and Flexibility: Yes Exercise Progression/Intensity: RPD 3-5;Met level increase;SP02 Greater Than or Eqaul to 90%;Time increased;RPE 10-14 Target Goal: Improve 6 minute walk distance;Improve MMRC Score;Exercise at home;Improve CAT Score Planned Education Intervention During Pulmonary Rehab: Equipment Orientation/Safety;Pursed Lip Breathing;Diaphragmatic Breathing;Rate of Perceived Exertion (RPE);Rate of Perceived Dyspnea (RPD);Warm Up/Cool Down;Pulse Taking;Benefits of Exercise;Exercise Symptoms to Report;Exercise Progression Education During Pulmonary Rehab Covered By: Lecture/Discussion;Handout;Return Demonstration;Video Patient Understands Intervention: Needs Reinforcement EXERCISE PRESCRIPTION Resistance Training: Yes Weight (lbs): 2 Sets: 1 Duration (minutes): 10 Stretching and Flexibility: Yes Exercise Progression/Intensity: RPD 3-5;Met level increase;SP02 Greater Than or Eqaul to 90%;Time increased;RPE 10-14 Target Goal: Improve 6 minute walk distance;Improve MMRC Score;Exercise at home;Improve CAT Score Initial Exercise Goals: EXERCISE GOALS Distance on 6 Min Walk Test (ft) - which is an increase of 100 ft: 650 Duration of Exer Min Per Session: 40 Minutes Per Week of Exercise : >150 Home Exercise Plan: > 3-5 days per week of aerobic exercise at home on the days not in [place] for atleast 30 cumulative minutes;Have established a home exercise plan before discharge Other: Increase Endurance;Increase Strength;Decrease SOB with Exercise;Maintain SPO2 with Exercise Initial Nutrition Assessment NUTRITION ASSESSMENT Current Diet: Unrestricted (2 meals a day; snacks; has sweets) Barriers: Dining Out;Other Member Prepares Meals;Lack of appetite Mediterranean Diet Score: <8 Your diet is not consistent with making healthy choices: Yes Initial Nutrition Intervention NUTRITION INTERVENTION Treatment: Diet Log;Consult with RD;Nutrition Classes;Pulmonary Rehab Planned Education Intervention During Pulmonary Rehab: Reading Labels;Portion Control;Decreased FatIntake;Increase Fruit/Vegetables;Heart Healthy Eating for Life;Low Sodium Diet;Weight Loss Guidelines;Cholesterol Lowering Strategies;Shop Healthy;Cook Healthy;Heart Healthy Nutrition;Nutrition for chronic Lung Disease;Tips to Gain Weight;Body Mass Index Education During Pulmonary Rehab Covered By: Lecture/Discussion;Video;Handout;Return Demonstration Patient Understands Intervention: Yes Recommend following the Mediterranean diet, choose: *Fruit-3 servings/day *Vegetables-3+ servings/day *Legumes-3 servings/week-choose as meat substitute *Extra [place] Oil-use daily-use as salad dressing with vinegar *Nuts-up to one-ounce servings/day-try natural peanut/almond butter instead of butter on toast *Starch-3-6 servings/day-choose whole grains with at least 2.5g fiber per serving *White meat poultry instead of dark meat *Dairy/eggs-choose unsweet milk-try vanilla, choose egg yolks in moderation (3-4 per week); continue to avoid cheese *Limit red meat to no more than 3-6 ounces 1-2 times per week or less *Wine-up to 1 serving per day (if you do not drink, the AHA does not recommend starting drinking) *Limit baked goods/desserts to homemade versions only <3x per week Initial Nutrition Goals Mediterranean Diet Score: 2 NUTRITION GOALS Maintain Mediterranean Diet Score: No Increase Mediterranean Diet Score: Pending Reassessment Decrease Calorie Intake: No Increase Calorie Intake: Pending Reassessment Know How to Read Food Labels: Pending Reassessment Initial Other Core Components/Risk Factors Assessment OTHER CORE COMPONENTS/RISK FACTORS ASMT Learning Barriers: None Respiratory Medication: No Respiratory Exacerbation: Yes Respiratory Frequent Hospitalizations: Yes Pulmonary Hygiene: Yes Hygiene Used: Patient uses airway clearance techniques;Harden-cough Diabetes: No Weight Management: Yes Current Weight lb.: 98 lbs BMI: 20.69 Hypertension: Yes Resting BP: 130/78 Medication: No Knowledge of Appropriate Level: Yes Tobacco Use: Never Initial Other Core Components/Risk Factors Intervention OTHER CORE COMPONENTS/RISK FACTORS PLAN Respiratory Medication: No Medication Plan: Educate patient on medication use, benefits and adherence Respiratory Exacerbation: No Exacerbation Plan: Prevention education to be taught while in [place];Zones/COPD Action Plan;Managing exacerbation education;Prevent infections education Respiratory Frequent Hospitalizations: Yes Hospital Plan: Prevention education to be taught while in [place];Signs and symptoms of impeding difficulty education Pulmonary Hygiene: Yes Hygiene Plan: Airway clearance education Diabetes: Currently at goal Weight Management: Dietary Modification;Exercise Hypertension: Currently at goal Tobacco Intervention: Currently at goal Planned Education Intervention During Pulmonary Rehab: Pulmonary Anatomy & Physiology;Pacing;Climbing Stairs;Energy Conservation;Activities of Daily Living;Respiratory Medication;Nebulize;Inhalers / Spacers;Steroids;Managing an Exacerbation;Environmental Triggers;Prevent Infections;Signs & Symptoms of Impending Difficult;Clearing Secretions;Advance Directives;Action Plan;Coping Techniques;Relaxation Techniques;Dyspnea Cycle Education During Pulmonary Rehab Covered By: Lecture/Discussion;Video;Handout;Return Demonstration Patient Understands Intervention: Yes Initial Other Core Components Improvement Goals OTHER CORE COMPONENTS IMPROVEMENT GOAL Improvement in Knowledge Test Score : No Respiratory Medication: No Medication Goal: Patient met goal Respiratory Exacerbation: Yes Exacerbation Goals: Patient verbalizes understanding of zones/action plan;No exacerbations while in [place] Frequent Hospitalizations: Yes Hospital Goals: Patient verbalizes understanding of signs and symptoms of impeding difficulty;No hospitalizations while in [place] Pulmonary Hygiene: Yes Hygiene Goal: Teach back;Return demonstration during pulmonary rehabilitation Diabetes: Currently at goal Weight: Gain (BMI above 22) BMI: Other (BMI above 22) Hypertension: BP <130/<80;Monitor BP at Home;Low Sodium Diet Tobacco: Currently at Goal BMI: 20.69 Initial Psychosocial Assessment PSYCHOSOCIAL ASSESSMENT CAT Assessment Test : 28 Stages of Change: Action Barriers: Ready to learn PHQ9 Score: 19 Stress: moderate (health; passing) Family Support: Yes (kids; friends) PHQ-9 Score: 19 Initial Psychosocial Intervention PSYCHOSOCIAL INTERVENTION PCP or Mental Health Provider Referral for Depression: Yes Assess presence or absence of depression using a validated screening tool: Yes Recommendation of stress management techniques: Progressive Relaxation;Visualization;Deep Breathing;Exercise Planned Education Intervention During Pulmonary Rehab: Pulmonary Anatomy & Physiology;Pacing;Climbing Stairs;Energy Conservation;Activities of Daily Living;Nebulize;Respiratory Medication;Inhalers / Spacers;Steroids;Managing an Exacerbation;Environmental Triggers;Prevent Infections;Signs & Symptoms of Impending Difficult;Clearing Secretions;Action Plan;Dyspnea Cycle;Coping Techniques;Advance Directives;Relaxation Techniques;Stress Management;Signs & Symptoms of Depression;Support System;Pharmicst;Yoga for Breathing and Relaxation Education During Pulmonary Rehab Covered By: Lecture/Discussion;Video;Handout;Return Demonstration Received [facility] Pulmonary Disease and Community Resource Guide: Yes Patient Understands Intervention: Yes Initial Psychosocial Goals PSYCHOSOCIAL GOALS Improve PHQ-9 Score: Pending Reassessment Attend Stress Management Education Sessions: Pending Reassessment Improved SOB Scores on Questionnaires: Pending Reassessment Improved COPD Assessment Test Score: Pending Reassessment Identify Positive Support System: Pending Reassessment SUMMARY Delia Alexander is an appropriate candidate for pulmonary rehabilitation and reports to be willing and motivated to begin (Action stage of change). We have identified 0 barriers to beginning and completing pulmonary rehabilitation and have agreed upon our initial plan. We will discuss and review thisplan every 30 days and modify as necessary. Performed Will review and seek input from Wire Web Worker and referring physician. Patient has been given a copy of, understands, and accepts the Attendance Agreement/Contract regarding the Pulmonary Rehabilitation Program at [facility]. This agreement/contract serves as the patients' warning that lack of consistent attendance could result in removal from the program. Sue Pickens, Aircraft Inspection Record Clerk 10/02/2023 2:33 PM Associated attestation - Jaylan Johnson MD - 10/02/2023 3:00 PM EST I have reviewed the patient's clinical status and pre-pulmonary rehabilitation outcomes assessment documentation. I approve the individualized treatment plan for pulmonary rehabilitation for the next30 days. Name: Jaylan Johnson MD Wire Web Worker, Pulmonary Rehabilitation Date: October 02, 2023 documented in this encounterJoint [facility] Miscellaneous Notes* Telephone Encounter - Kitty Huynh RN - 10/02/2023 12:26 PM EST Spoke with Angela. Reviewed testing with her and cancelled VQ scan as this would require pt to lay flat. Ok to cancel per Minda [employer]. Kitty Huynh RN * Telephone Encounter - Kitty Huynh RN - 10/02/2023 12:10 PM EST Attempted to call Angela, pt's daughter, in regards to her message. No answer. VM and call back number provided. Kitty Huynh RN * Telephone Encounter - Bindu Randall - 10/02/2023 10:26 AM EST Received a call from patient's daughter- Angela Oakes. Angela stated that patient is unable to lay down, due to spine having a bad curve which causes pain. Angela is looking to speak with someone about maybe changing the orders for something else that doesnot require the patient to lay down. Patient is schedule to see bot Dr. Carlisle and Dr. Geurra same day. Angela Davila can be reached at [phone] documented in this encounterJoint [facility]02-29-2024 Miscellaneous Notes* Telephone Encounter - Zehra Vega - 09/24/2023 12:26 PM EST Summary: [employer] [facility] Imported pulse oximetry summary report from [employer] (dated 09/23/23). Please allow time delay for documents to appear in [email or web address] (Scanned Documents Tab). documented in this encounterJoint Township District [facility]02-13-2024 NoteHNO ID: [id number] Author: FREDERIC CHASE RRT Service: ? Author Type: Registered Resp Therapist Type: Progress Notes Filed: 09/08/2023 09:34 Note Text: Faxed request for ra nocturnal oximetry to [facility] in [place], ph [phone], fax [phone] Frederic Chase [facility] History of Present illness Narrative* Frederic Chase RRT - 09/08/2023 9:33 AM EST Faxed request for ra nocturnal oximetry to [facility] in [place], ph [phone], fax [phone] Frederic Chase RRT documented in this encounterJoint Township District [facility]02-13-2024 Miscellaneous Notes* Telephone Encounter - Dae Canchola RN - 09/08/2023 8:47 AM EST Patients daughter hasn't heard anything regarding getting the patients nocturnal oximetry scheduled Will look into this documented in this encounterJoint Township [facility]02-09-2024 Miscellaneous Notes* Telephone Encounter - Sue Pickens Exercise Physiologist - 09/04/2023 4:38 PM EST Called patient regarding pulmonary rehab program. Patient answered and stated that they are going to check with insurance regarding coverage for the classes. Patient has my phone number to call back. documented in this encounterJoint [facility]02-07-2024 Miscellaneous Notes* Telephone Encounter - Sue Pickens Exercise Physiologist - 09/02/2023 10:13 AM EST Called patient regarding pulmonary rehab program. Patient did not answer, so I left a message on voicemail with instructions on how to contact me. This is the second attempt of trying to reach patient. documented in this encounterJoint Township [facility]02-01-2024 NoteHNO ID: [id number] Author: VIPIN CARLISLE MD Service: ? Author Type: Physician Type: Progress Notes Filed: 08/27/2023 21:51 Note Text: Pulmonary Medicine OUTPATIENT VISIT August 27, 2023 CC: Second Opinion for IPF HPI: 83 year old female patient with HTN, DVT s/p TKA (2004), and IPF (TLC 58% in 2021) here today for a second opinion regarding management of her IPF. Starting in 2019, Ms. Alexander noted that she started to have shortness of breath and a productive cough. In 2020, due to worsening of these symptoms, she ended up seeing her daugther's physician who at that time diagnosed her with IPF at that time. At that time, trialed her on Ofev which she didn't tolerate well. She stated when taking it QHS, but then noted excessive diarrhea as a result for which she discontinued it. At that time, she also denied Esbriet due to the associated photosensitivity. Since 2021 she has been off of medications as a result. Over the last 6 months, she has noted that she has lost 52 pounds (149 to 97 lbs), can only walk around 10 steps without becoming short of breath, sleeps in a recliner due to a cough if she lies flat, and general weakness. She now requires a wheelchair when traversing longer distances outside of the home. In the interim, her [place] home connect lpn Dr. Nettles noted that on a nocturnal oxygen test, her O2 levels decreased to 78% at night and that, during the day with exertion, she would decrease to 89%. At that time, she had recommended supplemental oxygen which the patient declined. Patient notes a significant decrease in appetite, only being able to tolerate sugar-based foods, but unable to have large meals. DATA: Six Minute Walk Test for This Encounter 05/14/2022 Oxygen Device Liters FIO2 SpO2% HR Activity Feet Speed (MPH) Flag R/A 98 98 Resting R/A 93 110 Six Minute Walk 825 1.6 R/A 98 96 Recovery 1 minute post R/A 98 96 Recovery 2 minute post R/A 98 94 Recovery 3 minute post Review of Systems Constitutional: Positive for malaise/fatigue and weight loss. HENT: Positive for hearing loss. Eyes: Negative. Respiratory: Positive for cough and shortness of breath. Negative for hemoptysis. Cardiovascular: Negative. Negative for leg swelling. Gastrointestinal: Positive for heartburn. Genitourinary: Negative. Musculoskeletal: Positive for back pain. Skin: Negative. Neurological: Negative. Endo/Heme/Allergies: Negative. Psychiatric/Behavioral: Negative. Health maintenance: Covid-19 Vaccine(1) Never done Pneumococcal Vaccine: 65+(1 of 2 - PCV) Never done Shingrix Vaccine(1 of 2) Never done RSV Vaccine(1 - 1-dose 60+ series) Never done LDL Cholesterol due on 09/03/2021 Dilated Retinal Exam due on 01/17/2022 Influenza Vaccine(1) due on 03/27/2023 Diabetic Foot Exam due on 07/10/2023 Advance Directive Discussion due on 07/27/2023 Depression Assessment Never done Urine Albumin:Creatinine Ratio due on 09/03/2023 Allergies: ALLERGIES No Known Allergies Medications: diazePAM (VALIUM) 2 mg tablet Take 2 mg by mouth every 6 hours as needed. omeprazole (PRILOSEC) 20 mg capsule Take 1 capsule by mouth daily before breakfast. 1/2 hr before meal. aspirin 325 mg tablet Take 325 mg by mouth every 6 hours as needed for pain. iron/vitamin b comp w-c(GERITOL COMPLETE TAB) one tablet daily Past Medical History: PAST MEDICAL HISTORY Diagnosis Date Arthritis DVT (deep venous thrombosis) ([facility]) 08/27/2006 knee surgery Hypertension IPF (idiopathic pulmonary fibrosis) ([facility]) Past Surgical History: PAST SURGICAL HISTORY Procedure Laterality Date BACK SURGERY HX EGD 12/31/2020 ESOPHAGOGASTRODUODENOSCOPY TRANSORAL DIAGNOSTIC 11/19/2015 EGD EYE SURGERY HX JOINT REPLACEMENT HX Left partial left knee replacement partial knee replacement left. PAST SURGICAL HISTORY OF back surgery PAST SURGICAL HISTORY OF carpal tunnel surgery bilateral PAST SURGICAL HISTORY OF right knee surgery, torn meniscus Social History: Social History Tobacco Use Smoking status: Never Smokeless tobacco: Never Vaping Use Vaping Use: Never used Substance Use Topics Alcohol use: No Drug use: No Family History: Family History Problem Relation Age of Onset Diabetes Mother Heart Mother CHF Heart Father CHF Heart Brother CHF Daugther: ILD attributed secondary to impipramine Sister: lung problems Mom: chronic pneumonia BP 150/88 Pulse 78 Temp 36.6 ?C (97.8 ?F) (Temporal) Resp 16 Wt 44 kg (97 lb 1.6 oz) SpO2 95% BMI 20.29 kg/m? Physical Exam Constitutional: Comments: cachectic HENT: Head: Normocephalic and atraumatic. Cardiovascular: Rate and Rhythm: Normal rate and regular rhythm. Pulses: Normal pulses. Heart sounds: Normal heart sounds. Pulmonary: Comments: Velcro rales noted in LLL Musculoskeletal: General: Normal range of motion. Skin: General: Skin is warm and dry. Capillary Refill: Cap (more content not included)...[facility] 08-27-[facility] History of Present illness Narrative* Vipin Carlisle MD - 08/27/2023 1:01 PM EST Images from the original note were not included. Pulmonary Medicine OUTPATIENT VISIT August 27, 2023 CC: Second Opinion for IPF HPI: 83 year old female patient with HTN, DVT s/p TKA (2004), and IPF (TLC 58% in 2021) here today for a second opinion regarding management of her IPF. Starting in 2019, Ms. Alexander noted that she started to have shortness of breath and a productive cough. In 2020, due to worsening of these symptoms, she ended up seeing her daugther's physician who at that time diagnosed her with IPF at that time.At that time, trialed her on Ofev which she didn't tolerate well. She stated when taking it QHS, but then noted excessive diarrhea as a result for which she discontinued it. At that time, she also denied Esbriet due to the associated photosensitivity. Since 2021 she has been off of medications as a result. Over the last 6 months, she has noted that she has lost 52 pounds (149 to 97 lbs), can only walk around 10 steps without becoming short of breath, sleeps in a recliner due to a cough if she lies flat, and general weakness. She now requires a wheelchair when traversing longer distances outside of the home. In the interim, her [place] home connect lpn Dr. Nettles noted that on a nocturnal oxygen test, her O2 levels decreased to 78% at night and that, during the day with exertion, she would decrease to89%. At that time, she had recommended supplemental oxygen which the patient declined. Patient notes a significant decrease in appetite, only being able to tolerate sugar-based foods, but unable to have large meals. DATA: Six Minute Walk Test for This Encounter 05/14/2022 Oxygen Device Liters FIO2 SpO2% HR Activity Feet Speed (MPH) Flag R/A 98 98 Resting R/A 93 110 Six Minute Walk 825 1.6 R/A 98 96 Recovery 1 minute post R/A 98 96 Recovery 2 minute post R/A 98 94 Recovery 3 minute post Review of Systems Constitutional: Positive for malaise/fatigue and weight loss. HENT: Positive for hearing loss. Eyes: Negative. Respiratory: Positive for cough and shortness of breath. Negative for hemoptysis. Cardiovascular: Negative. Negative for leg swelling. Gastrointestinal: Positive for heartburn. Genitourinary: Negative. Musculoskeletal: Positive for back pain. Skin: Negative. Neurological: Negative. Endo/Heme/Allergies: Negative. Psychiatric/Behavioral: Negative. Health maintenance: Covid-19 Vaccine(1) Never done Pneumococcal Vaccine: 65+(1 of 2 - PCV) Never done Shingrix Vaccine(1 of 2) Never done RSV Vaccine(1 - 1-dose 60+ series) Never done LDL Cholesterol due on 09/03/2021 Dilated Retinal Exam due on 01/17/2022 Influenza Vaccine(1) due on 03/27/2023 Diabetic Foot Exam due on 07/10/2023 Advance Directive Discussion due on 07/27/2023 Depression Assessment Never done Urine Albumin:Creatinine Ratio due on 09/03/2023 Allergies: ALLERGIES No Known Allergies Medications: diazePAM (VALIUM) 2 mg tablet Take 2 mg by mouth every 6 hours as needed. omeprazole (PRILOSEC) 20 mg capsule Take 1 capsule by mouth daily before breakfast. 1/2 hr before meal. aspirin 325 mg tablet Take 325 mg by mouth every 6 hours as needed for pain. iron/vitamin b comp w-c(GERITOL COMPLETE TAB) one tablet daily Past Medical History: PAST MEDICAL HISTORY Diagnosis Date Arthritis DVT (deep venous thrombosis) ([facility]) 08/27/2006 knee surgery Hypertension IPF (idiopathic pulmonary fibrosis) ([facility]) Past Surgical History: PAST SURGICAL HISTORY Procedure Laterality Date BACK SURGERY HX EGD 12/31/2020 ESOPHAGOGASTRODUODENOSCOPY TRANSORAL DIAGNOSTIC 11/19/2015 EGD EYE SURGERY HX JOINT REPLACEMENT HX Left partial left knee replacement partial knee replacement left. PAST SURGICAL HISTORY OF back surgery PAST SURGICAL HISTORY OF carpal tunnel surgery bilateral PAST SURGICAL HISTORY OF right knee surgery, torn meniscus Social History: Social History Tobacco Use Smoking status: Never Smokeless tobacco: Never Vaping Use Vaping Use: Never used Substance Use Topics Alcohol use: No Drug use: No Family History: Family History Problem Relation Age of Onset Diabetes Mother Heart Mother CHF Heart Father CHF Heart Brother CHF Daugther: ILD attributed secondary to impipramine Sister: lung problems Mom: chronic pneumonia BP 150/88 Pulse 78 Temp 36.6 C (97.8 F) (Temporal) Resp 16 Wt 44 kg (97 lb 1.6 oz) SpO2 95% BMI 20.29 kg/m Physical Exam Constitutional: Comments: cachectic HENT: Head: Normocephalic and atraumatic. Cardiovascular: Rate and Rhythm: Normal rate and regular rhythm. Pulses: Normal pulses. Heart sounds: Normal heart sounds. Pulmonary: Comments: Velcro rales noted in LLL Musculoskeletal: General: Normal range of motion. Skin: General: Skin is warm and dry. Capillary Refill: Capillary refill takes less than 2 seconds. Neurological: General: No focal deficit present. Mental Status: She is alert and oriented to person, place, and time. Mental status is at baseline. Psychiatric: Mood and Affect: Mood normal. Behavior: Behavior normal. Thought Content: Thought content normal. Judgment: Judgment normal. Labs Reviewed. Imaging Reviewed. CT Chest w/o Contrast (10/2018) Lung parenchyma and pleura: The central airways are patent. No endobronchial lesion is seen. Diffuse calcification is seen in the moreno of the airways. Biapical scarring is present, likely postinflammatory. Lower lobe and peripheral predominant subpleural reticulation with architectural distortion, traction bronchiectasis is seen. There is no evidence of honeycombing. No centrilobular nodules or diffuse groundglass opacities are seen. The lungs are free of acute focal consolidation. A 6 mm left lower lobe nodule (image 203) likely represents confluent fibrosis. No suspicious pulmonary nodules are seen. No pleural effusion or focal pleural thickening is identified. There is no pneumothorax. Thoracic inlet, heart, and mediastinum: Multiple subcentimeter mediastinal lymph nodes are visible, likely reactive. For reference, a right paratracheal lymph node (image 84) measures 9 mm and a subcarinal lymph node (image 108) measures 9 mm. No enlarged supraclavicular or axillary lymph nodes are seen. Evaluation of hilar lymph nodes is limited by lack of intravenous contrast. There is a three-vessel left aortic arch. The aorta is normal in course and caliber. Mild atherosclerotic calcifications are seen in the aortic arch. The main pulmonary artery is normal in course and caliber. Minimal focal atherosclerotic calcifications are seen in the left anterior descending coronary artery although, the exam is not optimized for evaluation of coronary arteries. The cardiac chambers are normal in size. There is no pericardial effusion or pericardial thickening. The thyroid gland is unremarkable. A small hiatal hernia is seen. Bones and soft tissues: No destructive lytic or blastic lesions are seen in the bones. Degenerative changes are seen in the thoracic spine. The thoracic kyphosis is exaggerated. The soft tissues of the chest wall are unremarkable. Upper abdomen: The visible portions of the liver, spleen, pancreas, gallbladder, adrenal glands and kidneys are normal. The visible stomach and bowel are normal. Assessment/Plan: Ms. Alexander is a 83 year old female patient with HTN, DVT s/p TKA (2004), and IPF (TLC 58% in 2021) here today for a second opinion regarding management of her IPF. Given her most recent TLC from 2021 of 58%, in addition to the patient's noted desaturation at night, the most important aspect for her moving forward is to use supplemental oxygen to maintain her N9tenhhl above 88%. This was discussed in terms of a nocturnal O2 test in addition to a 6MWT to assess how much she will need. Additionally, given the risk of pulmonary HTN in the setting of perseverant IPF, we will order a TTE (with hycodan prior to to assist with her cough) to assess for the degree. With use of trepostinil in IPF-induced pulmonary HTN, it was noted that there was a 16-wk improvement by 31.12 m (95% confidence interval [CI], 16.85 to 45.39; P<0.001) compared to placebo (n = 326) (Renata et al. Inhaled Treprostinil in Pulmonary Hypertension Due to Interstitial Lung Disease. N Engl J Med 202; 384:325-334). However, the longitudinal affects of the medication are unclear in terms of persistent improvement in symptoms. Additionally, we recommended pulmonary rehab to assist with her functionality and QALY during this time. At this time, there are ongoing clinical trials with regards to anti-fibrotic agents and their efficacy in IPF (e.g. pamrevlumab anti-connective tissue GF) with variable results. Given the patient's goals for quality of life, this would likely not be indicated for further management given the equivocal results of other anti-fibrotic agents in IPF. However, given the potential of a family hx with her mom as well as sister having similar symptoms, this may be something to consider and follow-up on for further clinical trials to assess her daughters longitudinally. PLAN: - TTE with 5 cc hycodan 30 min - 1 hour prior to procedure to assist with lying flat - Pulmonary HTN follow-up after completion of TTE to discuss role of treprostinil - Assess need for supplemental O2 with ambulatory walk test and nocturnal oxygen levels - See pulmonary rehab at [facility] - Can use OTC N-Acetylcysteine 600mg BID if desired - Recommended patient obtain all routine vaccinations (shingles, COVID, flu, RSV, PCV) for which patient stated they would follow-up locally for upon discussion Follow-up with Dr. Carlisle in 6 weeks following completion of testing The assessment and plan above were discussed with Dr. Carlisle. Marito Godoy MD Internal Medicine Resident, PGY-2 [facility] 08/27/2023 1:01 PM Attending note: Above findings reviewed, confirmed and modified where necessary. I participated in and confirmed the history, examination, data review and plan. The note reflects my input, and as such, has been modified where necessary by me. I personally reviewed the radiology images, pulmonary function testing and laboratory results when available. As above. Long discussion with the patient and her daughters. All questions answered. Total time > 60 min RTC 6 weeks Consult PAH clinic Vipin Carlisle MD documented in this encounterJoint [facility]12-08-2023 Miscellaneous Notes* Telephone Encounter - Fatuma Linder Ma - 07/03/2023 8:30 AM EST Spoke with daughter Angela. She already was planning on getting a urine sample from home to bring in. Fatuma Linder Ma * Telephone Encounter - Angie Kaba PA-C - 07/02/2023 6:33 PM EST Telephone on 07/02/23 URINALYSIS, WITH MICROSCOPIC URINE CULTURE Dalton Powell PA-C * Telephone Encounter - Fatuma Linder Ma - 07/02/2023 6:02 PM EST Please sign orders. Urine was not sent out at visit. Will call pt to have her go to lab. documented in this encounterJoint [facility]12-05-2023 Instructions* Patient Instructions* Angie Kaba PA-C - 06/30/2023 2:42 PM EST [employer] cushion documented in this encounterJoint Township District [facility] Hospital12-05-2023 NoteHNO ID: [id number] Author: Angie Kaba PA-C Service: ? Author Type: Physician Network Support Manager Type: Progress Notes Filed: 07/01/2023 11:07 AM Note Text: 83 year old female with c/o very directly that she wants answers to weight loss. Extremely weak. Gets of breath putting on coat or walking 5-10 feet. Can only go 2-3 steps and then SOB. Sees Mary Nettles for lung issues with pulmonary fibrosis Notes eating same kind of food but not as much Doesn't drink much outside coffee. Mostly eats junk food although she does have at least 1 meal a day that has some protein and vegetables involved. Sleeps in recliner. Ischial tuberosities hurt from sitting Asking for specialist, wants to go to the [facility] to see a home connect lpn for information on pulmonary fibrosis. Has questions about what causes pulmonary fibrosis and what can be done for treatment. No nausea or vomiting, no heartburn or acid reflux Patient feels early satiety but eats in small portions. Cannot identify her bowel pattern as she states it varies. Patient again reviews her litany of how busy she is, how she cannot stand to sit in this respect those 2 do not become politically active nor those who do not take care of themselves. She refuses to allow anyone to do her work for her in her home. Feels she would rather . Had long discussion about pulmonary fibrosis, causes which have been ruled out, and that this is generally a progressive condition in which the lung eventually becomes fibrotic and therefore nonfunctional. We talked about palliative care which was difficult both for she and her daughter. Patient feels that she needs Valium for anxiety, has been using 15 over 90-days, asking if she can have that increased somewhat for as needed use when she is having anxiety because she cannot breathe or take care of herself the way she wants to. Daughter continues to check on her. She has given up most of her outside activities because she just does not have the energy. Does better when she has oxygen which she uses while she sits. She does have portable oxygen tanks but feels that they are too heavy for her to carry so she is not able to use them when she goes out. Daughter confirms that they do seem heavy to her as well. Patient identifies she has had some urinary frequency and slight discomfort recently, no fever or chills, nausea or vomiting. HISTORIES FAMILY HISTORY Problem Relation Age of Onset Diabetes Mother Heart Mother CHF Heart Father CHF Heart Brother CHF PAST MEDICAL HISTORY Diagnosis Date Arthritis DVT (deep venous thrombosis) ([facility]) 08/27/2006 knee surgery Hypertension IPF (idiopathic pulmonary fibrosis) ([facility]) PAST SURGICAL HISTORY Procedure Laterality Date BACK SURGERY HX EGD 12/31/2020 ESOPHAGOGASTRODUODENOSCOPY TRANSORAL DIAGNOSTIC 11/19/2015 EGD EYE SURGERY HX JOINT REPLACEMENT HX Left partial left knee replacement partial knee replacement left. PAST SURGICAL HISTORY OF back surgery PAST SURGICAL HISTORY OF carpal tunnel surgery bilateral PAST SURGICAL HISTORY OF right knee surgery, torn meniscus Social History Tobacco Use Smoking status: Never Smokeless tobacco: Never Vaping Use Vaping Use: Never used Substance Use Topics Alcohol use: No Drug use: No ACTIVE PROBLEM LIST Primary Osteoarthritis Involving Multiple Joints Essential Hypertension Backache Dm II (Diabetes Mellitus, Type Ii) ([facility]) Dyspnea On Exertion Near Syncope Interstitial Lung Disease ([facility]) Chronic Kidney Disease, Stage 3a ([facility]) Current Outpatient Medications Medication Sig Dispense Refill omeprazole (PRILOSEC) 20 mg capsule Take 1 capsule by mouth daily before breakfast. 1/2 hr before meal. 90 capsule 1 aspirin 325 mg tablet Take 325 mg by mouth every 6 hours as needed for pain. iron/vitamin b comp w-c(GERITOL COMPLETE TAB) one tablet daily 0 0 diazePAM (VALIUM) 2 mg tablet Take 1 tablet by mouth every 6 hours as needed for up to 90 days. 15 tablet 0 FLUoxetine (PROZAC) 10 mg capsule Take 1 capsule by mouth once daily. (Patient not taking: Reported on 06/30/2023) 30 capsule 5 ondansetron orally disintegrating (ZOFRAN ODT) 4 mg disintegrating tablet Take 1 tablet by mouth every 6 hours as needed for nausea/vomiting. (Patient not taking: Reported on 06/30/2023) 15 tablet 1 lidocaine (LIDODERM) 5 % Apply 5 Patches as directed as needed. (Patient not taking: Reported on 06/30/2023) No current facility-administered medications for this visit. Covid-19 Vaccine(1) Never done Pneumococcal Vaccine: 65+(1 - PCV) Never done Shingrix Vaccine(1 of 2) Never done RSV Vaccine(1 - 1-dose 60+ series) Never done LDL Cholesterol due on 09/03/2021 Dilated Retinal Exam due on 01/17/2022 Advance Directive Discussion due on 07/27/2022 Depression Assessment Never done HbA1C due on 03/01/2023 Influenza Vaccine(1) due on 03/27/20 (more content not included)...[facility]12-05-2023 History of Present illness Narrative* Angie Kaba PA-C - 06/30/2023 2:19 PM EST 83 year old female with c/o very directly that she wants answers to weight loss. Extremely weak. Gets of breath putting on coat or walking 5-10 feet. Can only go 2-3 steps and then SOB. Sees Mary Nettles for lung issues with pulmonary fibrosis Notes eating same kind of food but not as much Doesn't drink much outside coffee. Mostly eats junk food although she does have at least 1 meal a day that has some protein and vegetables involved. Sleeps in recliner. Ischial tuberosities hurt from sitting Asking for specialist, wants to go to the [facility] to see a home connect lpn for information on pulmonary fibrosis. Has questions about what causes pulmonary fibrosis and what can be done for treatment. No nausea or vomiting, no heartburn or acid reflux Patient feels early satiety but eats in small portions. Cannot identify her bowel pattern as she states it varies. Patient again reviews her litany of how busy she is, how she cannot stand to sit in this respect those 2 do not become politically active nor those who do not take care of themselves. She refuses to allow anyone to do her work for her in her home. Feels she would rather . Had long discussion about pulmonary fibrosis, causes which have been ruled out, and that this is generally a progressive condition in which the lung eventually becomes fibrotic and therefore nonfunctional. We talked about palliative care which was difficult both for she and her daughter. Patient feels that she needs Valium for anxiety, has been using 15 over 90-days, asking if she can have that increased somewhat for as needed use when she is having anxiety because she cannot breatheor take care of herself the way she wants to. Daughter continues to check on her. She has given up most of her outside activities because she just does not have the energy. Does better when she has oxygen which she uses while she sits. She does have portable oxygen tanks but feels that they are too heavy for her to carry so she is not able to use them when she goes out. Daughter confirms that they do seem heavy to her as well. Patient identifies she has had some urinary frequency and slight discomfort recently, no fever or chills, nausea or vomiting. HISTORIES FAMILY HISTORY Problem Relation Age of Onset Diabetes Mother Heart Mother CHF Heart Father CHF Heart Brother CHF PAST MEDICAL HISTORY Diagnosis Date Arthritis DVT (deep venous thrombosis) ([facility]) 08/27/2006 knee surgery Hypertension IPF (idiopathic pulmonary fibrosis) ([facility]) PAST SURGICAL HISTORY Procedure Laterality Date BACK SURGERY HX EGD 12/31/2020 ESOPHAGOGASTRODUODENOSCOPY TRANSORAL DIAGNOSTIC 11/19/2015 EGD EYE SURGERY HX JOINT REPLACEMENT HX Left partial left knee replacement partial knee replacement left. PAST SURGICAL HISTORY OF back surgery PAST SURGICAL HISTORY OF carpal tunnel surgery bilateral PAST SURGICAL HISTORY OF right knee surgery, torn meniscus Social History Tobacco Use Smoking status: Never Smokeless tobacco: Never Vaping Use Vaping Use: Never used Substance Use Topics Alcohol use: No Drug use: No ACTIVE PROBLEM LIST Primary Osteoarthritis Involving Multiple Joints Essential Hypertension Backache Dm II (Diabetes Mellitus, Type Ii) ([facility]) Dyspnea On Exertion Near Syncope Interstitial Lung Disease ([facility]) Chronic Kidney Disease, Stage 3a ([facility]) Current Outpatient Medications Medication Sig Dispense Refill omeprazole (PRILOSEC) 20 mg capsule Take 1 capsule by mouth daily before breakfast. 1/2 hr before meal. 90 capsule 1 aspirin 325 mg tablet Take 325 mg by mouth every 6 hours as needed for pain. iron/vitamin b comp w-c(GERITOL COMPLETE TAB) one tablet daily 0 0 diazePAM (VALIUM) 2 mg tablet Take 1 tablet by mouth every 6 hours as needed for up to 90 days. 15 tablet 0 FLUoxetine (PROZAC) 10 mg capsule Take 1 capsule by mouth once daily. (Patient not taking: Reportedon 06/30/2023) 30 capsule 5 ondansetron orally disintegrating (ZOFRAN ODT) 4 mg disintegrating tablet Take 1 tablet by mouth every 6 hours as needed for nausea/vomiting. (Patient not taking: Reported on 06/30/2023) 15 tablet 1 lidocaine (LIDODERM) 5 % Apply 5 Patches as directed as needed. (Patient not taking: Reported on 06/30/2023) No current facility-administered medications for this visit. Covid-19 Vaccine(1) Never done Pneumococcal Vaccine: 65+(1 - PCV) Never done Shingrix Vaccine(1 of 2) Never done RSV Vaccine(1 - 1-dose 60+ series) Never done LDL Cholesterol due on 09/03/2021 Dilated Retinal Exam due on 01/17/2022 Advance Directive Discussion due on 07/27/2022 Depression Assessment Never done HbA1C due on 03/01/2023 Influenza Vaccine(1) due on 03/27/2023 Diabetic Foot Exam due on 07/10/2023 EXAM: BP 108/60 Pulse 78 Temp 36.9 C (98.4 F) (Left Tympanic) Resp 16 Wt 43.5 kg (96 lb) SpO2 92% BMI 20.06 kg/m Pleasant frail appearing, very thin adult woman with robust personality and very fluent and rapid speech without respiratory difficulty. In no acute distress. Alert and oriented all spheres. Normal affect and cognition. Speech normal. No deficits to learning or comprehension. Skin warm, dry, pink to lips and nailbeds. Normal turgor. Respirations regular and unlabored at rest. HEENT: NCAT. No scleral icterus or conjunctival injection. TM's clear. Nose and oropharynx free from injection or lesion. Oral membranes moist and pink. No cervical lymph nodes. Thyroid non-tender, no masses, or enlargement. Carotids pulses 2+/4+ without bruits. No JVD with HOB at 30 degrees. Mild kyphosis affecting lung space. Breath sounds with dry crackles, audible throughout, no dullness at the bases. HRRR without murmur or gallop. No lifts, heaves, or rubs. Abdomen: active bowel sounds throughout, soft, nontender, no masses or organomegaly. No CVAT. Normal aortic span, 3 cm upper abdomen. No abdominal bruits, axillary or inguinal nodes. Femoral pulses 2/4+ without bruit. Extrem: no clubbing or cyanosis. Edema: none. Extremities are warm and pink with prompt capillary refill. ASSESSMENT/PLAN: 1. Urinary frequency - ICD9: 788.41, ICD10: R35.0 (primary diagnosis) acute Continue to push fluids, if fever or chills notify immediately, will notify lab results as they come in which will be 1 to 2 days. - UA DIP, URINE (POC) - URINALYSIS, WITH MICROSCOPIC - URINE CULTURE 2. Pulmonary fibrosis (HCC) - ICD9: 515, ICD10: J84.10 As above discussed nature and course of pulmonary fibrosis, need for specialty review Will schedule patient main campus pulmonary consult Discussed end-of-life issues, palliative care issues, medical treatment to ease burden if she is having excessive shortness of breath and pulmonary fatigue. Again patient identifies she will not allow anyone else to come in and do her work or take care of her so long as she is able to manage this on her own. This includes her own family. - CT CHEST WO IVCON - CONSULT TO PULM/CRITICAL CARE 3. Unintentional weight loss of 10% body weight within 6 months - ICD9: 783.21, ICD10: R63.4 We discussed the increased metabolism that requires due to her respiratory issues as having possibly some effect with her weight loss, again patient's diet is in question. I had asked her in the pastand I am asking her again to keep track of everything she eats over the next 3 days and then allow us to review it for calorie content and nutritional value. Patient identifies that she eats mostly junk food but does have 1 meal a day that is somewhat better. Will repeat labs just to see if there is any change - CT CHEST WO IVCON - CT ABD/PEL WO IVCON - TSH BLD - COMP METABOLIC PANEL - CBC + DIFF - SED RATE WESTERGREN - C-REACTIVE PROTEIN (CRP) 4. Chronic kidney disease, stage 3a (HCC) - ICD9: 585.3, ICD10: N18.31 Resolved on last check 5. DM II (diabetes mellitus, type II) (HCC) - ICD9: 250.00, ICD10: E11.9 - Control undetermined, due for labs - HGB A1C 6. Essential hypertension - ICD9: 401.9, ICD10: I10 - Controlled - Continue current medications - Recommend home blood pressure monitoring, to bring results to next visit - Encouraged sodium restriction, DASH or Mediterranean diet - Recommend regular aerobic exercise - COMP METABOLIC PANEL - CBC + DIFF M Clay Kaba PA-C documented in this encounterJoint [facility]10-30-2023 Miscellaneous Notes* Telephone Encounter - Kendra Justin LPN - 05/25/2023 6:33 PM EDT Verbal ok given to Eric. * Telephone Encounter - Rusty Roberts MD - 05/25/2023 4:54 PM EDT Ok to fill * Telephone Encounter - Doris Quezada RN - 05/25/2023 4:46 PM EDT Patient's daughter calling to let PCP know that [facility] will not fill Diazepam script sent on 05/20/23 because the prior script from 03/03/23 was written as needed for up to 90 daysand pharmacy tells her it's only been 77 days since the last script was written. She says pharmacy needs verbal okay for early refill. Doirs Quezada RN documented in this encounterJoint Township District [facility] Hospital10-25-2023 Miscellaneous Notes* Telephone Encounter - Radha Walsh RN - 05/20/2023 3:37 PM EDT Pharmacy updated. Radha Walsh RN * Telephone Encounter - Rusty Roberts MD - 05/20/2023 3:20 PM EDT Yes. * Telephone Encounter - Radha Walsh RN - 05/20/2023 1:44 PM EDT [facility] Pharmacist calling regarding pt's script for Diazepam 2 mg received today by Dr. Roberts. Script states to dispense 15 tablets but directions state pt can take every 6 hours as needed for up to 90 days. Pharmacist asking if the 15 pills is to last her 90 days? Please contact pharmacist with response. Thank you. documented in this encounterJoint Township District [facility] Hospital10-24-2023 Miscellaneous Notes* Telephone Encounter - Uri Foster LPN - 05/19/2023 4:59 PM EDT Patient phones requesting refills as follows: Requested Prescriptions Pending Prescriptions Disp Refills diazePAM (VALIUM) 2 mg tablet 15 tablet 0 Sig: Take 1 tablet by mouth every 6 hours as needed for up to 90 days. MIKE 03/03/23 NOV no upcoming appt Please review and advise. Uri Foster LPN documented in this [facility]08-24-2023 Miscellaneous Notes* Telephone Encounter - Taniya Baldwin LPN - 03/19/2023 3:07 PM EDT Faxed orders to [facility] for O2. Taniya Baldwin LPN * Telephone Encounter - Lucero Pearl PA-C - 03/19/2023 2:22 PM EDT Nocturnal Oximetry, RA, 03/06/2023. Recording interval: 7:52:15 High pulse: 115 Low pulse: 52 Highest spO2: 99% Lowest spO2: 78% Time with spO2 < 88%: 25.31 minutes Recommendation: Based on above results, patient is requiring supplemental oxygen at night. I have received and reviewed the outside records noted above. Lucero Pearl PA-C [facility] [place] documented in this encounterJoint Township District [facility] Hospital08-10-2023 Miscellaneous Notes* Telephone Encounter - Sandhya Yancey RN - 03/05/2023 3:53 PM EDT Ya calling concerning status of Pt order for overnight oximetry. Ya states they have tried to reach out to the Pt numerous times and has left numerous voice messages. She is not returning their call.Sandhya Yancey RN documented in this encounterJoint Township District [facility] Hospital08-10-2023 Procedure note* Louie Chen RPFT - 03/05/2023 10:42 AM EDTAssociated Order(s): OXIMETRY WITH AMBULATION RESPIRATORY THERAPY OXIMETRY WITH AMBULATION Oximetry with Ambulation Test for This Encounter O2 Device O2 Adapter NC O2 Flow SpO2% HR Activity Ft Walked (ft) Time (min) Avg Speed (MPH) R/A 95 76 Resting R/A 87 112 Walking, usual pace 240 2 1.36 NC 2 98 71 Resting NC 2 96 98 Walking, usual pace 370 3 1.4 General Information Pulse Oximetry Site Total Time Spent O2 Supply Carrier Walking Assistance/Device L Index Finger 20 3 Wheel Walker -- NAME: AMRIT Hoffman PATIENT NAME: Delia Alexander DATE: March 05, 2023 TIME: 10:42 AM Comment: documented in this encounterJoint Township District [facility] Hospital08-10-2023 History of Present illness Narrative* Louie Chen RPFT - 03/05/2023 10:25 AM EDT PULM FUNCTION SMARTBLOCK: Provider: Mary Nettles MD Assisting Tech: Louie Chen RPFT Oximetry - Ambulation: 1 documented in this encounterJoint Township District [facility] Hospital08-09-2023 Miscellaneous Notes* Telephone Encounter - Anna Araujo - 03/04/2023 11:45 AM EDT Received fax approval for patients Diazepam 5 mg from [facility]. . Validity dates 02/17/23-03/03/24. [facility] pharmacy and patient informed. Anna Araujo documented in this encounterJoint Township District Memorial Hospital08-08-2023 Instructions* Patient Instructions* Angie Kaba PA-C - 03/03/2023 1:46 PM EDT What are fluoxetine capsules or tablets? FLUOXETINE (Prozac ) belongs to a class of antidepressants known as selective serotonin reuptake inhibitors (SSRIs). It helps improve a person's mood. Fluoxetine can also help people with anxiety, obsessive compulsive disorder, eating disorders (bulimia), panic disorder, or post-traumatic stress. Generics are available for some products. What should I tell my health care provider before I take this medicine? They need to know if you have any of these conditions: diabetes heart disease kidney disease liver disease receiving electroconvulsive therapy seizures (convulsions) suicidal thoughts an unusual or allergic reaction to fluoxetine, other medicines, foods, dyes, or preservatives or trying to get breast-feeding How should I take this medicine? Take fluoxetine tablets or capsules by mouth. Follow the directions on the prescription label. Swallow with a drink of water. You can take fluoxetine with or without food. Take your doses at regular intervals. Do not take your medicine more often than directed. Do not stop taking except on your prescriber's advice. Contact your belly dancer or health career development director regarding the use of this medicine in children. Special care may be needed. While this drug may be prescribed for children as young as 7 years for selected conditions, precautions do apply. A special MedGuide will be given to you by the pharmacist with each prescription and refill. Be sure to read this information carefully each time. What if I miss a dose? If you miss a dose, take it as soon as you can. If it is almost time for your next dose, skip the missed dose and go back to your regular dosing schedule. Do not take double or extra doses. What drug(s) may interact with fluoxetine? Fluoxetine has the potential to interact with a variety of medications, check with your healthcare professional. The following list contains some of these interactions. Do not take fluoxetine with any of the following medications: astemizole (Hismanal ) cisapride (Propulsid ) pimozide (Orap ) terfenadine (Seldane ) thioridazine (Mellaril ) medicines called MAO inhibitors-phenelzine (Nardil ), tranylcypromine (Parnate ), isocarboxazid (Marplan ), selegiline (Eldepryl ) Fluoxetine may also interact with the following medications: alcohol amphetamine aspirin benzodiazepines, commonly used for anxiety or sleeping problems, such as diazepam or alprazolam buspirone carbamazepine certain diet drugs (dexfenfluramine, fenfluramine, phentermine, sibutramine) certain medicines for migraine headache (almotriptan, eletriptan, frovatriptan, naratriptan, rizatriptan, sumatriptan, zolmitriptan, dihydroergotamine, ergotamine, methysergide) cimetidine cyproheptadine dextroamphetamine dextromethorphan dofetilide ergonovine furazolidone linezolid lithium metoprolol medicines for diabetes medicines for mental depression medicines for mental problems or psychotic disturbances methylergonovine nonsteroidal antiinflammatory drugs (NSAIDs, like ibuprofen) phenytoin propafenone propranolol [place]'s wort warfarin Tell your prescriber or health career development director about all other medicines you are taking, including non-prescription medicines, nutritional supplements, and herbal products. Also tell your prescriber or health career development director if you are a frequent user of drinks with caffeine or alcohol, if you smoke, or if you use illegal drugs. These may affect the way your medicine works. Check with your health career development director before stopping or starting any of your medicines. What side effects may I notice from taking fluoxetine? Side effects that you should report to your prescriber or health career development director as soon as possible: anxiety, agitation, panic attacks, inability to sleep, irritability, hostility or extreme anger, aggressiveness, engaging in unusual or dangerous activities, restlessness or inability to sit still, fast talking, actions that are out of control, extreme elation or feeling of happiness that may switch back and forth with a depressed or sad mood fast or irregular heart rate, palpitations difficulty breathing dizziness or lightheadedness fast or irregular heart rate, palpitations flu-like symptoms (fever, chills, cough, muscle or joint aches and pains) seizures (convulsions) skin rash, itching (hives) unusual tiredness or weakness vomiting Side effects that usually do not require medical attention (report to your prescriber or health career development director if they continue or are bothersome): blurred vision difficulty sleeping daytime drowsiness diarrhea dry mouth flushing headache increased sweating indigestion increased or decreased appetite sexual difficulties (decreased sexual desire or ability) stuffy nose tremor (shaking) What should I watch for while taking fluoxetine? Visit your prescriber or health career development director for regular checks on your progress. Continue to take your medicine even if you do not immediately feel better. It can take several weeks before you feel the full effect of fluoxetine. If you notice any unusual effects, such as restlessness, worsening of depression, agitation, difficulty sleeping, irritability, anger, acting on dangerous impulses,or thoughts of suicide or suicidal attempts, you should call your health care provider immediately. If you have been taking fluoxetine regularly for some time, do not suddenly stop taking it. You must gradually reduce the dose or your symptoms may get worse. Ask your prescriber or health career development director for advice. You may get drowsy or dizzy. Do not drive, use machinery, or do anything that needs mental alertness until you know how fluoxetine affects you. Do not stand or sit up quickly, especially if you are an older patient. This reduces the risk of dizzy or fainting spells. Alcohol can make you more drowsyand dizzy. Avoid alcoholic drinks. Do not treat yourself for coughs, colds or allergies without asking your prescriber or health career development director for advice. Some ingredients can increase possible side effects. Your mouth may get dry. Chewing sugarless gum or sucking hard candy, and drinking plenty of water will help. If you are going to have surgery, tell your prescriber or health career development director that you are taking fluoxetine. Where can I keep my medicine? Keep out of the reach of children in a container that small children cannot open. Store at room temperature between 15 and 30 degrees C (59 and 86 degrees F). Throw away any unused medicine after the expiration date. [ Last Revised: 10/28/2005 9:33:00 AM ] NOTE: This information is not intended to cover all possible uses, precautions, interactions, or adverse effects for this drug. If you have questions about the drug(s) you are taking, check with yourhealth career development director. Drug Information Provided by [employer]. 2006 documented in [facility] History of Present illness Narrative* Angie Kaba PA-C - 03/03/2023 1:41 PM EDT 83 year old female with c/o here with daughter Francine, concerned about anxiety, outbursts, irritability. Patient identifes now she is willing to try something mild to help her rest. Ed was in the hospital and sent to ECF. 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 Explains again cycling repeatedly on how she is different form other people, wakes with mind brimming with ideas, has her rest time between 1-4am writing down ideas and plans, at age 9 decided she would be president of the [employer], how she looks down on lazy people, how people calling and disrupting her rest are also valuable and she has to be willing to run herself down answering every call. HISTORIES FAMILY HISTORY Problem Relation Age of Onset Diabetes Mother Heart Mother CHF Heart Father CHF Heart Brother CHF PAST MEDICAL HISTORY Diagnosis Date Arthritis DVT (deep venous thrombosis) ([facility]) 08/27/2006 knee surgery Hypertension IPF (idiopathic pulmonary fibrosis) ([facility]) PAST SURGICAL HISTORY Procedure Laterality Date BACK SURGERY HX EGD 12/31/2020 ESOPHAGOGASTRODUODENOSCOPY TRANSORAL DIAGNOSTIC 11/19/2015 EGD EYE SURGERY HX JOINT REPLACEMENT HX Left partial left knee replacement partial knee replacement left. PAST SURGICAL HISTORY OF back surgery PAST SURGICAL HISTORY OF carpal tunnel surgery bilateral PAST SURGICAL HISTORY OF right knee surgery, torn meniscus Social History Tobacco Use Smoking status: Never Smokeless tobacco: Never Vaping Use Vaping Use: Never used Substance Use Topics Alcohol use: No Drug use: No ACTIVE PROBLEM LIST Primary Osteoarthritis Involving Multiple Joints Essential Hypertension Backache Dm II (Diabetes Mellitus, Type Ii) ([facility]) Dyspnea On Exertion Near Syncope Interstitial Lung Disease ([facility]) Current Outpatient Medications Medication Sig Dispense Refill aspirin 325 mg tablet Take 325 mg by mouth every 6 hours as needed for pain. ondansetron orally disintegrating (ZOFRAN ODT) 4 mg disintegrating tablet Take 1 tablet by mouth every 6 hours as needed for nausea/vomiting. 15 tablet 1 mirtazapine (REMERON) 15 mg tablet Take 0.5 tablets by mouth daily at bedtime. 30 tablet 2 omeprazole (PRILOSEC) 20 mg capsule Take 1 capsule by mouth daily before breakfast. 1/2 hr before meal. 30 capsule 5 lidocaine (LIDODERM) 5 % Apply 5 Patches as directed as needed. iron/vitamin b comp w-c(GERITOL COMPLETE TAB) one tablet daily 0 0 No current facility-administered medications for this visit. PNEUMOCOCCAL: 65+(1 - PCV) Never done SHINGRIX VACCINE(1 of 2) Never done LDL CHOLESTEROL due on 09/03/2021 DILATED RETINAL EXAM due on 01/17/2022 ADVANCE DIRECTIVE DISCUSSION due on 07/27/2022 DEPRESSION ASSESSMENT Never done HBA1C due on 03/01/2023 EXAM: BP 120/72 Pulse 89 Resp 20 Wt 47.1 kg (103 lb 12.8 oz) SpO2 96% BMI 21.69 kg/m Pleasant elderly woman in no acute distress. Alert and oriented all spheres. Normal affect and cognition. Speech normal. No deficits to learning or comprehension. Skin warm, dry, pink to lips and nailbeds. Normal turgor. Respirations regular and unlabored. HEENT: NCAT. No scleral icterus or conjunctival injection. TM's clear. Nose and oropharynx free from injection or lesion. Oral membranes moist and pink. No cervical lymph nodes. Thyroid non-tender, no masses, or enlargement. Carotids pulses 2+/4+ without bruits. No JVD with HOB at 30 degrees.. Chest is normal shape. Lungs are clear to all rubio with good air exchange through out, dry crackles bases. HRRR without murmur or gallop. No lifts, heaves, or rubs. Extrem: no clubbing or cyanosis. Edema: none. Extremities are warm and pink with prompt capillary refill. ASSESSMENT/PLAN: 1. DM II (diabetes mellitus, type II) ([facility]) - ICD9: 250.00, ICD10: E11.9 (primary diagnosis) - Controlled. Prediabetic range - Counseled on healthy diet and regular exercise - HGB A1C 2. Weight loss - ICD9: 783.21, ICD10: R63.4 Was improving until recent circumstances: dropped again. - OMEPRAZOLE 20 MG CAPSULE,DELAYED RELEASE 3. Epigastric pain - ICD9: 789.06, ICD10: R10.13 - Continue treatment with Prilosec 20 mg QD - OMEPRAZOLE 20 MG CAPSULE,DELAYED RELEASE 4. GERD without esophagitis - ICD9: 530.81, ICD10: K21.9 As above 5. Screening for lipid disorders - ICD9: V77.91, ICD10: Z13.220 - LIPID PANEL BASIC 6. Adjustment disorder with anxiety - ICD9: 309.24, ICD10: F43.22 Small Rx to help relax: sparing use - DIAZEPAM 2 MG TABLET 7. Chronic kidney disease, stage 3a ([facility]) - ICD9: 585.3, ICD10: N18.31 - eGFR: Stable - Counseled on avoiding NSAIDs, adequate hydration F/u 4 weeks. 30 minute visit Angie Kaba PA-C documented in this encounterJoint [facility]08-[facility] History of Present illness Narrative* Mary Nettles MD - 03/03/2023 11:45 AM EDT Images from the original note were not included. . [facility] Note Patient name: Delia Alexander PCP: Rusty Roberts MD CC: Shortness of breath, chest pain HPI: Delia Alexander 83 year old female never smoker with PMH significant for HTN, DVT/PE, IPF Last seen in pulmonary clinic two years ago. Restriction on PFT (TLC 2.67 L 64 % with previous TLC 2.28 L 54%). Patient not interested in use of supplemental oxygen. Previous trial of OFEV resulted in severe diarrhea and vomiting. Declined Esbriet due to sun sesitivity as she is outdoors quite a bit. She states she cannot do PFTs due to severe shortness of breath when in enclosed spaces, high heat and humidity. She has been having issues with severe back pain and worsening dyspnea on exertion. She is now more agreeable to supplemental oxygen if she qualifies. She has been under quite a bit of stresslately related to her spouse. Apparently he is now in a skilled nursing. She has fatigue and poor endurance, dyspnea with short distances even in her home. She denies cough, sputum production. No lower extremity edema or significant weight loss. DATA: Six Minute Walk Test for This Encounter 05/14/2022 Oxygen Device Liters FIO2 SpO2% HR Activity Feet Speed (MPH) Flag R/A 98 98 Resting R/A 93 110 Six Minute Walk 825 1.6 R/A 98 96 Recovery 1 minute post R/A 98 96 Recovery 2 minute post R/A 98 94 Recovery 3 minute post Labs: Component Ref Range & Units 6 mo ago CRP <0.9 mg/dL <0.3 CBC without polycythemia Imaging / Diagnostic Studies: Chest CT 01/2023 [facility]: I personally reviewed images of her chest CT which shows progression of her fibrotic lung disease, no suspicious lesions PAST MEDICAL HISTORY Diagnosis Date Arthritis DVT (deep venous thrombosis) ([facility]) 08/27/2006 knee surgery Hypertension IPF (idiopathic pulmonary fibrosis) ([facility]) ALLERGIES No Known Allergies omeprazole (PRILOSEC) 20 mg capsule Take 1 capsule by mouth daily before breakfast. 1/2 hr before meal. aspirin 325 mg tablet Take 325 mg by mouth every 6 hours as needed for pain. ondansetron orally disintegrating (ZOFRAN ODT) 4 mg disintegrating tablet Take 1 tablet by mouth every 6 hours as needed for nausea/vomiting. mirtazapine (REMERON) 15 mg tablet Take 0.5 tablets by mouth daily at bedtime. lidocaine (LIDODERM) 5 % Apply 5 Patches as directed as needed. iron/vitamin b comp w-c(GERITOL COMPLETE TAB) one tablet daily Social History Tobacco Use Smoking status: Never Smokeless tobacco: Never Vaping Use Vaping Use: Never used Substance Use Topics Alcohol use: No Drug use: No now in skilled nursing FAMILY HISTORY Problem Relation Age of Onset Diabetes Mother Heart Mother CHF Heart Father CHF Heart Brother CHF PAST SURGICAL HISTORY Procedure Laterality Date BACK SURGERY HX EGD 12/31/2020 ESOPHAGOGASTRODUODENOSCOPY TRANSORAL DIAGNOSTIC 11/19/2015 EGD EYE SURGERY HX JOINT REPLACEMENT HX Left partial left knee replacement partial knee replacement left. PAST SURGICAL HISTORY OF back surgery PAST SURGICAL HISTORY OF carpal tunnel surgery bilateral PAST SURGICAL HISTORY OF right knee surgery, torn meniscus PMH, Social history, family history and surgical history reviewed and updated in EMR REVIEW OF SYSTEMS: CONSTITUTIONAL: No fevers, chills, nightsweats, unintended weight loss. Positive fatigue HEENT: Denies headaches, nasal congestion/sinus symptoms, problematic allergy problems. CARDIOVASCULAR: No angina, palpitations, orthopnea, PND,edema. PULM: See HPI GI: No dysphagia/odynophagia, problematic reflux NEURO: No new balance problems, peripheral weakness/paresthesias or numbness of concern. MUSC-SKEL: No new joint pain, swelling, or erythema. INTEGUMENTARY: No new skin changes or rashes PHYSICAL EXAMINATION: Weight 103 pounds, BP 130/82, pulse 73, RR 17, SpO2 93% on room air General Appearance: Elderly female, NAD. Skin: Skin color, texture, turgor normal, no suspicious rashes or lesions. Head: Normocephalic, no masses, lesions, tenderness or abnormalities. Eyes: Sclera, conjunctiva normal. Neck: No JVD, no masses, no adenopathy Chest wall: Severe kyphosis, no pain to palpation. Lungs: Not labored, diffuse crackles. Heart: Regular rate and rhythm, no murmurs. Extremities: No edema, no clubbing. Osteoarthritis. Assessment/Plan: 1. IPF -Progression of disease based on radiographic imaging -Not on antifibrotic therapy based on intolerance to Ofev and sun sensitivity with Esbriet -Needs oxygen assessment both overnight oximetry and oximetry with ambulation 2. GARCIA -Worsening dyspnea related to progression of her fibrotic lung disease -Unable to perform pulmonary function testing 3. Chest pain -Description of chest pain sounds musculoskeletal. No major abnormality noted on CT of the chest -Could be related to hypoxemia Mary Nettles MD [facility] documented in this encounterJoint [facility]23 Discharge summary Author Alcides Diego [facility] January 25, 2023 7:41pm Note Date/Time January 25, 2023 4:35p [facility] Medical Records Department [address] [place] [address] Emergency Department Summary 01/25/23 MR#: [id number] Acct: [id number] Name: DELIA ALEXANDER Rep #:[id number] : 1940 83 From: Alcides Diego MD PCP: Dr. Rusty Roberts MD Status:REG E R Location: ED HPI History of Present Illness Chief Complaint: General Illness Detail of Chief Complaint: Fatigue, productive cough, mid upper central back pain with coughing and mo Informant: patient and family Onset/Context/Timing Onset: Weeks (Bad for the past 1.5 weeks) Context: Gradual Onset Timing: Continuous and Waxes and wanes Quality: Dyspnea, productive cough, back pain and fatigue Location: Respiratory Current Severity: Mild Maximum Severity: Moderate Worsened by: Nothing specific Relieved by: Nothing Associated Symptoms Associated Symptoms: Nothing Narrative Narrative: PresentPatient is an 83-year-old woman with history of pulmonary fibrosis because of shortness of breath, dyspnea on exertion, fatigue and productive cough of colored sputum for the past 1.5 weeks. She is uncertain whether this is due to her increased activity, being outdoors with the air quality warnings, or the humidity. Patient does not have an air conditioned home. She has never smoked. She denies fever or chills. She does report rhinorrhea and postnasal drainage. She also reports productive cough. She denies history of PE or DVT. She denies leg pain, swelling discoloration. She denies GI symptoms. Prior similar symptoms: No Recent Illness/Hospitalization: No PFSH PFSH Medical History Hypertension Home Medications hydrocodone-acetaminophen 5-325mg 5mg-325mg 1 tab PO Q6H PRN pain 3 days #10 tabs 05/14/22 [Rx Last Taken Unknown] lidocaine 5 % topical patch (Lidoderm) 1 patch topical DAILY #15 ea 05/14/22 [Rx Last Taken Unknown] multivitamin 1 tab PO DAILY 05/14/22 [History Last Taken Unknown] Allergy/AdvReac Type Severity Reaction Status Date / Time No Known Allergies Allergy Verified 01/25/23 16:14 Social History (Updated 01/25/23 @ 17:[address] Alcides Diego MD) household members: none Smoking Status: Never smoker substance use type: does not use ROS ROS ED Constitutional Constitutional ED: Denies chills, fever(s), subjective, sweats or weight loss Eyes Eyes: Denies blurry vision, change in vision or diplopia ENT ENT ED: Reports rhinorrhea; Denies ear pain or sore throat Cardiovascular Cardiovascular: Denies chest pain, orthopnea, palpitations, paroxysmal nocturnaldyspnea or racing heartbeat Respiratory/Chest Respiratory/Chest: Reports cough, dyspnea, dyspnea on exertion and sputum; Denies orthopnea or paroxysmal nocturnal dyspnea Gastrointestinal Gastrointestinal: Denies abdominal pain, nausea or vomiting Musculoskeletal Musculoskeletal: Reports back pain and other Details: Back pain is near her kyphotic curve. ; Denies arthralgias, myalgias or neck pain Integumentary Denies rash Neurologic Neurologic: Denies headache(s), paresthesias or weakness Hematologic/Lymphatic Hematologic/Lymphatic: Reports systems reviewed and no addt'l complaints, exceptas documented EXAM Physical Exam Const Vital Signs: 01/25/23 16:12 01/25/23 16:49 Temperature 97.8 F Temperature Source Temporal Pulse Rate 86 Respiratory Rate 16 Respiratory Effort Normal Non-Labored Respiratory Pattern Normal Blood Pressure 123/91 H Blood Pressure Mean 101 Pulse Ox 93 Oxygen Delivery Method Room Air Positive well developed and cachectic Constitutional Narrative: Patient's had an 80 pound weight loss over the past year. This is unintentionalweight loss. General Appearance ED: well developed, cachectic and NAD; Negative for cyanotic,diaphoretic or pallor Nutritional Appearance: cachectic HEENT Reports dry mucous membranes HEENT Narrative: Posterior pharynx without erythema or exudate. Uvula midline. No deviation of tongue with protrusion. Nares patent. Ears normal. Mouth ED: Yes dry mucous membranes Mouth: dry mucous membranes Eyes PERRL and EOMs intact bilaterally General Eye ED: Negative for pale conjunctiva or scleral icterus Neck no lymphadenopathy, supple and no JVD Neck Narrative: Trachea is midline. There is no inspiratory stridor. Chest Wall inspection of chest normal and palpation of chest normal Resp normal respiratory effort and No clear to auscultation bilaterally Resp Narrative: End inspiratory rales bilaterally right slightly greater than left. Auscultation: diminished lung sounds bilateral (Diffuse) Cardio regular rate, regular rhythm, S1 normal heart sound, S2 normal heart sound and no murmurs GI normal to inspection, nondistended, normoactive bowel sounds, non-tender and non-distended; Negative for hepatosplenomegaly Palpation: soft Back/Spine no CVA tenderness Thoracic Spine / Upper Back: thoracic spinal tenderness T6 (Patient has significant kyphosis which has progressed over the past decade.) swelling, warmth, erythema, ecchymosis and other Extremity normal to inspection Extremity Narrative: There is no asymmetry, swelling, discoloration, leg vein distention, palpable cords or tenderness along the distribution of the deep venous system. Neuro oriented x3, CN's II-XII intact bilaterally and no sensory deficits noted Sensorium / Orientation: alert Psych mental status grossly normal Skin no rashes or lesions noted, no wounds and skin turgor normal General Skin Exam: Negative for jaundice or pallor MDM MDM MDM Narrative Medical decision making narrative: Patient presents with respiratory symptoms. This may represent bronchitis versus pneumonia versus exacerbation of patient's pulmonary fibrosis due to the humidity and air conditioning/quality. We will obtain chest x-ray and blood work. She also has point tenderness over T5-T6 area and may represent a compression fracture. History & Record Review Discussion w/independent historian: Patient and Family Additional record(s) reviewed:: Prior outpatient record and Prior labs Lab Data Attestation: I reviewed the patient's lab results. Lab results narrative: White count is normal. Comprehensive metabolic panel is normal. Suspect patient's unintentional weight loss is due to her chronic pulmonary fibrosis. Labs: Laboratory Results - last 24 hr 01/25/23 16:44 WBC 7.3 RBC 4.38 Hgb 13.3 Hct 41.6 MCV 95.0 MCH 30.4 MCHC 32.0 RDW Std Deviation 42.5 RDW Coeff of Margarita 12.1 Plt Count 280 MPV 10.0 Immature Gran % (Auto) 0.800 Neut % (Auto) 73.4 H Lymph % (Auto) 12.5 L [place] % (Auto) 7.4 Eos % (Auto) 5.5 H Baso % (Auto) 0.4 Absolute Neuts (auto) 5.4 Absolute Lymphs (auto) 0.91 Nucleated RBC % 0 Sodium 139 Potassium 3.8 Chloride 107 Carbon Dioxide 27.0 Anion Gap 5 BUN 12 Creatinine 0.85 Est GFR (MDRD) Af Amer 83 Est GFR (MDRD) Non-Af 69 BUN/Creatinine Ratio 14.2 Glucose 106 Calcium 9.0 Total Bilirubin 0.50 AST 18 ALT 16 Alkaline Phosphatase 101 Total Protein 7.3 Albumin 3.2 Globulin 4.1 Albumin/Globulin Ratio 0.8 L Radiography Chest X-Ray - ED: 2 View and Read by ED Physician (There is significant chronic changes consistent with pulmonary fibrosis. This has progressed since prior film of 2009. There may be a compression fracture that has progressed since 2010 T5-T6 area. Radiologist noted an 8.8 mm nodule within the right midlung field. Since CAT scan is recommended w) Diagnostic Testing: Clinical Impression(s) from Imaging Studies Chest X-Ray 01/25/23 16:54 IMPRESSION: Pulmonary fibrosis, cannot exclude associated superimposed edema and/or infectious processes. 8.8 mm nodule within the right midlung, recommend chest CT for further characterization. Electronically Signed: Lily Patten MD at 17:13 EDT , Chest CT 01/25/23 17:23 IMPRESSION: 1. No definite acute abnormality. 2. Chronic pulmonary disease with severe fibrotic changes. Electronically Signed: Rocael Mcgovern MD at 18:27 EDT , No nodule noted on CT. Patient has severe fibrotic changes consistent with pulmonary fibrosis. Patient was informed there was no nodule noted. Treatment and Re-Evaluation :: Symptomatic treatment and staying indoors as much as possible. Discharge Plan Triage Chief Complaint: General Illness ED Provider: Alcides Diego Dx/Rx/DC Orders Clinical Impression: Upper respiratory infection with cough and congestion, Acute dyspnea, Pulmonaryfibrosis Instructions: ED URI, Viral, No Abx (Adult) Prescriptions: No Action multivitamin Tablet 1 tab PO DAILY hydrocodone-acetaminophen 5-325 mg tablet 1 tab PO Q6H PRN (Reason: pain) 3 Days Qty: 10 0RF lidocaine [Lidoderm] 5 % adhesive patch,medicated 1 patch topical DAILY Qty: 15 0RF Rx Instructions: leave on most painful area for up to 12 hrs Primary Care Provider: Rusty Roberts Referrals: Rusty Roberts MD [Primary Care Provider] - As Needed Disposition Disposition: Home, Self Care What to do if you have Problems For any increased pain, shortness of breath, bleeding, nausea or vomiting, chestpain, or any unexpected problems, contact your Primary Care Provider. Call [facility] ([phone]) or report to the closest Emergency Room. Call 911 if necessary. 01/25/231940 <Electronically signed by Alcides Diego MD> Cosigner Signature (if applicable): CC: Dr. Rusty Roberts MD ~ Signed [facility] Work Phone: [phone] Miscellaneous Notes* Telephone Encounter - Anna Araujo - 09/08/2022 3:49 PM EST Patient informed and verbalized understanding. Anna Araujo * Telephone Encounter - Anna Araujo - 09/08/2022 3:47 PM EST ----- Message from Angie Kaba PA-C sent at 09/08/2022 4:37 AM EST ----- Please advise UC was mixed ryan from kin and count too low to be UTI. ThanksDalton PA-C documented in this encounterJoint [facility]23 Miscellaneous Notes* Telephone Encounter - Fatuma Linder Ma - 09/05/2022 5:16 PM EST Patient notified * Telephone Encounter - Angie Kaba PA-C - 09/05/2022 5:11 PM EST Please advise Urine has some WBCs present and small amount of blood. Recommend urine C+S: please come in tomorrow if possible to do in lab. Telephone on 09/05/22 URINE CULTURE Thanks, Dalton Kaba PA-C documented in this encounterJoint [facility] Miscellaneous Notes* Telephone Encounter - Radha Walsh RN - 09/05/2022 4:31 PM EST Contacted patient. She states she was aware of the prednisone that was ordered (below) for her and has been taking it. Radha Walsh RN * Telephone Encounter - Kendra Justin LPN - 09/04/2022 3:53 PM EST Attempted to reach no answer and no voicemail. * Telephone Encounter - Radha Walsh RN - 09/03/2022 9:46 AM EST Attempted to call again, no answer. Mailbox is full. Please try patient again. Radha Walsh RN * Telephone Encounter - Fatuma Linder Ma - 09/02/2022 5:41 PM EST Attempted to call, mailbox is full. Fatuma Linder Ma * Telephone Encounter - Angie Kaba PA-C - 09/02/2022 5:12 PM EST Agree with advise. Trial prednisone 20mg daily x 5 day The following approved medication requests have been transmitted electronically. Requested Prescriptions Signed Prescriptions Disp Refills predniSONE (DELTASONE) 20 mg tablet 5 tablet 0 Sig: Take 1 tablet by mouth once daily. Authorizing Provider: Angie KABA PA-C * Telephone Encounter - Radha Walsh RN - 09/02/2022 1:31 PM EST Contacted patient for further triage of stated symptoms (weakness and difficulty breathing) as documented in 's [facility] account. This nurse called 's phone number and pt answered the phone. Dyspnea heard on phone as pt spoke. Pt alert. Pt states she was cleaning the house prior to answering phone and she is short of breath currently. As patient stopped activity and spoke on phone, breathing immediately improved. Pt voiced she was breathing better after she stopped activity. States she feels weak at times after exertion. Reports sometimes her muscles ache. Reports she has been having some dizziness at times but this is not new or worse. Pt asked if she should see a specialist. Reviewed prior orders with patient, including referral for Pulmonology from 07/10/22 for Interstitial Lung Disease and Dyspnea on Exertion. Pt does not recall that referral order and states she will schedule with Pulmonary as soon as possible. Pt was seen by Dalton Kaba yesterday and pt states she did not discuss her dyspnea with Dalton. Denies chest pain or other symptoms. Advised patient to seek ER if having worsening or moderate or severe shortness of breath after resting for a short time, if having weakness, chest pain, chest pain radiating into arms, neck or jaw, or any severe symptoms. Pt verbalized understanding. Will send message to Dalton Kaba for review of this message to ensure no additional advise is warranted. Radha Walsh RN documented in this encounterJoint [facility]02-06-[facility]23 Instructions* Patient Instructions* Angie Kaba PA-C - 09/01/2022 11:40 AM EST Start prilosec (omeprazole) daily with empty stomach x 30 minute. Take mirtazepine 15mg 1/2 tab every other for a week and re-evaluate. documented in this encounterJoint [facility] History of Present illness Narrative* Angie Kaba PA-C - 09/01/2022 11:15 AM EST 82 year old female with c/o here for follow up on BP and addition of mirtazapine. Patient has not yet picked up Prilosec. States she took half a tablet of mirtazapine and could not stay awake for 24 hours, fell off balance and dizzy. Stopped the medication. 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 HISTORIES FAMILY HISTORY Problem Relation Age of Onset Diabetes Mother Heart Mother CHF Heart Father CHF Heart Brother CHF PAST MEDICAL HISTORY Diagnosis Date Arthritis DVT (deep venous thrombosis) ([facility]) 08/27/2006 knee surgery Hypertension IPF (idiopathic pulmonary fibrosis) ([facility]) PAST SURGICAL HISTORY Procedure Laterality Date BACK SURGERY HX EGD 12/31/2020 ESOPHAGOGASTRODUODENOSCOPY TRANSORAL DIAGNOSTIC 11/19/2015 EGD EYE SURGERY HX JOINT REPLACEMENT HX Left partial left knee replacement partial knee replacement left. PAST SURGICAL HISTORY OF back surgery PAST SURGICAL HISTORY OF carpal tunnel surgery bilateral PAST SURGICAL HISTORY OF right knee surgery, torn meniscus Social History Tobacco Use Smoking status: Never Smokeless tobacco: Never Vaping Use Vaping Use: Never used Substance Use Topics Alcohol use: No Drug use: No ACTIVE PROBLEM LIST Primary Osteoarthritis Involving Multiple Joints Essential Hypertension Backache Dm II (Diabetes Mellitus, Type Ii) ([facility]) Dyspnea On Exertion Near Syncope Interstitial Lung Disease ([facility]) Current Outpatient Medications Medication Sig Dispense Refill aspirin 325 mg tablet Take 325 mg by mouth every 6 hours as needed for pain. ondansetron orally disintegrating (ZOFRAN ODT) 4 mg disintegrating tablet Take 1 tablet by mouth every 6 hours as needed for nausea/vomiting. 15 tablet 1 mirtazapine (REMERON) 15 mg tablet Take 0.5 tablets by mouth daily at bedtime. 30 tablet 2 omeprazole (PRILOSEC) 20 mg capsule Take 1 capsule by mouth daily before breakfast. 1/2 hr before meal. 30 capsule 5 lidocaine (LIDODERM) 5 % Apply 5 Patches as directed as needed. iron/vitamin b comp w-c(GERITOL COMPLETE TAB) one tablet daily 0 0 No current facility-administered medications for this visit. PNEUMOCOCCAL: 65+(1 - PCV) Never done SHINGRIX VACCINE(1 of 2) Never done URINE ALBUMIN:CREATININE RATIO due on 09/03/2021 LDL CHOLESTEROL due on 09/03/2021 DILATED RETINAL EXAM due on 01/17/2022 HBA1C due on 01/27/2022 ADVANCE DIRECTIVE DISCUSSION due on 07/27/2022 DEPRESSION ASSESSMENT Never done FECAL OCCULT BLOOD due on 08/02/2022 EXAM: BP 128/80 Pulse 74 Resp 16 Wt 49.9 kg (110 lb) SpO2 91% BMI 22.99 kg/m Pleasant adult woman in no acute distress. Alert and oriented all spheres. Normal affect and cognition. Speech normal. No deficits to learning or comprehension. Skin warm, dry, pink to lips and nailbeds. Normal turgor. Respirations regular and unlabored. Chest is normal shape. Lungs are clear to all rubio with good air exchange through out. HRRR without murmur or gallop. No lifts, heaves, or rubs. Extrem: no clubbing or cyanosis. Edema: none. Extremities are warm and pink with prompt capillary refill. ASSESSMENT/PLAN: 1. LISA (generalized anxiety disorder) - ICD9: 300.02, ICD10: F41.1 (primary diagnosis) Discussion with patient on anxiety, underlying factors for her need to achieve and accomplish. Recommend trial of 7.5 mg of mirtazapine every other day to see if she can adjust versus trial of adifferent medication. Patient is willing to try every other day but will let me know if it is too complicated. 2. Chronic insomnia - ICD9: 780.52, ICD10: F51.04 As above 3. GERD without esophagitis - ICD9: 530.81, ICD10: K21.9 - Begin treatment with Prilosec 20 mg QD 4. Weight loss - ICD9: 783.21, ICD10: R63.4 Weight currently stable. Angie Kaba PA-C documented in this encounterJoint [facility]02-02-2023 Instructions* Patient Instructions* Angie Kaba PA-C - 08/28/2022 4:06 PM EST Mirtazapine: Patient drug information Access [employer] for additional drug information, tools, and databases. Copyright 0592-9674 [employer] (formerly [employer]). All rights reserved. (For additional information see Mirtazapine: Drug information) You must carefully read the Consumer Information Use and Disclaimer below in order to understand and correctly use this information. Brand Names: Remeron; Remeron SolTab Brand Names: Connie APO-Mirtazapine; Auro-Mirtazapine; Auro-Mirtazapine OD; DOM-Mirtazapine; JAMP-Mirtazapine; MYLAN-Mirtazapine; PMS-Mirtazapine; PRO-Mirtazapine; Remeron; Remeron RD; TERA-Mirtazapine [DSC]; SANDOZ Mirtazapine; TEVA-Mirtazapine; TEVA-Mirtazapine OD [DSC] Warning Drugs like this one have raised the chance of suicidal thoughts or actions in children and young adults. The risk may be greater in people who have had these thoughts or actions in the past. All people who take this drug need to be watched closely. Call the doctor right away if signs like low mood (depression), nervousness, restlessness, grouchiness, panic attacks, or changes in mood or actions are new or worse. Call the doctor right away if any thoughts or actions of suicide occur. This drug is not approved for use in children. Talk with the doctor. What is this drug used for? It is used to treat low mood (depression). It may be given to you for other reasons. Talk with the doctor. What do I need to tell my doctor BEFORE I take this drug? If you are allergic to this drug; any part of this drug; or any other drugs, foods, or substances. Tell your doctor about the allergy and what signs you had. If you are taking any of these drugs: Certain drugs used for anxiety, sleep, or other health problems like alprazolam or diazepam. If you have taken certain drugs for depression or Parkinson's disease in the last 14 days. This includes isocarboxazid, phenelzine, tranylcypromine, selegiline, or rasagiline. Very high blood pressure may happen. If you are taking any of these drugs: Linezolid or methylene blue. This is not a list of all drugs or health problems that interact with this drug. Tell your doctor and pharmacist about all of your drugs (prescription or OTC, natural products, vitamins) and health problems. You must check to make sure that it is safe for you to take this drug with all of your drugs and health problems. Do not start, stop, or change the dose of any drug withoutchecking with your doctor. What are some things I need to know or do while I take this drug? Tell all of your health care providers that you take this drug. This includes your doctors, nurses,pharmacists, and dentists. It may take several weeks to see the full effects. Do not stop taking this drug all of a sudden without calling your doctor. You may have a greater risk of side effects. If you need to stop this drug, you will want to slowly stop it as ordered by your doctor. Avoid driving and doing other tasks or actions that call for you to be alert until you see how thisdrug affects you. Some people may have a higher chance of eye problems with this drug. Your doctor may want you to have an eye exam to see if you have a higher chance of these eye problems. Call your doctor right awayif you have eye pain, change in eyesight, or swelling or redness in or around the eye. Low white blood cell counts have rarely happened with this drug. This may lead to a higher chance of getting an infection. Tell your doctor if you have ever had a low white blood cell count. Call your doctor right away if you have signs of infection like fever, chills, or sore throat. An unsafe heartbeat that is not normal (long QT on ECG) has happened with this drug. Sudden deaths have rarely happened in people taking this drug. Talk with the doctor. This drug may cause high cholesterol and triglyceride levels. Talk with the doctor. Have blood work checked as you have been told by the doctor. Talk with the doctor. Avoid drinking alcohol while taking this drug. Talk with your doctor before you use marijuana, other forms of cannabis, or prescription or OTC drugs that may slow your actions. If you have phenylketonuria (PKU), talk with your doctor. Some products have phenylalanine. If you are 65 or older, use this drug with care. You could have more side effects. Tell your doctor if you are , plan on getting , or are breast- feeding. You will need to talk about the benefits and risks to you and the baby. What are some side effects that I need to call my doctor about right away? WARNING/CAUTION: Even though it may be rare, some people may have very bad and sometimes deadly side effects when taking a drug. Tell your doctor or get medical help right away if you have any of thefollowing signs or symptoms that may be related to a very bad side effect: Signs of an allergic reaction, like rash; hives; itching; red, swollen, blistered, or peeling skin with or without fever; wheezing; tightness in the chest or throat; trouble breathing, swallowing, ortalking; unusual hoarseness; or swelling of the mouth, face, lips, tongue, or throat. Signs of low sodium levels like headache, trouble focusing, memory problems, feeling confused, weakness, seizures, or change in balance. Signs of a very bad skin reaction (Contreras-Charan syndrome/toxic epidermal necrolysis) like red, swollen, blistered, or peeling skin (with or without fever); red or irritated eyes; or sores in the mouth, throat, nose, or eyes. Redness or irritation of the palms of hands or soles of feet. Flu-like signs. Mouth irritation or mouth sores. Restlessness. Fast or abnormal heartbeat. Very bad dizziness or passing out. Joint pain. A severe and sometimes deadly problem called serotonin syndrome may happen. The risk may be greaterif you also take certain other drugs. Call your doctor right away if you have agitation; change in balance; confusion; hallucinations; fever; fast or abnormal heartbeat; flushing; muscle twitching orstiffness; seizures; shivering or shaking; sweating a lot; severe diarrhea, upset stomach, or throwi ng up; or very bad headache. What are some other side effects of this drug? All drugs may cause side effects. However, many people have no side effects or only have minor sideeffects. Call your doctor or get medical help if any of these side effects or any other side effects bother you or do not go away: Feeling dizzy, sleepy, tired, or weak. Constipation. Dry mouth. More hungry. Weight gain. Strange or odd dreams. These are not all of the side effects that may occur. If you have questions about side effects, call your doctor. Call your doctor for medical advice about side effects. You may report side effects to your national health agency. How is this drug best taken? Use this drug as ordered by your doctor. Read all information given to you. Follow all instructionsclosely. All products: Take at bedtime if it causes sleepiness. Take with or without food. Keep taking this drug as you have been told by your doctor or other health care provider, even if you feel well. Oral-disintegrating tablet: Do not push the tablet out of the foil when opening. Use dry hands to take it from the foil. Place on your tongue and let it dissolve. Water is not needed. Do not swallow it whole. Do not chew, break, or crush it. Do not take this drug out of the blister pack until you are ready to take it. Take this drug right away after opening the blister pack. Do not store the removed drug for future use. What do I do if I miss a dose? Take a missed dose as soon as you think about it. If it is close to the time for your next dose, skip the missed dose and go back to your normal time. Do not take 2 doses at the same time or extra doses. How do I store and/or throw out this drug? Store at room temperature protected from light. Store in a dry place. Do not store in a bathroom. Keep all drugs in a safe place. Keep all drugs out of the reach of children and pets. Throw away unused or drugs. Do not flush down a toilet or pour down a drain unless you are told to do so. Check with your pharmacist if you have questions about the best way to throw out drugs. There may be drug take-back programs in your area. General drug facts If your symptoms or health problems do not get better or if they become worse, call your doctor. Do not share your drugs with others and do not take anyone else's drugs. Some drugs may have another patient information leaflet. If you have any questions about this drug,please talk with your doctor, nurse, pharmacist, or other health care provider. If you think there has been an overdose, call your poison control center or get medical care right away. Be ready to tell or show what was taken, how much, and when it happened. Last Reviewed [id number] Consumer Information Use and Disclaimer This information should not be used to decide whether or not to take this medicine or any other medicine. Only the healthcare provider has the knowledge and training to decide which medicines are right for a specific patient. This information does not endorse any medicine as safe, effective, or approved for treating any patient or health condition. This is only a brief summary of general information about this medicine. It does NOT include all information about the possible uses, directions, warnings, precautions, interactions, adverse effects, or risks that may apply to this medicine. This information is not specific medical advice and does not replace information you receive from the healthcare provider. You must talk with the healthcare provider for complete information about the risksand benefits of using this medicine. The use of this information is governed by the [employer] End User License Agreement, available at https://www.[employer]/en/solutions/[employer].com/about/jennifer. 2020 [employer]. and its affiliates and/or licensors. All rights reserved. Use of [employer] is subject to the Subscription and License Agreement. Topic 92595 Version 187.0 documented in this encounterJoint [facility]02-02-2023 History of Present illness Narrative* Anige Kaba PA-C - 08/28/2022 3:08 PM EST 82 year old female with c/o GI problems over several months and increased fatigue. Claims 80lb weight loss. Record shows slow decline from highest weight 149lbs 12/13/2014 down to 137lbs 11/19/2015 a period during which she had gastritis, then table in 130 range until 09/24/2018 132lb with slow loss to present 110lbs. Fatigued all the time. Insomnia, sleeps 1-2 hours of sleep per night. Started Relaxum OTC supplement about 2-3 days ago, gives minimal relief. Feels like my brain will not shutdown. Nausea/Vomiting started about 6-8 months ago. Vomiting is initiated by coughing from lung disease and mucus build up. Coughing has worsened in the past few months. Aggravating by eating large meals, dairy products, orange juice, any foods that will cause phlegm production. Attempts to eat one full meal per day. Able to drink liquids, but limited to a small amount at a time. Admits to reflux, abdominal pain when coughing, occasional bloating, increase in shortness of breath/struggles taking a deep breath, Taking Aloe orally for nausea Denies difficulty swallowing, bloating, diarrhea, constipation, abdominal pain, chest pain, palpitations. As mentioned eats chocolate chip cookies, chips, lots of sweets and junk food. States she does eat fruits and vegetables and some meat or protein once a day. Patient primary worry is cancer. She also identifies that she was told by Dr. Nettles pulmonology she probably has 1 to 2 years to live due to the severity of her fibrosis: This ihas weighted on her on her considerably may be behind her need to accomplish something. She identifies this is an incentive for her to continue to do the things that she is doing, pushingherself, striving to achieve which subsequently causes her increased anxiety, poor sleep and stresssymptoms. 05/06/2022 chest x-ray demonstrated worsening interstitial lung disease 01/01/2021 EGD bx: antral mucosa wihtout diagnostic alteration, neg H. Pylori. 10/19/2020 CT abdomen pelvis with IV contrast: Small low-density lesion in the liver unchanged, probably benign,. Prominence of common duct and mild intrahepatic bile duct dilation unchanged. 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 6 mm left lower lobe nodule likely represents confluent fibrosis, recommended follow-up exam. No exam has been documented to date. 08/12/2018 nuclear medicine pharmacologic stress test: CONCLUSIONS: 1. SPECT Perfusion Study: Normal. 2. There is no scintigraphic evidence for inducible ischemia. 3. No evidence of scarred myocardium. 4. Functional capacity N/A (pharmacological). 5. Left ventricle is small. The left ventricle systolic function is normal. 6. Right ventricle is normal in size. The right ventricle systolic function is normal. 7. This is a low risk scan. Gated Stress FBP LVEF % 86 Component Latest Ref Rng & Units 09/12/2020 01/30/2021 07/30/2021 WBC 3.70 - 11.00 k/uL 14.17 (H) RBC 3.90 - 5.20 m/uL 4.70 Hemoglobin 11.5 - 15.5 g/dL 14.7 Hematocrit 36.0 - 46.0 % 45.4 MCV 80.0 - 100.0 fL 96.6 MCH 26.0 - 34.0 pG 31.3 MCHC 30.5 - 36.0 g/dL 32.4 RDW-CV 11.5 - 15.0 % 12.5 Platelet Count 150 - 400 k/uL 254 MPV 9.0 - 12.7 fL 11.0 Neut% % 91.7 Abs Neut (ANC) 1.45 - 7.50 k/uL 12.99 (H) Lymph% % 5.2 Abs Lymph 1.00 - 4.00 k/uL 0.73 (L) [place]% % 3.0 Abs [place] <0.87 k/uL 0.43 Eosin% % 0.0 Abs Eosin <0.46 k/uL <0.03 Baso% % 0.1 Abs Baso <0.11 k/uL <0.03 Nucleated Reds 0 /100 WBC 0.0 Absolute nRBC <0.01 k/uL <0.01 Diff Type Auto Diff Protein, Total 6.3 - 8.0 g/dL 7.9 Albumin 3.9 - 4.9 g/dL 4.8 Calcium 8.5 - 10.2 mg/dL 10.5 (H) 9.7 Bilirubin, Total 0.2 - 1.3 mg/dL 0.6 Alkaline Phosphatase 34 - 123 U/L 88 AST 13 - 35 U/L 18 Glucose 74 - 99 mg/dL 168 (H) 92 BUN 7 - 21 mg/dL 34 (H) 20 Creatinine 0.58 - 0.96 mg/dL 1.02 (H) 1.13 (H) Sodium 136 - 144 mmol/L 140 140 Potassium 3.7 - 5.1 mmol/L 4.6 4.3 Chloride 97 - 105 mmol/L 100 101 CO2 22 - 30 mmol/L 25 29 Anion Gap 9 - 18 mmol/L 15 10 ALT 7 - 38 U/L 11 eGFR- >60 56 eGFR-All Other Races . 52 46 Hemoglobin A1C 4.3 - 5.6 % 6.2 (H) 6.1 (H) Estimated Average Glucose mg/dL 131 128 Ionized Calcium 1.08 - 1.30 mmol/L 1.29 Normalized CAlcium 1.08 - 1.30 mmol/L 1.24 Vitamin D 25 Hydroxy 31.0 - 80.0 ng/mL 28.3 (L) 28.1 (L) Lipase 16 - 61 U/L 51 PTH, Intact 15 - 65 pg/mL 55 Component Latest Ref Rng & Units 10/19/2020 JAUN Negative Positive (A) JAUN Titer Negative 1:80 (A) JAUN Pattern Homogeneous Anti-SSA <1.0 AI <0.2 Anti-SSB <1.0 AI <0.2 Scl-70 Abs, EIA <1.0 AI <0.2 Anti-Centromere Ab Negative Negative IgE <114 kU/L 35.8 HISTORIES FAMILY HISTORY Problem Relation Age of Onset Diabetes Mother Heart Mother CHF Heart Father CHF Heart Brother CHF PAST MEDICAL HISTORY Diagnosis Date Arthritis DVT (deep venous thrombosis) ([facility]) 08/27/2006 knee surgery Hypertension IPF (idiopathic pulmonary fibrosis) ([facility]) PAST SURGICAL HISTORY Procedure Laterality Date BACK SURGERY HX EGD 12/31/2020 ESOPHAGOGASTRODUODENOSCOPY TRANSORAL DIAGNOSTIC 11/19/2015 EGD EYE SURGERY HX JOINT REPLACEMENT HX Left partial left knee replacement partial knee replacement left. PAST SURGICAL HISTORY OF back surgery PAST SURGICAL HISTORY OF carpal tunnel surgery bilateral PAST SURGICAL HISTORY OF right knee surgery, torn meniscus Social History Tobacco Use Smoking status: Never Smokeless tobacco: Never Vaping Use Vaping Use: Never used Substance Use Topics Alcohol use: No Drug use: No ACTIVE PROBLEM LIST Primary Osteoarthritis Involving Multiple Joints Essential Hypertension Backache Dm II (Diabetes Mellitus, Type Ii) ([facility]) Dyspnea On Exertion Near Syncope Interstitial Lung Disease ([facility]) Current Outpatient Medications Medication Sig Dispense Refill aspirin 325 mg tablet Take 325 mg by mouth every 6 hours as needed for pain. lidocaine (LIDODERM) 5 % Apply 5 Patches as directed as needed. iron/vitamin b comp w-c(GERITOL COMPLETE TAB) one tablet daily 0 0 No current facility-administered medications for this visit. PNEUMOCOCCAL: 65+(1 - PCV) Never done SHINGRIX VACCINE(1 of 2) Never done URINE ALBUMIN:CREATININE RATIO due on 09/03/2021 LDL CHOLESTEROL due on 09/03/2021 DILATED RETINAL EXAM due on 01/17/2022 HBA1C due on 01/27/2022 ADVANCE DIRECTIVE DISCUSSION due on 07/27/2022 DEPRESSION ASSESSMENT Never done FECAL OCCULT BLOOD due on 08/02/2022 EXAM: BP 128/78 Pulse 78 Resp 16 Wt 49.9 kg (110 lb) SpO2 93% BMI 22.99 kg/m Pleasant thin older adult woman in no acute distress. Alert and oriented all spheres. Normal affectand cognition. Speech normal. No deficits to learning or comprehension. Usual affect of high-energyand repetition of her many achievements Skin warm, dry, pink to lips and nailbeds. Normal turgor. Respirations regular and unlabored. HEENT: NCAT. EOMI. No scleral icterus or conjunctival injection. Nose and oropharynx are free of injection or lesion. Gums appear healthy. No cervical lymphadenopathy. Neck is supple, no cervical lymphadenopathy. Thyroid exam nontender, without mass. Carotids are 2 out of 4 plus without bruits. Chest is just figured by scoliosis, no dullness to percussion, dry crackles and rubs throughout chest. No E to A changes. Abdomen scaphoid, soft, active bowel sounds in all quadrants, no bruits, no masses, no inguinal or axillary lymphadenopathy. Extrem: no clubbing or cyanosis. Edema: none. Extremities are warm and pink with prompt capillary refill. ASSESSMENT/PLAN: 1. Weight loss - ICD9: 783.21, ICD10: R63.4 (primary diagnosis) Hard to say failure to thrive with this lively woman, but definite weight loss. I suspect much r/t pulmonary fibrosis with cough/ food intake related vomiting. Will proceed with screening labs Consider gastric emptying study - CBC + DIFF - COMP METABOLIC PANEL - LIPASE BLD - SED RATE WESTERGREN - C-REACTIVE PROTEIN (CRP) - JAUN BY IFA WITH REFLEX - URINALYSIS, WITH MICROSCOPIC 2. LISA (generalized anxiety disorder) - ICD9: 300.02, ICD10: F41.1 Stop all supplements Educated on new medication administration, warnings and cautions, common side effects, anticipated duration or therapy, and instructions on cessation management to avoid risks if stops medication. Patient choice was discussed in shared decision making. - MIRTAZAPINE 15 MG TABLET 3. DM II (diabetes mellitus, type II) (HCC) - ICD9: 250.00, ICD10: E11.9 The patient is new to mo. - Continue current medications - ALBUMIN/CREAT RATIO RND UR - HGB A1C - Due for retinal exam: agrees to schedule 4. Screening for colon cancer - ICD9: V76.51, ICD10: Z12.11 - FECAL OCCULT BLOOD TEST 5. Interstitial lung disease (HCC) - ICD9: 515, ICD10: J84.9 Progressive but not currently inhibitive 6. Essential hypertension - ICD9: 401.9, ICD10: I10 - good control - Continue current medication(s) - Recommended regular aerobic exercise. - Recommend home blood pressure monitoring, to bring results in on next visit - Goal of BP <130/80 7. Non-intractable cyclical vomiting with nausea - ICD9: 536.2, ICD10: R11.15 - ONDANSETRON 4 MG DISINTEGRATING TABLET - CBC + DIFF - COMP METABOLIC PANEL - LIPASE BLD - SED RATE WESTERGREN - C-REACTIVE PROTEIN (CRP) - JAUN BY IFA WITH REFLEX - URINALYSIS, WITH MICROSCOPIC 8. Fatigue, unspecified type - ICD9: 780.79, ICD10: R53.83 - CBC + DIFF - COMP METABOLIC PANEL - LIPASE BLD - SED RATE WESTERGREN - C-REACTIVE PROTEIN (CRP) - JAUN BY IFA WITH REFLEX - URINALYSIS, WITH MICROSCOPIC - FECAL OCCULT BLOOD TEST 9. Epigastric pain - ICD9: 789.06, ICD10: R10.13 - Begin treatment with Prilosec 20 mg QD - ONDANSETRON 4 MG DISINTEGRATING TABLET - FECAL OCCULT BLOOD TEST - OMEPRAZOLE 20 MG CAPSULE,DELAYED RELEASE - CBC + DIFF - COMP METABOLIC PANEL - LIPASE BLD - SED RATE WESTERGREN - C-REACTIVE PROTEIN (CRP) - JAUN BY IFA WITH REFLEX - URINALYSIS, WITH MICROSCOPIC 35 minute visit including education on new meds, 15 minute chart review and note completion Angie Kaba PA-C documented in this encounterJoint [facility] Miscellaneous Notes* Telephone Encounter - Radha Walsh RN - 08/28/2022 8:45 AM EST Patient's spouse Ed calling with pt speaking in background. Ed states patient would like to make appt with Dalton Kaba due to stomach issues she's had over the last 6-8 months. Reports when she lies down at night, the food wants to come back up. Also happens in the mornings at times, after she eats she vomits a little. Vomits 2-4 times per week. Some throat irritation. Has tried Prilosec but states it makes her sick as well. Appt made with Dalton Kaba for today at 3pm. Radha Walsh RN documented in this encounterJoint [facility]12-15-2022 Instructions* Patient Instructions* Angie Kaba PA-C - 07/10/2022 2:59 PM EST BONE MINERAL DENSITY PATIENT INSTRUCTIONS Bone mineral density testing measures the amount of calcium in certain parts of your bones. This information determines how strong your bones are. The test is used to detect osteoporosis, a disease in which the bone's mineral content and density are low, increasing a person's risk of fractures. Thelumbar spine (lower back) and the hip are the skeletal sites usually examined. For the test, remember that: 1. You cannot take this test if you are . 2. Eat a normal diet on the day of the test. 3. Take your medications as you normally would. 4. DO NOT take calcium supplements (such as Tums) for 24 hours before the test. 5. On the day of the test, leave valuables (jewelry or credit cards) at home. 6. The test should be performed prior to oral, rectal or IV contrast studies, or at least 7 days after any of these studies. For the test, you may be asked to wear a hospital gown. You will lie on your back, on a padded table, in a comfortable position. Generally, you can resume your usual activities immediately. documented in this encounterJoint [facility]12-15-2022 History of Present illness Narrative* Angie Kaba PA-C - 07/10/2022 1:20 PM EST 82 year old female with c/o Delia Alexander is a 82 year old female here for a Medicare Subsequent Annual Wellness Visit Health Risk Assessment In general, health is: Excellent Concerns with balance:Not at all is often lightheaded, doesn't sleep well. Concerns with teeth or dentures:Not at all Concerns with sexual function:Not at all [place] anxious, stressed, angry, irritable, lonely, isolated, or had thoughts of hurting themself: Not at all Has little interest or pleasure in doing things: Not at all Bothered by feeling down, depressed, or hopeless: Not at all Needs help with grocery shopping, cooking, housework, bathing, grooming, dressing, eating, sitting or standing, walking, using the toilet, handling finances, taking medications, using the telephone, or driving: No Following safety precautions in the home environment and vehicle: removed throw rugs from floors, installed grab bars in the bathroom, handrails in stairwells, having adequate lighting, wearing seatbelt at all times?: Yes Smokes cigarettes, vapes, or chew tobacco: No Eats healthy foods including fruits, vegetables, whole grains, and fiber-rich foods: Not at all Number of days per week engages in exercise: eat s a lot of junk food, always has, one meal a day. Too busy. Average alcohol consumption: Never Current Providers Specialists: I have reviewed specialist-related care of the patient in the medical record. Medical/Family history review Reviewed and updated problem list, medical/surgical/family/social history, medications, and allergies. Opioid use review Patient is not currently using opioids. Depression screening Depression Screening PHQ-2 Score 05/05/2022 0 Depression screening tool completed and reviewed. Based on score and interview, patient is not at risk for depression. Screening tool discussed with patient, and I recommended no further interventionat this time. Cognitive screening Mini Cog Score: Score: 5 Cognitive screening reviewed and no further action needed (score 3-5) Functional Observation Was the patient's timed Up & Go test unsteady or ? 12 seconds? No Advance Care Planning End of Life planning discussed, including patient's advanced directive wishes: No Measurements BP 94/58 Pulse 104 Resp 20 Wt 105 lb (47.6kg) SpO2 93% Visual acuity (required for Welcome to Medicare): follows with optometry/ophthalmology Hearing Evaluation: has had hearing check 6 months ago, has sores in ears and hole in eardrum Assessment/Plan - Counseled on healthy diet and regular exercise - Fall avoidance REVIEW OF SYSTEMS PAIN ASSESSMENT: Negative for pain, history of chronic pain, or current treatment for a chronic pain condition. GENERAL: Fatigue, increasing SOB, light headed but no falls, feeling dizzy ever once in a while- usually with movement. HEENT: Negative for frequent or significant headaches, No changes in hearing or vision, no nose bleeds or other nasal problems, stuffy nose with drip, headaches every now and then resolve with a couple ibuprofen or Tylenol. 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 HEMATOLOGY/LYMPHOLOGY: Negative for prolonged bleeding, bruising easily or swollen nodes ENDOCRINE: Negative for cold or heat intolerance, polyuria, polydipsia and goiter NEURO: No history of headaches, syncope, paralysis, seizures or tremors and occasional tingling in fingers. Interstitial lung disease (hcc) (primary encounter diagnosis) Dyspnea on exertion 05/06/2022 lung disease progressed from 07/29/2018 Near syncope 02/11/2019 stress echo negative for ischemia at 86% of MPHR (4.6 and ETS) with LVEF 68%. 09/24/2018 c/o worsening lightheadedness, no vertigo or syncopal sx Essential hypertension Of medications Monitors bp at home: No. If yes, readings: Denies side effects: n/a. Chest pain: No. Dyspnea: No. Edema: No. Palpitations: No. Syncope: No. Headache: No. Dizziness: Yes, daily if moves to quickly, doesn't stop her from any activity Last 3 Encounter BP Readings: Date: BP: 05/19/2022 104/64 05/14/2022 91/56 05/05/2022 92/64 Last 2 Encounter Wt Readings: Date: Wt: 05/19/2022 49 kg (108 lb) 05/14/2022 48.5 kg (107 lb) Dm ii (diabetes mellitus, type ii) ([facility]) Current medications: stopped due to controlled Taking medication as directed consistently? Medication side effects: Medical Issues / Complications: None Checking blood sugars at home? No. Watching diet? Terible diet but skinny Physical Activity: Regular Hypoglycemic spells? No Any visual disturbance? No Chest pain? No New numbness, tingling or loss of sensation? No Any recent foot problems, sores or rashes? No Any recent or sudden weight loss? No Change in urination? No. If yes: Any recent illness? No Last eye exam: 1 year ago. Last foot exam: up to date. HBA1C: Hemoglobin A1C (%) Date Value 07/30/2021 6.1 01/30/2021 6.2 ) CMP: Glucose 92 07/30/2021 BUN 20 07/30/2021 Creatinine 1.13 07/30/2021 Sodium 140 07/30/2021 Potassium 4.3 07/30/2021 Chloride 101 07/30/2021 CO2 29 07/30/2021 Protein, Total 7.9 01/30/2021 Albumin 4.8 01/30/2021 Calcium 9.7 07/30/2021 Alkaline Phosphatase 88 01/30/2021 Bilirubin, Total 0.6 01/30/2021 AST 18 01/30/2021 ALT 11 01/30/2021 Last 2 Encounter Wt Readings: Date: Wt: 05/19/2022 49 kg (108 lb) 05/14/2022 48.5 kg (107 lb) Primary osteoarthritis involving multiple joints Cervicalgia Current medications: None Has joint aches but manages. Just keeps busy. Worst time is getting put of bed or up from sitting for a long time Gerd without esophagitis No medication Current symptoms: none. Last Mg level if on PPI chronically: n/a. Heartburn is controlled: Yes. Dysphagia: No. Bloody or black stools: No. Bowel changes: No. Last EGD and/or colonoscopy: . Chronic insomnia Fatigue, unspecified type Doesn't sleep more than 2-3 hours for years, then up for a few hours aand then back to bed. No medications or supplements. HISTORIES FAMILY HISTORY Problem Relation Age of Onset Diabetes Mother Heart Mother CHF Heart Father CHF Heart Brother CHF PAST MEDICAL HISTORY Diagnosis Date Arthritis DVT (deep venous thrombosis) ([facility]) 08/27/2006 knee surgery Hypertension IPF (idiopathic pulmonary fibrosis) ([facility]) PAST SURGICAL HISTORY Procedure Laterality Date BACK SURGERY HX EGD 12/31/2020 ESOPHAGOGASTRODUODENOSCOPY TRANSORAL DIAGNOSTIC 11/19/2015 EGD EYE SURGERY HX JOINT REPLACEMENT HX Left partial left knee replacement partial knee replacement left. PAST SURGICAL HISTORY OF back surgery PAST SURGICAL HISTORY OF carpal tunnel surgery bilateral PAST SURGICAL HISTORY OF right knee surgery, torn meniscus Social History Tobacco Use Smoking status: Never Smokeless tobacco: Never Vaping Use Vaping Use: Never used Substance Use Topics Alcohol use: No Drug use: No ACTIVE PROBLEM LIST Primary Osteoarthritis Involving Multiple Joints Essential Hypertension Backache Dm II (Diabetes Mellitus, Type Ii) ([facility]) Dyspnea On Exertion Near Syncope Interstitial Lung Disease ([facility]) Current Outpatient Medications Medication Sig Dispense Refill HYDROcodone-acetaminophen (NORCO) 5-325 mg per tablet Take 1 tablet by mouth as needed. lidocaine (LIDODERM) 5 % Apply 5 Patches as directed as needed. tiZANidine HCl (ZANAFLEX) 2 mg capsule Take 1 capsule by mouth three times daily as needed. 15 capsule 0 melatonin 10 mg tab Take 10 mg by mouth once daily. (Patient not taking: No sig reported) iron/vitamin b comp w-c(GERITOL COMPLETE TAB) one tablet daily 0 0 No current facility-administered medications for this visit. PNEUMOCOCCAL: 65+(1 - PCV) Never done DTAP,TDAP,TD(1 - Tdap) Never done SHINGRIX VACCINE(1 of 2) Never done ADVANCE DIRECTIVE DISCUSSION Never done DEPRESSION ASSESSMENT Never done URINE ALBUMIN:CREATININE RATIO due on 09/03/2021 LDL CHOLESTEROL due on 09/03/2021 DILATED RETINAL EXAM due on 01/17/2022 HBA1C due on 01/27/2022 FECAL OCCULT BLOOD due on 08/02/2022 EXAM: BP 94/58 Pulse 104 Resp 20 Wt 47.6 kg (105 lb) SpO2 93% BMI 21.95 kg/m Pleasant older woman, slight build with upper thoracic kyphosis in no acute distress. Alert and oriented all spheres. Normal affect and cognition. Speech normal. No deficits to learning or comprehension. Skin warm, dry, pink to lips and nailbeds. Normal turgor. Back with stucco keratoses. Right jaw s/pexcision, no lesion. Respirations regular and unlabored. HEENT: NCAT. No scleral icterus or conjunctival injection. TM's clear. Nose and oropharynx free from injection or lesion. Oral membranes moist and pink. Some gum recession, missing teeth. No cervicallymph nodes. Thyroid non-tender, no masses, or enlargement. Carotids pulses 2+/4+ without bruits. No JVD with HOB at 30 degrees. Chest is normal shape. Lungs with crackles/pleural rub. HRRR without murmur or gallop. No lifts, heaves, or rubs. Abdomen: scaphoid, soft, active bowel sounds throughout, scars, soft, nontender, no masses or organomegaly. No CVAT. No abdominal bruits, axillary or inguinal nodes. Femoral pulses 2/4+ without bruit. Extrem: no clubbing or cyanosis. Edema: none. Extremities are warm and pink with prompt capillary refill. Feet:Shoes and socks removed, No deformities, ulcers, calluses, normal distal pulses, and sensitiveto 10 gm monofilament. Long toenails. No focal neuro sx. ASSESSMENT/PLAN: 1. Interstitial lung disease (HCC) - ICD9: 515, ICD10: J84.9 (primary diagnosis) Progressive. Needs pulmonary consult 2. Dyspnea on exertion - ICD9: 786.09, ICD10: R06.09 Interstitial fibrosis: pending pulmonary consult 3. Near syncope - ICD9: 780.2, ICD10: R55 Dizziness, no falls. A little better with d/c HCTZ, metformin 4. Essential hypertension - ICD9: 401.9, ICD10: I10 - good control off meds 5. DM II (diabetes mellitus, type II) (HCC) - ICD9: 250.00, ICD10: E11.9 Prediabetes, stable off meds 6. Primary osteoarthritis involving multiple joints - ICD9: 715.98, ICD10: M15.9 Does not want medication. Uses Tylenol in small quantity. Encouraged to try arthritis formula maximum dose and report 7. GERD without esophagitis - ICD9: 530.81, ICD10: K21.9 - Discussed lifestyle modifications including limiting caffeine, no meals three hours before sleep,and head of bed elevation 8. Chronic insomnia - ICD9: 780.52, ICD10: F51.04 Discussed goal underlying issues with business, self neglect, family dynamics. She recognizes need for affirmation. Encouraged health sleep hygienge and relaxation techniques. 9. Fatigue, unspecified type - ICD9: 780.79, ICD10: R53.83 Not affecting activity 10. Cervicalgia - ICD9: 723.1, ICD10: M54.2 stable 11. Encounter for screening for osteoporosis - ICD9: V82.81, ICD10: Z13.820 - DXA-AXIAL SKELETON 12. Long toenail - ICD9: 703.8, ICD10: L60.2 - CONSULT TO PODIATRY Couple is asking 3 month follow up Angie Kaba PA-C documented in this encounterJoint [facility]10-24-2022 Instructions* Patient Instructions* Angie Kaba PA-C - 05/19/2022 3:44 PM EDT Rest from activities that strain neck. Make sure pillow is adequate to maintain neutral neck position if lying on side or back. Rolling upa soft blanket or towel in the bottom of your pillow case may provide extra support. You could alsoget a cervical pillow. You may try gentle range of motion stretches laying on your back on a firm surface so that your postural neck muscles are relaxed. You can then turn to either direction to the point pain occurs, holdit, and then attempt to turn a few degrees further until you are able to get your chin to the shoulder. If this make pain or stiffness worse, stop. Gentle massage, moist heat for 10-15 minutes, or lineaments may help with pain and are fine to use. If pain worsens, numbness, tingling of loss of sensation or strength is occurring, please call us immediately. If your neck pain persists, we may consider physical therapy to help. Muscle energy techniques as shown Zanaflex is a muscle relaxer which can cause drowsiness and may be habit forming if used regularly for extended periods. You should not drink alcohol, drive, or operate dangerous machinery while taking this medication. Prednisone 1-2 tabs as tolerated daily x 5 days documented in this encounterJoint Township [facility]10-24-2022 History of Present illness Narrative* Angie Kaba PA-C - 05/19/2022 3:22 PM EDT 82 year old female with c/o right shoulder pain last Thursday 5 days a go, like a kink in the neckon waking. Was hooked up to walk test oximeter, head band. Had pain in the posterior head and shoulder. Worst pain ever. Went to [facility] ER 05/14/2022: was given lidocaine patches and [place] #10/0 q6h prn. No radiating pain. Right hand this morning felt cold, a little tingly. HISTORIES FAMILY HISTORY Problem Relation Age of Onset Diabetes Mother Heart Mother CHF Heart Father CHF Heart Brother CHF PAST MEDICAL HISTORY Diagnosis Date Arthritis DVT (deep venous thrombosis) ([facility]) 08/27/2006 knee surgery Hypertension IPF (idiopathic pulmonary fibrosis) ([facility]) PAST SURGICAL HISTORY Procedure Laterality Date BACK SURGERY HX EGD 12/31/2020 ESOPHAGOGASTRODUODENOSCOPY TRANSORAL DIAGNOSTIC 11/19/2015 EGD EYE SURGERY HX JOINT REPLACEMENT HX Left partial left knee replacement partial knee replacement left. PAST SURGICAL HISTORY OF back surgery PAST SURGICAL HISTORY OF carpal tunnel surgery bilateral PAST SURGICAL HISTORY OF right knee surgery, torn meniscus Social History Tobacco Use Smoking status: Never Smokeless tobacco: Never Vaping Use Vaping Use: Never used Substance Use Topics Alcohol use: No Drug use: No ACTIVE PROBLEM LIST Primary Osteoarthritis Involving Multiple Joints Essential Hypertension Backache Dm II (Diabetes Mellitus, Type Ii) ([facility]) Dyspnea On Exertion Near Syncope Interstitial Lung Disease (Hcc) Current Outpatient Medications Medication Sig Dispense Refill HYDROcodone-acetaminophen (NORCO) 5-325 mg per tablet Take 1 tablet by mouth as needed. lidocaine (LIDODERM) 5 % Apply 5 Patches as directed as needed. iron/vitamin b comp w-c(GERITOL COMPLETE TAB) one tablet daily 0 0 melatonin 10 mg tab Take 10 mg by mouth once daily. (Patient not taking: No sig reported) No current facility-administered medications for this visit. PNEUMOCOCCAL: 65+(1 - PCV) Never done DTAP,TDAP,TD(1 - Tdap) Never done SHINGRIX VACCINE(1 of 2) Never done ADVANCE DIRECTIVE DISCUSSION Never done DEPRESSION ASSESSMENT Never done URINE ALBUMIN:CREATININE RATIO due on 09/03/2021 LDL CHOLESTEROL due on 09/03/2021 DILATED RETINAL EXAM due on 01/17/2022 HBA1C due on 01/27/2022 EXAM: BP 104/64 Pulse 82 Ht 147.3 cm (4' 10) Wt 49 kg (108 lb) SpO2 96% BMI 22.57 kg/m Pleasant older woman in moderate distress. Alert and oriented all spheres. Normal affect and cognition. Speech normal. No deficits to learning or comprehension. Skin warm, dry, pink to lips and nailbeds. Normal turgor. Respirations regular and unlabored. Moderate cervical straightening with kyphosis. TTPs in right SCM, anterior scalenes, upper traps. Extrem: no clubbing or cyanosis. Edema: none. Extremities are warm and pink with prompt capillary refill. Full hand grasps and resistance to biceps, triceps, deltoids as expected for age. Sensory intact tolight touch, monofilament. OMT with permission: myofacial release, muscle energy techniques successful in release of muscle spasm ans significant pain relief: patient expressed gratitude. ASSESSMENT/PLAN: 1. Cervicalgia - ICD9: 723.1, ICD10: M54.2 (primary diagnosis) 2. Cervical paraspinal muscle spasm - ICD9: 728.85, ICD10: M62.838 Rx prednisone 20mg #10 1-2 tabs daily x 5 days Ice, moist heat, liniments prn. Avoid prolonged heating pad. Reviewed muscle energy, stretching techniques with demonstration of techniques on teach back. Will use meds available as needed and follow up prn. F/u prn Angie Kaba PA-C documented in this encounterJoint [facility]10-24-2022 Miscellaneous Notes* Telephone Encounter - Fatuma Linder Ma - 05/19/2022 1:49 PM EDT Patient coming in for appt today * Telephone Encounter - Uri Foster LPN - 05/14/2022 10:14 AM EDT Left message to return call to office. Uri Foster LPN * Telephone Encounter - Angie Kaba PA-C - 05/14/2022 10:07 AM EDT Please advise patient pulmonary function testing demonstrated moderate obstructive pattern and low lung volumes, this needs to be reviewed by a specialist. 6-minute walk test was negative for significant hypoxia. She already has orders in for pulmonary consult if we can make sure she has an appointment. Thanks, Dalton Kaba PA-C documented in this encounterJoint Township District [facility]10-24-2022 Miscellaneous Notes* Telephone Encounter - Radha Walsh RN - 05/19/2022 8:16 AM EDT Patient calling to make ER F/U appt with Dalton Kaba for today. She reports she was seen at [facility] ER on 05/14/22 for right neck pain that was radiating into right shoulder and up into side of head behind right ear. She thought maybe she slept on her neck wrong and this was the cause. She states [facility] ER did not do any testing at that time, only gave her pain pill and lidocaine patch. Patient given script for [place] which she has one pill left. Reports pain continues to be moderate to severe. Not able to move neck side to side. Some tingling into right hand and states tips of fingers to right hand feel cooler to touch. No color changes to right arm or hand. Reports she denies headache, swelling, vision changes or other symptoms. Due to symptoms, ER was advised, however patient declines and requesting to see Dalton Kaba today. Appt made for 3pm today. Please call patient if provider has other instructions. Thank you. documented in this encounterJoint [facility]10-19-2022 Miscellaneous Notes* Telephone Encounter - Lawanda Garcia RN - 05/14/2022 4:30 PM EDT Patient notified that provider advises her to go to ER. Patient voices understanding. Patient appreciative of the call back. Lawanda Garcia RN * Telephone Encounter - Rusty Roberts MD - 05/14/2022 4:25 PM EDT I also would advise ER jason. * Telephone Encounter - Lawanda Garcia RN - 05/14/2022 4:02 PM EDT Patient's calls and states that as a pain in her shoulder all the way up to her jaw, neck, and head. Patient has been applying heat which has not been effective. Patient's statesthat patient rates pain 9-10 out of 10. asking for appointment today. Advised that patient should be seen in ER for this. reluctant asking for appointment tomorrow, wants to see what provide would advise? Please review and advise, Lawanda Garcia RN documented in this encounterJoint [facility] Miscellaneous Notes* Telephone Encounter - Fatuma Linder Ma - 05/12/2022 11:59 AM EDT Attempted to reach pt. No answer, mailbox is full, unable to leave voicemail. Fatumanasir Linder Ma * Telephone Encounter - Angie Kaba PA-C - 05/10/2022 10:45 AM EDT Please advise CXR shows worsening of interstitial lung disease (stiffening of tissue structure of the lung. Recommend consult pulmonology. Please make sure pulmonary testing is completed prior to consult. Telephone on 05/10/22 CONSULT TO PULMONARY MEDICINE Dalton Powell PA-C documented in this encounterJoint [facility]10-11-2022 NoteIMPRESSION: Interstitial lung disease which has progressed since the prior study. Cover Marker: WADE Transcribe Date/Time: May 06 2022 3:35P Dictated by : MAGI YI MD This examination was interpreted and the report reviewed and electronically signed by: MAGI YI MD on May 06 2022 3:39PM [facility] DIVISION OF [id number] History of Present illness Narrative* Yana Lopez, RT(R) - 05/05/2022 11:50 AM EDT Radiology Service Progress Note PATIENT NAME: Delia Alexander DATE OF SERVICE: May 05, 2022 TIME: 11:56 AM PATIENT IDENTITY VERIFICATION COMPLETED USING TWO (2) IDENTIFIERS: Name and Date of confirmedby patient verbally. FALL SCREENING: Has the patient had 2 falls in the last year or 1 fall with injury or currently using an Ambulatory Assistive Device (Walker, Cane, Wheelchair, Crutches, etc.)? No PATIENT GENDER DATA: Female. status: : No status: NO. PATIENT RELEVANT IMPLANT DATA REVIEWED: Yes RADIOLOGY DEPARTMENT: General X-ray: Exam(s) Completed: Chest X-Ray PERIPHERAL IV DATA: Not applicable SIGNED BY: RT Michael(R) May 05, 2022 11:56 AM documented in this encounterJoint [facility]10-10-2022 Instructions* Patient Instructions* Angie Kaba PA-C - 05/05/2022 11:28 AM EDT Guaifenesin: Mucinex plain, Robitussion, Guaifenex Stop hydrochlorothiazide documented in this encounterJoint [facility]10-10-2022 History of Present illness Narrative* Angie Kaba PA-C - 05/05/2022 10:40 AM EDT 82 year old female with with history of essential hypertension, DM2 controlled, interstitial lung disease, renal insufficiency, hypercalcemia, history of fatigue c/o worsening fatigue. Breathing has gotten heavier- thinks she need oxygen. Doesn't sit still, very active. Lightheaded - not all the time but every day. No falls. 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 Current concerns: Fatigue, unspecified type Chronic insomnia Current medications: Melatonin 10mg daily? Geritol Complete vitamin daily Interstitial lung disease (hcc) Dyspnea on exertion Forming Acid Dumper: none Interval history: hard to go up stairs or do chores, 200 feet maybe and has to stop. Current medications: none Worsening shortness of breath: Yes. Cough: occasional. Wheezing: No. Smoking: No. Compliant with medications: n/a. Using rescue inhaler: n/a. 11/12/2018 CT chest WO IVCON 1. Bilateral lower lobe and peripheral predominant subpleural reticulation with architecture distortion and traction bronchiectasis without definite honeycombing represents fibrotic interstitial lung disease with a probable usual interstitial pneumonia (UIP) pattern. 2. Indeterminate 6 mm left lower lobe nodule likely represents confluent fibrosis. Attention on follow-up exam is recommended. Near syncope Essential hypertension Renal insufficiency Current meds: HCTZ 12.5mg daily Patient is compliant with meds Yes Monitors bp at home: Yes. If yes, readings: Denies side effects: Yes. Chest pain: No. Dyspnea: Yes. Edema: No. Palpitations: No. Syncope: Yes. Headache: No. Dizziness: No. Last 3 Encounter BP Readings: Date: BP: 08/02/2021 102/72 04/05/2021 110/62 02/21/2021 106/64 Last 2 Encounter Wt Readings: Date: Wt: 08/02/2021 54.4 kg (120 lb) 04/05/2021 53.5 kg (118 lb) Dm ii (diabetes mellitus, type ii) ([facility]) Diabetes Mellitus Type 2: Current medications: Taking medication as directed consistently? N/a Medical Issues / Complications: hypertension and hyperlipidemia Checking blood sugars at home? No. Watching diet? Yes: eats one junk meal a day, like 2 pieces of menjivar and half a slice of bread. Eats snacks all day: pudding, candy. Some fruit and vegetables. Physical Activity: Modest Hypoglycemic spells? No Any visual disturbance? No Chest pain? No New numbness, tingling or loss of sensation? No Any recent foot problems, sores or rashes? No Any recent or sudden weight loss? No Change in urination? No. If yes: Any recent illness? No Last eye exam: due. Last foot exam: due. HBA1C: Hemoglobin A1C (%) Date Value 07/30/2021 6.1 01/30/2021 6.2 ) CMP: Glucose 92 07/30/2021 BUN 20 07/30/2021 Creatinine 1.13 07/30/2021 Sodium 140 07/30/2021 Potassium 4.3 07/30/2021 Chloride 101 07/30/2021 CO2 29 07/30/2021 Protein, Total 7.9 01/30/2021 Albumin 4.8 01/30/2021 Calcium 9.7 07/30/2021 Alkaline Phosphatase 88 01/30/2021 Bilirubin, Total 0.6 01/30/2021 AST 18 01/30/2021 ALT 11 01/30/2021 Last 2 Encounter Wt Readings: Date: Wt: 08/02/2021 54.4 kg (120 lb) 04/05/2021 53.5 kg (118 lb) Gerd without esophagitis Epigastric pain No meds. Occasionally severe coughing spells after eating, seems to happen after eating Hypercalcemia Suspect r/t HCTZ. Component Latest Ref Rng & Units 10/04/2019 01/30/2021 07/30/2021 Ionized Calcium 1.08 - 1.30 mmol/L 1.29 Normalized CAlcium 1.08 - 1.30 mmol/L 1.24 Component Latest Ref Rng & Units 10/04/2019 01/30/2021 Calcium 8.5 - 10.2 mg/dL 9.7 10.5 (H) Primary osteoarthritis involving multiple joints Occasional Tylenol. Doesn't hold her back: constantly busy. HISTORIES FAMILY HISTORY Problem Relation Age of Onset Diabetes Mother Heart Mother CHF Heart Father CHF Heart Brother CHF PAST MEDICAL HISTORY Diagnosis Date Arthritis DVT (deep venous thrombosis) ([facility]) 08/27/2006 knee surgery Hypertension IPF (idiopathic pulmonary fibrosis) ([facility]) PAST SURGICAL HISTORY Procedure Laterality Date BACK SURGERY HX EGD 12/31/2020 ESOPHAGOGASTRODUODENOSCOPY TRANSORAL DIAGNOSTIC 11/19/2015 EGD EYE SURGERY HX JOINT REPLACEMENT HX Left partial left knee replacement partial knee replacement left. PAST SURGICAL HISTORY OF back surgery PAST SURGICAL HISTORY OF carpal tunnel surgery bilateral PAST SURGICAL HISTORY OF right knee surgery, torn meniscus Social History Tobacco Use Smoking status: Never Smokeless tobacco: Never Vaping Use Vaping Use: Never used Substance Use Topics Alcohol use: No Drug use: No ACTIVE PROBLEM LIST Primary Osteoarthritis Involving Multiple Joints Essential Hypertension Backache Dm II (Diabetes Mellitus, Type Ii) ([facility]) Dyspnea On Exertion Near Syncope Interstitial Lung Disease ([facility]) Current Outpatient Medications Medication Sig Dispense Refill hydroCHLOROthiazide (HYDRODIURIL, ESIDRIX) 12.5 mg tablet Take 1 tablet by mouth once daily. 30 tablet 5 omeprazole (PRILOSEC) 20 mg capsule Take 1 capsule by mouth once daily. (Patient not taking: Reported on 08/05/2021 ) 60 capsule 1 melatonin 10 mg tab Take 10 mg by mouth once daily. (Patient not taking: Reported on 08/05/2021 ) iron/vitamin b comp w-c(GERITOL COMPLETE TAB) one tablet daily 0 0 No current facility-administered medications for this visit. COVID-19 VACCINE(1) Never done PNEUMOCOCCAL: 65+(1 - PCV) Never done DTAP,TDAP,TD(1 - Tdap) Never done SHINGRIX VACCINE(1 of 2) Never done ADVANCE DIRECTIVE DISCUSSION Never done DEPRESSION ASSESSMENT Never done URINE ALBUMIN:CREATININE RATIO due on 09/03/2021 LDL CHOLESTEROL due on 09/03/2021 DILATED RETINAL EXAM due on 01/17/2022 HBA1C due on 01/27/2022 DIABETIC FOOT EXAM due on 01/30/2022 INFLUENZA(1) due on 03/27/2022 EXAM: BP 92/64 (BP Site: Left Arm, BP Position: Sitting, BP Cuff Size: Regular Adult) Pulse 104 Resp 20 Wt 48.8 kg (107 lb 9.6 oz) SpO2 95% BMI 22.49 kg/m Pleasant well appearing in no acute distress. Alert and oriented all spheres. Normal affect and cognition. Speech normal. No deficits to learning or comprehension. Skin warm, dry, pink to lips and nailbeds. Normal turgor. Respirations regular and unlabored. HEENT: NCAT. No scleral icterus or conjunctival injection. TM's clear. Nose and oropharynx free from injection or lesion. Oral membranes moist and pink. No cervical lymph nodes. Thyroid non-tender, no masses, or enlargement. Carotids pulses 2+/4+ without bruits. No JVD with HOB at 30 degrees. Chest is normal shape. Lungs are clear to all rubio with good air exchange through out. HRRR without murmur or gallop. No lifts, heaves, or rubs. Extrem: no clubbing or cyanosis. Edema: none. Extremities are warm and pink with prompt capillary refill. Feet:Shoes and socks removed, No deformities, ulcers, calluses, normal distal pulses, and sensitiveto 10 gm monofilament ASSESSMENT/PLAN: 1. Fatigue, unspecified type - ICD9: 780.79, ICD10: R53.83 (primary diagnosis) Really dyspnea with exertion. Suspect interstitial lung disease. Has PLENTY of energy- reviewed all the things she is dedicated to maintaining. - COMP METABOLIC PANEL - CBC + DIFF - TSH BLD 2. Chronic insomnia - ICD9: 780.52, ICD10: F51.04 - TSH BLD 3. Interstitial lung disease (HCC) - ICD9: 515, ICD10: J84.9 - TSH BLD - LUNG VOLUMES - LUNG DIFFUSION CAPACITY (DLCO) - OXIMETRY WITH AMBULATION - SIX MINUTE WALK - SPIROMETRY WITH DILATOR IF OBSTRUCTED 4. Dyspnea on exertion - ICD9: 786.09, ICD10: R06.09 Review data when available Strongly seems to be lung disease: will anticipate additional work up cardiac if indicated. - LUNG VOLUMES - LUNG DIFFUSION CAPACITY (DLCO) - OXIMETRY WITH AMBULATION - SIX MINUTE WALK - SPIROMETRY WITH DILATOR IF OBSTRUCTED - XR CHEST 2V FRONTAL/LAT 5. Near syncope - ICD9: 780.2, ICD10: R55 resolved 6. Essential hypertension - ICD9: 401.9, ICD10: I10 - good control - Recommended regular aerobic exercise. - Recommend home blood pressure monitoring, to bring results in on next visit - Goal of BP <130/80 7. Renal insufficiency - ICD9: 593.9, ICD10: N28.9 stable 8. DM II (diabetes mellitus, type II) ([facility]) - ICD9: 250.00, ICD10: E11.9 Controlled. - Encouraged regular aerobic exercise and weight loss 9. GERD without esophagitis - ICD9: 530.81, ICD10: K21.9 - Discussed lifestyle modifications including losing weight, limiting caffeine, no meals three hours before sleep, and head of bed elevation 10. Epigastric pain - ICD9: 789.06, ICD10: R10.13 Resolved 11. Hypercalcemia - ICD9: 275.42, ICD10: E83.52 Recheck. - VITAMIN D 25 HYDROXY - COMP METABOLIC PANEL - PTH INTACT BLD 12. Primary osteoarthritis involving multiple joints - ICD9: 715.98, ICD10: M15.9 Stable, not limiting activity. F/u 4 week after testing. Angie Kaba PA-C documented in this encounterJoint [facility]06-20-2022 Miscellaneous Notes* Telephone Encounter - Lucero Guerrero [facility] - 01/13/2022 2:55 PM EDT Pharmacy verified in Epic Patient has been identified by name and date of : Yes Patient aware RX will be sent to pharmacy. No need to notify patient. Patient phones for refill(s): Pending Prescriptions Disp Refills HYDROCHLOROTHIAZIDE 12.5 MG TABLET 30 tablet 5 Sig: Take 1 tablet by mouth once daily. CA: No Date of last office visit : 08/02/2021 Date of next office visit : 01/30/2022 Last 2 Encounter Wt Readings: Date: Wt: 08/02/2021 54.4 kg (120 lb) 04/05/2021 53.5 kg (118 lb) Please advise. Lucero Guerrero Pss documented in this encounterJoint [facility]01-23-2019 History of Past illness Narrative* Problem Noted Date Resolved Date Diabetes mellitus type 2, un controlled, without complications 08/18/2018 08/27/2018 Pain in limb 08/01/2013 12/26/2016 DVT (deep venous thrombosis) 06/11/200908/2016 documented as of this encounter (statuses as of 01/13/2022) [address]23-2019 History of Past illness Narrative* Problem Noted Date Resolved Date Diabetes mellitus type 2, un controlled, without complications 08/18/2018 08/27/2018 Pain in limb 08/01/2013 12/26/2016 DVT (deep venous thrombosis) 06/11/200908/2016 documented as of this encounter (statuses as of 05/05/2022) [address]23-2019 History of Past illness Narrative* Problem Noted Date Resolved Date Diabetes mellitus type 2, un controlled, without complications 08/18/2018 08/27/2018 Pain in limb 08/01/2013 12/26/2016 DVT (deep venous thrombosis) 06/11/200908/2016 documented as of this encounter (statuses as of 05/14/2022) [address]23-2019 History of Past illness Narrative* Problem Noted Date Resolved Date Diabetes mellitus type 2, un controlled, without complications 08/18/2018 08/27/2018 Pain in limb 08/01/2013 12/26/2016 DVT (deep venous thrombosis) 06/11/200908/2016 documented as of this encounter (statuses as of 05/14/2022) [place] [id number] History of Past illness Narrative* Problem Noted Date Resolved Date Diabetes mellitus type 2, un controlled, without complications 08/18/2018 08/27/2018 Pain in limb 08/01/2013 12/26/2016 DVT (deep venous thrombosis) 06/11/200908/2016 documented as of this encounter (statuses as of 05/14/2022) [address]23-2019 History of Past illness Narrative* Problem Noted Date Resolved Date Diabetes mellitus type 2, un controlled, without complications 08/18/2018 08/27/2018 Pain in limb 08/01/2013 12/26/2016 DVT (deep venous thrombosis) 06/11/200908/2016 documented as of this encounter (statuses as of 05/20/2022) [address]23-2019 History of Past illness Narrative* Problem Noted Date Resolved Date Diabetes mellitus type 2, un controlled, without complications 08/18/2018 08/27/2018 Pain in limb 08/01/2013 12/26/2016 DVT (deep venous thrombosis) 06/11/200908/2016 documented as of this encounter (statuses as of 05/20/2022) [address]23-2019 History of Past illness Narrative* Problem Noted Date Resolved Date Diabetes mellitus type 2, un controlled, without complications 08/18/2018 08/27/2018 Pain in limb 08/01/2013 12/26/2016 DVT (deep venous thrombosis) 06/11/200908/2016 documented as of this encounter (statuses as of 06/30/2022) [address]23-2019 History of Past illness Narrative* Problem Noted Date Resolved Date Diabetes mellitus type 2, un controlled, without complications 08/18/2018 08/27/2018 Pain in limb 08/01/2013 12/26/2016 DVT (deep venous thrombosis) 06/11/200908/2016 documented as of this encounter (statuses as of 07/12/2022) [address]2019 History of Past illness Narrative* Problem Noted Date Resolved Date Diabetes mellitus type 2, un controlled, without complications 08/18/2018 08/27/2018 Pain in limb 08/01/2013 12/26/2016 DVT (deep venous thrombosis) 06/11/200908/2016 documented as of this encounter (statuses as of 08/29/2022) [address]2019 History of Past illness Narrative* Problem Noted Date Resolved Date Diabetes mellitus type 2, un controlled, without complications 08/18/2018 08/27/2018 Pain in limb 08/01/2013 12/26/2016 DVT (deep venous thrombosis) 06/11/200908/2016 documented as of this encounter (statuses as of 09/02/2022) [address]23-2019 History of Past illness Narrative* Problem Noted Date Resolved Date Diabetes mellitus type 2, un controlled, without complications 08/18/2018 08/27/2018 Pain in limb 08/01/2013 12/26/2016 DVT (deep venous thrombosis) 06/11/200908/2016 documented as of this encounter (statuses as of 09/05/2022) [address]23-2019 History of Past illness Narrative* Problem Noted Date Resolved Date Diabetes mellitus type 2, un controlled, without complications 08/18/2018 08/27/2018 Pain in limb 08/01/2013 12/26/2016 DVT (deep venous thrombosis) 06/11/200908/2016 documented as of this encounter (statuses as of 09/06/2022) [address]23-2019 History of Past illness Narrative* Problem Noted Date Resolved Date Diabetes mellitus type 2, un controlled, without complications 08/18/2018 08/27/2018 Pain in limb 08/01/2013 12/26/2016 DVT (deep venous thrombosis) 06/11/200908/2016 documented as of this encounter (statuses as of 09/09/2022) [address]23-2019 History of Past illness Narrative* Problem Noted Date Resolved Date Diabetes mellitus type 2, un controlled, without complications 08/18/2018 08/27/2018 Pain in limb 08/01/2013 12/26/2016 DVT (deep venous thrombosis) 06/11/200908/2016 documented as of this encounter (statuses as of 10/16/2022) [address]23-2019 History of Past illness Narrative* Problem Noted Date Diagnosed Date Resolved Date Diabetes mellitus type 2, un controlled, without complications 08/18/2018 08/27/2018 Pain in limb 08/01/2013 12/26/2016 DVT (deep venous thrombosis) 06/11/2009 12/26/2016 documented as of this encounter (statuses as of 03/04/2023) [address]23-2019 History of Past illness Narrative* Problem Noted Date Diagnosed Date Resolved Date Diabetes mellitus type 2, un controlled, without complications 08/18/2018 08/27/2018 Pain in limb 08/01/2013 12/26/2016 DVT (deep venous thrombosis) 06/11/2009 12/26/2016 documented as of this encounter (statuses as of 03/04/2023) [address]23-2019 History of Past illness Narrative* Problem Noted Date Diagnosed Date Resolved Date Diabetes mellitus type 2, un controlled, without complications 08/18/2018 08/27/2018 Pain in limb 08/01/2013 12/26/2016 DVT (deep venous thrombosis) 06/11/2009 12/26/2016 documented as of this encounter (statuses as of 03/04/2023) [address]23-2019 History of Past illness Narrative* Problem Noted Date Diagnosed Date Resolved Date Diabetes mellitus type 2, un controlled, without complications 08/18/2018 08/27/2018 Pain in limb 08/01/2013 12/26/2016 DVT (deep venous thrombosis) 06/11/2009 12/26/2016 documented as of this encounter (statuses as of 03/05/2023) [address]23-2019 History of Past illness Narrative* Problem Noted Date Diagnosed Date Resolved Date Diabetes mellitus type 2, un controlled, without complications 08/18/2018 08/27/2018 Pain in limb 08/01/2013 12/26/2016 DVT (deep venous thrombosis) 06/11/2009 12/26/2016 documented as of this encounter (statuses as of 03/05/2023) [address]23-2019 History of Past illness Narrative* Problem Noted Date Diagnosed Date Resolved Date Diabetes mellitus type 2, un controlled, without complications 08/18/2018 08/27/2018 Pain in limb 08/01/2013 12/26/2016 DVT (deep venous thrombosis) 06/11/2009 12/26/2016 documented as of this encounter (statuses as of 03/06/2023) [address]23[address]2019 History of Past illness Narrative* Problem Noted Date Diagnosed Date Resolved Date Diabetes mellitus type 2, un controlled, without complications 08/18/2018 08/27/2018 Pain in limb 08/01/2013 12/26/2016 DVT (deep venous thrombosis) 06/11/2009 12/26/2016 documented as of this encounter (statuses as of 03/19/2023) [address]23-2019 History of Past illness Narrative* Problem Noted Date Diagnosed Date Resolved Date Diabetes mellitus type 2, un controlled, without complications 08/18/2018 08/27/2018 Pain in limb 08/01/2013 12/26/2016 DVT (deep venous thrombosis) 06/11/2009 12/26/2016 documented as of this encounter (statuses as of 05/20/2023) [address]23-2019 History of Past illness Narrative* Problem Noted Date Diagnosed Date Resolved Date Diabetes mellitus type 2, un controlled, without complications 08/18/2018 08/27/2018 Pain in limb 08/01/2013 12/26/2016 DVT (deep venous thrombosis) 06/11/2009 12/26/2016 documented as of this encounter (statuses as of 05/21/2023) [address]23[address]2019 History of Past illness Narrative* Problem Noted Date Diagnosed Date Resolved Date Diabetes mellitus type 2, un controlled, without complications 08/18/2018 08/27/2018 Pain in limb 08/01/2013 12/26/2016 DVT (deep venous thrombosis) 06/11/2009 12/26/2016 documented as of this encounter (statuses as of 05/26/2023) [address]23-2019 History of Past illness Narrative* Problem Noted Date Diagnosed Date Resolved Date Diabetes mellitus type 2, un controlled, without complications 08/18/2018 08/27/2018 Pain in limb 08/01/2013 12/26/2016 DVT (deep venous thrombosis) 06/11/2009 12/26/2016 documented as of this encounter (statuses as of 07/01/2023) [address]23[address] History of Past illness Narrative* Problem Noted Date Diagnosed Date Resolved Date Diabetes mellitus type 2, un controlled, without complications 08/18/2018 08/27/2018 Pain in limb 08/01/2013 12/26/2016 DVT (deep venous thrombosis) 06/11/2009 12/26/2016 documented as of this encounter (statuses as of 07/03/2023) [address]23[address]2019 History of Past illness Narrative* Problem Noted Date Diagnosed Date Resolved Date Diabetes mellitus type 2, un controlled, without complications 08/18/2018 08/27/2018 Pain in limb 08/01/2013 12/26/2016 DVT (deep venous thrombosis) 06/11/2009 12/26/2016 documented as of this encounter (statuses as of 08/28/2023) [address]23-2019 History of Past illness Narrative* Problem Noted Date Diagnosed Date Resolved Date Diabetes mellitus type 2, un controlled, without complications 08/18/2018 08/27/2018 Pain in limb 08/01/2013 12/26/2016 DVT (deep venous thrombosis) 06/11/2009 12/26/2016 documented as of this encounter (statuses as of 09/02/2023) [address]23[address] History of Past illness Narrative* Problem Noted Date Diagnosed Date Resolved Date Diabetes mellitus type 2, un controlled, without complications 08/18/2018 08/27/2018 Pain in limb 08/01/2013 12/26/2016 DVT (deep venous thrombosis) 06/11/2009 12/26/2016 documented as of this encounter (statuses as of 09/04/2023) [address]23[address] History of Past illness Narrative* Problem Noted Date Diagnosed Date Resolved Date Diabetes mellitus type 2, un controlled, without complications 08/18/2018 08/27/2018 Pain in limb 08/01/2013 12/26/2016 DVT (deep venous thrombosis) 06/11/2009 12/26/2016 documented as of this encounter (statuses as of 09/08/2023) [address]23[address]2019 History of Past illness Narrative* Problem Noted Date Diagnosed Date Resolved Date Diabetes mellitus type 2, un controlled, without complications 08/18/2018 08/27/2018 Pain in limb 08/01/2013 12/26/2016 DVT (deep venous thrombosis) 06/11/2009 12/26/2016 documented as of this encounter (statuses as of 09/24/2023) [address]23[address]2019 History of Past illness Narrative* Problem Noted Date Diagnosed Date Resolved Date Diabetes mellitus type 2, un controlled, without complications 08/18/2018 08/27/2018 Pain in limb 08/01/2013 12/26/2016 DVT (deep venous thrombosis) 06/11/2009 12/26/2016 documented as of this encounter (statuses as of 10/02/2023) [address]23[address]2019 History of Past illness Narrative* Problem Noted Date Diagnosed Date Resolved Date Diabetes mellitus type 2, un controlled, without complications 08/18/2018 08/27/2018 Pain in limb 08/01/2013 12/26/2016 DVT (deep venous thrombosis) 06/11/2009 12/26/2016 documented as of this encounter (statuses as of 10/02/2023) [address]23[address] History of Past illness Narrative* Problem Noted Date Diagnosed Date Resolved Date Diabetes mellitus type 2, un controlled, without complications 08/18/2018 08/27/2018 Pain in limb 08/01/2013 12/26/2016 DVT (deep venous thrombosis) 06/11/2009 12/26/2016 documented as of this encounter (statuses as of 10/05/2023) [address]23[address] History of Past illness Narrative* Problem Noted Date Diagnosed Date Resolved Date Diabetes mellitus type 2, un controlled, without complications 08/18/2018 08/27/2018 Pain in limb 08/01/2013 12/26/2016 DVT (deep venous thrombosis) 06/11/2009 12/26/2016 documented as of this encounter (statuses as of 10/08/2023) [address] History of Past illness Narrative* Problem Noted Date Diagnosed Date Resolved Date Diabetes mellitus type 2, un controlled, without complications 08/18/2018 08/27/2018 Pain in limb 08/01/2013 12/26/2016 DVT (deep venous thrombosis) 06/11/2009 12/26/2016 documented as of this encounter (statuses as of 10/08/2023) [address]23-2019 History of Past illness Narrative* Problem Noted Date Diagnosed Date Resolved Date Diabetes mellitus type 2, un controlled, without complications 08/18/2018 08/27/2018 Pain in limb 08/01/2013 12/26/2016 DVT (deep venous thrombosis) 06/11/2009 12/26/2016 documented as of this encounter (statuses as of 10/08/2023) [address]23-2019 History of Past illness Narrative* Problem Noted Date Diagnosed Date Resolved Date Diabetes mellitus type 2, un controlled, without complications 08/18/2018 08/27/2018 Pain in limb 08/01/2013 12/26/2016 DVT (deep venous thrombosis) 06/11/2009 12/26/2016 documented as of this encounter (statuses as of 10/09/2023) [address]-2019 History of Past illness Narrative* Problem Noted Date Diagnosed Date Resolved Date Diabetes mellitus type 2, un controlled, without complications 08/18/2018 08/27/2018 Pain in limb 08/01/2013 12/26/2016 DVT (deep venous thrombosis) 06/11/2009 12/26/2016 documented as of this encounter (statuses as of 10/09/2023) [address]-2019 History of Past illness Narrative* Problem Noted Date Diagnosed Date Resolved Date Diabetes mellitus type 2, un controlled, without complications 08/18/2018 08/27/2018 Pain in limb 08/01/2013 12/26/2016 DVT (deep venous thrombosis) 06/11/2009 12/26/2016 documented as of this encounter (statuses as of 10/12/2023) [address]-2019 History of Past illness Narrative* Problem Noted Date Diagnosed Date Resolved Date Diabetes mellitus type 2, un controlled, without complications 08/18/2018 08/27/2018 Pain in limb 08/01/2013 12/26/2016 DVT (deep venous thrombosis) 06/11/2009 12/26/2016 documented as of this encounter (statuses as of 10/12/2023) [address]-2019 History of Past illness Narrative* Problem Noted Date Diagnosed Date Resolved Date Diabetes mellitus type 2, un controlled, without complications 08/18/2018 08/27/2018 Pain in limb 08/01/2013 12/26/2016 DVT (deep venous thrombosis) 06/11/2009 12/26/2016 documented as of this encounter (statuses as of 10/13/2023) [address]-2019 History of Past illness Narrative* Problem Noted Date Diagnosed Date Resolved Date Diabetes mellitus type 2, un controlled, without complications 08/18/2018 08/27/2018 Pain in limb 08/01/2013 12/26/2016 DVT (deep venous thrombosis) 06/11/2009 12/26/2016 documented as of this encounter (statuses as of 10/19/2023) [address]-2019 History of Past illness Narrative* Problem Noted Date Diagnosed Date Resolved Date Diabetes mellitus type 2, un controlled, without complications 08/18/2018 08/27/2018 Pain in limb 08/01/2013 12/26/2016 DVT (deep venous thrombosis) 06/11/2009 12/26/2016 documented as of this encounter (statuses as of 11/13/2023) [facility] Diagnosis Essential hypertension Unspecified essential hypertension documented in this encounter [facility] note* Diagnosis Fatigue, unspecified type- Primary Chronic insomnia Insomnia, unspecified Interstitial lung disease (HCC) Postinflammatory pulmonary fibrosis Dyspnea on exertion Other dyspnea and respiratory abnormality Near syncope Syncope and collapse Essential hypertension Unspecified essential hypertension Renal insufficiency Unspecified disorder of kidney and ureter DM II (diabetes mellitus, type II) ([facility]) GERD without esophagitis Esophageal reflux Epigastric pain Abdominal pain, epigastric Hypercalcemia Primary osteoarthritis involving multiple joints [facility]* Diagnosis Interstitial lung disease (HCC) Postinflammatory pulmonary fibrosis Dyspnea on exertion Other dyspnea and respiratory abnormality documented [facility] this [facility]* Diagnosis Interstitial lung disease (HCC) Postinflammatory pulmonary fibrosis Dyspnea on exertion Other dyspnea and respiratory abnormality documented [facility]* Diagnosis Interstitial lung disease (HCC)- Primary Postinflammatory pulmonary fibrosis [facility] noteNo assessment information availableWCleveland Clinic Foundation Work Phone: Evaluation note* Diagnosis Cervicalgia- Primary Cervical paraspinal muscle spasm Spasm of muscle documented in this encounter [facility] note* Diagnosis Interstitial lung disease (HCC)- Primary Postinflammatory pulmonary fibrosis Dyspnea on exertion Other dyspnea and respiratory abnormality Near syncope Syncope and collapse Essential hypertension Unspecified essential hypertension DM II (diabetes mellitus, type II) ([facility]) Primary osteoarthritis involving multiple joints GERD without esophagitis Esophageal reflux Chronic insomnia Insomnia, unspecified Fatigue, unspecified type Cervicalgia Encounter for screening for osteoporosis Special screening for osteoporosis Long toenail Other specified disease of nail Medicare annual wellness visit, subsequent Routine general medical examination at a health care facility Chronic kidney disease, stage 3a ([facility]) documented in this encounter [facility] note* Diagnosis Weight loss- Primary Loss of weight LISA (generalized anxiety disorder) Generalized anxiety disorder DM II (diabetes mellitus, type II) ([facility]) Screening for colon cancer Special screening for malignant neoplasms, colon Interstitial lung disease (HCC) Postinflammatory pulmonary fibrosis Essential hypertension Unspecified essential hypertension Non-intractable cyclical vomiting with nausea Fatigue, unspecified type Epigastric pain Abdominal pain, epigastric documented [facility] this encounter [facility]* Diagnosis LISA (generalized anxiety disorder)- Primary Generalized anxiety disorder Chronic insomnia Insomnia, unspecified GERD without esophagitis Esophageal reflux Weight loss Loss of [facility] Interstitial lung disease (HCC)- Primary Postinflammatory pulmonary fibrosis SOB (shortness of breath) Shortness of breath [facility] Diagnosis Pyuria- Primary Other nonspecific finding on examination of urine [facility] Diagnosis DM II (diabetes mellitus, type II) (HCC)- Primary Weight loss Loss of weight Epigastric pain Abdominal pain, epigastric GERD without esophagitis Esophageal reflux Screening for lipid disorders Adjustment disorder with anxiety Chronic kidney disease, stage 3a (HCC) [facility] Diagnosis IPF (idiopathic pulmonary fibrosis) (HCC)- Primary Idiopathic pulmonary fibrosis GARCIA (dyspnea on exertion) Other dyspnea and respiratory abnormality Other chest pain [facility] Diagnosis IPF (idiopathic pulmonary fibrosis) (HCC) Idiopathic pulmonary fibrosis [facility] Diagnosis IPF (idiopathic pulmonary fibrosis) (HCC)- Primary Idiopathic pulmonary fibrosis [facility]* Diagnosis Adjustment disorder with anxiety [facility] Diagnosis Urinary frequency- Primary Pulmonary fibrosis (HCC) Postinflammatory pulmonary fibrosis Unintentional weight loss of 10% body weight within 6 months Loss of weight Chronic kidney disease, stage 3a (HCC) DM II (diabetes mellitus, type II) (HCC) Essential hypertension Unspecified essential hypertension [facility] Diagnosis Urinary frequency- Primary [facility] Diagnosis Primary pulmonary hypertension (HCC)- Primary Primary pulmonary hypertension Pulmonary fibrosis (HCC) 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 IPF (idiopathic pulmonary fibrosis) (HCC) Idiopathic pulmonary fibrosis [facility] Diagnosis Pulmonary interstitial fibrosis (HCC)- Primary Postinflammatory pulmonary fibrosis IPF (idiopathic pulmonary fibrosis) (HCC) Idiopathic pulmonary fibrosis [facility] Diagnosis Pulmonary interstitial fibrosis (HCC)- Primary Postinflammatory pulmonary fibrosis [facility] Diagnosis Pulmonary interstitial fibrosis (HCC)- Primary Postinflammatory pulmonary fibrosis [facility] Diagnosis Pulmonary fibrosis (HCC)- Primary Postinflammatory pulmonary fibrosis [facility]* Diagnosis Pulmonary fibrosis (HCC)- Primary Postinflammatory pulmonary fibrosis [facility]* Diagnosis Pulmonary fibrosis (HCC)- Primary Postinflammatory pulmonary fibrosis [facility]* Diagnosis Pulmonary fibrosis (HCC) Postinflammatory pulmonary fibrosis [facility]* Diagnosis Primary pulmonary hypertension (HCC) Primary pulmonary hypertension [facility] Diagnosis Anxiety with depression- Primary Weight loss Loss of weight Epigastric pain Abdominal pain, epigastric Arthralgia of both knees Pulmonary fibrosis (HCC) Postinflammatory pulmonary fibrosis [facility]* Diagnosis Adjustment disorder with anxiety documented [facility]* Diagnosis Weight loss- Primary Loss of weight Adjustment disorder with anxiety Interstitial lung disease (HCC) Postinflammatory pulmonary fibrosis Decreased activity tolerance Generalized weakness Other malaise and fatigue documented [facility]* Diagnosis Hypercalcemia [facility] Additional Instructions 1. Edlia should take Augmentin 875 mg twice daily for 6 additional days. 2. Wick should be removed in 2 days and wound evaluate at that time.[facility] Work Phone: Reason for referral (narrative)* Outpatient Procedure (Routine) - Authorized Specialty Diagnoses / Procedures Referred By Contac t Referred To Contact [facility] Diagnoses Interstitial lung disease (HCC) Dyspnea on exertion Procedures SPIROMETRY WITH DILATOR IF OBSTRUCTED BRNCDILAT RSPSE SPMTRY PRE&POST-BRNCDILAT ADMN SPMTRY W/VC EXPIRATORY VAL W/WO MXML VOL VNTJ Angie Kaba PA-C [address] [place] [address] [facility] [place] [address] [place] [address] Referral ID Status Reason Start Date Expiration Date Visits Requested Visits Authorized [id number] Authorized Auto-Generat ed Referral 2 07/26/2022 1 1 * Outpatient Procedure (Routine) - Authorized Specialty Diagnoses / Procedures Referred By Contac t Referred To [facility] [place] Diagnoses Interstitial lung disease (HCC) Dyspnea on exertion Procedures SIX MINUTE WALK CARDIOPULMONARY EXERCISE STRESS PULMONARY STRESS TESTING Angie Kaba PA-C [address] [place] [address] [address] Referral ID Status Reason Start Date Expiration Date Visits Requested Visits Authorized [id number] Authorized Auto-Generat ed Referral 2 07/26/2022 1 1 * Outpatient Procedure (Routine) - Authorized Specialty Diagnoses / Procedures Referred By Contac t Referred To [facility]3] Diagnoses Interstitial lung disease (HCC) Dyspnea on exertion Procedures OXIMETRY WITH AMBULATION NONINVASIVE EAR/PULSE OXIMETRY MULTIPLE DETER Angie Kaba PA-C [address] [place] [address] [address] Referral ID Status Reason Start Date Expiration Date Visits Requested Visits Authorized [id number] Authorized Auto-Generat ed Referral 2 07/26/2022 1 1 * Outpatient Procedure (Routine) - Authorized Specialty Diagnoses / Procedures Referred By Contac t Referred To [facility]3] Diagnoses Interstitial lung disease (HCC) Dyspnea on exertion Procedures LUNG DIFFUSION CAPACITY (DLCO) DIFFUSING CAPACITY Angie Kaba PA-C [address] [place] [address] [address] Referral ID Status Reason Start Date Expiration Date Visits Requested Visits Authorized [id number] Authorized Auto-Generat ed Referral 2 07/26/2022 1 1 * Outpatient Procedure (Routine) - Authorized Specialty Diagnoses / Procedures Referred By Contac t Referred To Contact [facility] [place] Diagnoses Interstitial lung disease (HCC) Dyspnea on exertion Procedures LUNG VOLUMES PLETHYSMOGRAPHY LUNG VOLUMES W/WO AIRWAY RESIST GAS DILUT/WASHOUT LUNG VOL W/WO DISTRIB VENT&VOL AIRWAY RESISTANCE BY IMPULSE OSCILLOMETRY Angie Kaba PA-C [address] [place] [address] [address] Referral ID Status Reason Start Date Expiration Date Visits Requested Visits Authorized [id number] Authorized Auto-Generat ed Referral 07/26/2022 1 1 T [facility] for referral (narrative)* Outpatient Procedure (Routine) - Authorized Specialty Diagnoses / Procedures Referred By Contac t Referred To [facility] [place] Diagnoses IPF (idiopathic pulmonary fibrosis) ([facility]) Procedures OXIMETRY WITH AMBULATION NONINVASIVE EAR/PULSE OXIMETRY MULTIPLE Mary Duong MD [address] [place] [address] [address] Referral ID Status Reason Start Date Expiration Date Visits Requested Visits Authorized [id number] Authorized Auto-Generat ed Referral 03/03/2023 04/01/2024 1 1 T [facility] for referral (narrative)No reason for referral information availableWCleveland Clinic Foundation Work Phone: Reason for visit Narrative* Outpatient Procedure (Routine) - Closed Specialty Diagnoses / Procedures Referred By Contac t Referred To [facility] [place] Diagnoses Pulmonary fibrosis (HCC) Procedures SIX MINUTE WALK CARDIOPULMONARY EXERCISE STRESS PULMONARY STRESS TESTING Vipin Carlisle MD [address] [place] [address] [address] Referral ID Status Reason Start Date Expiration Date V isits Requested Visits Authorized [id number] Closed Auto-Generate d Referral 09/11/2023 07/26/2024 1 1 [facility]* Diagnostic Procedure Only (Routine) - Closed Specialty Diagnoses / Procedures Referred By Shant villanueva Referred To Contact Radiology / [facility] Diagnoses Hypercalcemia Hypercalcemia [E83.52] Procedures X-RAY EXAM CHEST 2 VIEWS TC XR CHEST Anige Kaba PA-C [address] [place] [address] [facility] [address] [place] [address] Referral ID Status Reason Start Date Expiration Date Visits Re quested Visits Authorized [id number] Closed 05/05/2022 07/26/2022 1 1 [facility] Summary Purpose Family History No Family History Records FoundNo Family History Records FoundNo Family History Records FoundNo Family History Records Found Advance Directives No Advanced Directives Records FoundDocuments on File Type Date Recorded Patient Offensive Coordinator Expl anation Advance Directive(s) 12/31/2020 8:12 AM Advance Directive(s) 12/21/2020 1:43 PM Advance Directive(s) 11/06/2020 12:10 PM Advance Directive(s) 11/19/2015 10:28 AM Advance Directive Response Recorded Date/ Time Living Will No May 14 8:52pm Power of Hair Or Beauty Salon Manager No May 14, 2022 8:52pm Advance Directive Response Recorded Date/ Time Living Will Yes January 25, 2023 4 :49pm Power of Hair Or Beauty Salon Manager Yes January 25, 2023 4:49pm Name of Medical Power of Hair Or Beauty Salon Manager Carlos Alexander January 25, 2023 4:49pm Advance Directive Response Recorded Date/ Time Living Will Yes October 13, 2024 7:25pm Do you have a Healthcare Power of Hair Or Beauty Salon Manager? Yes October 13, 2024 7:25pm Name of Medical Power of Hair Or Beauty Salon Manager Angela Oakes October 13, 2024 7:25pm Chief Complaint and Reason for Visit Chief Complaint NECK PAIN Chief Complaint GENERAL ILLNESS Chief Complaint Admit Date CAT BITE October 13, 2024 6:3 2pm Reason for Referral Specialty Diagnoses / Procedures Referred By Shant villanueva Referred To Contact Pulmonary and Critical Care Medicine Diagnoses Interstitial lung disease (HCC) Dyspnea on exertion Procedures CONSULT TO PULM/CRITICAL CARE OFFICE/OUTPATIENT [facility] 60-74 MINUTES Angie Kaba PA-C [address] [place] [address] Referral ID Status Reason Start Date Expiration Date Visits Requested Visits Authorized [id number] Authorized PCP Requested Referral 2 07/12/2023 1 1 Specialty Diagnoses / Procedures Referred By Contac t Referred To Contact Podiatry Diagnoses Long toenail Procedures CONSULT TO PODIATRY OFFICE/OUTPATIENT [facility] 60-74 MINUTES Angie Kaba PA-C [address] [place] [address] Referral ID Status Reason Start Date Expiration Date Visits Requested Visits Authorized [id number] Authorized PCP Requested Referral 2 07/10/2023 1 1 Specialty Diagnoses / Procedures Referred By Contac t Referred To Contact Diagnoses Adjustment disorder with anxiety Angie Kaba PA-C [address] [place] [id number] Referral ID Status Reason Start Date Expiration Date V isits Requested Visits Authorized [id number] Pending Review 1 1 Specialty Diagnoses / Procedures Referred By Contac t Referred To Contact PULMONARY MEDICINE Diagnoses IPF (idiopathic pulmonary fibrosis) (HCC) Procedures SPIROMETRY WITH DILATOR IF OBSTRUCTED SPIROMETRY BEFORE/AFTER BRONCHODILATORS Mary Nettles MD [address] [place] [address] [facility] [address] [place] [address] Referral ID Status Reason Start Date Expiration Date V isits Requested Visits Authorized [id number] Closed PCP Requested Referral 10/18/2020 01/16/2021 3 3 Specialty Diagnoses / Procedures Referred By Contac t Referred To Contact Pulmonary and Critical Care Medicine Diagnoses Pulmonary fibrosis (HCC) Procedures CONSULT TO PULM/CRITICAL CARE OFFICE/OUTPATIENT [facility] 60-74 MINUTES Angie Kaba PA-C [address] [place] [address] Referral ID Status Reason Start Date Expiration Date Visits Requested Visits Authorized [id number] Authorized PCP Requested Referral 06/30/2023 06/29/2024 1 1 Specialty Diagnoses / Procedures Referred By Contac t Referred To Contact CT IMAGING Diagnoses Unintentional weight loss of 10% body weight within [address] ABD/PEL WO IVCON CT ABD & PELVIS W/O CONTRAST Angie Kaba PA-C [address] [place] [address] Ct Imaging [id number] Referral ID Status Reason Start Date Expiration Date Visits Requested Visits Authorized [id number] Pending Review Auto-Generat ed Referral 06/30/2023 07/29/2024 1 1 Specialty Diagnoses / Procedures Referred By Contac t Referred To Contact CT IMAGING Diagnoses Pulmonary fibrosis (HCC) Unintentional weight loss of 10% body weight within [address] CHEST WO IVCON DIAGNOSTIC COMPUTED TOMOGRAPHY THORAX W/O CNTRST Angie Kaba PA-C [address] [place] [address] Ct Imaging [id number] Referral ID Status Reason Start Date Expiration Date Visits Requested Visits Authorized [id number] Pending Review Auto-Generat ed Referral 06/30/2023 07/29/2024 1 1 Specialty Diagnoses / Procedures Referred By Contac t Referred To Contact Diagnoses Pulmonary fibrosis (HCC) Procedures CONSULT TO PULMONARY HYPERTENSION CLINIC OFFICE/OUTPATIENT [facility] 60 MINUTES Vipin Carlisle MD [address] [place] [address] Referral ID Status Reason Start Date Expiration Date Visits Requested Visits Authorized [id number] Pending Review PCP Requested Referral 08/27/2023 08/26/2024 1 1 Specialty Diagnoses / Procedures Referred By Contac t Referred To Contact [facility] Diagnoses Pulmonary fibrosis (HCC) Procedures SIX MINUTE WALK CARDIOPULMONARY EXERCISE STRESS Vipin Carlisel MD [address] [place] [address] [facility] [place] 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) Procedures ECHO ECHO TTHRC R-T 2D W/WOM-MODE COMPL SPEC&COLR D Vipin Carlisle MD [address] [place] [address] [facility] [address] [address] Referral ID Status Reason Start Date Expiration Date Visits Requested Visits Authorized [id number] Pending Review Auto-Generat ed Referral 08/27/2023 08/26/2024 1 1 Specialty Diagnoses / Procedures Referred By Contac t Referred To Contact Diagnoses Anxiety with depression Isabel High APRN.[employer] [address] [place] [address] Referral ID Status Reason Start Date Expiration Date V isits Requested Visits Authorized [id number] Authorized 09/28/2023 10/11/2024 1 1 Specialty Diagnoses / Procedures Referred By Contac t Referred To Contact Diagnoses Adjustment disorder with anxiety Procedures CONSULT TO PSYCHIATRY OFFICE/OUTPATIENT [facility] 60 MINUTES Rusty Roberts MD [address] [place] [address] Referral ID Status Reason Start Date Expiration Date Visits Requested Visits Authorized [id number] Pending Review PCP Requested Referral 11/06/2023 11/05/2024 1 1 Additional Source Comments INFORMATION SOURCE (unrecogn ized section and content) DATE CREATED AUTHOR 09/14/2018 [facility] DATE CREATED AUTHOR AUTHOR'S ORGANIZ ATION 10/20/2023 [facility] DATE CREATED AUTHOR AUTHOR'S ORGANIZ ATION 04/29/2024 [facility] DATE CREATED AUTHOR AUTHOR'S ORGANIZ ATION 12/25/2024 [facility] Source Comments (unrecognize d section and content) In the event this informatio n is protected by the Federal Confidentiality of Alcohol and Drug Abuse Patient Records regulations: The Federal rules restrict any use of the information to criminally investigate or prosecute any alcohol or drug abuse patient.[facility] the event this information is protected by the Federal Confidentiality of Alcohol and Drug Abuse Patient Records regulations: The Federal rules restrict any use of the information to criminally investigate or prosecute any alcohol or drug abuse patient.[facility] the event this information is protected by the Federal Confidentiality of Alcohol and Drug Abuse Patient Records regulations: The Federal rules restrict any use of the information to criminally investigate or prosecute any alcohol or drug abuse patient.[facility] Hospital[facility] the event this information is protected by the Federal Confidentiality of Alcohol and Drug Abuse Patient Records regulations: The Federal rules restrict any use of the information to criminally investigate or prosecute any alcohol or drug abuse patient.[facility] Hospital[facility] the event this information is protected by the Federal Confidentiality of Alcohol and Drug Abuse Patient Records regulations: The Federal rules restrict any use of the information to criminally investigate or prosecute any alcohol or drug abuse patient.[facility] HospitalIn the event this information is protected by the Federal Confidentiality of Alcohol and Drug Abuse Patient Records regulations: The Federal rules restrict any use of the information to criminally investigate or prosecute any alcohol or drug abuse patient.[facility] HospitalIn the event this information is protected by the Federal Confidentiality of Alcohol and Drug Abuse Patient Records regulations: The Federal rules restrict any use of the information to criminally investigate or prosecute any alcohol or drug abuse patient.[facility] HospitalIn the event this information is protected by the Federal Confidentiality of Alcohol and Drug Abuse Patient Records regulations: The Federal rules restrict any use of the information to criminally investigate or prosecute any alcohol or drug abuse patient.[facility] HospitalIn the event this information is protected by the Federal Confidentiality of Alcohol and Drug Abuse Patient Records regulations: The Federal rules restrict any use of the information to criminally investigate or prosecute any alcohol or drug abuse patient.[facility] HospitalIn the event this information is protected by the Federal Confidentiality of Alcohol and Drug Abuse Patient Records regulations: The Federal rules restrict any use of the information to criminally investigate or prosecute any alcohol or drug abuse patient.[facility] HospitalIn the event this information is protected by the Federal Confidentiality of Alcohol and Drug Abuse Patient Records regulations: The Federal rules restrict any use of the information to criminally investigate or prosecute any alcohol or drug abuse patient.[facility] HospitalIn the event this information is protected by the Federal Confidentiality of Alcohol and Drug Abuse Patient Records regulations: The Federal rules restrict any use of the information to criminally investigate or prosecute any alcohol or drug abuse patient.[facility] HospitalIn the event this information is protected by the Federal Confidentiality of Alcohol and Drug Abuse Patient Records regulations: The Federal rules restrict any use of the information to criminally investigate or prosecute any alcohol or drug abuse patient.[facility] HospitalIn the event this information is protected by the Federal Confidentiality of Alcohol and Drug Abuse Patient Records regulations: The Federal rules restrict any use of the information to criminally investigate or prosecute any alcohol or drug abuse patient.[facility] HospitalIn the event this information is protected by the Federal Confidentiality of Alcohol and Drug Abuse Patient Records regulations: The Federal rules restrict any use of the information to criminally investigate or prosecute any alcohol or drug abuse patient.[facility] HospitalIn the event this information is protected by the Federal Confidentiality of Alcohol and Drug Abuse Patient Records regulations: The Federal rules restrict any use of the information to criminally investigate or prosecute any alcohol or drug abuse patient.[facility] HospitalIn the event this information is protected by the Federal Confidentiality of Alcohol and Drug Abuse Patient Records regulations: The Federal rules restrict any use of the information to criminally investigate or prosecute any alcohol or drug abuse patient.[facility] HospitalIn the event this information is protected by the Federal Confidentiality of Alcohol and Drug Abuse Patient Records regulations: The Federal rules restrict any use of the information to criminally investigate or prosecute any alcohol or drug abuse patient.[facility] HospitalIn the event this information is protected by the Federal Confidentiality of Alcohol and Drug Abuse Patient Records regulations: The Federal rules restrict any use of the information to criminally investigate or prosecute any alcohol or drug abuse patient.[facility] HospitalIn the event this information is protected by the Federal Confidentiality of Alcohol and Drug Abuse Patient Records regulations: The Federal rules restrict any use of the information to criminally investigate or prosecute any alcohol or drug abuse patient.[facility] HospitalIn the event this information is protected by the Federal Confidentiality of Alcohol and Drug Abuse Patient Records regulations: The Federal rules restrict any use of the information to criminally investigate or prosecute any alcohol or drug abuse patient.[facility] HospitalIn the event this information is protected by the Federal Confidentiality of Alcohol and Drug Abuse Patient Records regulations: The Federal rules restrict any use of the information to criminally investigate or prosecute any alcohol or drug abuse patient.[facility] HospitalIn the event this information is protected by the Federal Confidentiality of Alcohol and Drug Abuse Patient Records regulations: The Federal rules restrict any use of the information to criminally investigate or prosecute any alcohol or drug abuse patient.[facility] HospitalIn the event this information is protected by the Federal Confidentiality of Alcohol and Drug Abuse Patient Records regulations: The Federal rules restrict any use of the information to criminally investigate or prosecute any alcohol or drug abuse patient.[facility] HospitalIn the event this information is protected by the Federal Confidentiality of Alcohol and Drug Abuse Patient Records regulations: The Federal rules restrict any use of the information to criminally investigate or prosecute any alcohol or drug abuse patient.[facility] HospitalIn the event this information is protected by the Federal Confidentiality of Alcohol and Drug Abuse Patient Records regulations: The Federal rules restrict any use of the information to criminally investigate or prosecute any alcohol or drug abuse patient.[facility] HospitalIn the event this information is protected by the Federal Confidentiality of Alcohol and Drug Abuse Patient Records regulations: The Federal rules restrict any use of the information to criminally investigate or prosecute any alcohol or drug abuse patient.[facility] HospitalIn the event this information is protected by the Federal Confidentiality of Alcohol and Drug Abuse Patient Records regulations: The Federal rules restrict any use of the information to criminally investigate or prosecute any alcohol or drug abuse patient.[facility] HospitalIn the event this information is protected by the Federal Confidentiality of Alcohol and Drug Abuse Patient Records regulations: The Federal rules restrict any use of the information to criminally investigate or prosecute any alcohol or drug abuse patient.[facility] HospitalIn the event this information is protected by the Federal Confidentiality of Alcohol and Drug Abuse Patient Records regulations: The Federal rules restrict any use of the information to criminally investigate or prosecute any alcohol or drug abuse patient.[facility] HospitalIn the event this information is protected by the Federal Confidentiality of Alcohol and Drug Abuse Patient Records regulations: The Federal rules restrict any use of the information to criminally investigate or prosecute any alcohol or drug abuse patient.[facility]In the event this information is protected by the Federal Confidentiality of Alcohol and Drug Abuse Patient Records regulations: The Federal rules restrict any use of the information to criminally investigate or prosecute any alcohol or drug abuse patient.[facility] HospitalIn the event this information is protected by the Federal Confidentiality of Alcohol and Drug Abuse Patient Records regulations: The Federal rules restrict any use of the information to criminally investigate or prosecute any alcohol or drug abuse patient.[facility] HospitalIn the event this information is protected by the Federal Confidentiality of Alcohol and Drug Abuse Patient Records regulations: The Federal rules restrict any use of the information to criminally investigate or prosecute any alcohol or drug abuse patient.[facility] HospitalIn the event this information is protected by the Federal Confidentiality of Alcohol and Drug Abuse Patient Records regulations: The Federal rules restrict any use of the information to criminally investigate or prosecute any alcohol or drug abuse patient.[facility] HospitalIn the event this information is protected by the Federal Confidentiality of Alcohol and Drug Abuse Patient Records regulations: The Federal rules restrict any use of the information to criminally investigate or prosecute any alcohol or drug abuse patient.[facility] HospitalIn the event this information is protected by the Federal Confidentiality of Alcohol and Drug Abuse Patient Records regulations: The Federal rules restrict any use of the information to criminally investigate or prosecute any alcohol or drug abuse patient.[facility] HospitalIn the event this information is protected by the Federal Confidentiality of Alcohol and Drug Abuse Patient Records regulations: The Federal rules restrict any use of the information to criminally investigate or prosecute any alcohol or drug abuse patient.[facility] HospitalIn the event this information is protected by the Federal Confidentiality of Alcohol and Drug Abuse Patient Records regulations: The Federal rules restrict any use of the information to criminally investigate or prosecute any alcohol or drug abuse patient.[facility] HospitalIn the event this information is protected by the Federal Confidentiality of Alcohol and Drug Abuse Patient Records regulations: The Federal rules restrict any use of the information to criminally investigate or prosecute any alcohol or drug abuse patient.[facility] HospitalIn the event this information is protected by the Federal Confidentiality of Alcohol and Drug Abuse Patient Records regulations: The Federal rules restrict any use of the information to criminally investigate or prosecute any alcohol or drug abuse patient.[facility] HospitalIn the event this information is protected by the Federal Confidentiality of Alcohol and Drug Abuse Patient Records regulations: The Federal rules restrict any use of the information to criminally investigate or prosecute any alcohol or drug abuse patient.[facility] HospitalIn the event this information is protected by the Federal Confidentiality of Alcohol and Drug Abuse Patient Records regulations: The Federal rules restrict any use of the information to criminally investigate or prosecute any alcohol or drug abuse patient.[facility] HospitalIn the event this information is protected by the Federal Confidentiality of Alcohol and Drug Abuse Patient Records regulations: The Federal rules restrict any use of the information to criminally investigate or prosecute any alcohol or drug abuse patient.[facility] HospitalIn the event this information is protected by the Federal Confidentiality of Alcohol and Drug Abuse Patient Records regulations: The Federal rules restrict any use of the information to criminally investigate or prosecute any alcohol or drug abuse patient.[facility] HospitalIn the event this information is protected by the Federal Confidentiality of Alcohol and Drug Abuse Patient Records regulations: The Federal rules restrict any use of the information to criminally investigate or prosecute any alcohol or drug abuse patient.[facility] HospitalIn the event this information is protected by the Federal Confidentiality of Alcohol and Drug Abuse Patient Records regulations: The Federal rules restrict any use of the information to criminally investigate or prosecute any alcohol or drug abuse patient.[facility] HospitalIn the event this information is protected by the Federal Confidentiality of Alcohol and Drug Abuse Patient Records regulations: The Federal rules restrict any use of the information to criminally investigate or prosecute any alcohol or drug abuse patient.[facility] HospitalIn the event this information is protected by the Federal Confidentiality of Alcohol and Drug Abuse Patient Records regulations: The Federal rules restrict any use of the information to criminally investigate or prosecute any alcohol or drug abuse patient.[facility] HospitalIn the event this information is protected by the Federal Confidentiality of Alcohol and Drug Abuse Patient Records regulations: The Federal rules restrict any use of the information to criminally investigate or prosecute any alcohol or drug abuse patient.[facility] HospitalIn the event this information is protected by the Federal Confidentiality of Alcohol and Drug Abuse Patient Records regulations: The Federal rules restrict any use of the information to criminally investigate or prosecute any alcohol or drug abuse patient.[facility] HospitalIn the event this information is protected by the Federal Confidentiality of Alcohol and Drug Abuse Patient Records regulations: The Federal rules restrict any use of the information to criminally investigate or prosecute any alcohol or drug abuse patient.[facility] HospitalIn the event this information is protected by the Federal Confidentiality of Alcohol and Drug Abuse Patient Records regulations: The Federal rules restrict any use of the information to criminally investigate or prosecute any alcohol or drug abuse patient.[facility] HospitalIn the event this information is protected by the Federal Confidentiality of Alcohol and Drug Abuse Patient Records regulations: The Federal rules restrict any use of the information to criminally investigate or prosecute any alcohol or drug abuse patient.[facility] Reason for Visit (unrecogniz ed section and content) Reason Onset Date Comments Refill Request 01/13/2022 Reason Comments Fatigue Shortness of Breath Reason Comments Spirometry Specialty Diagnoses / Procedures Referred By Contac t Referred To [facility] Diagnoses Interstitial lung disease (HCC) Dyspnea on exertion Procedures SIX MINUTE WALK CARDIOPULMONARY EXERCISE STRESS PULMONARY STRESS TESTING Angie Kaba PA-C [address] [place] [address] [address] Referral ID Status Reason Start Date Expiration Date V isits Requested Visits Authorized [id number] Closed Auto-Generate d Referral 05/05/2022 07/26/2022 1 1 Specialty Diagnoses / Procedures Referred By Contac t Referred To Contact [facility] Diagnoses Interstitial lung disease (HCC) Dyspnea on exertion Procedures LUNG VOLUMES PLETHYSMOGRAPHY LUNG VOLUMES W/WO AIRWAY RESIST GAS DILUT/WASHOUT LUNG VOL W/WO DISTRIB VENT&VOL AIRWAY RESISTANCE BY IMPULSE OSCILLOMETRY Angie Kaba PA-C [address] [place] [address] [address] Referral ID Status Reason Start Date Expiration Date V isits Requested Visits Authorized [id number] Closed Auto-Generate d Referral 05/05/2022 07/26/2022 1 1 Reason Comments Results Reason Comments Patient Update Reason Comments ER F/U Reason Comments Patient Update Patient Request Reason Comments Physical Transfer care Fatigue Increased weakness Dizziness Specialty Diagnoses / Procedures Referred By Contac t Referred To Contact Family Medicine / FAMILY MEDICINE Diagnoses Physical/Establish Care Procedures 4C EST WELL Angie Kaba PA-C [address] [place] [address] Angie Kaba PA-C [id number] [place] [address] Referral ID Status Reason Start Date Expiration Date V isits Requested Visits Authorized [id number] Authorized 07/10/2022 08/10/2022 2 2 Reason Comments GERD Reason Comments Follow Up Reason Comments Orders Reason Comments Results Orders Reason Comments Patient Update Appointment Request Reason Comments Depression Anxiety Reason Comments Established Patient IPF Specialty Diagnoses / Procedures Referred By Contac t Referred To Contact Pulmonary and Critical Care Medicine / PULMONARY MEDICINE Diagnoses Interstitial lung disease (HCC) Dyspnea on exertion Procedures CONSULT TO PULM/CRITICAL CARE OFFICE/OUTPATIENT [facility] 60-74 MINUTES Angie Kaba PA-C [address] [place] [address] [facility] [address] [place] [address] Referral ID Status Reason Start Date Expiration Date V isits Requested Visits Authorized [id number] Closed PCP Requested Referral 07/12/2022 07/12/2023 1 1 Reason Comments Insurance Authorization Diazepam Specialty Diagnoses / Procedures Referred By Contac t Referred To Contact [facility] Diagnoses IPF (idiopathic pulmonary fibrosis) (HCC) Procedures OXIMETRY WITH AMBULATION NONINVASIVE EAR/PULSE OXIMETRY Mary Gonsales MD [address] [place] [address] [facility] [place] [address] [place] [address] Referral ID Status Reason Start Date Expiration Date V isits Requested Visits Authorized [id number] Closed Auto-Generate d Referral 03/03/2023 04/01/2024 1 1 Reason Onset Date Comments Refill Request 05/19/2023 Reason Comments Medication Question Reason Comments Follow Up Reason Comments New Patient Specialty Diagnoses / Procedures Referred By Contac t Referred To Contact Pulmonary and Critical Care Medicine Diagnoses Pulmonary fibrosis (HCC) Procedures CONSULT TO PULM/CRITICAL CARE OFFICE/OUTPATIENT [facility] 60-74 MINUTES Angie Kaba PA-C [address] [place] [address] Referral ID Status Reason Start Date Expiration Date V isits Requested Visits Authorized [id number] Closed PCP Requested Referral 06/30/2023 06/29/2024 1 1 Reason Comments Appointment Pulmonary Rehab Eval Reason Comments Pulse Oximetry Summary Report [facility] Reason Comments [employer] - Other Reason Comments Pulm Rehab Initial Assessment Specialty Diagnoses / Procedures Referred By Contac t Referred To Contact Exercise Physiology / CARD PULM REHAB TRENT Diagnoses Pulmonary Fibrosis Procedures PULM REHAB ENTRY Vipin Carlisle MD [address] [place] [address] [facility] [address] [place] [address] Referral ID Status Reason Start Date Expiration Date V isits Requested Visits Authorized [id number] Closed Patient Cleared - INN Insurance Found 10/02/2023 12/29/2023 1 1 Specialty Diagnoses / Procedures Referred By Contac t Referred To Contact [facility] Diagnoses Pulmonary Fibrosis Procedures PULMONARY REHABILITATION RECOMMENDED Vipin Carlisle MD [address] [place] [id number] [facility] [address] [place] [address] Referral ID Status Reason Start Date Expiration Date Visits Requested Visits Authorized [id number] Authorized Patient Cleared - INN Insurance Found 10/05/2023 12/29/2023 18 18 Specialty Diagnoses / Procedures Referred By Contac t Referred [facility] Contact [facility] Diagnoses Primary pulmonary hypertension (HCC) Procedures LUNG VOLUMES PLETHYSMOGRAPHY LUNG VOLUMES W/WO AIRWAY RESIST Minda Olsen, PRINTED CIRCUIT PHOTOGRAPHER.[employer] [address] [place] [id number] [facility] [place] [address] [place], [place] [id number] Referral ID Status Reason Start Date Expiration Date V isits Requested Visits Authorized [id number] Closed Auto-Generate d Referral 09/23/2023 07/26/2024 1 1 Specialty Diagnoses / Procedures Referred By Contac t Referred To Contact [facility] Diagnoses Primary pulmonary hypertension (HCC) Procedures SPIROMETRY WITH DILATOR IF OBSTRUCTED BRNCDILAT RSPSE SPMTRY PRE&POST-BRNCDILAT ADMN Minda Olsen, PRINTED CIRCUIT PHOTOGRAPHER.[employer] [address] [address] [facility] [place] [address] [place], [place] [id number] Referral ID Status Reason Start Date Expiration Date V isits Requested Visits Authorized [id number] Closed Auto-Generate d Referral 09/23/2023 07/26/2024 1 1 Reason Comments Recheck Specialty Diagnoses / Procedures Referred By Shant villanueva Referred To Contact CARDIOLOGY Diagnoses Pulmonary fibrosis (HCC) Procedures CONSULT TO PULMONARY HYPERTENSION CLINIC OFFICE/OUTPATIENT [facility] 60 MINUTES Vipin Carlisle MD [address] [place] [address] Card [facility] [address] [place] [address] Referral ID Status Reason Start Date Expiration Date V isits Requested Visits Authorized [id number] Closed PCP Requested Referral 07/27/2023 07/26/2024 1 1 Reason Comments Radio Gen A21 Reason Comments Rx refill; not on current med list Reason Comments Anxiety Reason Comments Insurance Authorization Reason Comments Pulm Rehab Patient dropped out of program Reason Comments Medication Problem Reason Comments Durable Medical Equipment Reason Comments Weight Loss Reason Comments Orders [facility] Teams (unrecognized sec tion and content) Grain Commodity Manager Relationship Specialty Start Date End Date Rusty Roberts MD [address] [place], [place] [id number] PCP - General Family Practice 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 Start Date End Date Rusty Roberts MD [address] [place], [place] [id number] PCP - General Family Medicine 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 Start Date End Date Rusty Roberts MD [address] [place], [place] [id number] PCP - General Family Medicine 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 Start Date End Date Rusty Roberts MD [address] [place], [place] [id number] PCP - General Family Medicine 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 Start Date End Date Rusty Roberts MD [address] [place], [place] [id number] PCP - General Family Medicine 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 Start Date End Date Rusty Roberts MD [address] [facility] [place] [address] PCP - General Family Medicine 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 Start Date End Date Rusty Roberts MD [address] [facility] [place] [address] PCP - General Family Medicine 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 Start Date End Date Rusty Roberts MD [address] [facility] [place] [place] [address] PCP - General Family Medicine 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 Start Date End Date Rusty Roberts MD [address] [facility] [place] [place] [address] PCP - General Family Medicine 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 Start Date End Date Rusty Roberts MD [address] [facility] [place] [place] [address] PCP - General Family Medicine 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 Start Date End Date Rusty Roberts MD [address] [facility] [place] [place] [address] PCP - General Family Medicine 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 Start Date End Date Rusty Roberts MD [address] [facility] [place] [address] PCP - General Family Medicine 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 Start Date End Date Rusty Roberts MD [address] [facility] [place] [place] [address] PCP - General Family Medicine 01/08/18 Team Status: Active Member Role Status Dates Dr. Madan Paul MD Family Provider Active Dr. Rusty Roberts MD Primary Care Provider Active Team Status: Inactive Member Role Status Dates Dr. Rusty Roberts MD Primary Care Provider Active Dr. Alcides Diego MD Emergency Provider Active Grain Commodity Manager Relationship Specialty Start Date End Date Rusty Roberts MD [address] [facility] [place] [address] PCP - General Family Medicine 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 Start Date End Date Rusty Roberts MD [address] [facility] [place] [address] PCP - General Family Medicine 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 Start Date End Date Rusty Roberts MD [address] [facility] [place] [place] [address] PCP - General Family Medicine 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 Start Date End Date Rusty Roberts MD [address] [facility] [place] [place] [address] PCP - General Family Medicine 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 Start Date End Date Rusty Roberts MD [address] [facility] [place] [place] [address] PCP - General Family Medicine 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 Start Date End Date Rusty Roberts MD [address] [facility] [place] [place] [address] PCP - General Family Medicine 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 Start Date End Date Rusty Roberts MD [address] [facility] [place] [place] [address] PCP - General Family Medicine 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 Start Date End Date Rusty Roberts MD [address] [facility] [place] [place] [address] PCP - General Family Medicine 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 Start Date End Date Rusty Roberts MD [address] [place] [address] PCP - General Family Medicine 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 Start Date End Date Rusty Roberts MD [address] [place] [address] PCP - General Family Medicine 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 Start Date End Date Rusty Roberts MD [address] [place] [address] PCP - General Family Medicine 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 Start Date End Date Rusty Roberts MD [address] [place] [address] PCP - General Family Medicine 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 Start Date End Date Rusty Roberts MD [address] [facility] [place] [address] PCP - General Family Medicine 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 Start Date End Date Rusty Roberts MD [address] [facility] [place] [place] [address] PCP - General Family Medicine 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 Start Date End Date Rusty Roberts MD [address] [place] [address] PCP - General Family Medicine 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 Start Date End Date Rusty Roberts MD [address] [place] [address] PCP - General Family Medicine 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 Start Date End Date Rusty Roberts MD [address] [place] [address] PCP - General Family Medicine 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 Start Date End Date Rusty Roberts MD [address] [place] [address] PCP - General Family Medicine 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 Start Date End Date Rusty Roberts MD [address] [place] [address] PCP - General Family Medicine 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 Start Date End Date Rusty Roberts MD [address] [place] [address] PCP - General Family Medicine 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 Start Date End Date Rusty Roberts MD [address] [place] [address] PCP - General Family Medicine 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 Start Date End Date Rusty Roberts MD [address] [place], [place] [id number] PCP - General Family Medicine 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 Start Date End Date Rusty Roberts MD [address] [place], [place] [address] PCP - General Family Medicine 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 Start Date End Date Rusty Roberts MD [address] [place], [place] [address] PCP - General Family Medicine 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 Alcides Diego MD Emergency Provider Active Sta rt: October 13, 2024 End: October 13, 2024 ROMEL Vargas Primary Care Provider Active Start: October 13, 2024 End: October 13, 2024 Goals (unrecognized section and content) Goals may be documented in a n alternate sectionGoals may be documented in an alternate sectionGoals may be documented in an alternate section FOR RECORDS PERTAINING TO PATIENTS WHO ARE OR HAVE BEEN ENROLLED IN A CHEMICAL DEPENDENCY/SUBSTANCEABUSE PROGRAM, SOME INFORMATION MAY BE OMITTED. This clinical summary was aggregated from multiple sources. Caution should be exercised in using it in the provision of clinical care. This summary normalizes information from multiple sources, and as a consequence, information in this document may materially change the coding, format and clinical context of patient data. In addition, data may be omitted in some cases. CLINICAL DECISIONS SHOULD BE BASED ON THE PRIMARY CLINICAL RECORDS. [facility] [employer] [facility] provides no warranty or guarantee of the accuracy or completeness of information in this document.
--- NOTE | 2025-04-08 20:25 | CM.ED ---
Social Work Date of referral: 04/08/25 Reason for referral: No Advanced Care Directives (ACD's) on file. Referred by: Social Work Identification Patient provided consent to social work visit. Tax Appraiser requested patient to bring in a copy of ACD's which patient agreed to do. Lucero Cohen, INSULATION MACHINE OPERATOR, NURSE'S COMPANION
[2025-04-08 20:28] LABS: Hematocrit 25.5 % (37-47); Hemoglobin 8.0 g/dL (12.0-15.0); Immature Granulocytes Count 0.030 X10^3/uL (0.0-0.0); Mean Corp Hgb Conc 31.4 g/dL (32-36); Mean Corpuscular Volume 100.4 fL (81-99); Mean Platelet Vol. 10.6 fl (6.2-12.0); NRBC Flagged by Analyzer 0 % (0-5); Platelet Count 128 K/mm3 (150-450); RBC Distribution Width CV 12.6 % (11.6-14.6); RBC Distribution Width SD 46.3 fl (35.1-43.9); Red Blood Count 2.54 M/mm3 (4.2-5.4); White Blood Count 5.8 K/mm3 (4.4-11.0)
[2025-04-08 20:31] LABS: Lipase 60 U/L (13-75)
[2025-04-08 20:34] LABS: AST(SGOT) 28 U/L (<=31); Alanine Aminotransfer ALT/SGPT 12 U/L (<=34); Albumin, Serum 4.0 g/dL (3.4-4.8); Alkaline Phosphatase 96 U/L (35-104); Anion Gap 9 (5-15); BUN 17 mg/dL (4-19); BUN/Creat Ratio 18.1 RATIO (10-20); Calcium,Total 9.2 mg/dL (7.6-11.0); Carbon Dioxide 32.4 mmol/L (21.0-32.0); Chloride 95 mmol/L (98-108); Estimated Creatinine Clearance 36.42 ml/min (50-250); Globulin 3.4 g/dL (2.2-4.2); Glucose 122 mg/dL (70-99); Potassium 5.0 mmol/L (3.3-5.1)
[2025-04-08 20:35] LABS: Color, Urine Straw (Yellow); Glucose, Dipstick Normal (Normal); Ketone-Dipstick Negative (Negative); Leukocyte Esterase-Dipstick 25 /ul (Negative); Nitrite-Dipstick Negative (Negative); Occult Blood-Urine 25 /ul (Negative); Protein-Dipstick 15 mg/dl (Negative); Specific Gravity, Urine 1.010 (1.002-1.030); Urine Bilirubin Dipstick Negative (Negative)
[2025-04-08 21:34] LABS: Red Blood Cells-Urine 0-5 SEEN /hpf (0-5)
[2025-04-08 21:36] LABS: Squamous Epithelial Cells - UA 0-5 SEEN /hpf (5-10); Transitional Epithelial - Ur 0-5 SEEN /hpf (0-5)
--- NOTE | 2025-04-08 22:26 | ED.RN ---
[facility]
== END 2025-04-08 22:28 | disposition home or self-care (01) ==
PROVIDERS: Emergency Provider Emergency Medicine; PCP Nurse Practitioner Primary Care; Visit Provider Emergency Medicine
DX: R10.9 Unspecified abdominal pain (principal); C79.9 Secondary malignant neoplasm of unspecified site; E11.22 Type 2 diabetes mellitus with diabetic chronic kidney disease; N18.9 Chronic kidney disease, unspecified; D64.9 Anemia, unspecified
CPT/HCPCS: 74177; 80053; 81001; 83690; 85025; 96361; 96374; 96375; 99283; Q9967; A4216; J2405